=== PATIENT | female | born 1935 | race Caucasian/White ===

== ENCOUNTER 2017-07-06 21:46 | Inpatient (IN) ==
--- OUTSIDE RECORDS SUMMARY | 2017-07-06 21:58 | External Medical Summary | Summary of Care ---
:1935 Author Name Michelle Wiseman M.D. Address Unavailable Unavailable , Care Team Providers Name Role Phone Lauren Do M.D. Unavailable Unavailable Michelle Wiseman M.D. Unavailable Unavailable Bal Wiseman Unavailable Unavailable Unavailable Unavailable Unavailable Functional Status Functional Status Health Issues Name Dates Details Functional status health issues are not documented Status: Cognitive Status Health Issues Name Dates Details Cognitive status health issues are not documented Status: Problems Name Dates Details Anxiety (300.00, F41.9) Status: Active Cerebral artery occlusion (434.90, I66.9) Status: Active Coronary artery disease (414.00, I25.10) Status: Active Memory loss (780.93, R41.3) Status: Active Lymphedema of leg (457.1, I89.0) Status: Active TIA on medication (435.9, G45.9) Status: Active 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, 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 Obesity (278.00, E66.9) Status: Active Swelling of left lower extremity (729.81, M79.89) Status: Active Transient cerebral ischemia due to atrial fibrillation (435.9, G45.9) Status : Active Non smoker (V49.89, Z78.9) Status: Active Dyslipidemia (272.4, E78.5) Status: Active Cellulitis of lower leg (682.6, L03.119) Status: Active Gout (274.9, M10.9) Status: Active 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, 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 High risk medication use (V58.69, Z79.899) Status: Active 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 , 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, 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, 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: Active Flu vaccine need (V04.81, Z23) Status: Active Hypertension (401.9, I10) Status: Active Hypothyroidism (244.9, E03.9) Status: Active Type 1 diabetes mellitus (250.01, E10.9) Status: Active Gout of right wrist (274.9, M10.9) Status: Active Urinary tract infection, site unspecified (599.0, N39.0) Status: Active Peripheral neuropathy (356.9, G62.9) Status: Active Cellulitis of great toe of right foot (681.10, L03.031) Status: Active Medicare annual wellness visit, subsequent (V70.0, Z00.00) Status: Active Medications Name Dates Details Allopurinol 300 MG Oral Tablet take one tablet by mouth every day Quantity: 90 Refills: 2 Bal Wiseman M.D. Start 04-Aug-2008 Active Magnesium Oxide 400 MG Oral Tablet TAKE 1 TABLET DAILY. Refills: 0 Start 30-Jun-2007 Active Atenolol 50 MG Oral Tablet Take one tablet by mouth daily Quantity: 90 Refills: 3 Bal Wiseman M.D. Start 08-Feb-2016 Active Calcium 600/Vitamin D 600-200 MG-UNIT TABS TAKE 1 TABLET DAILY. Refills: 0 Bal Wiseman M.D. Start 30-Jun-2007 Active Phenytoin Sodium Extended 100 MG Oral Capsule TAKE 5 CAPSULES BY MOUTH EVERY NIGHT AT BEDTIME Quantity: 450 Refills: 2 Chaitanya Do M.D. Start 12-Apr-2008 Active OneTouch Ultra Blue In Vitro Strip TEST THREE TIMES A DAY Quantity: 300 Refills: 2 Bal Wiseman M.D. Start 15-Mar-2008 Active Multi-Day Vitamins TABS I po qd Refills: 0 Start 26-Feb-2008 Active Test Strips One Touch Ultra Blue Test Strips Tests TID Dx: E10.9 Quantity: 100 Refills: 11 Bal Wiseman M.D. Start 11-Sep-2009 Active Aspirin 81 MG TABS TAKE 1 TABLET DAILY. Quantity: 1 Refills: 0 Start 19-Feb-2010 Active BD Insulin Syr Ultrafine II 31G X 5/16" 1 ML Miscellaneous USE DIRECTED FOUR TIMES A DAY Quantity: 400 Refills: 2 Bal Wiseman M.D. Start 19-Jan-2016 Active Lantus 100 UNIT/ML Subcutaneous Solution INJECT 52 UNITS SUBCUTANEOUSLY EVERY NIGHT AT BEDTIME Quantity: 20 Refills: 10 Bal Wiseman M.D. Start 01-Jan-2016 Active Fish Oil 1000 MG Oral Capsule I po qid Refills: 0 Start 25-Dec-2010 Active Fenofibrate 160 MG Oral Tablet TAKE ONE TABLET BY MOUTH DAILY WITH FOOD Quantity: 90 Refills: 3 Bal Wiseman M.D. Start 14-Dec-2015 Active Tylenol 325 MG Oral Tablet prn Refills: 0 Start 25-Dec-2010 Active HydroCHLOROthiazide 50 MG Oral Tablet TAKE ONE TABLET BY MOUTH DAILY ( TAKE TWO TABLETS BY MOUTH DAILY IF LEG IS SWOLLEN) Quantity: 90 Refills: 2 Bal Wiseman M.D. Start 12-Jul-2011 Active Levothyroxine Sodium 100 MCG Oral Tablet Take one tablet by mouth daily Quantity: 1 Refills: 1 Bal Wiseman M.D. Start 14-Mar-2016 Active 90 Tablet Bottle Atorvastatin Calcium 40 MG Oral Tablet Take one tablet by mouth daily Quantity: 90 Refills: 3 Bal Wiseman M.D. Start 14-Dec-2015 Active ALPRAZolam 0.25 MG Oral Tablet TAKE ONE TABLET BY MOUTH THREE TIMES DAILY NEEDED. Quantity: 60 Refills: 0 Bal Wiseman M.D. Start 27-Jul-2012 Active Losartan Potassium 25 MG Oral Tablet Take one tablet by mouth daily Quantity: 90 Refills: 3 Bal Wiseman M.D. Start 14-Dec-2015 Active Clopidogrel Bisulfate 75 MG Oral Tablet Take one tablet by mouth daily Quantity: 90 Refills: 3 Bal Wiseman M.D. Start 14-Dec-2015 Active Klor-Con M20 20 MEQ Oral Tablet Extended Release Take one tablet by mouth daily Quantity: 90 Refills: 3 Bal Wiseman M.D. Start 14-Dec-2015 Active Glucose Meter [employer] Brand Glucose Meter with Test Strips and Lancets. Pt Tests 3x daily DX : E10.42, G99.0 Quantity: 1 Refills: 0 Bal Wiseman M.D. Start 13-Feb-2015 Active Test Strips Test strips for [employer] meter Pt Tests 3x daily DX: E10.42, G99.0 Quantity: 300 Refills: 3 Bal Wiseman M.D. Start 13-Feb-2015 Active Lancets Lancets for [employer] Glucose Meter Pt tests TID DX: E10.42, G99.0 Quantity: 300 Refills: 3 Ivone Valderrama, Bal R Start 13-Feb-2015 Active Glucose Meter One Touch Ultra Glucose Meter DX: E10.42, G99.0 Quantity: 1 Refills: 0 Ivone Valderrama, Bal R Start 13-Feb-2015 Active Lancets One Touch Ultra II Lancets Pt Tests TID DX: E10.42, G99.0 Quantity: 300 Refills: 3 Ivone Valderrama, Bal R Start 13-Feb-2015 Active HumuLIN R 100 UNIT/ML Injection Solution INJECT 20 UNITS SUBCUTANEOUSLY BEFORE BREAKFAST AND BEFORE LUNCH AND INJECT 22 UNITS BEFORE SUPPER Quantity: 3 Refills: 11 Ivone Valderrama, Bal R Start 10-Apr-2015 Active 10 ML Vial Colcrys 0.6 MG Oral Tablet 1 tab po TID x 3 days Quantity: 9 Refills: 0 Ivone Valderrama, Bal R Start 08-Apr-2016 Active Ciprofloxacin HCl - 500 MG Oral Tablet TAKE 1 TABLET EVERY 12 HOURS DAILY. 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 Replacement Procedures not documented Immunization Name Dates Details Influenza on: 07-Mar-2009 Lot #: [id number] Influenza A (H1N1) Monoval Vac SUSP on: 08-Jun-2009 Lot #: [id number] Tdap (Adacel) on: 16-Feb-2010 Lot #: [id number] Influenza on: 16-Feb-2010 Lot #: [id number] Influenza on: 22-Feb-2011 Lot #: [id number] Influenza on: 31-Jan-2012 Lot #: [id number] Pneumo (Pneumovax) on: 12-Apr-2013 Lot #: [id number] Influenza on: 12-Apr-2013 Lot #: [id number] Fluzone High-Dose SUSP on: 11-Mar-2014 Lot #: [id number] Influenza on: 05-Oct-2015 Fluzone High-Dose 0.5 ML Intramuscular Suspension Prefilled Syringe on: Lot #: [id number] Family History Mother Name Dates Details No pertinent family history Status: Active Father Name Dates Details No pertinent family history Status: Active Social History Name Dates Details - Status: Smoking Status Name Dates Details Never smoker Never smoker Vital Signs Date Test Result Details 08-Apr-2016 10:04 BP Systolic 140 mm[Hg] Status: Comments: Location: ; Position: BP Diastolic 62 mm[Hg] Status: Comments: Location: ; Position: Weight 232 lb Status: Body Mass Index Calculated 31.47 kg/m2 Status: Body Surface Area Calculated 2.27 m2 Status: Results Date Description Value Details 06-Apr-2016 08:36 CBC w/ Auto Diff 7150 Comments: Fastin hours WBC 5.5 K/uL Range: 4.5-11.0 RBC 3.63 mil/uL Range: 3.60-5.00 HGB 12.8 g/dL Range: 12.0-16.0 HCT 37.5 % Range: 36.0-48.0 MCV 103.1 fL (Above high threshold) Range: 80.0-99.0 MCH 35.1 pg (Above high threshold) Range: 27.3-32.5 MCHC 34.1 % Range: 32.0-36.0 RDW 15.4 % (Above high threshold) Range: 11.6-14.8 PLATELETS 186 K/uL Range: 150-400 MPV 7.2 fL Range: 6.0-11.0 %NEUTRO 62.1 % Range: 37.0-80.0 %LYMPHS 27.4 % Range: 13.0-50.0 %MONO 4.8 % Range: 0.0-12.0 %EOS 3.3 % Range: 0.0-7.0 %BASO 0.5 % Range: 0.0-2.5 %SYDNI 1.8 % Range: 0.0-5.0 NEUTRO 3.4 K/uL Range: 2.0-6.9 LYMPHS 1.5 K/uL Range: 0.6-3.4 MONOS 0.3 K/uL Range: 0.0-0.9 EOS 0.2 K/uL Range: 0.0-0.7 BASO 0.0 K/uL Range: 0.0-0.2 08:53 Comprehensive Metabolic Panel 1212 Comments: Fastin hours SODIUM 140 mmol/L Range: 133-144 POTASSIUM 4.2 mmol/L Range: 3.5-5.1 CHLORIDE 104 mmol/L Range: 98-110 CARBON DIOXIDE 26.8 mmol/L Range: 23.0-33.0 ANION GAP 9 mmol/L Range: 6-16 BUN 26 mg/dL (Above high Range: 7-18 threshold) CREATININE, SERUM 0.90 mg/dL Range: 0.55-1.02 BUN:CREATININE RATIO 29 EST GFR, >60 ml/min Range: >60 EST GFR, NON-AFR DOMINICAN >60 ml/min Range: >60 Comments: EST GFR is reported in ml/min per 1.73 m2 of body surface area. ----- GLUCOSE 176 mg/dL (Above high Range: 70-100 threshold) ALK PHOSPHATASE 57 U/L Range: 46-116 TOTAL BILIRUBIN 0.30 mg/dL Range: 0.20-1.00 AST 24 U/L Range: 8-35 ALT 28 U/L Range: 14-59 ALBUMIN 3.4 g/dL Range: 3.4-5.0 TOTAL PROTEIN 6.6 g/dL Range: 6.4-8.2 A/G RATIO 1.1 units Range: 1.0-1.8 CALCIUM 9.1 mg/dL Range: 8.5-10.1 08:53 LIPID PROFILE 1184 Comments: Fastin hours CHOLESTEROL 152 mg/dL Range: <200 TRIGLYCERIDES 251 mg/dL (Above high threshold) Range: 30-200 HDL Cholesterol 55 mg/dL Range: >39 NON HDL CHOLESTEROL 97 CARDIAC RSK FACTOR 2.8 units (Below low threshold) Range: 4.4-5.0 LDL - CALCULATED 47 mg/dL Range: 0-130 08:54 Urinalysis, Reflex to Microscopic or Culture PRN Comments: Fastin hours 8005 pH 5.0 Range: 5.0-7.5 SP GRAVITY 1.020 Range: 1.010-1.030 APPEARANCE CLOUDY (Abnormal) Range: Clear COLOR YELLOW Range: Straw-Yellow PROTEIN NEGATIVE mg/dL Range: Negative-Trace GLUCOSE NEGATIVE mg/dL Range: Negative KETONE NEGATIVE mg/dL Range: Negative BILIRUB NEGATIVE Range: Negative BLOOD TRACE (Abnormal) Range: Negative UROBIL 0.2 EU/dL Range: 0.2-1.0 NITRITE NEGATIVE Range: Negative LEUK LARGE (Abnormal) Range: Negative 08:54 Urine Microscopic UMIC Comments: Fastin hours WBC 21-50 /HPF (Abnormal) Range: 0-5 Comments: Specimen referred to Reference Lab for Culture----- RBC 6-10 /HPF (Abnormal) Range: 0-2 BACTERIA 2+ /HPF (Abnormal) Range: Negative-Trace EPITH 6-10 /HPF Range: 0-10 U TRANSEPI 0-2 /HPF Range: 0-2 08:58 Quant Microalbumin 1106 Comments: Fastin hours MICROALBUMIN, URINE 35.2 mg/L (Above high threshold) Range: <20.1 09:35 HEMOGLOBIN A1C 3507 Comments: Fastin hours Hemoglobin A1C 5.8 % ESTIMATED AVG. GLUCOSE 120 08-Apr-2016 08:21 URINE CULTURE [id number] Comments: Roadtrippers performed at: [facility], [address] [place] [address], [id number], [employer] Utility Person: Chaitanya Wood D.O., MPHQuest Collection Date/Time: [id number] Results Received Date/Time: [id number] Reported Date /Time: [id number] performed at: [facility], [address] [place] [address], [id number], Specialty Finishing Utility Person: Chaitanya Wood D.O., MPHQuest Collection Date/Time: [id number] Results Received Date/Time: [id number] Reported Date/Time: [id number] Fastin hours CULTURE, URINE, ROUTINE SEE NOTE Comments: CULTURE, URINE, ROUTINE MICRO NUMBER: [id number] TEST STATUS: FINAL SPECIMEN SOURCE: URINE SPECIMEN QUALITY: ADEQUATE RESULT: Multiple organisms present, each less than 10 ,000 CFU/mL. These organisms, commonly found on external and internal genitalia, are considered to be colonizers. No further testing performed.[KS]----- 09:30 THYROID STIM. HORMONE 3602 Comments: Fastin hours THYROID STIM. HORMONE 4.111 uIU/mL Range: 0.550-4.780 Comments: No established reference ranges for infants and children &lt ;2 years of age----- Plan of Care Name Dates Details Planned Observations Planned Goals not documented Planned Encounters Appointment; Provider: Bal Wiseman M.D. On 08-Apr-2017 10:00 Appointment; Provider: Kishore Bailey M.D. On 11-Feb-2017 09:00 Appointment; Provider: Chaitanya Do M.D. On 06-Sep-2016 09:15 Appointment; Provider: Sathish Sepulveda DPM On 11-Apr-2016 14:30 Interventions Provided Medication ChangesCiprofloxacin HCl - 500 MG Oral Tablet - StartColcrys 0.6 MG Oral Tablet - StartLabs/Procedures/ImagingDiabetic Foot - Pulse Exam; Done: Diabetic Foot - Sensory Exam; Done:Diabetic Foot - Visual Exam; Done:Diabetic Foot Exam; Done:InstructionsFollow a diabetic diet with 1500 calories.; Done: Instructions Name Dates Details Instructions not documented Encounters Appointment; Bal Wiseman M.D. On 28-Mar-2016 Encounter Diagnosis: Problem not documented 08:30 Appointment; Chaitanya Do M.D. On 08-Mar-2016 Encounter Diagnosis: Problem not documented 09:00 Appointment; Bal Wiseman M.D. On Encounter Diagnosis: Problem not documented 09:45 Appointment; Bal Wiseman M.D. On 05-Oct-2015 Encounter Diagnosis: Problem not documented 09:45 Appointment; Chaitanya Do M.D. On 06-Sep-2015 Encounter Diagnosis: Problem not documented 08:15 Appointment; Bal Wiseman M.D. On 30-Mar-2015 Encounter Diagnosis: Problem not documented 10:15 Appointment; Chaitanya Do M.D. On 03-Mar-2015 Encounter Diagnosis: Problem not documented 09:45 Appointment; Bal Wiseman M.D. On Encounter Diagnosis: Problem not documented 10:15 Appointment; Bal Wiseman M.D. On 16-Sep-2014 Encounter Diagnosis: Problem not documented 10:15 Appointment; Chaitanya Do M.D. On 02-Sep-2014 Encounter Diagnosis: Problem not documented 09:45 Appointment; Alfred Griffith D.O. On 06-Jul-2014 Encounter Diagnosis: Problem not documented 07:45
--- OUTSIDE RECORDS SUMMARY | 2017-07-06 21:58 | External Medical Summary | Summary of Care ---
:1935 Author Name Lauren Do M.D. Address [address], [place] [id number] Care Team Providers Name Role Phone Lauren Do M.D. Unavailable Unavailable Michelle Wiseman M.D. Unavailable Unavailable Bal Wiseman Primary Care Provider Unavailable Unavailable Unavailable Unavailable Functional Status Functional Status Health Issues Name Dates Details Functional status health issues are not documented Status: Cognitive Status Health Issues Name Dates Details Cognitive status health issues are not documented Status: Problems Name Dates Details Lower back pain (724.2, M54.5) Status: Active Dysuria (788.1, R30.0) Status: Active Anxiety (300.00, F41.9) Status: Active Urinary tract infection (599.0, N39.0) Status: Active Shortness of breath (786.05, R06.02) Status: Active Cerebral artery occlusion (434.90, I66.9) Status: Active Coronary artery disease (414.00, I25.10) Status: Active Gout (274.9, M10.9) Status: Active Bronchitis, acute (466.0, J20.9) Status: Active Memory loss (780.93, R41.3) Status: Active High risk medication use (V58.69, Z79.899) Status: Active Lymphedema of leg (457.1, I89.0) Status: Active Hypothyroidism (244.9, E03.9) Status: Active Hypertension (401.9, I10) Status: Active Dyslipidemia (272.4, E78.5) Status: Active TIA on medication (435.9, G45.9) Status: Active 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, 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 History of Aftercare following joint replacement (V54.81, Z47.1) Status: Resolved Obesity (278.00, E66.9) Status: Active 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 Started 04-Aug-2008 ActiveMagnesium Oxide 400 MG Oral Tablet TAKE 1 TABLET DAILY. Refills: 0 Started 30-Jun-2007 ActiveAtenolol 50 MG Oral Tablet take one tablet by mouth every day Quantity: 90 Refills: 3 Bal Wiseman M.D. Started 27-Apr-2009 ActiveCalcium 600/Vitamin D 600-200 MG-UNIT TABS TAKE 1 TABLET DAILY. Refills: 0 Bal Wiseman M.D. Started 30-Jun-2007 ActivePhenytoin Sodium Extended 100 MG Oral Capsule TAKE 5 CAPSULES BY MOUTH EVERY NIGHT AT BEDTIME Quantity: 450 Refills: 2 Chaitanya Do M.D. Started 12-Apr-2008 ActiveOneTouch Ultra Blue In Vitro Strip TEST THREE TIMES A DAY Quantity: 300 Refills: 2 Bal Wiseman M.D. Started 15-Mar-2008 ActiveMulti-Day Vitamins Oral Tablet I po qd Refills: 0 Started 26-Feb-2008 ActiveTest Strips One Touch Ultra Blue Test Strips Tests TID Dx: E10.9 Quantity: 100 Refills: 11 Bal Wiseman M.D. Started 11-Sep-2009 ActiveAspirin 81 MG TABS TAKE 1 TABLET DAILY. Quantity: 1 Refills: 0 Started 19-Feb-2010 ActiveBD Insulin Syr Ultrafine II 31G X 5/16" 1 ML Miscellaneous USE DIRECTED 4 x dly / DX 250.01 Quantity: 4 Refills: 3 Bal Wiseman M.D. Started 14-Jun-2010 [id number] Miscellaneous Box Lantus 100 UNIT/ML Subcutaneous Solution INJECT 52UNITS SUBCUTANEOUSLY EVERY NIGHT AT BEDTIME Quantity: 2 Refills: 11 Bal Wiseman M.D. Started [id number] ML Vial Fish Oil 1000 MG Oral Capsule I po qid Refills: 0 Started 25-Dec-2010 ActiveFenofibrate 160 MG Oral Tablet TAKE ONE TABLET BY MOUTH EVERY DAY WITH FOOD Quantity: 90 Refills: 3 Bal Wismean M.D. Started 25-Dec-2010 ActiveTylenol 325 MG Oral Tablet prn Refills: 0 Started 25-Dec-2010 ActiveHydrochlorothiazide 50 MG Oral Tablet Take one tablet by mouth daily (2 tablets daily if leg is swollen) Quantity: 90 Refills: 3 Bal Wiseman M.D. Started 12-Jul-2011 ActiveLevothyroxine Sodium 100 MCG Oral Tablet Take one tablet by mouth daily Quantity: 90 Refills: 3 Bal Wiseman M.D. Started 06-Jul-2012 ActiveAtorvastatin Calcium 40 MG Oral Tablet take one tablet by mouth every day Quantity: 90 Refills: 3 Bal Wiseman M.D. Started 16-Jul-2012 ActiveALPRAZolam 0.25 MG Oral Tablet TAKE ONE TABLET BY MOUTH THREE TIMES DAILY NEEDED. Quantity: 60 Refills: 0 Bal Wiseman M.D. Started 27-Jul-2012 ActiveLosartan Potassium 25 MG Oral Tablet take one tablet by mouth every day Quantity: 90 Refills: 3 Bal Wiseman M.D. Started 15-Jul-2013 ActiveClopidogrel Bisulfate 75 MG Oral Tablet TAKE ONE TABLET BY MOUTH ONCE A DAY Quantity: 90 Refills: 3 Bal Wiseman M.D. Started 09-Sep-2013 ActiveKlor-Con M20 20 MEQ Oral Tablet Extended Release TAKE 1 TABLET DAILY. Quantity: 90 Refills: 3 Bal Wiseman M.D. Started 11-Mar-2014 ActiveGlucose Meter [employer] Brand Glucose Meter with Test Strips and Lancets. Pt Tests 3x daily DX : E10.42, G99.0 Quantity: 1 Refills: 0 Bal Wiseman M.D. Started 13-Feb-2015 ActiveTest Strips Test strips for [employer] meter Pt Tests 3x daily DX: E10.42, G99.0 Quantity: 300 Refills: 3 Bal Wiseman M.D. Started 13-Feb-2015 ActiveLancets Lancets for [employer] Glucose Meter Pt tests TID DX: E10.42, G99.0 Quantity: 300 Refills: 3 Bal Wiseman M.D. Started 13-Feb-2015 ActiveGlucose Meter One Touch Ultra Glucose Meter DX: E10.42, G99.0 Quantity: 1 Refills: 0 Bal Wiseman M.D. Started 13-Feb-2015 ActiveLancets One Touch Ultra II Lancets Pt Tests TID DX: E10.42, G99.0 Quantity: 300 Refills: 3 Bal Wiseman M.D. Started 13-Feb-2015 ActiveHumuLIN R 100 UNIT/ML Injection Solution INJECT 20 UNITS SUBCUTANEOUSLY BEFORE BREAKFAST AND BEFORE LUNCH AND INJECT 22 UNITS BEFORE SUPPER Quantity: 3 Refills: 3 Bal Wiseman M.D. 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 Replacement Procedures not documented Immunization Name Dates Details Influenza Administered on:07-Mar-2009 Lot #: [id number] Influenza A (H1N1) Monoval Vac Intramuscular Suspension Administered on: Lot #: [id number] Tdap (Adacel) Administered on:16-Feb-2010 Lot #: [id number] Influenza Administered on:16-Feb-2010 Lot #: [id number] Influenza Administered on:22-Feb-2011 Lot #: [id number] Influenza Administered on:31-Jan-2012 Lot #: [id number] Pneumo (Pneumovax) Administered on:12-Apr-2013 Lot #: [id number] Influenza Administered on:12-Apr-2013 Lot #: [id number] Fluzone High-Dose Intramuscular Suspension Administered on:11-Mar-2014 Lot #: [id number] Family History Mother Name Dates Details No pertinent family history Status: Active Father Name Dates Details No pertinent family history Status: Active Social History Name Dates Details Smoking StatusNever smokerNever smoker Vital Signs Date Test Result Details 06-Sep-2015 08:34 BP Systolic 130 mm[Hg] Status: BP Diastolic 78 mm[Hg] Status: Heart Rate 69 /min Status: Weight 230.8 lb Status: O2 SAT 98 % Status: Body Mass Index Calculated 31.3 kg/m2 Status: Body Surface Area Calculated 2.26 m2 Status: Results Date Description Value Details Results not documented Plan of Care Planned Observations Name Dates Details Planned Goals not documented Goal Planned Encounters Appointment; Provider: Kishore Bailey On 11-Feb-2017 09:00 Appointment; Provider: Chaitanya Do On 08-Mar-2016 09:00 Appointment; Provider: Bal Wiseman On 05-Oct-2015 09:45 Appointment; Provider: Kishore Bailey On 10-Dec-2010 09:00 Appointment; Provider: Bal Wiseman On 08:00 Appointment; Provider: Brian Hayes On 03-Aug-2008 08:00 Appointment; Provider: Brian Hayes On 07:30 Instructions Instructions not documented Encounters Appointment; Chaitanya Do On 06-Sep-2015 Encounter Diagnosis: Problem not documented 08:15 Appointment; Bal Wiseman On 30-Mar-2015 Encounter Diagnosis: Problem not documented 10:15 Appointment; Chaitanya Do On 03-Mar-2015 Encounter Diagnosis: Problem not documented 09:45 Appointment; Bal Wiseman On Encounter Diagnosis: Problem not documented 10:15 Appointment; Bal Wiseman On 16-Sep-2014 Encounter Diagnosis: Problem not documented 10:15 Appointment; Chaitanya Do On 02-Sep-2014 Encounter Diagnosis: Problem not documented 09:45 Appointment; Alfred Griffith On 06-Jul-2014 Encounter Diagnosis: Problem not documented 07:45 Appointment; Bal Wiseman On 11-Mar-2014 Encounter Diagnosis: Problem not documented 09:45 Appointment; Chaitanya Do On 25-Feb-2014 Encounter Diagnosis: Problem not documented 09:45 Appointment; Bal Wiseman On Encounter Diagnosis: Problem not documented 10:15 Appointment; Bal Wiseman On 09-Sep-2013 Encounter Diagnosis: Problem not documented 09:45
--- OUTSIDE RECORDS SUMMARY | 2017-07-06 21:59 | External Medical Summary | Summary of Care ---
:1935 Author Name Michelle Wiseman M.D. 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 Cerebral artery occlusion (434.90, I63.9) Status: Active Abnormal glucose (790.29, R73.09) Status: Active Coronary artery disease (414.00, I25.10) Status: Active Gout (274.9, M10.9) Status: Active Acute bronchitis (466.0, J20.9) Status: Active Hypothyroidism (244.9, E03.9) Status: Active Dyslipidemia (272.4, E78.5) Status: Active Flu vaccine need (V04.81, Z23) Status: Active Diabetes mellitus (250.00, E11.9) Status: Active Hypertension (401.9, I10) Status: Active Bronchitis, acute (466.0, J20.9) Status: Active 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 Started 04-Aug-2008 ActiveMagnesium Oxide 400 MG Oral Tablet TAKE 1 TABLET DAILY. Refills: 0 Started 30-Jun-2007 ActiveAtenolol 50 MG Oral Tablet take one tablet by mouth every day Quantity: 90 Refills: 0 Bal Wiesman M.D. Started 27-Apr-2009 ActiveCalcium 600/Vitamin D 600-200 MG-UNIT TABS TAKE 1 TABLET DAILY. Refills: 0 Bal Wiseman M.D. Started 30-Jun-2007 ActivePhenytoin Sodium Extended 100 MG Oral Capsule TAKE 5 CAPSULE Bedtime Quantity: 450 Refills: 3 Chaitanya Do M.D. Started 12-Apr-2008 ActiveOneTouch Ultra Blue In Vitro Strip TEST THREE TIMES A DAY Quantity: 300 Refills: 2 Bal Wiseman M.D. Started 15-Mar-2008 ActiveMulti-Day Vitamins Oral Tablet I po qd Refills: 0 Started 26-Feb-2008 ActiveBD Insulin Syringe Ultrafine 29G X 1/2" 1 ML Miscellaneous USE DIRECTED Quantity: 400 Refills: 4 Bal Wiseman M.D. Started 13-Jun-2008 ActiveBD Insulin Syringe Ultrafine 31G X 5/16" 0.3 ML Miscellaneous USE DIRECTED Quantity: 400 Refills: 3 Bal Wiseman M.D. Started 22-Jun-2009 ActiveTest Strips One Touch Ultra Blue Test Strips Tests TID Dx: 250.01 Quantity: 100 Refills: 11 Bal Wiseman M.D. Started 11-Sep-2009 ActiveAspirin 81 MG Oral Tablet TAKE 1 TABLET DAILY. Quantity: 1 Refills: 0 Started 19-Feb-2010 ActiveBD Insulin Syr Ultrafine II 31G X 5/16" 1 ML Miscellaneous USE DIRECTED 4 x dly / DX 250 Quantity: 400 Refills: 1 Bal Wiseman M.D. Started 14-Jun-2010 ActiveLantus 100 UNIT/ML Subcutaneous Solution INJECT 52UNITS SUBCUTANEOUSLY EVERY NIGHT AT BEDTIME Quantity: 50 Refills: 10 Bal Wiseman M.D. Started ActiveNovoLIN R 100 UNIT/ML Injection Solution INJECT 20 UNITS SUBCUTANEOUSLY BEFORE BREAKFAST AND BEFORE LUNCH AND INJECT 22 UNITS BEFORE SUPPER Quantity: 50 Refills: 11 Bal Wiseman M.D. Started ActiveFish Oil 1000 MG Oral Capsule I po qid Refills: 0 Started 25-Dec-2010 ActiveFenofibrate 160 MG Oral Tablet TAKE ONE TABLET BY MOUTH EVERY DAY WITH FOOD Quantity: 90 Refills: 3 Bal Wiseman M.D. Started 25-Dec-2010 ActiveTylenol 325 MG Oral Tablet prn Refills: 0 Started 25-Dec-2010 ActiveHydrochlorothiazide 50 MG Oral Tablet take one tablet by mouth every day Quantity: 90 Refills: 0 Bal Wiseman M.D. Started 12-Jul-2011 ActiveLevothyroxine Sodium 100 MCG Oral Tablet Take one tablet by mouth daily Quantity: 90 Refills: 1 Bal Wiseman M.D. Started 06-Jul-2012 ActiveAtorvastatin Calcium [...] Quantity: 90 Refills: 2 Bal Wiseman M.D. Started 15-Jul-2013 ActiveClopidogrel Bisulfate 75 MG Oral Tablet TAKE ONE TABLET BY MOUTH ONCE A DAY Quantity: 90 Refills: 2 Bal Wiseman M.D. Started 09-Sep-2013 ActiveKlor-Con M20 20 MEQ Oral Tablet Extended Release TAKE 1 TABLET DAILY. Quantity: 90 Refills: 3 Bal Wiseman M.D. 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) Status: Active History of peripheral neuropathy (V12.49, Z86.69) Status: Resolved Procedures Procedure Dates Details History of Conversion Of Previous Surgery To Completed:10-Dec-2010 'Total Hip' Replacement PHENYTOIN DILANTIN 3004 Ordered:02-Sep-2014 Immunization Name Dates Details Influenza Administered on:07-Mar-2009 Lot #: [id number] Influenza A (H1N1) Monoval Vac Intramuscular Suspension Administered on: Lot #: [id number] Tdap (Adacel) Administered on:16-Feb-2010 Lot #: [id number] Influenza Administered on:16-Feb-2010 Lot #: [id number] Influenza Administered on:22-Feb-2011 Lot #: [id number] Influenza Administered on:31-Jan-2012 Lot #: [id number] Pneumo (Pneumovax) Administered on:12-Apr-2013 Lot #: [id number] Influenza Administered on:12-Apr-2013 Lot #: [id number] Fluzone High-Dose Intramuscular Suspension Administered on:11-Mar-2014 Lot #: [id number] Family History Mother Name Dates Details No pertinent family history Status: Active Father Name Dates Details No pertinent family history Status: Active Social History Name Dates Details Smoking StatusNever smokerNever smoker Vital Signs Date Test Result Details 02-Sep-2014 10:00 BP Systolic 130 mm[Hg] Status: BP Diastolic 82 mm[Hg] Status: Heart Rate 68 /min Status: Weight 234.4 lb Status: Body Mass Index Calculated 31.79 kg/m2 Status: Body Surface Area Calculated 2.28 m2 Status: Results Date Description Value Details Results not documented Plan of Care Planned Observations Name Dates Details Planned Goals not documented Goal Planned Encounters Appointment; Provider: Kishore Bailey On 11-Feb-2017 09:00 Appointment; Provider: Chaitanya Do On 03-Mar-2015 09:45 Appointment; Provider: Bal Wiseman On 16-Sep-2014 10:15 Appointment; Provider: Kishore Bailey On 10-Dec-2010 09:00 Appointment; Provider: Bal Wiseman On 08:00 Appointment; Provider: Brian Hayes On 03-Aug-2008 08:00 Appointment; Provider: Brian Hayes On 07:30 Instructions Instructions not documented Encounters Appointment; Chaitanya Do On 02-Sep-2014 Encounter Diagnosis: [...] 09-Sep-2013 Encounter Diagnosis: Problem not documented 09:45 Appointment; Bal Wiseman On 20-Aug-2013 Encounter Diagnosis: Problem not documented 10:30 Appointment; Ari Glez On 15-Jul-2013 Encounter Diagnosis: Problem not documented 11:00 Appointment; Bal Wiseman On 14-Apr-2013 Encounter Diagnosis: Problem not documented 08:45 Appointment; Bal Wiseman On 12-Apr-2013 Encounter Diagnosis: Problem not documented 10:00 Appointment; Chaitanya Do On 26-Feb-2013 Encounter Diagnosis: Problem not documented 09:45 Appointment; Ari Glez On 14-Jan-2013 Encounter Diagnosis: Problem not documented 11:00 Appointment; Bal Wiseman On 24-Dec-2012 Encounter Diagnosis: Problem not documented 09:00 Appointment; Tyson Parmar On Encounter Diagnosis: Problem not documented 10:30 Appointment; Bal Wiseman On Encounter Diagnosis: Problem not documented 10:30 Appointment; Bal Wiseman On Encounter Diagnosis: Problem not documented 08:15 Appointment; Bal Wiseman On 06-Oct-2012 Encounter Diagnosis: Problem not documented 10:00
--- OUTSIDE RECORDS SUMMARY | 2017-07-06 21:59 | External Medical Summary ---
:1935 Author Name GENERATED, SYSTEM Care Team Providers Name Role Phone MD JACKSON TIMOTHY Primary Care Provider [phone] Reason For Visit Reason for Visit from 05/23/2017 2:00 PM:Pt Stated Reason for Adm : ICH Fall Chief Complaint ICH Social History Social History from 06/05/2017 9:22 AM:Tobacco Use? : Never SmokerSocial History from 05/23/2017 2:00 PM:Tobacco Use? : Never Smoker Functional Status Functional Status from 06/05/2017 7:39 AM:LOC : AlertOriented To : Person,Place, TimeWeight Bearing Status : FullAssist Level : Partial# Assists : 1Functional Status from 06/04/2017 9:18 PM:LOC : AlertOriented To : Person,Place,Time, EventWeight Bearing Status : FullAssist Level : Dependent# Assists : 1Functional Status from 06/04/2017 6:00 PM:# Assists : 1Functional Status from 8:34 AM:LOC : AlertOriented To : Person,Place,TimeWeight Bearing Status : FullAssist Level : Dependent# Assists : 1Functional Status from 06/04/2017 5: 27 AM:# Assists : 1Functional Status from 06/04/2017 4:01 AM:# Assists : 1Functional Status from 06/04/2017 2:00 AM:# Assists : 1Functional Status from 12:05 AM:# Assists : 1Functional Status from 06/03/2017 10:00 PM:# Assists : 1Functional Status from 06/03/2017 8:01 PM:LOC : AlertOriented To : Person,Place,Time,EventWeight Bearing Status : FullAssist Level : Partial# Assists : 1Functional Status from 06/03/2017 4:00 PM:# Assists : 1Functional Status from 06/03/2017 12:00 PM:# Assists : 1Functional Status from 06/03/2017 8: 00 AM:LOC : AlertOriented To : Person,PlaceWeight Bearing Status : FullAssist Level : Partial# Assists : 1Functional Status from 06/03/2017 6:03 AM:# Assists : 1Functional Status from 06/02/2017 7:20 PM:LOC : AlertOriented To : Person, Place,Time,EventWeight Bearing Status : FullAssist Level : Partial# Assists : 1Functional Status from 06/02/2017 4:34 PM:# Assists : 1Functional Status from 12:00 PM:# Assists : 1Functional Status from 06/02/2017 10:22 AM:LOC : AlertOriented To : Person,Place,TimeWeight Bearing Status : FullAssist Level : Partial# Assists : 1Functional Status from 06/01/2017 8:20 PM:LOC : AlertOriented To : Person,PlaceWeight Bearing Status : FullAssist Level : Partial# Assists : 1Functional Status from 06/01/2017 4:09 PM:LOC : AlertOriented To : Person,Place,Time,EventWeight Bearing Status : FullAssist Level : Partial# Assists : 1Functional Status from 06/01/2017 2:00 PM:# Assists : 1Functional Status from 06/01/2017 10:00 AM:LOC : AlertOriented To : Person, Place,Time,EventWeight Bearing Status : FullAssist Level : Partial# Assists : 1 # Assists : 1Functional Status from 05/31/2017 7:47 PM:LOC : AlertOriented To : Person,Place,Time,EventWeight Bearing Status : FullAssist Level : Partial# Assists : 1Functional Status from 05/31/2017 11:07 AM:LOC : AlertOriented To : Person,Place,Time,EventWeight Bearing Status : FullAssist Level : Partial# Assists : 1Functional Status from 05/31/2017 6:50 AM:# Assists : 1Functional Status from 05/30/2017 10:00 PM:# Assists : 1Functional Status from 05/30/2017 8: 05 PM:LOC : AlertOriented To : Person,Place,Time,EventWeight Bearing Status : FullAssist Level : Partial# Assists : 1Functional Status from 05/30/2017 6:11 PM: # Assists : 1Functional Status from 05/30/2017 4:34 PM:# Assists : 1Functional Status from 05/30/2017 1:59 PM:# Assists : 1Functional Status from 05/30/2017 10: 13 AM:LOC : AlertOriented To : Person,Place,Time,EventWeight Bearing Status : FullAssist Level : Partial# Assists : 1Functional Status from 05/30/2017 9:59 AM: # Assists : 1Functional Status from 05/30/2017 8:43 AM:# Assists : 1Functional Status from 05/29/2017 7:55 PM:LOC : AlertOriented To : Person,Place,Time, EventWeight Bearing Status : FullAssist Level : Partial# Assists : 1Functional Status from 05/29/2017 3:49 PM:# Assists : 1Functional Status from 05/29/2017 12: 30 PM:# Assists : 1Functional Status from 05/29/2017 8:00 AM:LOC : DrowsyOriented To : Person,Place,Time,EventWeight Bearing Status : FullAssist Level : Dependent# Assists : 1Functional Status from 05/28/2017 8:09 PM:LOC : DrowsyOriented To : Person,PlaceWeight Bearing Status : FullAssist Level : Partial# Assists : 1Functional Status from 05/28/2017 12:00 PM:# Assists : 1Functional Status from 05/28/2017 8:00 AM:LOC : DrowsyOriented To : Person, PlaceWeight Bearing Status : FullAssist Level : Dependent# Assists : 1Functional Status from 05/27/2017 7:53 PM:LOC : ConfusedOriented To : Person, PlaceWeight Bearing Status : FullAssist Level : Partial# Assists : 1Functional Status from 05/27/2017 6:58 PM:# Assists : 1Functional Status from 05/27/2017 2: 05 PM:# Assists : 1Functional Status from 05/27/2017 11:59 AM:LOC : AlertOriented To : Person,PlaceWeight Bearing Status : FullAssist Level : Dependent# Assists : 1Functional Status from 05/27/2017 10:00 AM:# Assists : 1Functional Status from 05/27/2017 8:37 AM:Oriented To : Person,Place, EventFunctional Status from 05/26/2017 7:15 PM:LOC : AlertOriented To : Person, PlaceWeight Bearing Status : FullAssist Level : Partial# Assists : 1Functional Status from 05/26/2017 6:00 PM:# Assists : 1Functional Status from 05/26/2017 7: 42 AM:LOC : AlertOriented To : Person,Place,TimeWeight Bearing Status : FullAssist Level : Dependent# Assists : 1Functional Status from 05/26/2017 12:17 AM:# Assists : 1Functional Status from 05/25/2017 7:15 PM:LOC : AlertOriented To : Person,PlaceWeight Bearing Status : FullAssist Level : Partial# Assists : 1Functional Status from 05/25/2017 4:36 PM:# Assists : 1Functional Status from 8:00 AM:LOC : DrowsyOriented To : Person,PlaceWeight Bearing Status : FullAssist Level : Dependent# Assists : 1Functional Status from 05/24/2017 8:13 PM:LOC : ConfusedOriented To : Person,PlaceWeight Bearing Status : FullAssist Level : Partial# Assists : 1Functional Status from 05/24/2017 4:25 PM:# Assists : 1Functional Status from 05/24/2017 12:00 PM:# Assists : 1Functional Status from 05/24/2017 8:00 AM:LOC : AlertOriented To : Person,Place,TimeWeight Bearing Status : FullAssist Level : Dependent# Assists : 1Functional Status from 2017 7:42 PM:Weight Bearing Status : FullAssist Level : Partial# Assists : 1Functional Status from 05/23/2017 2:00 PM:LOC : AlertOriented To : Person,Place, TimeWeight Bearing Status : FullAssist Level : Dependent# Assists : 1 Vital Signs Hospital Vital Signs from 06/05/2017 7:50 AM:Height : 6/0 ft,inTemperature : 97.3 FPulse : 57Respirations : 18BP : 151/63Hospital Vital Signs from 06/04/2017 8:34 AM:Heart Rate : 68Hospital Vital Signs from 06/04/2017 7:30 AM:Height : 6/0 ft,inTemperature : 97 FPulse : 64Respirations : 18BP : 134/60Hospital Vital Signs from 06/03/2017 8:30 PM:Height : 6/0 ft,inTemperature : 96.9 FPulse : 58Respirations : 24BP : 136/69Hospital Vital Signs from 06/03/2017 7:30 AM: Height : 6/0 ft,inTemperature : 98.6 FPulse : 67Respirations : 18BP : 131/ 60Hospital Vital Signs from 06/03/2017 4:48 AM:Weight : 99.7/ kgHeight : 6/0 ft, inHospital Vital Signs from 06/02/2017 8:01 PM:Height : 6/0 ft,inTemperature : 98.1 FPulse : 59Respirations : 28BP : 137/69Hospital Vital Signs from 06/02/2017 8:00 AM:Height : 6/0 ft,inTemperature : 98.4 FPulse : 62Respirations : 18BP : 124/60Hospital Vital Signs from 06/02/2017 4:15 AM:Weight : 100.4/ kgHeight : 6/ 0 ft,inHospital Vital Signs from 06/01/2017 7:59 PM:Height : 6/0 ft, inTemperature : 98.6 FPulse : 62Respirations : 18BP : 158/68Hospital Vital Signs from 06/01/2017 8:00 AM:Height : 6/0 ft,inTemperature : 97.2 FPulse : 59Respirations : 18BP : 174/72Hospital Vital Signs from 06/01/2017 4:18 AM: Weight : 99.8/ kgHeight : 6/0 ft,inHospital Vital Signs from 05/31/2017 8:29 PM: Height : 6/0 ft,inTemperature : 99 FPulse : 68Respirations : 18BP : 146/ 67Hospital Vital Signs from 05/31/2017 8:58 AM:Height : 6/0 ft,inTemperature : 97.5 FPulse : 60Respirations : 18BP : 158/71Hospital Vital Signs from 05/31/2017 3:34 AM:Weight : 100.3/ kgHeight : 6/0 ft,inHospital Vital Signs from 05/30/2017 8:22 PM:Height : 6/0 ft,inTemperature : 99.7 FPulse : 62Respirations : 28BP : 146/63Hospital Vital Signs from 05/30/2017 8:14 AM:Height : 6/0 ft,inTemperature : 98.0 FPulse : 61Respirations : 20BP : 124/58Hospital Vital Signs from 2017 6:00 AM:Weight : 99.0/ kgHeight : 6/0 ft,inHospital Vital Signs from 2017 8:05 PM:Height : 6/0 ft,inTemperature : 99.6 FPulse : 63Respirations : 20BP : 151/70Hospital Vital Signs from 05/29/2017 8:19 AM:Height : 6/0 ft, inHospital Vital Signs from 05/29/2017 8:00 AM:Height : 6/0 ft,inTemperature : 99.1 FPulse : 60Respirations : 18BP : 132/60Hospital Vital Signs from 05/29/2017 12:18 AM:Weight : 100.2/ kgHeight : 6/0 ft,inHospital Vital Signs from 2017 8:02 PM:Height : 6/0 ft,inTemperature : 99.1 FPulse : 67Respirations : 18BP : 135/64Hospital Vital Signs from 05/28/2017 8:00 AM:Height : 6/0 ft, inTemperature : 99.9 FPulse : 62Respirations : 18BP : 142/65Hospital Vital Signs from 05/28/2017 3:37 AM:Weight : 100.8/ kgHeight : 6/0 ft,inHospital Vital Signs from 05/27/2017 8:29 PM:Height : 6/0 ft,inTemperature : 99.1 FPulse : 60Respirations : 18BP : 139/60Hospital Vital Signs from 05/27/2017 7:30 AM: Height : 6/0 ft,inTemperature : 97.7 FPulse : 71Respirations : 18BP : 191/ 81Hospital Vital Signs from 05/27/2017 3:52 AM:Weight : 101.2/ kgHeight : 6/0 ft, inHospital Vital Signs from 05/26/2017 8:21 PM:Height : 6/0 ft,inTemperature : 100.4 FPulse : 65Respirations : 18BP : 148/61Hospital Vital Signs from 2017 8:20 AM:Height : 6/0 ft,inHospital Vital Signs from 05/26/2017 7:25 AM: Height : 6/0 ft,inTemperature : 97.6 FPulse : 62Respirations : 18BP : 164/ 70Hospital Vital Signs from 05/26/2017 3:42 AM:Weight : 100.7/ kgHeight : 6/0 ft, inHospital Vital Signs from 05/25/2017 8:47 PM:Height : 6/0 ft,inTemperature : 98.3 FPulse : 61Respirations : 24BP : 161/70Hospital Vital Signs from 05/25/2017 10:24 AM:Height : 6/0 ft,inHeight : 6/0 ft,inTemperature : 99.3 FTemperature : 100.4 FHospital Vital Signs from 05/25/2017 7:30 AM:Height : 6/0 ft, inTemperature : 100.2 FPulse : 64Respirations : 18BP : 156/71Hospital Vital Signs from 05/25/2017 3:01 AM:Weight : 100.5/ kgHeight : 6/0 ft,inHospital Vital Signs from 05/24/2017 8:11 PM:Height : 6/0 ft,inTemperature : 100.5 FPulse : 64Respirations : 18BP : 144/92Hospital Vital Signs from 05/24/2017 7:30 AM: Height : 6/0 ft,inTemperature : 99.7 FPulse : 68Respirations : 18BP : 158/ 67Hospital Vital Signs from 05/24/2017 12:11 AM:Weight : 100.3/ kgHeight : 6/0 ft ,inHospital Vital Signs from 05/23/2017 6:54 PM:Height : 6/0 ft,inTemperature : 97.9 FPulse : 65Respirations : 20BP : 158/70Hospital Vital Signs from 05/23/2017 2:00 PM:Weight : 101.3/ kgHeight : 6/0 ft,inHospital Vital Signs from 05/23/2017 1:56 PM:Weight : 101.3/ kgHeight : 6/0 ft,inTemperature : 97.6 FPulse : 55Respirations : 24BP : 166/72 Results Chemistry from 06/03/2017 4:57 [id number] MMOL/L (136-145 MMOL/L) POTASSIUM4.2 MMOL/L (3.5-5.1 MMOL/L) NLUSLAFZ126 MMOL/L (98-107 MMOL/L) KYQ273.6 MMOL/L (21.0-32.0 MMOL/L) *ANION GAP3.4 MMOL/L L (8.0-16.0 MMOL/L) BUN31 MG/DL H (7-18 MG/DL) CREATININE0.96 MG/DL (0.55-1.02 MG/DL) *BUN/CREATININE RATIO32.3 H (9.1-17.0 ) LPUUQPO802 MG/DL H (65-99 MG/DL) *GFR EST NON AFR XVOFRLDU39 ML/MIN (Reference Range: not available) *GFR EST AFR AMER64 ML/MIN (Reference Range: not available) CALCIUM9.2 MG/DL (8.5-10.1 MG/DL) BILIRUBIN TOTAL0.40 MG/DL (0.20-1.00 MG/DL) TOTAL PROTEIN5.7 GM/DL L (6.4-8.2 GM/DL) ALBUMIN2.7 GM/DL L (3.4-5.0 GM/DL) *GLOBULIN3.0 GM/DL (2.3-3.5 GM/DL) *A/G RATIO0.9 L (1.5-2.2 ) ALK PHOS95 U/L (46-116 U/L) ALT (SGPT)57 U/L (16-63 U/L) AST (SGOT)41 U/L H (15-37 U/L)Chemistry from 05/27/2017 5:55 [id number] MMOL/L L (136-145 MMOL/L) POTASSIUM4.0 MMOL/L (3.5-5.1 MMOL/L) IATQWSPF248 MMOL/L (98-107 MMOL/L) NBU107.3 MMOL/L (21.0-32.0 MMOL/L) *ANION GAP5.7 MMOL/L L (8.0-16.0 MMOL/L) BUN24 MG/DL H (7-18 MG/DL) CREATININE0.98 MG/DL (0.55-1.02 MG/DL) *BUN/CREATININE RATIO24.5 H (9.1-17.0 ) WKFQBEM063 MG/DL H (65-99 MG/DL) *GFR EST NON AFR DVTERWLX33 ML/MIN (Reference Range: not available) *GFR EST AFR AMER63 ML/MIN (Reference Range: not available) CALCIUM8.9 MG/DL (8.5-10.1 MG/DL)Hematology from 06/03/2017 4:57 AMWBC4.6 X10e3/ UL (3.6-11.2 X10e3/UL) RBC3.45 X10e6/UL L (3.63-4.92 X10e6/UL) DMUSJJFXNA75.2 G/DL (11.0-14.3 G/DL) UFSWIPVIKM84.6 % (31.2-41.9 %) *RMH644.4 FL H (79.0-98.0 FL) *MCH35.4 PG H (27.0-33.0 PG) *MCHC35.2 G/DL (32.0-36.0 G/DL) *RDW13.6 % (12.3-17.0 %) *RDWSD48.1 H (37.1-47.8 ) SVMVRROD067 X10e3/UL (159-386 X10e3/UL) *MPV7.6 FL (7.4-10.4 FL) AUTOMATED DIFFPERFORMED (Reference Range: not available) SEGS53.7 % (Reference Range: not available) *PVUWGTVZUZG15.2 % (Reference Range: not available) *NEILPVDDQ02.4 % (Reference Range: not available) *EOSINOPHILS3.0 % (Reference Range: not available) *BASOPHILS0.7 % (Reference Range: not available) *ABSOLUTE NEUTROPHILS2.50 X10e3/UL (1.80-7.80 X10e3/UL) *ABSOLUTE LYMPHOCYTES1.50 X10e3/UL (1.00-3.00 X10e3/UL) *ABSOLUTE MONOCYTES0.50 X10e3/UL (0.30-1.00 X10e3/UL) *ABSOLUTE EOSINOPHILS0.10 X10e3/UL (0.00-0.50 X10e3/UL) *ABSOLUTE BASOPHILS0.00 X10e3/UL (0.00-0.20 X10e3/UL)Hematology from 05/27/2017 5 :56 AMWBC4.9 X10e3/UL (3.6-11.2 X10e3/UL) RBC3.25 X10e6/UL L (3.63-4.92 X10e6/UL) HUUCGKANEV19.5 G/DL (11.0-14.3 G/DL) GTGNNSEAIF69.1 % (31.2-41.9 %) *MCV98.7 FL H (79.0-98.0 FL) *MCH35.3 PG H (27.0-33.0 PG) *MCHC35.8 G/DL (32.0-36.0 G/DL) *RDW13.7 % (12.3-17.0 %) *RDWSD48.6 H (37.1-47.8 ) ABCGWLUR685 X10e3/UL L (159-386 X10e3/UL) *MPV7.7 FL (7.4-10.4 FL)Urinalysis from 05/28/2017 5:10 PM*URINE COLORYELLOW ( STRAW/YELL/DK YELL ) *URINE APPEARANCECLEAR (CLEAR ) URINE PH6.5 (5.0-8.0 ) URINE SPECIFIC GRAVITY1.020 (<=1.005->=1.030 ) *URINE GLUCOSENEGATIVE MG/DL (NEGATIVE MG/DL) *URINE BILIRUBINNEGATIVE (NEGATIVE ) *URINE KETONESNEGATIVE MG/DL (NEGATIVE MG/DL) *URINE BLOODNEGATIVE (NEGATIVE ) *URINE PROTEINNEGATIVE MG/DL (NEGATIVE MG/DL) *URINE UROBILINOGEN0.2 EU/DL (0.2-1.0 EU/DL) *URINE NITRITESNEGATIVE (NEGATIVE ) *URINE LEUKOCYTESNEGATIVE (NEGATIVE ) Problems Encounter Diagnosis Fall Risk Status:Active.Mobility Impairment Status:Active.Additional Problems Altered Mental Status Status:Active.Disturbance in Speech Status: Active.Dysarthria Comment:Problem resolved by [facility] [employer] upon Discharge, Status:Resolved. Encounters Encounter Diagnosis Fall Risk Status:Active.Mobility Impairment Status:Active. Plan of Care Follow-up Appointments from 06/05/2017 9:22 AM:#1 Office appointment: : Venus #1 Date/Time : 06/27/2017 3:30 PMAddress # 1 : [address] Rosalina jones#2 Office appointment: : Ranulfo#2 Date/Time : 06/12/2017 10:45 AMAddress # 2 : [facility]: [address] [place]- [place] [phone] Office appointment: : Eulogio#3 Date/Time : 06/27/2017 1:15 PMAddress # 3 : [address] [place] karenTreatment Plan from 06/04/2017 1:41 PM:Care Management Note : BODY,TD,TH,BUTTON,INPUT,SELECT,TEXTAREA{FONT-SIZE: 10pt; FONT- FAMILY: [place],Helvetica; COLOR: black;} P,DIV,UL,OL,BLOCKQUOTE{MARGIN-BOTTOM: 0px; MARGIN-TOP: 0px;} BODY{MARGIN: 5px;} BENJAMIN met with patient's son today to have him sign necessary choice paperwork and Medicare form prior to his mother' s discharge tomorrow 06/05/17. Choice letters singed for [facility] and [facility] for HH and DME. Terrell also signed the Medicare form. Copies provided.Treatment Plan from 06/03/2017 3:44 PM:Care Management Note : BODY,TD,TH,BUTTON,INPUT, SELECT,TEXTAREA{FONT-SIZE: 10pt; FONT-FAMILY: [place],Helvetica; COLOR: black;} P, DIV,UL,OL,BLOCKQUOTE{MARGIN-BOTTOM: 0px; MARGIN-TOP: 0px;} BODY{MARGIN: 5px;} Treatment Team--team met with patient, her spouse and patient's son. Plan will be for patient to return home at this time with Home Health through [facility], and family will invest in a personal fpc provider. Terrell- son, will be contacting [facility] about pursuing an assisted living apartment for both Michelle and Julio C.BENJAMIN made rounds later and Terrell had gone to work and Michelle declined to sign any of her paperwork dueto her inability to see what she is signing and wished for her DPOA -Terrell to sign the forms when he returns this evening or on Friday.Treatment Plan from 06/03/2017 10:00 AM:Care Management Note : BODY,TD,TH,BUTTON,INPUT,SELECT,TEXTAREA{FONT-SIZE: 10pt; FONT-FAMILY: [place],Helvetica; COLOR: black;} P,DIV,UL,OL,BLOCKQUOTE{MARGIN-BOTTOM: 0px; MARGIN-TOP: 0px;} BODY{MARGIN: 5px;} BENJAMIN called Christie frost's son (DPOA) to explain the team's concern about having someone with Michelle around the clock to provide support due to her current physical and cognitive limitations so when he is consulting with private agencies about personal care, it was suggested that he get quotes for around the clock support. BENJAMIN asked if the spouse was being considered as a medical care manager for Jesika and he reported yes. BENJAMIN reminded Terrell that his father also has health concerns and physical limitations and the Team does not feel that Julio C (spouse) should be considered as a medical care manager. The staff will beworking with Julio C today during his visit with patient to assess his skillset to even be considered as a medical care manager at this time. Terrell was in agreement. He shared that he feels his mother would best be suited for a skilled placement but he is getting lots of pushback from his Dad, Julio C and Dad is insisting that Michelle come home. BENJAMIN reminded Terrell that he is patient's DPOA and that there arealternative living arrangement that he can make for his mom and dad that have the necessary supportsfor them to be together that will decrease future events of slips and falls with his parents. Terrell notes that he will continue to explore options with his parents but at this time, he is insisting that patient return home with supports he plans to get into place.Treatment Plan from 06/03/2017 9:13 AM:Care Management Note : BODY ,TD,TH,BUTTON,INPUT,SELECT,TEXTAREA{FONT-SIZE: 10pt; FONT-FAMILY: [place], Helvetica; COLOR: black;} P,DIV,UL,OL,BLOCKQUOTE{MARGIN-BOTTOM: 0px; MARGIN-TOP : 0px;} BODY{MARGIN: 5px;} BENJAMIN touched base with Dr. Salmeron about the family's plan for patient to return home. Dr. Salmeron wants the family aware that 24 hour care will be needed upon discharge. This will be shared with family after treatement team. Scripts was written for a FWW and BENJAMIN faxed the script to [facility]. Orderswere written for Home Health and referral was called into [facility] of [facility].Treatment Plan from 06/03/2017 8:30 AM:Care Management Note : BODY,TD,TH, BUTTON,INPUT,SELECT,TEXTAREA{FONT-SIZE: 10pt; FONT-FAMILY: [place],Helvetica; COLOR: black;} P,DIV,UL,OL,BLOCKQUOTE{MARGIN-BOTTOM: 0px; MARGIN-TOP: 0px;} BODY {MARGIN: 5px;} BENJAMIN called pt's DPROBINSON, son Terrell. He shared that he spoke with his Mom and Dad. He reports the family wishes for patient to return home with home health services and the family plans to hire and private pay a personal lines sales rep to stay with patient. Terrell noted that he wants [facility] to provide HH as the family has had HH through this agency in the past. He asked that the script for patient's front wheeled walker be sent to [facility]. Terrell notes that he plans to be on the unit today around 1pm and would also like to picket [employer] his mom for discharge Friday after he gets off work--after 5pm.Treatment Plan from 06/02/2017 2:03 PM:Care Management Note : BODY,TD,TH,BUTTON,INPUT,SELECT, TEXTAREA{FONT-SIZE: 10pt; FONT-FAMILY: [place],Helvetica; COLOR: black;} P,DIV,UL, OL,BLOCKQUOTE{MARGIN-BOTTOM: 0px; MARGIN-TOP: 0px;} BODY{MARGIN: 5px;}BENJAMIN met with patient, her spouse Julio C, and the son (Pt's LEEANNE) Terrell. We disc used the concerns noted during the home assessment last Friday. BENJAMIN explained options of supports from Skilled placement, Home Health, personal attendants to provide round the clock supports in the home. BENJAMIN gave hand outs for the family to review, discuss, and explore. Family agreed to discuss options and will get back with SW later today or in the morning about requested options so SW can make appropriate referrals in a timely manner.Treatment Plan from 2017 9:44 AM:Care Management Note : BODY,TD,TH,BUTTON,INPUT,SELECT,TEXTAREA{FONT -SIZE: 10pt; FONT-FAMILY: [place],Helvetica; COLOR: black;} P,DIV,UL,OL,BLOCKQUOTE {MARGIN-BOTTOM: 0px; MARGIN-TOP: 0px;} BODY{MARGIN: 5px;} BENJAMIN spoke with OT Ashlee about recent home assessment. Staff is concerned about patient's lack of ability to engage in self care ie:inablity to get herself out of her chair, pt unable to get herself up off the toilet, and patient needing someone by her side at all times when she ambulated. There is also a concern with patient's limited memory of how to work her phone and preprogramed emergency contacts. BENJAMIN called and left a message for patient's hod-TSRE-Lnam to call SW to discuss upcoming discharge and plan options.Treatment Plan from 05/27/2017 3:26 PM:Care Management Note : BODY,TD,TH,BUTTON,INPUT,SELECT,TEXTAREA{FONT-SIZE: 10pt; FONT- FAMILY: [place],Helvetica; COLOR: black;} P,DIV,UL,OL,BLOCKQUOTE{MARGIN-BOTTOM: 0px; MARGIN-TOP: 0px;} BODY{MARGIN: 5px;} Treatment Team--Patient is scheduled for discharge on Friday06/04/17. Support services wouldlike to take patient to her home on 05/30 for a home assessment to work on specific skills of independence associated to her specific place of residence. Patient will be referred for services and BENJAMIN will work with patient to acquire DME as needed.Treatment Plan from 05/27/2017 11:10 AM:Care Management Note : BODY,TD,TH, BUTTON,INPUT,SELECT,TEXTAREA{FONT-SIZE: 10pt; FONT-FAMILY: [place],Helvetica; COLOR: black;} P,DIV,UL,OL,BLOCKQUOTE{MARGIN-BOTTOM: 0px; MARGIN-TOP: 0px;} BODY {MARGIN: 5px;} BENJAMIN met with patient o introduce herself and explain the role of the SW. She shared that he plans to return home but is not sure what possible DME will be needed but she is aware that she may require HH services and notes she has used [facility] in the pat and would like to use them again in the future. She has a son in [facility] that is a support and her spouse resides at home with her. SW contact information left in the room for patient to use as needed. Procedures Completed , on 12/14/2010 12:00 AMCompleted , on 12/14/2010 12:00 AMCompleted , on 12:00 AMCompleted , on 12/10/2010 12:00 AMCompleted , on 08/03/2008 12:00 AM Immunizations INFLUEN VACC 2017-18(GLAXO) (FLUARIX 2017-18 (GLAXO)); Not Administered 2017 1:47 PM; Other Hospital Course Hospital Discharge Instructions How to care for yourself at home from 06/05/2017 9:22 AM:Discharge Activity : May Shower,Do not engage in sports, heavy work or heavy lifting until your physician gives permission,No Tub BathDo not drive or operate machinery for: : no drivingDischarge Diet : As before hospitalizationDischarge Diet: : diabetic diet with ensure high protein with supperRemove dressing in: : no dressingsCall your doctor if: : Fever over 101 F or severe chills,Chest pain or other unexplained symptoms,Tingling or numbness develops,A sudden increase or decrease in weight,You have persistent or worsening symptoms,If you have Heart Failure and you gain 3 pounds within 1 week or your symptoms worsen. (Weigh at home tomorrow morning)Specific Discharge Teaching Instructions provided: : NoDischarge on Warfarin : No Allergies, Adverse Reactions, Alerts This section is account development representative of the current allergy information, at the time of the CCD generation. In the case of regeneration of the CCD, the allergy information may not reflect the state of known allergies at the time of the CCD' s subject visit. Dilaudid causes Unknown.Hydrocodone causes Unknown N/V.morphine causes Unknown N/V.Reopro causes Unknown Bleeding.ketorolac causes dizziness, "felt funny".No Latex Allergy.No IV Contrast Allergy.No Known Food Allergies. Medication It is the responsibility of the patient or patient account development representative to confirm the list of medicationswith either the patient's personal care provider or the patient's follow-up care provider to ensure the patient has an appropriate list of medications to take at home. Discharge medicationsNew medicationsmelatonin 3 mg Tablet, Ordered By: DONNA CONTRERAS Directions: 1 tablet oral daily at bedtime PRN insomnia Continued medicationsallopurinol 300 mg Tablet, Ordered By: DONNA GERARD Directions: 1 tablet oral daily aspirin (Simona Aspirin) 81 mg Tablet, Ordered By: DONNA CONTRERAS Directions: 1 tablet oral daily atenolol 50 mg Tablet, Ordered By: DONNA CONTRERAS Directions: 1 tablet oral daily clopidogrel 75 mg Tablet, Ordered By: DONNA CONTRERAS Directions: 1 tablet oral daily fenofibrate 160 mg Tablet, Ordered By: DONNA CONTRERAS Directions: 1 tablet oral daily at bedtime hydrochlorothiazide 50 mg Tablet, Ordered By: DONNA CONTRERAS Directions: 1 tablet oral daily magnesium oxide 400 mg Tablet, Ordered By: DONNA CONTRERAS Directions: 1 tablet oral daily with breakfast simvastatin 40 mg Tablet, Ordered By: DONNA CONTRERAS Directions: 1 tablet oral daily at bedtime potassium chloride 10 mEq Capsule, Extended Release, Ordered By: DONNA CARLSON Directions: 2 capsule oral daily with breakfast calcium carbonate-vitamin D3 (Caltrate 600 + D) 600 mg calcium (1,500 mg)-800 unit tablet,chewable, Ordered By: DONNA CONTRERAS Directions: 1200 po daily fish oil 1 tablet oral 3 times per day Changed medicationsinsulin glargine (LanTUS) 100 unit/mL Solution, Ordered By: DONNA CONTRERAS Directions: 54 unit subcutaneous daily at bedtime insulin regular human (NovoLIN R) 100 unit/mL Solution, Ordered By: DONNA CARLSON Directions: 18 unit subcutaneous breakfast insulin regular human 100 unit/mL Solution, Ordered By: DONNA GERARD Directions: 18 unit subcutaneous noon insulin regular human (NovoLIN R) 100 unit/mL Solution, Ordered By: DONNA CARLSON Directions: 18 unit subcutaneous supper losartan (Cozaar) 50 mg Tablet, Ordered By: DONNA CONTRERAS Directions: 1 tablet oral daily phenytoin sodium extended (Dilantin Extended) 100 mg Capsule, Ordered By: DONNA CONTRERAS Directions: 5 capsule oral daily at bedtime Stopped medicationslevothyroxine 100 mcg Tablet Directions: 1 tablet oral daily before breakfast
--- OUTSIDE RECORDS SUMMARY | 2017-07-06 21:59 | External Medical Summary | Summary of Care ---
:1935 Author Name Michelle Wiseman M.D. Address [address], [place] [id number] Care Team Providers Name Role Phone Lauren [...] Active Acute bronchitis (466.0, J20.9) Status: Active Flu vaccine need (V04.81, Z23) Status: Active Diabetes mellitus (250.00, E11.9) Status: Active Bronchitis, acute (466.0, J20.9) Status: Active Memory loss (780.93, R41.3) Status: Active Swelling of left lower extremity (729.81, M79.89) Status: Active High risk medication use (V58.69, Z79.899) Status: Active Lymphedema of leg (457.1, I89.0) Status: Active Type 1 diabetes mellitus (250.01, E10.9) Status: Active Hypothyroidism (244.9, E03.9) Status: Active Hypertension (401.9, I10) Status: Active Dyslipidemia (272.4, E78.5) Status: Active 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 , E10.42) Status: Active 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 Started 14-Jun-2010 [id number] Miscellaneous Box Lantus 100 UNIT/ML Subcutaneous Solution INJECT 52UNITS SUBCUTANEOUSLY EVERY NIGHT AT BEDTIME Quantity: 2 Refills: 11 Bal Wiseman M.D. Started [id number] ML Vial NovoLIN R 100 UNIT/ML Injection Solution INJECT 20 UNITS SUBCUTANEOUSLY BEFORE BREAKFAST AND BEFORE LUNCH AND INJECT 22 UNITS BEFORE SUPPER Quantity: 5 Refills: 11 Bal Wiseman M.D. Started [id number] ML Vial Fish Oil 1000 MG Oral [...] Refills: 3 Bal Wiseman M.D. Started 13-Feb-2015 Active Allergies and Adverse Reactions Name Dates [...] Dates Details Influenza Administered on:07-Mar-2009 Lot #: [id number] Influenza A (H1N1) Monoval Vac Intramuscular Suspension Administered on: Lot #: [id number] Tdap (Adacel) Administered on:16-Feb-2010 Lot #: [id number] Influenza Administered on:16-Feb-2010 Lot #: [id number] Influenza Administered on:22-Feb-2011 Lot #: [id number] Influenza Administered on:31-Jan-2012 Lot #: [id number] Pneumo (Pneumovax) Administered on:12-Apr-2013 Lot #: [id number] Influenza Administered on:12-Apr-2013 Lot #: [id number] Fluzone High-Dose Intramuscular Suspension Administered on:11-Mar-2014 Lot #: [id number] Family History Mother Name Dates Details No pertinent family history Status: Active Father Name Dates Details No pertinent family history Status: Active Social History Name Dates Details Smoking StatusNever smokerNever smoker Vital Signs Date Test Result Details 03-Mar-2015 09:51 BP Systolic 136 mm[Hg] Status: BP Diastolic 82 mm[Hg] Status: Heart Rate 62 /min Status: Weight 233.0 lb Status: Body Mass Index Calculated 31.6 kg/m2 Status: Body Surface Area Calculated 2.27 m2 Status: Results Date Description Value Details 29-Mar-2015 08:08 CBC w/ Auto Diff 7150 Comments: Fastin hours WBC 4.9 K/uL (Better) Range: 4.5-11.0 RBC 3.91 mil/uL (Better) Range: 3.60-5.00 HGB 13.3 g/dL (Better) Range: 12.0-16.0 HCT 39.1 % (Better) Range: 36.0-48.0 MCV 99.9 fL (Above high Range: 80.0-99.0 threshold) MCH 34.1 pg (Above high Range: 27.3-32.5 threshold) MCHC 34.1 % (Better) Range: 32.0-36.0 RDW 14.6 % (Better) Range: 11.6-14.8 PLATELETS 151 K/uL (Better) Range: 150-400 MPV 8.6 fL (Better) Range: 6.0-11.0 %NEUTRO 60.2 % (Better) Range: 37.0-80.0 %LYMPHS 29.3 % (Better) Range: 13.0-50.0 %MONO 5.4 % (Better) Range: 0.0-12.0 %EOS 2.7 % (Better) Range: 0.0-7.0 %BASO 0.8 % (Better) Range: 0.0-2.5 %SYDNI 1.6 % (Better) Range: 0.0-5.0 NEUTRO 2.9 K/uL (Better) Range: 2.0-6.9 LYMPHS 1.4 K/uL (Better) Range: 0.6-3.4 MONOS 0.3 K/uL (Better) Range: 0.0-0.9 EOS 0.1 K/uL (Better) Range: 0.0-0.7 BASO 0.0 K/uL (Better) Range: 0.0-0.2 Plan of Care Planned Observations Name Dates Details Planned Goals not documented Goal Planned Encounters Appointment; Provider: Kishore Bailey On 11-Feb-2017 09:00 Appointment; Provider: Chaitanya Do On 06-Sep-2015 08:15 Appointment; Provider: Bal Wiseman On 30-Mar-2015 10:15 Appointment; Provider: Kishore Bailey On 10-Dec-2010 09:00 Appointment; Provider: Bal Wiseman On 08:00 Appointment; Provider: Brian Hayes On 03-Aug-2008 08:00 Appointment; Provider: Brian Hayes On 07:30 Instructions Instructions not documented Encounters Appointment; Chaitanya Do On 03-Mar-2015 Encounter Diagnosis: Problem not documented 09:45 Appointment; Bal Wiseman On Encounter Diagnosis: Problem not documented 10:15 Appointment; Bal iWseman On 16-Sep-2014 Encounter Diagnosis: Problem not documented [...]
--- OUTSIDE RECORDS SUMMARY | 2017-07-06 21:59 | External Medical Summary ---
:1935 Author Name GENERATED, SYSTEM Care Team Providers Name Role Phone MD JACKSON TIMOTHY Primary Care Provider [phone] Reason For Visit Chief Complaint FALL Social History Functional Status Vital Signs Results DX Radiology from 01/01/2017 3:22 AMRIBS LEFT UNILATERALHistory: Fall with left rib pain. Technique: 3 view ribs Priors: None. Findings: Bones There are lucencies identified in the distal aspects of the 10th 11th and 12th ribs suspicious for nondisplaced fractures. No additional fractures are identified. No bony destructive lesion is seen. Lungs Clear. No pneumothorax is present. Impression: Lucencies in the lateral aspects of the 10th 11th and 12th ribs suspicious for nondisplaced fractures. Electronically signed by: Derek Woods MD Dictated: 01/01/2017 10:51 (Reference Range: not available) DX Radiology from 01/01/2017 1:00 AMHIP LEFT 2 VIEWS WITH PELVISHistory: fall/trauma . Left hip pain Technique: Single-view pelvis with two-view left hip Priors: 04/16/2011 Findings: There is no acute fracture. There is a left hip prosthesis which appears intact. 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 Impression: No evidence acute fracture or subluxation. Electronically signed by: Derek Woods MD Dictated: 01/01/2017 10:21 (Reference Range: not available) CT Scan from 01/01/2017 1:07 AMCT CEREBRAL W/O CONTRASTHistory: fall/trauma . Blunt trauma. Contusion. Left-sided facial pain and swelling. Priors: 12/22/14 Findings: Ventricles and Extra axial spaces: Normal in size and morphology for the patient's age. Hemorrhage: None. Cerebral parenchyma: There is a area of encephalomalacia involving the left parietal occipital region. Scattered decreased attenuation in the periventricular white matter, most consistent with chronic small-vessel ischemic changes. Mass effect/midline shift: None. Brainstem/Cerebellum: Normal. Calvarium: Normal. Visualized Paranasal sinuses/Mastoids: There is mild mucosal thickening the ethmoid air cells. There is mild partially visualized soft tissue edema involving the cheek on the left. Impression: No acute intracranial processes. Electronically signed by: Devonte Willoughby MD Dictated: 01/01/2017 09:01 (Reference Range: not available) CT SPINE CERVICAL W/O CONTRASTHistory: fall/trauma . Blunt trauma. Priors: 07/03/06 Findings: The cervical vertebral bodies are normal in height and alignment. No acute fractures demonstrated. There is multilevel posterior disc osteophyte formation. This along with scattered ligamentous calcifications results in varying degrees of central canal stenosis, greatest at the C4-5 level. The prevertebral soft tissues are unremarkable. The lung apices are clear. Impression: No acute osseous abnormality. Electronically signed by: Devonte Willoughby MD Dictated: 01/01/2017 09:04 (Reference Range: not available) Problems Encounter Diagnosis No relevant problems exist. Additional Problems Altered Mental Status Status:Active.Disturbance in Speech Status: Active.Dysarthria Comment:Problem resolved by [facility] [employer] upon Discharge, Status:Resolved. Encounters Encounter Diagnosis No relevant problems exist. Plan of Care Procedures Completed , on 12/14/2010 12:00 AMCompleted , on 12/14/2010 12:00 AMCompleted , on 12:00 AMCompleted , on 12/10/2010 12:00 AMCompleted , on 08/03/2008 12:00 AM Immunizations No immunizations administered or ordered. Hospital Course Hospital Discharge Instructions Allergies, Adverse Reactions, Alerts This section is energy conservation representative of the current allergy information, at the time of the CCD generation. In the case of regeneration of the CCD, the allergy information may not reflect the state of known allergies at the time of the CCD' s subject visit. Hydrocodone causes Unknown N/V.morphine causes Unknown N/V.Reopro causes Unknown Bleeding.ketorolac causes dizziness, "felt funny".Latex Allergy has not been assessed.IV Contrast Allergy has not been assessed.No Known Food Allergies. Medication Medication reconciliation has not been performed.
--- OUTSIDE RECORDS SUMMARY | 2017-07-06 21:59 | External Medical Summary | Summary of Care ---
:1935 Author Name Lauren Do M.D. 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 Start 01-Aug-2016 Active 90 Tablet Bottle Magnesium Oxide 400 MG Oral Tablet TAKE [...] EVERY NIGHT AT BEDTIME Quantity: 450 Refills: 3 Chaitanya Do M.D. Start 01-May-2016 Active OneTouch Ultra Blue In Vitro Strip [...] DAILY WITH FOOD Quantity: 90 Refills: 3 Ivone Valderrama, Bal Martinez Start 14-Dec-2015 Active Tylenol 325 MG Oral Tablet prn Refills: 0 Start 25-Dec-2010 Active HydroCHLOROthiazide 50 MG Oral Tablet TAKE ONE TABLET BY MOUTH DAILY ( TAKE TWO TABLETS BY MOUTH DAILY IF LEG IS SWOLLEN) Quantity: 1 Refills: 3 Ivone Valderrama, Bal Martinez Start 01-Aug-2016 Active 90 Tablet Bottle Levothyroxine Sodium 100 MCG Oral Tablet Take one tablet by mouth daily Quantity: 1 Refills: 1 Ivone Valderrama, Bal Martinez Start 14-Mar-2016 Active 90 Tablet Bottle Atorvastatin Calcium 40 MG Oral Tablet Take one tablet by mouth daily Quantity: 90 Refills: 3 Ivone Valderrama, Bal Martinez Start 14-Dec-2015 Active ALPRAZolam 0.25 MG Oral Tablet TAKE ONE TABLET BY MOUTH THREE TIMES DAILY NEEDED. Quantity: 60 Refills: 0 Ivone Valderrama Bal Martinez Start 27-Jul-2012 Active Losartan Potassium 25 MG Oral Tablet Take one tablet by mouth daily Quantity: 90 Refills: 3 Ivone Valderrama Bal Martinez Start 14-Dec-2015 Active Clopidogrel Bisulfate 75 MG Oral Tablet Take one tablet by mouth daily Quantity: 90 Refills: 3 Ivone Valderrama, Bal Martniez Start 14-Dec-2015 Active Klor-Con M10 10 MEQ Oral Tablet Extended Release TAKE 1 TABLET DAILY. Refills: 0 Ivone Valderrama Bal Martinez Start 11-Mar-2014 Active Glucose Meter [employer] Brand Glucose Meter with Test Strips and Lancets. Pt Tests 3x daily DX : E10.42, G99.0 Quantity: 1 Refills: 0 Ivone Valderrama Bal Martinez Start 13-Feb-2015 Active Test Strips Test strips for [employer] meter Pt Tests 3x daily DX: E10.42, G99.0 Quantity: 300 Refills: 3 Ivone Valderrama, Bal Michelle Start 13-Feb-2015 Active Lancets Lancets for [employer] Glucose Meter Pt tests TID DX: E10.42, G99.0 Quantity: 300 Refills: 3 Ivone Valderrama, Bal Michelle Start 13-Feb-2015 Active Glucose Meter One Touch Ultra Glucose Meter DX: E10.42, G99.0 Quantity: 1 Refills: 0 Ivone Valderrama, Bal Martinez Start 13-Feb-2015 Active Lancets One Touch Ultra II Lancets Pt Tests TID DX: E10.42, G99.0 Quantity: 300 Refills: 3 Ivone Valderrama, Bal Martinez Start 13-Feb-2015 Active HumuLIN R 100 UNIT/ML Injection Solution INJECT 20 UNITS SUBCUTANEOUSLY BEFORE BREAKFAST AND BEFORE LUNCH AND INJECT 22 UNITS BEFORE SUPPER Quantity: 3 Refills: 11 Ivone Valderrama, Bal Martinez Start 10-Apr-2015 Active 10 ML Vial Allergies and Adverse Reactions Name [...] Dates Details Influenza on: 07-Mar-2009 Lot #: [id number] Influenza A (H1N1) Monoval Vac SUSP on: 08-Jun-2009 Lot #: [id number] Tdap (Adacel) on: 16-Feb-2010 Lot #: [id number] Influenza on: 16-Feb-2010 Lot #: [id number] Influenza on: 22-Feb-2011 Lot #: [id number] Influenza on: 31-Jan-2012 Lot #: [id number] Pneumo (Pneumovax) on: 12-Apr-2013 Lot #: [id number] Influenza on: 12-Apr-2013 Lot #: [id number] Fluzone High-Dose SUSP on: 11-Mar-2014 Lot #: [id number] Influenza on: 05-Oct-2015 Fluzone High-Dose 0.5 ML Intramuscular Suspension Prefilled Syringe on: Lot #: [id number] Family History Mother Name Dates Details No pertinent family history Status: Active Father Name Dates Details No pertinent family history Status: Active Social History Name Dates Details - Status: Smoking Status Name Dates Details Never smoker Never smoker Vital Signs Date Test Result Details 06-Sep-2016 09:09 BP Systolic 126 mm[Hg] Status: Comments: Location: LUE; Position: Sitting BP Diastolic 74 mm[Hg] Status: Comments: Location: LUE; Position: Sitting Heart Rate 78 /min Status: Comments: Location: ; Height 71 in Status: Weight 228.4 lb Status: Physical Findings 94 Status: Comments: O2 Saturation Body Mass Index Calculated 31.86 kg/m2 Status: Body Surface Area Calculated 2.23 m2 Status: Results Date Description Value Details 06-Sep-2016 09:49 CBC w/ Auto Diff 7150 WBC 4.9 K/uL Range: 4.5-11.0 RBC 3.69 mil/uL Range: 3.60-5.00 HGB 13.4 g/dL Range: 12.0-16.0 HCT 38.4 % Range: 36.0-48.0 MCV 104.1 fL (Above high threshold) Range: 80.0-99.0 MCH 36.4 pg (Above high threshold) Range: 27.3-32.5 MCHC 34.9 % Range: 32.0-36.0 RDW 15.3 % (Above high threshold) Range: 11.6-14.8 PLATELETS 174 K/uL Range: 150-400 MPV 8.3 fL Range: 6.0-11.0 %NEUTRO 68.8 % Range: 37.0-80.0 %LYMPHS 22.1 % Range: 13.0-50.0 %MONO 5.1 % Range: 0.0-12.0 %EOS 2.3 % Range: 0.0-7.0 %BASO 0.6 % Range: 0.0-2.5 %SYDNI 1.1 % Range: 0.0-5.0 NEUTRO 3.4 K/uL Range: 2.0-6.9 LYMPHS 1.1 K/uL Range: 0.6-3.4 MONOS 0.3 K/uL Range: 0.0-0.9 EOS 0.1 K/uL Range: 0.0-0.7 BASO 0.0 K/uL Range: 0.0-0.2 10:07 INFLUENZA A/B ANTIGEN 5320 Comments: *Negative results do not exclude Influenza viral infection and could be confirmed with Influenza molecular assays. Physician order would be required.* *INFLUENZA A/B ANTIGEN Negative Range: Negative 10:20 Comprehensive Metabolic Panel 1212 SODIUM 140 mmol/L Range: 133-144 POTASSIUM 4.3 mmol/L Range: 3.5-5.1 CHLORIDE 106 mmol/L Range: 98-110 CARBON DIOXIDE 26.5 mmol/L Range: 23.0-33.0 ANION GAP 8 mmol/L Range: 6-16 BUN 26 mg/dL (Above high Range: 7-18 threshold) CREATININE, SERUM 0.91 mg/dL Range: 0.55-1.02 BUN:CREATININE RATIO 29 EST GFR, >60 ml/min Range: >60 EST GFR, NON-AFR GREEK 59 ml/min (Below low Range: >60 threshold) Comments: EST GFR is reported in ml/min per 1.73 m2 of body surface area. ----- GLUCOSE 253 mg/dL (Above high Range: 70-100 threshold) ALK PHOSPHATASE 71 U/L Range: 46-116 TOTAL BILIRUBIN 0.30 mg/dL Range: 0.20-1.00 AST 28 U/L Range: 8-35 ALT 32 U/L Range: 14-59 ALBUMIN 3.2 g/dL (Below low Range: 3.4-5.0 threshold) TOTAL PROTEIN 6.7 g/dL Range: 6.4-8.2 A/G RATIO 0.9 units (Below low Range: 1.0-1.8 threshold) CALCIUM 8.8 mg/dL Range: 8.5-10.1 10:20 PHENYTOIN DILANTIN 3004 PHENYTOIN (DILANTIN) 12.30 ug/mL Range: 10.00-20.00 Dose 09/05/16 20:00 Plan of Care Name Dates Details Planned Observations Planned Goals not documented Planned Encounters Appointment; Provider: Bal Wiseman M.D. On 08-Apr-2017 10:00 Appointment; Provider: Chaitanya Do M.D. On 07-Mar-2017 09:00 Appointment; Provider: Kishore Bailey M.D. On 11-Feb-2017 09:00 Appointment; Provider: Bal Wiseman M.D. On 08-Oct-2016 10:15 Interventions Provided Medication ChangesCiprofloxacin HCl - 500 MG Oral Tablet - CompletedColcrys 0.6 MG Oral Tablet - CompletedLabs/Procedures/ImagingCBC w/ Auto Diff 7150; Done: Sep 06 2016 9:41AMComprehensive Metabolic Panel 1212; Done: Sep 06 2016 9: 41AMINFLUENZA A/B ANTIGEN 5320; Done: Sep 06 2016 9:41AMPHENYTOIN DILANTIN 3004 ; Done: Sep 06 2016 9:41AM Instructions Name Dates Details Instructions not documented Encounters Appointment; Sathish Sepulveda DPM On 25-Apr-2016 Encounter Diagnosis: Problem not documented 10:30 Appointment; Sathish Sepulveda DPM On 11-Apr-2016 Encounter Diagnosis: Problem not documented 14:30 Appointment; Bal Wiseman M.D. On 08-Apr-2016 Encounter Diagnosis: Problem not documented 10:15 Appointment; Bal Wiseman M.D. On 28-Mar-2016 Encounter [...] Encounter Diagnosis: Problem not documented 09:45 Appointment; aBl Wiseman M.D. On Encounter Diagnosis: Problem not documented 10:15 Appointment; Bal Wiseman M.D. On 16-Sep-2014 Encounter Diagnosis: Problem not documented 10:15
--- OUTSIDE RECORDS SUMMARY | 2017-07-06 22:00 | External Medical Summary | Summary of Care ---
[...] Flu vaccine need (V04.81, Z23) Status: Active Type 1 diabetes mellitus (250.01, E10.9) Status: Active Hypertension (401.9, I10) Status: Active Hypothyroidism (244.9, E03.9) Status: Active Medications Name Dates Details Allopurinol [...] LEG IS SWOLLEN) Quantity: 90 Refills: 2 Ivone Valderrama, Bal Michelle Start 12-Jul-2011 Active Levothyroxine Sodium 100 MCG Oral Tablet Take one tablet by mouth daily Quantity: 1 Refills: 1 Ivone Valderrama, Bal Martinez Start 14-Mar-2016 Active 90 Tablet Bottle Atorvastatin Calcium 40 MG Oral Tablet Take one tablet by mouth daily Quantity: 90 Refills: 3 Bal Wiseman M.D. Michelle Start 14-Dec-2015 Active ALPRAZolam 0.25 MG Oral [...] Quantity: 90 Refills: 3 Bal Wiseman M.D. Michelle Start 14-Dec-2015 Active Glucose Meter [employer] Brand Glucose Meter with Test Strips and Lancets. Pt Tests 3x daily DX : E10.42, G99.0 Quantity: 1 Refills: 0 Bal Wiseman M.D. 13-Feb-2015 Active Test Strips Test strips for [employer] meter Pt Tests 3x daily DX: E10.42, G99.0 Quantity: 300 Refills: 3 Bal Wiseman M.D. Start 13-Feb-2015 Active Lancets Lancets for [employer] Glucose Meter Pt tests TID DX: E10.42, G99.0 Quantity: 300 Refills: 3 Ivone Valderrama, Bal Martinez Start 13-Feb-2015 Active Glucose Meter One Touch Ultra Glucose Meter DX: E10.42, G99.0 Quantity: 1 Refills: 0 Ivone Valderrama, Bal Kowalski 13-Feb-2015 Active Lancets One Touch Ultra II Lancets Pt Tests TID DX: E10.42, G99.0 Quantity: 300 Refills: 3 Bal Wiseman M.D. 13-Feb-2015 Active HumuLIN R 100 UNIT/ML Injection Solution INJECT 20 UNITS SUBCUTANEOUSLY BEFORE BREAKFAST AND BEFORE LUNCH AND INJECT 22 UNITS BEFORE SUPPER Quantity: 3 Refills: 11 Bal Wiseman M.D. 10-Apr-2015 Active 10 ML Vial Allergies and [...] Dates Details History of Conversion Of Previous Completed: 10-Dec-2010 Surgery To 'Total Hip' Replacement Comprehensive Metabolic Panel 1212 Ordered: 28-Mar-2016 HEMOGLOBIN A1C 3507 Ordered: 28-Mar-2016 LIPID PROFILE 1184 Ordered: 28-Mar-2016 THYROID STIM. HORMONE 3602 Ordered: 28-Mar-2016 Quant Microalbumin 1106 Ordered: 28-Mar-2016 CBC w/ Auto Diff 7150 Ordered: 28-Mar-2016 Urinalysis, Reflex to Microscopic or Ordered: 28-Mar-2016 Culture PRN 8005 Immunization Name Dates Details Influenza on: 07-Mar-2009 Lot #: [id number] Influenza A (H1N1) Monoval Vac SUSP on: 08-Jun-2009 Lot #: [id number] Tdap (Adacel) on: 16-Feb-2010 Lot #: [id number] Influenza on: 16-Feb-2010 Lot #: [id number] Influenza on: 22-Feb-2011 Lot #: [id number] Influenza on: 31-Jan-2012 Lot #: [id number] Pneumo (Pneumovax) on: 12-Apr-2013 Lot #: [id number] Influenza on: 12-Apr-2013 Lot #: [id number] Fluzone High-Dose SUSP on: 11-Mar-2014 Lot #: [id number] Influenza on: 05-Oct-2015 Fluzone High-Dose 0.5 ML Intramuscular Suspension Prefilled Syringe on: Lot #: [id number] Family History Mother Name Dates Details No pertinent family history Status: Active Father Name Dates Details No pertinent family history Status: Active Social History Name Dates Details - Status: Smoking Status Name Dates Details Never smoker Never smoker Vital Signs Date Test Result Details 08-Mar-2016 08:55 BP Systolic 134 mm[Hg] Status: Comments: Location: RUE; Position: Sitting BP Diastolic 78 mm[Hg] Status: Comments: Location: RUE; Position: Sitting Heart Rate 85 /min Status: Comments: Location: ; Weight 234.4 lb Status: Physical Findings 95 Status: Comments: O2 Saturation Body Mass Index Calculated 31.79 kg/m2 Status: Body Surface Area Calculated 2.28 m2 Status: Results Date Description Value Details 08-Mar-2016 09:32 CBC w/ Auto Diff 7150 WBC 4.3 K/uL (Below low threshold) Range: 4.5-11.0 RBC 3.61 mil/uL Range: 3.60-5.00 HGB 13.2 g/dL Range: 12.0-16.0 HCT 37.0 % Range: 36.0-48.0 MCV 102.4 fL (Above high threshold) Range: 80.0-99.0 MCH 36.6 pg (Above high threshold) Range: 27.3-32.5 MCHC 35.8 % Range: 32.0-36.0 RDW 14.8 % Range: 11.6-14.8 PLATELETS 153 K/uL Range: 150-400 MPV 7.7 fL Range: 6.0-11.0 %NEUTRO 66.5 % Range: 37.0-80.0 %LYMPHS 24.4 % Range: 13.0-50.0 %MONO 4.2 % Range: 0.0-12.0 %EOS 2.8 % Range: 0.0-7.0 %BASO 0.4 % Range: 0.0-2.5 %SYDNI 1.7 % Range: 0.0-5.0 NEUTRO 2.9 K/uL Range: 2.0-6.9 LYMPHS 1.1 K/uL Range: 0.6-3.4 MONOS 0.2 K/uL Range: 0.0-0.9 EOS 0.1 K/uL Range: 0.0-0.7 BASO 0.0 K/uL Range: 0.0-0.2 09:52 Comprehensive Metabolic Panel 1212 SODIUM 140 mmol/L Range: 133-144 POTASSIUM 4.3 mmol/L Range: 3.5-5.1 CHLORIDE 105 mmol/L Range: 98-110 CARBON DIOXIDE 26.7 mmol/L Range: 23.0-33.0 ANION GAP 8 mmol/L Range: 6-16 BUN 27 mg/dL (Above high Range: 7-18 threshold) CREATININE, SERUM 0.98 mg/dL Range: 0.55-1.02 BUN:CREATININE RATIO 28 EST GFR, >60 ml/min Range: >60 EST GFR, NON-AFR JAPANESE 55 ml/min (Below low Range: >60 threshold) Comments: EST GFR is reported in ml/min per 1.73 m2 of body surface area. ----- GLUCOSE 246 mg/dL (Above high Range: 70-100 threshold) ALK PHOSPHATASE 59 U/L Range: 46-116 TOTAL BILIRUBIN 0.40 mg/dL Range: 0.20-1.00 AST 23 U/L Range: 8-35 ALT 26 U/L Range: 14-59 ALBUMIN 3.3 g/dL (Below low Range: 3.4-5.0 threshold) TOTAL PROTEIN 6.6 g/dL Range: 6.4-8.2 A/G RATIO 1.0 units Range: 1.0-1.8 CALCIUM 8.7 mg/dL Range: 8.5-10.1 09:52 PHENYTOIN DILANTIN 3004 PHENYTOIN (DILANTIN) 13.00 ug/mL Range: 10.00-20.00 Dose 03/07/16 @ 9:30pm Plan of Care Name Dates Details Planned Observations Planned Goals not documented Planned Encounters Appointment; Provider: Kishore Bailey M.D. On 11-Feb-2017 09:00 Appointment; Provider: Chaitanya Do M.D. On 06-Sep-2016 09:15 Appointment; Provider: Bal Wiseman M.D. On 08-Apr-2016 10:15 Interventions Provided Labs/Procedures/ImagingDiabetic Foot - Pulse Exam; Done:Diabetic Foot - Sensory Exam; Done:Diabetic Foot - Visual Exam; Done:Diabetic Foot Exam; Done: Instructions Name Dates Details Instructions not [...]
--- OUTSIDE RECORDS SUMMARY | 2017-07-06 22:00 | External Medical Summary | Summary of Care ---
:1935 Author Name Michelle Wiseman M.D. Address [address], [place] [id number] Care Team Providers Name Role Phone Lauren [...] Active Pre-operative exam (V72.84, Z01.818) Status: Active Cerebral artery occlusion (434.90, I66.9) Status: Active Coronary artery disease (414.00, I25.10) Status: Active Gout (274.9, M10.9) Status: Active Acute bronchitis (466.0, J20.9) Status: Active Bronchitis, acute (466.0, J20.9) Status: Active Memory loss (780.93, R41.3) Status: Active Swelling of left lower extremity (729.81, M79.89) Status: Active High risk medication use (V58.69, Z79.899) Status: Active Lymphedema of leg (457.1, I89.0) Status: Active Hypothyroidism (244.9, E03.9) Status: Active Hypertension (401.9, I10) Status: Active Dyslipidemia (272.4, E78.5) Status: Active 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, 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 TIA on medication (435.9, G45.9) Status: Active 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 Started 14-Jun-2010 [id number] Miscellaneous Box Lantus 100 UNIT/ML Subcutaneous Solution INJECT 52UNITS SUBCUTANEOUSLY EVERY NIGHT AT BEDTIME Quantity: 2 Refills: 11 Bal Wiseman M.D. Started [id number] ML Vial NovoLIN R 100 UNIT/ML Injection Solution INJECT 20 UNITS SUBCUTANEOUSLY BEFORE BREAKFAST AND BEFORE LUNCH AND INJECT 22 UNITS BEFORE SUPPER Quantity: 5 Refills: 11 Bal Wiseman M.D. Started [id number] ML Vial Fish Oil 1000 MG Oral [...] E10.42, G99.0 Quantity: 1 Refills: 0 Bal Wsieman M.D. Started 13-Feb-2015 ActiveTest Strips Test strips [...] Previous Surgery To Completed:10-Dec-2010 'Total Hip' Replacement HEMOGLOBIN A1C 3507 Ordered:30-Mar-2015 Immunization Name Dates Details Influenza Administered on:07-Mar-2009 Lot #: [id number] Influenza A (H1N1) Monoval Vac Intramuscular Suspension Administered on: Lot #: [id number] Tdap (Adacel) Administered on:16-Feb-2010 Lot #: [id number] Influenza Administered on:16-Feb-2010 Lot #: [id number] Influenza Administered on:22-Feb-2011 Lot #: [id number] Influenza Administered on:31-Jan-2012 Lot #: [id number] Pneumo (Pneumovax) Administered on:12-Apr-2013 Lot #: [id number] Influenza Administered on:12-Apr-2013 Lot #: [id number] Fluzone High-Dose Intramuscular Suspension Administered on:11-Mar-2014 Lot #: [id number] Family History Mother Name Dates Details No pertinent family history Status: Active Father Name Dates Details No pertinent family history Status: Active Social History Name Dates Details Smoking StatusNever smokerNever smoker Vital Signs Date Test Result Details 30-Mar-2015 10:10 BP Systolic 118 mm[Hg] Status: BP Diastolic 62 mm[Hg] Status: Weight 229 lb Status: Body Mass Index Calculated 31.06 kg/m2 Status: Body Surface Area Calculated 2.26 m2 Status: 03-Mar-2015 09:51 BP Systolic 136 mm[Hg] Status: BP Diastolic 82 mm[Hg] Status: Heart Rate 62 /min Status: Weight 233.0 lb Status: Body Mass Index Calculated 31.6 kg/m2 Status: Body Surface Area Calculated 2.27 m2 Status: Results Date Description Value Details 29-Mar-2015 08:08 CBC w/ Auto Diff 7150 Comments: Fastin hours WBC 4.9 K/uL (Better) Range: 4.5-11.0 RBC 3.91 mil/uL Range: 3.60-5.00 (Better) HGB 13.3 g/dL (Better) Range: 12.0-16.0 HCT [...] 0.0-0.7 BASO 0.0 K/uL (Better) Range: 0.0-0.2 08:27 Comprehensive Metabolic Comments: Fastin hours Panel 1212 SODIUM 139 mmol/L (Better) Range: 133-144 POTASSIUM 4.0 mmol/L (Better) Range: 3.5-5.1 CHLORIDE 102 mmol/L (Better) Range: 98-110 CARBON DIOXIDE 24.6 mmol/L Range: 23.0-33.0 (Better) ANION GAP 12 mmol/L (Better) Range: 6-16 BUN 27 mg/dL (Above Range: 7-18 high threshold) CREATININE, SERUM 0.94 mg/dL (Better) Range: 0.55-1.02 Comments: Please note new reference ranges effective 2014.----- BUN:CREATININE RATIO 29 (Better) EST GFR, >60 ml/min Range: >60 (Better) EST GFR, NON-AFR LATVIAN 57 ml/min (Below Range: >60 low threshold) Comments: EST GFR is reported in ml/min per 1.73 m2 of body surface area. For -Algerian, please multiple result by 1.2.----- GLUCOSE 188 mg/dL (Above Range: 70-100 high threshold) ALK PHOSPHATASE 64 U/L (Better) Range: 46-116 TOTAL BILIRUBIN 0.30 mg/dL (Better) Range: 0.20-1.00 AST 19 U/L (Better) Range: 8-35 ALT 24 U/L (Better) Range: 14-59 Comments: Please note new reference ranges. Effective 07/21/2014.----- ALBUMIN 3.3 g/dL (Below low Range: 3.4-5.0 threshold) TOTAL PROTEIN 6.6 g/dL (Better) Range: 6.4-8.2 A/G RATIO 1.0 units (Better) Range: 1.0-1.8 CALCIUM 8.5 mg/dL (Better) Range: 8.5-10.1 08:27 LIPID PROFILE 1184 Comments: Fastin hours CHOLESTEROL 143 mg/dL (Better) Range: <200 TRIGLYCERIDES 273 mg/dL (Above Range: 30-200 high threshold) HDL Cholesterol 44 mg/dL (Better) Range: >39 NON HDL CHOLESTEROL 99 (Better) CARDIAC RSK FACTOR 3.3 units (Below Range: 4.4-5.0 low threshold) LDL - CALCULATED 44 mg/dL (Better) Range: 0-130 08:40 Urinalysis, Reflex to Comments: Fastin hours Microscopic or Culture PRN 8005 pH 5.0 (Better) Range: 5.0-7.5 SP GRAVITY 1.020 (Better) Range: 1.010-1.030 APPEARANCE CLEAR (Better) Range: Clear COLOR YELLOW (Better) Range: Straw-Yellow PROTEIN NEGATIVE mg/dL Range: Negative-Trace (Better) GLUCOSE NEGATIVE mg/dL Range: Negative (Better) KETONE NEGATIVE mg/dL Range: Negative (Better) BILIRUB NEGATIVE (Better) Range: Negative BLOOD TRACE (Abnormal) Range: Negative UROBIL 0.2 EU/dL (Better) Range: 0.2-1.0 NITRITE NEGATIVE (Better) Range: Negative LEUK SMALL (Abnormal) Range: Negative 08:40 Urine Microscopic UMIC Comments: Fastin hours WBC 0-2 /HPF (Better) Range: 0-5 RBC 0-2 /HPF (Better) Range: 0-2 EPITH 0-2 /HPF (Better) Range: 0-10 08:43 Quant Microalbumin 1106 Comments: Fastin hours MICROALBUMIN, URINE 35.5 mg/L (Above Range: <20.1 high threshold) 08:50 HEMOGLOBIN A1C 3507 Comments: Fastin hours Hemoglobin A1C 6.5 % (Better) ESTIMATED AVG. GLUCOSE 140 (Better) 09:10 THYROID STIM. HORMONE Comments: Fastin hours 3602 THYROID STIM. HORMONE 2.792 uIU/mL Range: 0.550-4.780 (Better) Comments: No established reference ranges for infants and children <2 years of age----- Plan of Care Planned Observations Name Dates Details Planned Goals not documented Goal Planned Encounters Appointment; Provider: Kishore Bailey On 11-Feb-2017 09:00 Appointment; Provider: Bal Wiseman On 05-Oct-2015 09:45 Appointment; Provider: Chaitanya Do On 06-Sep-2015 08:15 Appointment; Provider: Kishore Bailey On 10-Dec-2010 09:00 Appointment; Provider: Bal Wiseman On 08:00 Appointment; Provider: Brian Hayes On 03-Aug-2008 08:00 Appointment; Provider: Brian Hayes On 07:30 Instructions Instructions not documented Encounters Appointment; Bal Wiseman On 30-Mar-2015 Encounter Diagnosis: [...]
--- OUTSIDE RECORDS SUMMARY | 2017-07-06 22:00 | External Medical Summary | Summary of Care ---
:1935 Author Name Provider, Outside Address Unavailable Unavailable , Care Team Providers [...] Active Non smoker (V49.89, Z78.9) Status: Active Medications Name Dates Details Allopurinol [...] Refills: 3 Bal Wiseman M.D. Started 14-Jun-2010 [id number] Miscellaneous Box Lantus 100 UNIT/ML Subcutaneous Solution INJECT 52UNITS SUBCUTANEOUSLY EVERY NIGHT AT BEDTIME Quantity: 2 Refills: 11 Bal Wiseman M.D. Started [id number] ML Vial Fish Oil 1000 MG Oral [...] DX: E10.42, G99.0 Quantity: 300 Refills: 3 aBl Wiseman M.D. Started 13-Feb-2015 ActiveGlucose Meter One [...] Refills: 3 Bal Wiseman M.D. Started 10-Apr-2015 [id number] ML Vial Allergies and Adverse Reactions Name [...] Completed:10-Dec-2010 'Total Hip' Replacement PHENYTOIN DILANTIN 3004 Ordered:03-Oct-2015 Immunization Name Dates Details Influenza Administered on:07-Mar-2009 Lot #: [id number] Influenza A (H1N1) Monoval Vac Intramuscular Suspension Administered on: Lot #: [id number] Tdap (Adacel) Administered on:16-Feb-2010 Lot #: [id number] Influenza Administered on:16-Feb-2010 Lot #: [id number] Influenza Administered on:22-Feb-2011 Lot #: [id number] Influenza Administered on:31-Jan-2012 Lot #: [id number] Pneumo (Pneumovax) Administered on:12-Apr-2013 Lot #: [id number] Influenza Administered on:12-Apr-2013 Lot #: [id number] Fluzone High-Dose Intramuscular Suspension Administered on:11-Mar-2014 Lot #: [id number] Family History Mother Name Dates Details No [...]
--- OUTSIDE RECORDS SUMMARY | 2017-07-06 22:00 | External Medical Summary ---
:1935 Author Name GENERATED, SYSTEM Care Team Providers Name Role Phone MD JACKSON TIMOTHY Primary Care Provider [phone] Reason For Visit Chief Complaint FALL Social History Functional Status Vital Signs Results Chemistry from 05/19/2017 11:00 [id number] MMOL/L L (136-145 MMOL/L) POTASSIUM3.5 MMOL/L (3.5-5.1 MMOL/L) AWXCZXQU505 MMOL/L (98-107 MMOL/L) GAD638.2 MMOL/L (21.0-32.0 MMOL/L) *ANION GAP0.8 MMOL/L L (8.0-16.0 MMOL/L) BUN29 MG/DL H (7-18 MG/DL) CREATININE0.92 MG/DL (0.55-1.02 MG/DL) *BUN/CREATININE RATIO31.5 H (9.1-17.0 ) FKHSHWK487 MG/DL H (65-99 MG/DL) *GFR EST NON AFR JIXDNOAM16 ML/MIN (Reference Range: not available) *GFR EST AFR AMER68 ML/MIN (Reference Range: not available) CALCIUM8.7 MG/DL (8.5-10.1 MG/DL) BILIRUBIN TOTAL0.30 MG/DL (0.20-1.00 MG/DL) TOTAL PROTEIN5.7 GM/DL L (6.4-8.2 GM/DL) ALBUMIN2.9 GM/DL L (3.4-5.0 GM/DL) *GLOBULIN2.8 GM/DL (2.3-3.5 GM/DL) *A/G RATIO1.0 L (1.5-2.2 ) ALK PHOS55 U/L (46-116 U/L) ALT (SGPT)27 U/L (16-63 U/L) AST (SGOT)29 U/L (15-37 U/L) TROPONIN-I<0.017 NG/ML (0.000-0.056 NG/ML) PHENYTOIN (DILANTIN)12.2 MCG/ML (10.0-20.0 MCG/ML)Hematology from 05/19/2017 11: 00 PMWBC4.0 X10e3/UL (3.6-11.2 X10e3/UL) RBC3.24 X10e6/UL L (3.63-4.92 X10e6/UL) KCRTBIQBOW62.5 G/DL (11.0-14.3 G/DL) UIMYDXJRIK60.6 % (31.2-41.9 %) *SJW009.6 FL H (79.0-98.0 FL) *MCH35.6 PG H (27.0-33.0 PG) *MCHC35.4 G/DL (32.0-36.0 G/DL) *RDW13.3 % (12.3-17.0 %) *RDWSD47.3 (37.1-47.8 ) RSQPSCBZ090 X10e3/UL L (159-386 X10e3/UL) *MPV7.4 FL (7.4-10.4 FL) AUTOMATED DIFFPERFORMED (Reference Range: not available) SEGS69.3 % (Reference Range: not available) *LGXDIHVFNCR88.3 % (Reference Range: not available) *MONOCYTES7.4 % (Reference Range: not available) *EOSINOPHILS2.3 % (Reference Range: not available) *BASOPHILS0.7 % (Reference Range: not available) *ABSOLUTE NEUTROPHILS2.80 X10e3/UL (1.80-7.80 X10e3/UL) *ABSOLUTE LYMPHOCYTES0.80 X10e3/UL L (1.00-3.00 X10e3/UL) *ABSOLUTE MONOCYTES0.30 X10e3/UL (0.30-1.00 X10e3/UL) *ABSOLUTE EOSINOPHILS0.10 X10e3/UL (0.00-0.50 X10e3/UL) *ABSOLUTE BASOPHILS0.00 X10e3/UL (0.00-0.20 X10e3/UL)Coagulation from 05/19/2017 11:00 PM*PROTHROMBIN TIME11.9 SECONDS H (9.4-11.5 SECONDS) *INR1.12 H (0.90-1.10 ) PARTIAL THROMBOPLASTIN TIME22.7 SECONDS L (23.0-31.0 SECONDS)DX Radiology from 11:46 PMCHEST 1 VIEWHistory: injury pain82 y/o F presents to ED following fall just [employer]. Pt was in the restroom and fell through the doorway when she was leaving the bathroom. She c/o left hip pain to EMS and she did hit her head in the fall. Pt and spouse denies LOC Priors: Chest x-ray dated 12/22/2014 Findings: The heart size and pulmonary vasculature are within normal limits. There is mild diffuse interstitial prominence, slightly more prominent than on study 07/22/2014, suspicious for underlying pulmonary fibrosis. No consolidating infiltrate, significant pleural effusion or pneumothorax is seen. Impression: Mild diffuse interstitial prominence, slightly progressed since 12/22/2014, suspicious for mild pulmonary fibrosis. Electronically signed by: Anu Alexander MD Dictated: 05/20/2017 09:11 (Reference Range: not available) HIP LEFT 2 VIEWS WITH PELVISHistory: pain . Technique: Single AP view the pelvis and two views of the left hip were obtained. Priors: Left hip dated 01/01/2017 Findings: There are intact postsurgical changes of left hip arthroplasty again noted. There is no evidence of acute fracture or dislocation. Impression: Intact postsurgical changes of left hip arthroplasty. Electronically signed by: Anu Alexander MD Dictated: 05/20/2017 09:07 (Reference Range: not available) CT Scan from 05/19/2017 11:36 PMCT CEREBRAL W/O CONTRASTHistory: injury pain . Patient fell at 21:00, does not remember fall. Pt c/o left hip pain, EMS reports hematoma forming on patient's head. Pt was given 100mcg fentanyl IVP via EMS. Technique: All CT scans at are performed using dose optimization techniques as appropriate to a performed exam including the following: Automated exposure control Adjustment of the mA and/or kV according to patient size Use of iterative reconstruction technique Priors: CT of the head dated 01/01/2017 Findings: Ventricles and Extra axial spaces: There is unchanged ex vacuo dilatation of the posterior horn of the left lateral ventricle owing to underlying left occipital encephalomalacia. There is moderate intraventricular hemorrhage within the left lateral ventricle. There is no evidence of hydrocephalus Hemorrhage: There is moderate acute intraventricular hemorrhage and mild acute subdural hematoma along the tentorium cerebellum Cerebral parenchyma: There is decreased attenuation within the periventricular white matter suggestive of chronic microvascular ischemic changes. A chronic left occipital lobe infarct is again noted Mass effect/midline shift: None. Brainstem/Cerebellum: Normal. Calvarium: Normal. Visualized Paranasal sinuses/Mastoids: Clear. Impression: Development of a small acute subdural hematoma along the tentorium cerebellum and acute intraventricular hemorrhage within the left lateral ventricle. These findings concur with the preliminary report provided by [facility] to the emergency room provider on 05/19/2017 at 11:58 p.m. Chronic left occipital lobe infarct Electronically signed by: Anu Alexander MD Dictated: 05/20/2017 09:00 (Reference Range: not available) CT SPINE CERVICAL W/O CONTRASTHistory: injury pain . Patient fell at 21:00, does not remember fall. Pt c/o left hip pain, EMS reports hematoma forming on patient's head. Pt was given 100mcg fentanyl IVP via EMS. Technique: All CT scans at are performed using dose optimization techniques as appropriate to a performed exam including the following: Automated exposure control Adjustment of the mA and/or kV according to patient size Use of iterative reconstruction technique Priors: CT of the cervical spine dated 01/01/2017 Findings: There is straightening of the normal cervical lordosis. Alignment is otherwise maintained. There is no acute fracture. There are diffuse degenerative changes again noted with multilevel disc bulge/posterior osteophyte complex and scattered calcifications along the ligamentum flavum. These findings result in njle-vy-myswjqwn central spinal stenosis at C4-5 and mild central spinal stenosis at C5-6. There is also multilevel foraminal stenosis. The soft tissues are unremarkable. The lung apices are unremarkable. Impression: No evidence of acute fracture or subluxation. Unchanged [id number] diffuse cervical degenerative disc and facet disease Electronically signed by: Anu Alexander MD Dictated: 05/20/2017 09:04 (Reference Range: not available) Problems Encounter [...] Allergies, Adverse Reactions, Alerts This section is medical representative of the current allergy information, at [...]
--- OUTSIDE RECORDS SUMMARY | 2017-07-06 22:00 | External Medical Summary | Summary of Care ---
[...] risk medication use (V58.69, Z79.899) Status: Active Non smoker (V49.89, Z78.9) Status: Active [...] 10 Bal Wiseman M.D. Start 01-Jan-2016 Active ALPRAZolam 0.25 MG Oral Tablet TAKE [...] Bal Wiseman M.D. Start 14-Dec-2015 Active Klor-Con M10 10 MEQ Oral Tablet Extended Release TAKE 1 TABLET DAILY. Refills: 0 Bal Wiseman M.D. Start 11-Mar-2014 Active Glucose Meter [employer] Brand Glucose Meter with Test Strips and Lancets. Pt Tests 3x daily DX : E10.42, G99.0 Quantity: 1 Refills: 0 Bal Wiseman M.D. 13-Feb-2015 Active Test Strips Test strips for [employer] meter Pt Tests 3x daily DX: E10.42, G99.0 Quantity: 300 Refills: 3 Bal Wiseman M.D. 13-Feb-2015 Active Lancets Lancets for [employer] Glucose Meter Pt tests TID DX: E10.42, G99.0 Quantity: 300 Refills: 3 Bal Wiseman M.D. 13-Feb-2015 Active Glucose Meter One Touch Ultra Glucose Meter DX: E10.42, G99.0 Quantity: 1 Refills: 0 Bal Wiseman M.D. 13-Feb-2015 Active Lancets One Touch Ultra II Lancets Pt Tests TID DX: E10.42, G99.0 Quantity: 300 Refills: 3 Bal Wiseman M.D. 13-Feb-2015 Active HumuLIN R 100 UNIT/ML Injection Solution INJECT 20 UNITS SUBCUTANEOUSLY BEFORE BREAKFAST AND BEFORE LUNCH AND INJECT 22 UNITS BEFORE SUPPER Quantity: 3 Refills: 11 Bal Wiseman M.D. Start 10-Apr-2015 Active 10 ML Vial Atorvastatin Calcium 40 MG Oral Tablet Take one tablet by mouth daily Quantity: 90 Refills: 3 Bal Wiseman M.D. Start 14-Dec-2015 Active Levothyroxine Sodium 100 MCG Oral Tablet Take one tablet by mouth daily Quantity: 1 Refills: 1 Bal Wiseman M.D. Start 14-Mar-2016 Active 90 Tablet Bottle HydroCHLOROthiazide 50 MG Oral Tablet TAKE ONE TABLET BY MOUTH DAILY ( TAKE TWO TABLETS BY MOUTH DAILY IF LEG IS SWOLLEN) Quantity: 1 Refills: 3 Ivone ValderramaBal Start 01-Aug-2016 Active 90 Tablet Bottle Tylenol 325 MG Oral Tablet prn Refills: 0 Start 25-Dec-2010 Active Fenofibrate 160 MG Oral Tablet TAKE ONE TABLET BY MOUTH DAILY WITH FOOD Quantity: 90 Refills: 3 Ivone ValderramaBal Start 14-Dec-2015 Active Fish Oil 1000 MG Oral Capsule I po qid Refills: 0 Start 25-Dec-2010 Active Allergies and Adverse Reactions Name Dates Details Dilaudid TABS (Allergy) Status: Active HYDROcodone Bitartrate PAUL (Allergy) Status: Active Morphine Derivatives (Allergy) Status: Active ReoPro SOLN (Allergy) Status: Active Sulfa Drugs (Allergy) Status: Active Past Medical History Name Dates Details Upper respiratory infection (465.9, J06.9) Status: Auto Complete History of Abnormal glucose (790.29, R73.09) Status: Resolved History of Flu vaccine need (V04.81, Z23) Status: Resolved Procedures Procedure Dates Details 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 Replacement Procedures not documented Immunization Name Dates Details Influenza on: 07-Mar-2009 Lot #: [id number] Influenza A (H1N1) Monoval Vac SUSP on: 08-Jun-2009 Lot #: [id number] Influenza on: 16-Feb-2010 Lot #: [id number] Tdap (Adacel) on: 16-Feb-2010 Lot #: [id number] Influenza on: 22-Feb-2011 Lot #: [id number] Influenza on: 31-Jan-2012 Lot #: [id number] Influenza on: 12-Apr-2013 Lot #: [id number] Pneumo (Pneumovax) on: 12-Apr-2013 Lot #: [id number] Fluzone High-Dose SUSP on: 11-Mar-2014 Lot #: [id number] Influenza on: 05-Oct-2015 Fluzone High-Dose 0.5 ML Intramuscular Suspension Prefilled Syringe on: Lot #: [id number] Family History Mother Name Dates Details No pertinent family history Status: Active Father Name Dates Details No pertinent family history Status: Active Social History Name Dates Details - Status: Smoking Status Name Dates Details Never smoker Never smoker Vital Signs Date Test Result Details No Known Vitals to report Results Date Description Value Details 09-Oct-2016 08:45 Comprehensive Metabolic Panel 1212 Comments: Fastin hours SODIUM 144 mmol/L Range: 133-144 POTASSIUM 4.2 mmol/L Range: 3.5-5.1 CHLORIDE 108 mmol/L Range: 98-110 CARBON DIOXIDE 26.0 mmol/L Range: 23.0-33.0 ANION GAP 10 mmol/L Range: 6-16 BUN 24 mg/dL (Above high Range: 7-18 threshold) CREATININE, SERUM 1.00 mg/dL Range: 0.55-1.02 BUN:CREATININE RATIO 24 EST GFR, >60 ml/min Range: >60 EST GFR, NON-AFR URUGUAYAN 53 ml/min (Below low Range: >60 threshold) Comments: EST GFR is reported in ml/min per 1.73 m2 of body surface area. ----- GLUCOSE 134 mg/dL (Above high Range: 70-100 threshold) Comments: Variance from previous testing noted.----- ALK PHOSPHATASE 51 U/L Range: 46-116 TOTAL BILIRUBIN 0.40 mg/dL Range: 0.20-1.00 AST 27 U/L Range: 8-35 ALT 25 U/L Range: 14-59 ALBUMIN 3.2 g/dL (Below low Range: 3.4-5.0 threshold) TOTAL PROTEIN 6.6 g/dL Range: 6.4-8.2 A/G RATIO 0.9 units (Below low Range: 1.0-1.8 threshold) CALCIUM 8.9 mg/dL Range: 8.5-10.1 08:45 LIPID PROFILE 1184 Comments: Fastin hours CHOLESTEROL 136 mg/dL Range: <200 TRIGLYCERIDES 201 mg/dL (Above high threshold) Range: 30-200 HDL Cholesterol 48 mg/dL Range: >39 NON HDL CHOLESTEROL 88 CARDIAC RSK FACTOR 2.8 units (Below low threshold) Range: 4.4-5.0 LDL - CALCULATED 48 mg/dL Range: 0-130 08:53 HEMOGLOBIN A1C 3507 Comments: Fastin hours Hemoglobin A1C 5.4 % ESTIMATED AVG. GLUCOSE 108 Plan of Care Name Dates Details Planned Observations Planned Goals not documented Planned Encounters Appointment; Provider: Bal Wiseman M.D. On 08-Apr-2017 10:00 Appointment; Provider: Chaitanya Do M.D. On 07-Mar-2017 09:00 Appointment; Provider: Kishore Bailey M.D. On 11-Feb-2017 09:00 Appointment; Provider: Bal Wiseman M.D. On 10:00 Instructions Name Dates Details Instructions not documented Encounters Appointment; Chaitanya Do M.D. On 06-Sep-2016 Encounter Diagnosis: Problem not documented 09:15 Appointment; Sathish Sepulveda DPM On 25-Apr-2016 Encounter [...]
--- OUTSIDE RECORDS SUMMARY | 2017-07-06 22:00 | External Medical Summary | Summary of Care ---
:1935 Author Name Lauren Do M.D. Address [address], [place] [id number] Care Team Providers Name Role Phone Lauren [...] Refills: 3 Bal Wiseman M.D. Started 14-Jun-2010 [id number] Miscellaneous Box Lantus 100 UNIT/ML Subcutaneous Solution INJECT 52UNITS SUBCUTANEOUSLY EVERY NIGHT AT BEDTIME Quantity: 2 Refills: 11 Bal Wiseman M.D. Started [id number] ML Vial NovoLIN R 100 UNIT/ML Injection Solution INJECT 20 UNITS SUBCUTANEOUSLY BEFORE BREAKFAST AND BEFORE LUNCH AND INJECT 22 UNITS BEFORE SUPPER Quantity: 5 Refills: 11 Bal Wiseman M.D. Started [id number] ML Vial Fish Oil 1000 MG Oral [...] Dates Details Influenza Administered on:07-Mar-2009 Lot #: [id number] Influenza A (H1N1) Monoval Vac Intramuscular Suspension Administered on: Lot #: [id number] Tdap (Adacel) Administered on:16-Feb-2010 Lot #: [id number] Influenza Administered on:16-Feb-2010 Lot #: [id number] Influenza Administered on:22-Feb-2011 Lot #: [id number] Influenza Administered on:31-Jan-2012 Lot #: [id number] Pneumo (Pneumovax) Administered on:12-Apr-2013 Lot #: [id number] Influenza Administered on:12-Apr-2013 Lot #: [id number] Fluzone High-Dose Intramuscular Suspension Administered on:11-Mar-2014 Lot #: [id number] Family History Mother Name Dates Details No [...]
--- OUTSIDE RECORDS SUMMARY | 2017-07-06 22:01 | External Medical Summary | Summary of Care ---
:1935 Author Name Michelle Wiseman M.D. 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 Started 04-Aug-2008 ActiveMagnesium Oxide 400 MG Oral Tablet TAKE 1 TABLET DAILY. Refills: 0 Started 30-Jun-2007 ActiveAtenolol 50 MG Oral Tablet take one tablet by mouth every day Quantity: 90 Refills: 0 Bal Wiseman M.D. Started 27-Apr-2009 ActiveCalcium 600/Vitamin [...] AT BEDTIME Quantity: 50 Refills: 10 Bal iWseman M.D. Started ActiveNovoLIN R 100 UNIT/ML Injection [...] Dates Details Influenza Administered on:07-Mar-2009 Lot #: [id number] Influenza A (H1N1) Monoval Vac Intramuscular Suspension Administered on: Lot #: [id number] Tdap (Adacel) Administered on:16-Feb-2010 Lot #: [id number] Influenza Administered on:16-Feb-2010 Lot #: [id number] Influenza Administered on:22-Feb-2011 Lot #: [id number] Influenza Administered on:31-Jan-2012 Lot #: [id number] Pneumo (Pneumovax) Administered on:12-Apr-2013 Lot #: [id number] Influenza Administered on:12-Apr-2013 Lot #: [id number] Fluzone High-Dose Intramuscular Suspension Administered on:11-Mar-2014 Lot #: [id number] Family History Mother Name Dates Details No pertinent family history Status: Active Father Name Dates Details No pertinent family history Status: Active Social History Name Dates Details Smoking StatusNever smokerNever smoker Vital Signs Date Test Result Details 16-Sep-2014 10:14 BP Systolic 126 mm[Hg] Status: BP Diastolic 50 mm[Hg] Status: Weight 233 lb Status: Body Mass Index Calculated 31.6 kg/m2 Status: Body Surface Area Calculated 2.27 m2 Status: 02-Sep-2014 10:00 BP Systolic 130 mm[Hg] Status: BP Diastolic 82 mm[Hg] Status: Heart Rate 68 /min Status: Weight 234.4 lb Status: Body Mass Index Calculated 31.79 kg/m2 Status: Body Surface Area Calculated 2.28 m2 Status: Results Date Description Value Details 15-Sep-2014 07:59 CBC w/ Auto Diff 7150 Comments: Fastin hours WBC 4.7 K/uL (Better) Range: 4.5-11.0 RBC 3.80 mil/uL Range: 3.60-5.00 (Better) HGB 13.0 g/dL (Better) Range: 12.0-16.0 HCT 35.7 % (Below low Range: 36.0-48.0 threshold) MCV 94.0 fL (Better) Range: 80.0-99.0 MCH 34.3 pg (Above high Range: 27.3-32.5 threshold) MCHC 36.5 % (Above high Range: 32.0-36.0 threshold) RDW 14.5 % (Better) Range: 11.6-14.8 PLATELETS 146 K/uL (Below low Range: 150-400 threshold) MPV 8.1 fL (Better) Range: 6.0-11.0 %NEUTRO 59.7 % (Better) Range: 37.0-80.0 %LYMPHS 29.4 % (Better) Range: 13.0-50.0 %MONO 5.4 % (Better) Range: 0.0-12.0 %EOS 3.0 % (Better) Range: 0.0-7.0 %BASO 1.1 % (Better) Range: 0.0-2.5 %SYDNI 1.4 % (Better) Range: 0.0-5.0 NEUTRO 2.8 K/uL (Better) Range: 2.0-6.9 LYMPHS 1.4 K/uL (Better) Range: 0.6-3.4 MONOS 0.3 K/uL (Better) Range: 0.0-0.9 EOS 0.1 K/uL (Better) Range: 0.0-0.7 BASO 0.1 K/uL (Better) Range: 0.0-0.2 08:10 Urinalysis, Reflex to Comments: Fastin hours Microscopic or Culture PRN 8005 pH 5.0 (Better) Range: 5.0-7.5 SP GRAVITY 1.020 (Better) Range: 1.010-1.030 APPEARANCE CLEAR (Better) Range: Clear COLOR YELLOW (Better) Range: Straw-Yellow PROTEIN NEGATIVE mg/dL Range: Negative-Trace (Better) GLUCOSE NEGATIVE mg/dL Range: Negative (Better) KETONE NEGATIVE mg/dL Range: Negative (Better) BILIRUB NEGATIVE (Better) Range: Negative BLOOD SMALL (Abnormal) Range: Negative UROBIL 0.2 EU/dL (Better) Range: 0.2-1.0 NITRITE NEGATIVE (Better) Range: Negative LEUK TRACE (Abnormal) Range: Negative 08:10 Urine Microscopic UMIC Comments: Fastin hours WBC 0-2 /HPF (Better) Range: 0-5 HYAL CAST 0-2 /LPF (Better) Range: 0-2 BACTERIA 1+ /HPF (Abnormal) Range: Negative-Trace EPITH 0-2 /HPF (Better) Range: 0-10 08:15 Quant Microalbumin 1106 Comments: Fastin hours MICROALBUMIN, URINE 38.3 mg/L (Above Range: <20.1 high threshold) 08:18 PHENYTOIN DILANTIN 3004 Comments: Fastin hours PHENYTOIN (DILANTIN) 12.60 ug/mL Range: 10.00-20.00 (Better) Dose last dose 09/14/2014 at 2100hrs (Better) 08:17 Comprehensive Metabolic Comments: Fastin hours Panel 1212 SODIUM 135 mmol/L (Better) Range: 133-144 POTASSIUM 3.6 mmol/L (Better) Range: 3.5-5.1 CHLORIDE 99 mmol/L (Better) Range: 98-110 CARBON DIOXIDE 26.2 mmol/L Range: 23.0-33.0 (Better) ANION GAP 10 mmol/L (Better) Range: 6-16 BUN 20 mg/dL (Above Range: 7-18 high threshold) CREATININE, SERUM 0.77 mg/dL (Better) Range: 0.43-1.13 BUN:CREATININE RATIO 26 (Better) EST GFR, >60 ml/min Range: >60 (Better) EST GFR, NON-AFR [place] AND [place] >60 ml/min Range: >60 (Better) Comments: EST GFR is reported in ml/min per 1.73 m2 of body surface area. For -Canadian, please multiple result by 1.2.----- GLUCOSE 232 mg/dL (Above Range: 70-100 high threshold) ALK PHOSPHATASE 60 U/L (Better) Range: 46-116 TOTAL BILIRUBIN 0.30 mg/dL (Better) Range: 0.20-1.00 AST 24 U/L (Better) Range: 8-35 ALT 26 U/L (Better) Range: 14-59 Comments: Please note new reference ranges. Effective 07/21/2014.----- ALBUMIN 3.1 g/dL (Below low Range: 3.4-5.0 threshold) TOTAL PROTEIN 6.6 g/dL (Better) Range: 6.4-8.2 A/G RATIO 0.9 units (Below Range: 1.0-1.8 low threshold) CALCIUM 8.9 mg/dL (Better) Range: 8.5-10.1 08:58 HEMOGLOBIN A1C 3507 Comments: Fastin hours Hemoglobin A1C 6.9 % (Better) ESTIMATED AVG. GLUCOSE 151 (Better) 09:09 THYROID STIM. HORMONE Comments: Fastin hours 3602 THYROID STIM. HORMONE 4.660 uIU/mL Range: 0.550-4.780 (Better) Comments: \\[id number]\\No established reference ranges for infants and children <2 years of ageNo established reference ranges for infants and children <2 years of age----- Plan of Care Planned Observations Name Dates Details Planned Goals not documented Goal Planned Encounters Appointment; Provider: iKshore Bailey On 11-Feb-2017 09:00 Appointment; Provider: Bal Wiseman On 30-Mar-2015 10:15 Appointment; Provider: Chaitanya Do On 03-Mar-2015 09:45 Appointment; Provider: Kishore Bailey On 10-Dec-2010 09:00 Appointment; Provider: Bal Wiseman On 08:00 Appointment; Provider: Brian Hayes On 03-Aug-2008 08:00 Appointment; Provider: Brian Hayes On 07:30 Instructions Instructions not documented Encounters Appointment; Bal Wiseman On 16-Sep-2014 Encounter Diagnosis: [...]
--- OUTSIDE RECORDS SUMMARY | 2017-07-06 22:01 | External Medical Summary | Summary of Care ---
:1935 Author Name Derick CHRISTASathish Aguilar Address [address] Unavailable [place], [place] [id number] Care Team Providers Name Role Phone Derick DAVESathish Unavailable Unavailable Lauren Do M.D. 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 , E10.42) Status: Active Hypertension (401.9, I10) Status: Active Hypothyroidism (244.9, E03.9) Status: Active Type 1 diabetes mellitus (250.01, E10.9) Status: Active Gout of right wrist (274.9, M10.9) Status: Active Cellulitis of great toe of right foot (681.10, L03.031) Status: Active Peripheral neuropathy (356.9, G62.9) Status: Active Bilateral edema of lower extremity (782.3, R60.0) Status: Active Blindness, 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 04-Aug-2008 Active Magnesium Oxide 400 MG Oral Tablet TAKE 1 TABLET DAILY. Refills: 0 Start 30-Jun-2007 Active Atenolol 50 MG Oral Tablet Take one tablet by mouth daily Quantity: 90 Refills: 3 Bal Wiseman M.D. 08-Feb-2016 Active Calcium 600/Vitamin D 600-200 MG-UNIT TABS TAKE 1 TABLET DAILY. Refills: 0 Bal Wiseman M.D. 30-Jun-2007 Active Phenytoin Sodium Extended 100 MG Oral Capsule TAKE 5 CAPSULES BY MOUTH EVERY NIGHT AT BEDTIME Quantity: 450 Refills: 2 Chaitanya Do M.D. Start 12-Apr-2008 Active OneTouch Ultra Blue In Vitro Strip TEST THREE TIMES A DAY Quantity: 300 Refills: 2 Bal Wiseman M.D. 15-Mar-2008 Active Multi-Day Vitamins TABS I po qd Refills: 0 Start 26-Feb-2008 Active Test Strips One Touch Ultra Blue Test Strips Tests TID Dx: E10.9 Quantity: 100 Refills: 11 Bal Wiseman M.D. 11-Sep-2009 Active Aspirin 81 MG TABS TAKE 1 TABLET DAILY. Quantity: 1 Refills: 0 Start 19-Feb-2010 Active BD Insulin Syr Ultrafine II 31G X 5/16" 1 ML Miscellaneous USE DIRECTED FOUR TIMES A DAY Quantity: 400 Refills: 2 Bal Wiseman M.D. 19-Jan-2016 Active Lantus 100 UNIT/ML Subcutaneous Solution [...] x 3 days Quantity: 9 Refills: 0 Bal Wiseman M.D. Start 08-Apr-2016 Active Ciprofloxacin HCl - 500 MG Oral Tablet TAKE 1 TABLET EVERY 12 HOURS DAILY. Quantity: 10 Refills: 0 Tito Wiseman M.D.othy Michelle Start 08-Apr-2016 Active Allergies and Adverse Reactions [...] Details History of Conversion Of Previous Surgery Completed: 10-Dec-2010 To 'Total Hip' Replacement CBC w/ Auto Diff 7150 Ordered: 12-Apr-2016 Comprehensive Metabolic Panel 1212 Ordered: 12-Apr-2016 HEMOGLOBIN A1C 3507 Ordered: 12-Apr-2016 LIPID PROFILE 1184 Ordered: 12-Apr-2016 Quant Microalbumin 1106 Ordered: 12-Apr-2016 THYROID STIM. HORMONE 3602 Ordered: 12-Apr-2016 Urinalysis, Reflex to Microscopic or Ordered: 12-Apr-2016 Culture PRN 8005 Comprehensive Metabolic Panel 1212 Ordered: 12-Apr-2016 HEMOGLOBIN A1C 3507 Ordered: 12-Apr-2016 LIPID PROFILE 1184 Ordered: 12-Apr-2016 Immunization Name Dates Details Influenza on: 07-Mar-2009 Lot #: [id number] Influenza A (H1N1) Monoval Vac SUSP on: 08-Jun-2009 Lot #: [id number] Tdap (Adacel) on: 16-Feb-2010 Lot #: [id number] Influenza on: 16-Feb-2010 Lot #: [id number] Influenza on: 22-Feb-2011 Lot #: [id number] Influenza on: 31-Jan-2012 Lot #: [id number] Pneumo (Pneumovax) on: 12-Apr-2013 Lot #: [id number] Influenza on: 12-Apr-2013 Lot #: [id number] Fluzone High-Dose SUSP on: 11-Mar-2014 Lot #: [id number] Influenza on: 05-Oct-2015 Fluzone High-Dose 0.5 ML Intramuscular Suspension Prefilled Syringe on: Lot #: [id number] Family History Mother Name Dates Details No [...] >60 ml/min Range: >60 EST GFR, NON-AFR [place] >60 ml/min Range: >60 Comments: EST GFR [...] AVG. GLUCOSE 120 08-Apr-2016 08:21 URINE CULTURE [id number] Comments: [facility] performed at: [facility], [address] [place], [place] [address] [place], [address], Color Adviser: Chaitanya Wood D.O., MPHQuest Collection Date/Time: [id number] Results Received Date/Time: [id number] Reported Date /Time: [id number] performed at: [facility], [address] [place], [address], Color Adviser: Chaitanya Wood D.O., MPHQuest Collection Date/Time: [id number] Results Received Date/Time: [id number] Reported Date/Time: [id number] Fastin hours CULTURE, URINE, ROUTINE SEE NOTE Comments: CULTURE, URINE, ROUTINE MICRO NUMBER: [id number] TEST STATUS: FINAL SPECIMEN SOURCE: URINE SPECIMEN QUALITY: ADEQUATE RESULT: Multiple organisms present, each less than 10 ,000 CFU/mL. These organisms, commonly found on external and internal genitalia, are considered to be colonizers. No further testing performed.[NM]----- 09:30 THYROID STIM. HORMONE 3602 Comments: Fastin [...] Provider: Bal Wiseman M.D. On 08-Oct-2016 10:15 Appointment; Provider: Chaitanya Do M.D. On 06-Sep-2016 09:15 Appointment; Provider: Sathish Sepulveda DPM On 25-Apr-2016 10:30 Instructions Name Dates Details Instructions not documented Encounters Appointment; Bal Wiseman M.D. On 08-Apr-2016 Encounter [...]
--- OUTSIDE RECORDS SUMMARY | 2017-07-06 22:01 | External Medical Summary | Summary of Care ---
:1935 Author Name Derick CHRISTASathish Aguilar Address [address] Unavailable [place], [place] [address] Care Team Providers Name Role Phone Derick [...] risk medication use (V58.69, Z79.899) Status: Active Hypertension (401.9, I10) Status: Active [...] Difficulty in walking (719.7, R26.2) Status: Active Medications Name Dates Details Allopurinol [...] Quantity: 20 Refills: 10 Bal Wiseman M.D. 01-Jan-2016 Active Fenofibrate 160 MG Oral Tablet TAKE ONE TABLET BY MOUTH DAILY WITH FOOD Quantity: 90 Refills: 3 Bal Wiseman M.D. 14-Dec-2015 Active HydroCHLOROthiazide 50 MG Oral Tablet TAKE ONE TABLET BY MOUTH DAILY ( TAKE TWO TABLETS BY MOUTH DAILY IF LEG IS SWOLLEN) Quantity: 90 Refills: 2 Ivone Valderrama, Bal Martinez Start 12-Jul-2011 Active Atorvastatin Calcium 40 MG Oral Tablet Take one tablet by mouth daily Quantity: 90 Refills: 3 Ivone Valderrama, Bal Martinez Start 14-Dec-2015 Active Losartan Potassium 25 MG Oral Tablet [...] Wiseman M.D. Start 14-Dec-2015 Active Glucose Meter One Touch Ultra Glucose [...] Wiseman M.D. 10-Apr-2015 Active 10 ML Vial Colcrys 0.6 MG Oral Tablet 1 tab po TID x 3 days Quantity: 9 Refills: 0 Bal Wiseman M.D. Start 08-Apr-2016 Active Ciprofloxacin HCl - 500 MG Oral Tablet TAKE 1 TABLET EVERY 12 HOURS DAILY. Quantity: 10 Refills: 0 Bal Wiseman M.D. Start 08-Apr-2016 Active Lancets Lancets for [employer] Glucose Meter Pt tests TID DX: E10.42, G99.0 Quantity: 300 Refills: 3 Bal Wiseman M.D. 13-Feb-2015 Active Test Strips Test strips for [employer] meter Pt Tests 3x daily DX: E10.42, G99.0 Quantity: 300 Refills: 3 Ivone Ritchie.Bal Start 13-Feb-2015 Active Glucose Meter [employer] Brand Glucose Meter with Test Strips and Lancets. Pt Tests 3x daily DX : E10.42, G99.0 Quantity: 1 Refills: 0 Ivone JannieBal Start 13-Feb-2015 Active ALPRAZolam 0.25 MG Oral Tablet TAKE ONE TABLET BY MOUTH THREE TIMES DAILY NEEDED. Quantity: 60 Refills: 0 Ivone ValderramaBal Start 27-Jul-2012 Active Levothyroxine Sodium 100 MCG Oral Tablet Take one tablet by mouth daily Quantity: 1 Refills: 1 Ivone ValderramaBal Start 14-Mar-2016 Active 90 Tablet Bottle Tylenol 325 MG Oral Tablet prn Refills: 0 Start 25-Dec-2010 Active Fish Oil 1000 MG Oral Capsule [...] Surgery Completed: 10-Dec-2010 To 'Total Hip' Replacement LIPID PROFILE 1184 Ordered: 12-Apr-2016 Comprehensive Metabolic Panel 1212 Ordered: 12-Apr-2016 HEMOGLOBIN A1C 3507 Ordered: 12-Apr-2016 LIPID PROFILE 1184 Ordered: 12-Apr-2016 Quant Microalbumin 1106 Ordered: 12-Apr-2016 THYROID STIM. HORMONE 3602 Ordered: 12-Apr-2016 Urinalysis, Reflex to Microscopic or Ordered: 12-Apr-2016 Culture PRN 8005 CBC w/ Auto Diff 7150 Ordered: 12-Apr-2016 Comprehensive Metabolic Panel 1212 Ordered: 12-Apr-2016 HEMOGLOBIN A1C 3507 Ordered: 12-Apr-2016 Immunization Name Dates Details Influenza on: 07-Mar-2009 Lot #: [id number] Influenza A (H1N1) Monoval Vac SUSP on: 08-Jun-2009 Lot #: [id number] Tdap (Adacel) on: 16-Feb-2010 Lot #: [id number] Influenza on: 16-Feb-2010 Lot #: [id number] Influenza on: 22-Feb-2011 Lot #: [id number] Influenza on: 31-Jan-2012 Lot #: [id number] Pneumo (Pneumovax) on: 12-Apr-2013 Lot #: [id number] Influenza on: 12-Apr-2013 Lot #: [id number] Fluzone High-Dose SUSP on: 11-Mar-2014 Lot #: [id number] Influenza on: 05-Oct-2015 Fluzone High-Dose 0.5 ML Intramuscular Suspension Prefilled Syringe on: Lot #: [id number] Family History Mother Name Dates Details No [...] >60 ml/min Range: >60 EST GFR, NON-AFR EMIRATI >60 ml/min Range: >60 Comments: EST GFR [...] AVG. GLUCOSE 120 08-Apr-2016 08:21 URINE CULTURE [id number] Comments: [facility] performed at: [facility], [address] [place] [address], [phone], Deputy Sheriff Bailiff: Chaitanya Wood D.O., MPHQuest Collection Date/Time: [id number] Results Received Date/Time: [id number] Reported Date /Time: [id number] performed at: [facility], [address] [place] [address], [phone], Deputy Sheriff Bailiff: Chaitanya Wood D.O., MPHQuest Collection Date/Time: [id number] Results Received Date/Time: [id number] Reported Date/Time: [id number] Fastin hours CULTURE, URINE, ROUTINE SEE NOTE Comments: CULTURE, URINE, ROUTINE MICRO NUMBER: [id number] TEST STATUS: FINAL SPECIMEN SOURCE: URINE SPECIMEN [...] 09:15 Appointment; Provider: Sathish Sepulveda DPM On 04-Jul-2016 10:30 Instructions Name Dates Details Instructions not documented Encounters Appointment; Sathish Sepulveda DPM On 11-Apr-2016 Encounter [...]
--- OUTSIDE RECORDS SUMMARY | 2017-07-06 22:01 | External Medical Summary | Summary of Care ---
:1935 Author Name Michelle Wiseman M.D. Address [address], [place] [id number] Care Team Providers Name Role Phone Lauren [...] Refills: 3 Bal Wiseman M.D. Started 14-Jun-2010 [id number] Miscellaneous Box Lantus 100 UNIT/ML Subcutaneous Solution INJECT 52UNITS SUBCUTANEOUSLY EVERY NIGHT AT BEDTIME Quantity: 2 Refills: 11 Bal Wiseman M.D. Started [id number] ML Vial NovoLIN R 100 UNIT/ML Injection Solution INJECT 20 UNITS SUBCUTANEOUSLY BEFORE BREAKFAST AND BEFORE LUNCH AND INJECT 22 UNITS BEFORE SUPPER Quantity: 5 Refills: 11 Bal Wiseman M.D. Started [id number] ML Vial Fish Oil 1000 MG Oral [...] Dates Details Influenza Administered on:07-Mar-2009 Lot #: [id number] Influenza A (H1N1) Monoval Vac Intramuscular Suspension Administered on: Lot #: [id number] Tdap (Adacel) Administered on:16-Feb-2010 Lot #: [id number] Influenza Administered on:16-Feb-2010 Lot #: [id number] Influenza Administered on:22-Feb-2011 Lot #: [id number] Influenza Administered on:31-Jan-2012 Lot #: [id number] Pneumo (Pneumovax) Administered on:12-Apr-2013 Lot #: [id number] Influenza Administered on:12-Apr-2013 Lot #: [id number] Fluzone High-Dose Intramuscular Suspension Administered on:11-Mar-2014 Lot #: [id number] Family History Mother Name Dates Details No [...] ml/min Range: >60 (Better) EST GFR, NON-AFR LIBERIAN 57 ml/min (Below Range: >60 low threshold) Comments: EST GFR is reported in ml/min per 1.73 m2 of body surface area. For -Bermudian, please multiple result by 1.2.----- GLUCOSE 188 [...]
--- OUTSIDE RECORDS SUMMARY | 2017-07-06 22:01 | External Medical Summary ---
:1935 Author Name GENERATED, SYSTEM Care Team Providers Name Role Phone MD JACKSON TIMOTHY Primary Care Provider [phone] Reason For Visit Chief Complaint FALL-LEFT HIP PAIN Social History Functional Status Vital Signs Results Problems Encounter Diagnosis No relevant problems exist. [...] Allergies, Adverse Reactions, Alerts This section is tax compliance representative of the current allergy information, at [...]
--- OUTSIDE RECORDS SUMMARY | 2017-07-06 22:02 | External Medical Summary | Summary of Care ---
:1935 Author Name Michelle Wiseman M.D. Address [address] [place], [place] [id number] Care Team Providers Name Role Phone Lauren [...] Status: Active Gout (274.9, M10.9) Status: Active Memory loss (780.93, R41.3) Status: Active High risk medication use (V58.69, Z79.899) Status: Active Lymphedema of leg (457.1, I89.0) Status: Active Hypothyroidism (244.9, E03.9) Status: Active Hypertension (401.9, I10) Status: Active TIA on medication (435.9, G45.9) [...] Active Non smoker (V49.89, Z78.9) Status: Active Cellulitis of lower leg (682.6, L03.119) Status: Active Type 1 diabetes mellitus (250.01, E10.9) Status: Active Dyslipidemia (272.4, E78.5) Status: Active Medicare annual wellness visit, subsequent [...] Refills: 3 Bal Wiseman M.D. Started 14-Jun-2010 [id number] Miscellaneous Box Lantus 100 UNIT/ML Subcutaneous Solution INJECT 52UNITS SUBCUTANEOUSLY EVERY NIGHT AT BEDTIME Quantity: 2 Refills: 11 Bal Wiseman M.D. Started Rzeqio38 ML Vial Fish Oil 1000 MG Oral [...] Refills: 3 Bal Wiseman M.D. Started 10-Apr-2015 Exycyp95 ML Vial Sulfamethoxazole-Trimethoprim 800-160 MG Oral Tablet TAKE 1 TABLET BID Quantity: 14 Refills: 0 Bal Wiseman M.D. Started 05-Oct-2015 Active Allergies and Adverse Reactions Name Dates [...] Dates Details Influenza Administered on:07-Mar-2009 Lot #: [id number] Influenza A (H1N1) Monoval Vac Intramuscular Suspension Administered on: Lot #: [id number] Tdap (Adacel) Administered on:16-Feb-2010 Lot #: [id number] Influenza Administered on:16-Feb-2010 Lot #: [id number] Influenza Administered on:22-Feb-2011 Lot #: [id number] Influenza Administered on:31-Jan-2012 Lot #: [id number] Pneumo (Pneumovax) Administered on:12-Apr-2013 Lot #: [id number] Influenza Administered on:12-Apr-2013 Lot #: [id number] Fluzone High-Dose Intramuscular Suspension Administered on:11-Mar-2014 Lot #: [id number] Influenza Administered on:05-Oct-2015 Family History Mother Name Dates Details No pertinent family history Status: Active Father Name Dates Details No pertinent family history Status: Active Social History Name Dates Details Smoking StatusNever smokerNever smoker Vital Signs Date Test Result Details 05-Oct-2015 09:51 BP Systolic 132 mm[Hg] Status: BP Diastolic 62 mm[Hg] Status: Temperature 97.7 f Status: Weight 230 lb Status: Body Mass Index Calculated 31.19 kg/m2 Status: Body Surface Area Calculated 2.26 m2 Status: 06-Sep-2015 08:34 BP Systolic 130 mm[Hg] Status: BP Diastolic 78 mm[Hg] Status: Heart Rate 69 /min Status: Weight 230.8 lb Status: O2 SAT 98 % Status: Body Mass Index Calculated 31.3 kg/m2 Status: Body Surface Area Calculated 2.26 m2 Status: Results Date Description Value Details 04-Oct-2015 CBC w/ Auto Diff 7150 Comments: Fastin hours 08:00 WBC 5.1 K/uL (Better) Range: 4.5-11.0 RBC 3.93 mil/uL Range: 3.60-5.00 (Better) HGB 13.3 g/dL (Better) Range: 12.0-16.0 HCT 39.6 % (Better) Range: 36.0-48.0 MCV 100.8 fL (Above Range: 80.0-99.0 high threshold) MCH 33.8 pg (Above Range: 27.3-32.5 high threshold) MCHC 33.5 % (Better) Range: 32.0-36.0 RDW 14.2 % (Better) Range: 11.6-14.8 PLATELETS 148 K/uL (Below Range: 150-400 low threshold) MPV 8.4 fL (Better) Range: 6.0-11.0 %NEUTRO 56.5 % (Better) Range: 37.0-80.0 %LYMPHS 32.1 % (Better) Range: 13.0-50.0 %MONO 6.3 % (Better) Range: 0.0-12.0 %EOS 3.2 % (Better) Range: 0.0-7.0 %BASO 0.6 % (Better) Range: 0.0-2.5 %SYDNI 1.5 % (Better) Range: 0.0-5.0 NEUTRO 2.9 K/uL (Better) Range: 2.0-6.9 LYMPHS 1.6 K/uL (Better) Range: 0.6-3.4 MONOS 0.3 K/uL (Better) Range: 0.0-0.9 EOS 0.2 K/uL (Better) Range: 0.0-0.7 BASO 0.0 K/uL (Better) Range: 0.0-0.2 08:18 Urinalysis, Reflex to Comments: Fastin hours Microscopic [...] Range: Negative LEUK SMALL (Abnormal) Range: Negative 08:18 Urine Microscopic UMIC Comments: Fastin hours WBC 6-10 /HPF Range: 0-5 (Abnormal) Comments: Specimen referred to Microbiology for Culture----- RBC 0-2 /HPF (Better) Range: 0-2 EPITH 6-10 /HPF (Better) Range: 0-10 08:33 THYROID STIM. HORMONE Comments: Fastin hours 3602 THYROID STIM. HORMONE 4.035 uIU/mL Range: 0.550-4.780 (Better) Comments: No established reference ranges for infants and children <2 years of age----- 08:44 Comprehensive Metabolic Comments: Fastin hours Panel 1212 SODIUM 143 mmol/L Range: 133-144 (Better) POTASSIUM 4.1 mmol/L Range: 3.5-5.1 (Better) CHLORIDE 106 mmol/L Range: 98-110 (Better) CARBON DIOXIDE 26.9 mmol/L Range: 23.0-33.0 (Better) ANION GAP 10 mmol/L (Better) Range: 6-16 BUN 26 mg/dL (Above Range: 7-18 high threshold) CREATININE, SERUM 0.95 mg/dL Range: 0.55-1.02 (Better) Comments: Please note new reference ranges effective 2014.- ---- BUN:CREATININE RATIO 27 (Better) EST GFR, >60 ml/min Range: >60 (Better) EST GFR, NON-AFR GHANAIAN 57 ml/min (Below Range: >60 low threshold) Comments: EST GFR is reported in ml/min per 1.73 m2 of body surface area. For -Dominican, please multiple result by 1.2.----- GLUCOSE 227 mg/dL (Above Range: 70-100 high threshold) ALK PHOSPHATASE 60 U/L (Better) Range: 46-116 TOTAL BILIRUBIN 0.30 mg/dL Range: 0.20-1.00 (Better) AST 20 U/L (Better) Range: 8-35 ALT 28 U/L (Better) Range: 14-59 Comments: Please note new reference ranges. Effective 07/21/2014.----- ALBUMIN 3.3 g/dL (Below Range: 3.4-5.0 low threshold) TOTAL PROTEIN 6.7 g/dL (Better) Range: 6.4-8.2 A/G RATIO 1.0 units (Better) Range: 1.0-1.8 CALCIUM 8.5 mg/dL (Better) Range: 8.5-10.1 08:44 LIPID PROFILE 1184 Comments: Fastin hours CHOLESTEROL 149 mg/dL (Better) Range: <200 TRIGLYCERIDES 352 mg/dL (Above Range: 30-200 high threshold) HDL Cholesterol 48 mg/dL (Better) Range: >39 NON HDL CHOLESTEROL 101 (Better) CARDIAC RSK FACTOR 3.1 units (Below Range: 4.4-5.0 low threshold) LDL - CALCULATED 31 mg/dL (Better) Range: 0-130 08:59 PHENYTOIN DILANTIN 3004 Comments: Fastin hours PHENYTOIN (DILANTIN) 12.00 ug/mL Range: 10.00-20.00 (Better) Dose 10/03/2015 at 5:30 (Better) 09:21 HEMOGLOBIN A1C 3507 Comments: Fastin hours Hemoglobin A1C 6.3 % (Better) ESTIMATED AVG. GLUCOSE 134 (Better) 05-Oct-2015 URINE CULTURE [id number] Comments: Dk performed at: [facility], [address] [place] [address], [phone], Patient Relations Representative: Chaitanya Wood D.O., MPHQuest Collection Date/Time: 11:07 [id number] Results Received Date/Time: [id number] Reported Date/Time: [id number] performed at: [facility], [address] [place] [address], [phone], Patient Relations Representative: Chaitanya Wood D.O., MPHQuest Collection Date/Time: [id number] Results Received Date/Time: [id number] Reported Date/Time: [id number] Fastin hours CULTURE, URINE, ROUTINE SEE NOTE (Better) Comments: CULTURE, URINE, ROUTINE MICRO NUMBER: [id number] TEST STATUS: FINAL SPECIMEN SOURCE : URINE, CLEAN CATCH SPECIMEN QUALITY: ADEQUATE RESULT: Multiple organisms present, each less than 10,000 CFU/mL. These organisms, commonly found on external and internal genitalia, are considered to be colonizers. No further testing performed.[KS]----- Plan of Care Planned Observations Name Dates Details Planned Goals not documented Goal Planned Encounters Appointment; Provider: Kishore Bailey On 11-Feb-2017 09:00 Appointment; Provider: Chaitanya Do On 08-Mar-2016 09:00 Appointment; Provider: Bal Wiseman On 09:45 Appointment; Provider: Kishore Bailey On 10-Dec-2010 09:00 Appointment; Provider: Bal Wiseman On 08:00 Appointment; Provider: Brian Hayes On 03-Aug-2008 08:00 Appointment; Provider: Brian Hayes On 07:30 Instructions Instructions not documented Encounters Appointment; Bal Wiseman On 05-Oct-2015 Encounter Diagnosis: Problem not documented 09:45 Appointment; Chaitanya Do On 06-Sep-2015 Encounter Diagnosis: [...]
--- OUTSIDE RECORDS SUMMARY | 2017-07-06 22:02 | External Medical Summary | Summary of Care ---
:1935 Author Name Michelle Wiseman M.D. Address [address], [place] [id number] Care Team Providers Name Role Phone Lauren [...] Refills: 3 Bal Wiseman M.D. Started 04-Aug-2008 ActivePhenytoin Sodium Extended 100 MG Oral Capsule [...] Refills: 11 Bal Wiseman M.D. Started 11-Sep-2009 ActiveBD Insulin Syr Ultrafine II 31G X 5/16" 1 ML Miscellaneous USE DIRECTED 4 x dly / DX 250.01 Quantity: 4 Refills: 3 Bal Wiseman M.D. Started 14-Jun-2010 Quihpi377 Miscellaneous Box Lantus 100 UNIT/ML Subcutaneous Solution INJECT 52UNITS SUBCUTANEOUSLY EVERY NIGHT AT BEDTIME Quantity: 2 Refills: 11 Bal Wiseman M.D. Started Oaipbr62 ML Vial NovoLIN R 100 UNIT/ML Injection Solution INJECT 20 UNITS SUBCUTANEOUSLY BEFORE BREAKFAST AND BEFORE LUNCH AND INJECT 22 UNITS BEFORE SUPPER Quantity: 5 Refills: 11 Bal Wiseman M.D. Started Cozxbm46 ML Vial Fenofibrate 160 MG Oral Tablet TAKE ONE TABLET BY MOUTH EVERY DAY WITH FOOD Quantity: 90 Refills: 3 Bal Wiseman M.D. Started 25-Dec-2010 ActiveHydrochlorothiazide 50 MG Oral Tablet Take one tablet by mouth daily (2 tablets daily if leg is swollen) Quantity: 90 Refills: 3 Bal Wiseman M.D. Started 12-Jul-2011 ActiveAtorvastatin Calcium 40 MG Oral Tablet take [...] Refills: 3 Bal Wiseman M.D. Started 15-Jul-2013 ActiveGlucose Meter [employer] Brand Glucose Meter with [...] Refills: 3 Bal Wiseman M.D. Started 13-Feb-2015 ActiveTylenol 325 MG Oral Tablet prn Refills: 0 Started 25-Dec-2010 ActiveFish Oil 1000 MG Oral Capsule I po qid Refills: 0 Started 25-Dec-2010 ActiveCalcium 600/Vitamin D 600-200 MG-UNIT TABS TAKE 1 TABLET DAILY. Refills: 0 Bal Wiseman M.D. Started 30-Jun-2007 ActiveAtenolol 50 MG Oral Tablet take one tablet by mouth every day Quantity: 90 Refills: 3 Bal Wiseman M.D. Started 27-Apr-2009 ActiveMagnesium Oxide 400 MG Oral Tablet TAKE 1 TABLET DAILY. Refills: 0 Started 30-Jun-2007 ActiveKlor-Con M20 20 MEQ Oral Tablet Extended Release TAKE 1 TABLET DAILY. Quantity: 90 Refills: 3 Bal Wiseman M.D. Started 11-Mar-2014 ActiveClopidogrel Bisulfate 75 MG Oral Tablet TAKE ONE TABLET BY MOUTH ONCE A DAY Quantity: 90 Refills: 3 Bal Wiseman M.D. Started 09-Sep-2013 ActiveLevothyroxine Sodium 100 MCG Oral Tablet Take one tablet by mouth daily Quantity: 90 Refills: 3 Bal Wiseman M.D. Started 06-Jul-2012 ActiveAspirin 81 MG Oral Tablet TAKE 1 TABLET DAILY. Quantity: 1 Refills: 0 Started 19-Feb-2010 Active Allergies and Adverse Reactions Name Dates [...] Dates Details Influenza Administered on:07-Mar-2009 Lot #: [id number] Influenza A (H1N1) Monoval Vac Intramuscular Suspension Administered on: Lot #: [id number] Tdap (Adacel) Administered on:16-Feb-2010 Lot #: [id number] Influenza Administered on:16-Feb-2010 Lot #: [id number] Influenza Administered on:22-Feb-2011 Lot #: [id number] Influenza Administered on:31-Jan-2012 Lot #: [id number] Pneumo (Pneumovax) Administered on:12-Apr-2013 Lot #: [id number] Influenza Administered on:12-Apr-2013 Lot #: [id number] Fluzone High-Dose Intramuscular Suspension Administered on:11-Mar-2014 Lot #: [id number] Family History Mother Name Dates Details No [...] Encounter Diagnosis: Problem not documented 11:00 Appointment; Bla Wiseman On 14-Apr-2013 Encounter Diagnosis: Problem not documented 08:45 Appointment; Bal Wiseman On 12-Apr-2013 Encounter Diagnosis: Problem not documented 10:00
--- OUTSIDE RECORDS SUMMARY | 2017-07-06 22:02 | External Medical Summary ---
:1935 Author Name GENERATED, SYSTEM Care Team Providers Name Role Phone MD JACKSON TIMOTHY Primary Care Provider [phone] Reason For Visit Chief Complaint INJURY TO HEAD RESULT OF FALL Social History Functional Status Vital Signs Results Problems Encounter Diagnosis No relevant problems exist. Additional Problems Altered Mental Status Status:Active.Disturbance in Speech Status: Active.Dysarthria Comment:Problem resolved by [facility] [employer] upon Discharge, Status:Resolved.Fall Risk Status:Active.Mobility Impairment Status:Active. Encounters Encounter Diagnosis No relevant problems exist. Plan of Care Procedures Completed , on 12/14/2010 12:00 AMCompleted , on 12/14/2010 12:00 AMCompleted , on 12:00 AMCompleted , on 12/10/2010 12:00 AMCompleted , on 08/03/2008 12:00 AM Immunizations INFLUEN VACC 2017-18(GLAXO) (FLUARIX 2017-18 (GLAXO)); Not Administered 2017 1:47 PM; Other Hospital Course Hospital Discharge Instructions Allergies, Adverse Reactions, Alerts This section is loss control representative of the current allergy information, at [...]
--- OUTSIDE RECORDS SUMMARY | 2017-07-06 22:02 | External Medical Summary | Summary of Care ---
:1935 Author Name Michelle Wiseman M.D. Address [address] [place], [place] [id number] Care Team Providers Name Role Phone Lauren [...] Dates Details Influenza Administered on:07-Mar-2009 Lot #: [id number] Influenza A (H1N1) Monoval Vac Intramuscular Suspension Administered on: Lot #: [id number] Tdap (Adacel) Administered on:16-Feb-2010 Lot #: [id number] Influenza Administered on:16-Feb-2010 Lot #: [id number] Influenza Administered on:22-Feb-2011 Lot #: [id number] Influenza Administered on:31-Jan-2012 Lot #: [id number] Pneumo (Pneumovax) Administered on:12-Apr-2013 Lot #: [id number] Influenza Administered on:12-Apr-2013 Lot #: [id number] Fluzone High-Dose Intramuscular Suspension Administered on:11-Mar-2014 Lot #: [id number] Family History Mother Name Dates Details No [...]
--- OUTSIDE RECORDS SUMMARY | 2017-07-06 22:02 | External Medical Summary | Summary of Care ---
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 Quantity: 60 Refills: 0 Ivone Valderrama, Bal Martinez Start 27-Jul-2012 Active Losartan Potassium 25 MG Oral Tablet Take one tablet by mouth daily Quantity: 90 Refills: 3 Ivone Valderrama, Bal R Start 14-Dec-2015 Active Clopidogrel Bisulfate 75 MG Oral Tablet Take one tablet by mouth daily Quantity: 90 Refills: 3 Ivone Valderrama, Bal Michelle Start 14-Dec-2015 Active Klor-Con M20 20 MEQ Oral Tablet Extended Release Take one tablet by mouth daily Quantity: 90 Refills: 3 Ivone Valderrama, Bal Martinez Start 14-Dec-2015 Active Glucose Meter [employer] Brand Glucose Meter with Test Strips and Lancets. Pt Tests 3x daily DX : E10.42, G99.0 Quantity: 1 Refills: 0 Bal Wiseman M.D. 13-Feb-2015 Active Test Strips Test strips for [employer] meter Pt Tests 3x daily DX: E10.42, G99.0 Quantity: 300 Refills: 3 Ivone Valderrama, Bal Martinez Start 13-Feb-2015 Active Lancets Lancets for [employer] [...] Completed: 10-Dec-2010 Surgery To 'Total Hip' Replacement CBC w/ Auto Diff 7150 Ordered: 08-Mar-2016 Comprehensive Metabolic Panel 1212 Ordered: 08-Mar-2016 PHENYTOIN DILANTIN 3004 Ordered: 08-Mar-2016 Immunization Name Dates Details Influenza on: 07-Mar-2009 Lot #: [id number] Influenza A (H1N1) Monoval Vac SUSP on: 08-Jun-2009 Lot #: [id number] Tdap (Adacel) on: 16-Feb-2010 Lot #: [id number] Influenza on: 16-Feb-2010 Lot #: [id number] Influenza on: 22-Feb-2011 Lot #: [id number] Influenza on: 31-Jan-2012 Lot #: [id number] Pneumo (Pneumovax) on: 12-Apr-2013 Lot #: [id number] Influenza on: 12-Apr-2013 Lot #: [id number] Fluzone High-Dose SUSP on: 11-Mar-2014 Lot #: [id number] Influenza on: 05-Oct-2015 Family History Mother Name Dates Details No [...] Details Results not documented Plan of Care Name Dates Details Planned Observations Planned Goals not documented Planned Encounters Appointment; Provider: Kishore Bailey M.D. On 11-Feb-2017 09:00 Appointment; Provider: Chaitanya Do M.D. On 06-Sep-2016 09:15 Interventions Provided Labs/Procedures/ImagingCBC w/ Auto Diff 7150; To be Done: 08 Mar 2016Comprehensive Metabolic Panel 1212; To be Done: 08 Mar 2016PHENYTOIN DILANTIN 3004; To be Done: 08 Mar 2016 Instructions Name Dates Details Instructions not documented Encounters Appointment; Bal Wiseman M.D. On Encounter Diagnosis: [...] Problem not documented 07:45 Appointment; Bal Wiseman M.D. On 11-Mar-2014 Encounter Diagnosis: Problem not documented 09:45
--- OUTSIDE RECORDS SUMMARY | 2017-07-06 22:02 | External Medical Summary | Summary of Care ---
[...] Status: Active Hypothyroidism (244.9, E03.9) Status: Active Gout of right wrist (274.9, [...] 1 diabetes mellitus (250.01, E10.9) Status: Active Actinic keratosis (702.0, L57.0) Status: Active Hypokalemia (276.8, E87.6) Status: Active Medications Name Dates Details Allopurinol [...] WITH FOOD Quantity: 90 Refills: 3 Ivone Valderrama Bal Michelle Start 14-Dec-2015 Active Tylenol 325 MG Oral Tablet prn Refills: 0 Start 25-Dec-2010 Active HydroCHLOROthiazide 50 MG Oral Tablet TAKE ONE TABLET BY MOUTH DAILY ( TAKE TWO TABLETS BY MOUTH DAILY IF LEG IS SWOLLEN) Quantity: 1 Refills: 3 Tito Wiseman M.D.othy Michelle Start 01-Aug-2016 Active 90 Tablet Bottle Levothyroxine Sodium 100 MCG Oral Tablet Take one tablet by mouth daily Quantity: 1 Refills: 1 Bal Wiseman M.D. Start 14-Mar-2016 Active 90 Tablet Bottle Atorvastatin Calcium 40 MG Oral Tablet Take one tablet by mouth daily Quantity: 90 Refills: 3 Tito Wiseman M.D.othy Michelle Start 14-Dec-2015 Active ALPRAZolam 0.25 MG [...] Dates Details Influenza on: 07-Mar-2009 Lot #: [id number] Influenza A (H1N1) Monoval Vac SUSP on: 08-Jun-2009 Lot #: [id number] Tdap (Adacel) on: 16-Feb-2010 Lot #: [id number] Influenza on: 16-Feb-2010 Lot #: [id number] Influenza on: 22-Feb-2011 Lot #: [id number] Influenza on: 31-Jan-2012 Lot #: [id number] Pneumo (Pneumovax) on: 12-Apr-2013 Lot #: [id number] Influenza on: 12-Apr-2013 Lot #: [id number] Fluzone High-Dose SUSP on: 11-Mar-2014 Lot #: [id number] Influenza on: 05-Oct-2015 Fluzone High-Dose 0.5 ML Intramuscular Suspension Prefilled Syringe on: Lot #: [id number] Family History Mother Name Dates Details No pertinent family history Status: Active Father Name Dates Details No pertinent family history Status: Active Social History Name Dates Details - Status: Smoking Status Name Dates Details Never smoker Never smoker Vital Signs Date Test Result Details 10:11 BP Systolic 138 mm[Hg] Status: Comments: Location: ; Position: BP Diastolic 62 mm[Hg] Status: Comments: Location: ; Position: Weight 227 lb Status: Body Mass Index Calculated 31.66 kg/m2 Status: Body Surface Area Calculated 2.23 m2 Status: Results Date Description Value Details 09-Oct-2016 08:45 [...] >60 ml/min Range: >60 EST GFR, NON-AFR ERITREAN 53 ml/min (Below low Range: >60 threshold) [...] Encounters Appointment; Provider: Bal Wiseman M.D. On 18-Apr-2017 09:00 Appointment; Provider: Bal Wiseman M.D. On 08-Apr-2017 10:00 Appointment; Provider: Chaitanya Do M.D. On 07-Mar-2017 09:00 Appointment; Provider: Kishore Bailey M.D. On 11-Feb-2017 09:00 Interventions Provided InstructionsFollow a diabetic diet with 1800 calories.; Done: Instructions Name Dates Details Instructions [...]
--- OUTSIDE RECORDS SUMMARY | 2017-07-06 22:03 | External Medical Summary | Summary of Care ---
:1935 Author Name Michelle Wiseman M.D. Address [address], [place] [id number] Care Team Providers Name Role Phone Lauren [...] Dates Details Influenza Administered on:07-Mar-2009 Lot #: [id number] Influenza A (H1N1) Monoval Vac Intramuscular Suspension Administered on: Lot #: [id number] Tdap (Adacel) Administered on:16-Feb-2010 Lot #: [id number] Influenza Administered on:16-Feb-2010 Lot #: [id number] Influenza Administered on:22-Feb-2011 Lot #: [id number] Influenza Administered on:31-Jan-2012 Lot #: [id number] Pneumo (Pneumovax) Administered on:12-Apr-2013 Lot #: [id number] Influenza Administered on:12-Apr-2013 Lot #: [id number] Fluzone High-Dose Intramuscular Suspension Administered on:11-Mar-2014 Lot #: [id number] Family History Mother Name Dates Details No [...]
--- OUTSIDE RECORDS SUMMARY | 2017-07-06 22:03 | External Medical Summary | Summary of Care ---
[...] by mouth daily Quantity: 90 Refills: 3 aBl Wiseman M.D. Start 14-Dec-2015 Active Clopidogrel Bisulfate [...] Dates Details Influenza on: 07-Mar-2009 Lot #: [id number] Influenza A (H1N1) Monoval Vac SUSP on: 08-Jun-2009 Lot #: [id number] Tdap (Adacel) on: 16-Feb-2010 Lot #: [id number] Influenza on: 16-Feb-2010 Lot #: [id number] Influenza on: 22-Feb-2011 Lot #: [id number] Influenza on: 31-Jan-2012 Lot #: [id number] Pneumo (Pneumovax) on: 12-Apr-2013 Lot #: [id number] Influenza on: 12-Apr-2013 Lot #: [id number] Fluzone High-Dose SUSP on: 11-Mar-2014 Lot #: [id number] Influenza on: 05-Oct-2015 Fluzone High-Dose 0.5 ML Intramuscular Suspension Prefilled Syringe on: Lot #: [id number] Family History Mother Name Dates Details No [...] >60 ml/min Range: >60 EST GFR, NON-AFR FIJIAN 55 ml/min (Below low Range: >60 threshold) [...] Wiseman M.D. On 08-Apr-2016 10:15 Interventions Provided Labs/Procedures/ImagingCBC w/ Auto Diff 7150; To be Done: 28 Mar 2016Comprehensive Metabolic Panel 1212; To be Done: 28 Mar 2016HEMOGLOBIN A1C 3507; To be Done: 28 Mar 2016LIPID PROFILE 1184; To be Done: 28 Mar 2016THYROID STIM. HORMONE 3602; To be Done: 28 Mar 2016Urinalysis, Reflex to Microscopic or Culture PRN [id number]; To be Done: 28 Mar 2016Medications/Immunizations Administered Fluzone High-Dose 0.5 ML Intramuscular Suspension Prefilled Syringe; Done: 28 Mar 2016 Instructions Name Dates Details Instructions not documented Encounters Appointment; Chaitanya Do M.D. On 08-Mar-2016 Encounter [...]
--- OUTSIDE RECORDS SUMMARY | 2017-07-06 22:03 | External Medical Summary | Summary of Care ---
:1935 Author Name Lauren Do M.D. Address [address], [place] [id number] Care Team Providers Name Role Phone Lauren [...] Status: Active Hypothyroidism (244.9, E03.9) Status: Active High risk medication use (V58.69, Z79.899) Status: Active Dyslipidemia (272.4, E78.5) Status: Active [...] left lower extremity (729.81, M79.89) Status: Active Medications Name Dates Details Allopurinol [...] Refills: 4 Bal Wiseman M.D. Started 13-Jun-2008 BhavikBD Insulin Syringe Ultrafine 31G X 5/16" 0.3 ML Miscellaneous USE DIRECTED Quantity: 400 Refills: 3 Bal Wiseman M.D. Started 22-Jun-2009 ActiveAspirin 81 MG Oral Tablet TAKE 1 TABLET DAILY. Quantity: 1 Refills: 0 Started 19-Feb-2010 ActiveFish Oil 1000 MG Oral Capsule I po qid Refills: 0 Started 25-Dec-2010 ActiveTylenol 325 MG Oral Tablet prn Refills: 0 Started 25-Dec-2010 ActiveALPRAZolam 0.25 MG Oral Tablet TAKE ONE TABLET BY MOUTH THREE TIMES DAILY NEEDED. Quantity: 60 Refills: 0 Bal Wiseman M.D. Started 27-Jul-2012 ActiveLosartan Potassium 25 MG Oral Tablet TAKE 1 TABLET DAILY. Quantity: 90 Refills: 3 Bal Wiseman M.D. Started 15-Jul-2013 ActiveAtorvastatin Calcium 40 MG Oral Tablet take one tablet by mouth every day Quantity: 90 Refills: 3 Bal Wiseman M.D. Started 16-Jul-2012 ActiveLantus 100 UNIT/ML Subcutaneous Solution INJECT 52UNITS SUBCUTANEOUSLY EVERY NIGHT AT BEDTIME Quantity: 50 Refills: 10 Bal Wiseman M.D. Started ActiveClopidogrel Bisulfate 75 MG Oral Tablet TAKE 1 TABLET DAILY. Quantity: 90 Refills: 3 Bal Wiseman M.D. Started 09-Sep-2013 ActiveBD Insulin Syr Ultrafine II 31G X 5/16" 1 ML Miscellaneous USE DIRECTED Quantity: 400 Refills: 2 Bal Wiseman M.D. Started 14-Jun-2010 ActiveTest Strips One Touch Ultra Blue Test Strips Tests TID Dx: 250.01 Quantity: 100 Refills: 11 Bal Wiseman M.D. Started 11-Sep-2009 ActiveKlor-Con M20 20 MEQ Oral Tablet Extended Release TAKE 1 TABLET DAILY. Quantity: 90 Refills: 3 Bal Wiseman M.D. Started 11-Mar-2014 ActiveLevothyroxine Sodium 100 MCG Oral Tablet Take one tablet by mouth daily Quantity: 90 Refills: 1 Bal Wiseman M.D. Started 06-Jul-2012 ActiveFenofibrate 160 MG Oral Tablet TAKE ONE TABLET BY MOUTH EVERY DAY WITH FOOD Quantity: 90 Refills: 3 Bal Wiseman M.D. Started 25-Dec-2010 ActiveHydrochlorothiazide 50 MG Oral Tablet take one tablet by mouth every day Quantity: 90 Refills: 0 Bal Wiseman M.D. Started 12-Jul-2011 ActiveNovoLIN R 100 UNIT/ML Injection Solution INJECT 20 UNITS SUBCUTANEOUSLY BEFORE BREAKFAST AND BEFORE LUNCH AND INJECT 22 UNITS BEFORE SUPPER Quantity: 50 Refills: 11 Bal Wiseman M.D. Started Active Allergies and Adverse Reactions Name Dates Details Dilaudid TABS Status: Active HYDROcodone Bitartrate PAUL Status: Active Morphine Derivatives Status: Active ReoPro SOLN Status: Active Past Medical History Name Dates Details Aftercare following joint replacement (V54.81, Z47.1) Status: Active History of peripheral neuropathy (V12.49, Z86.69) Status: Resolved Procedures Procedure Dates Details History of Conversion Of Previous Surgery To Completed:10-Dec-2010 'Total Hip' Replacement Comprehensive Metabolic Panel 1212 Ordered:15-Jul-2014 CBC w/ Auto Diff 7150 Ordered:15-Jul-2014 HEMOGLOBIN A1C 3507 Ordered:15-Jul-2014 Quant Microalbumin 1106 Ordered:15-Jul-2014 Urinalysis, Reflex to Microscopic or Culture Ordered:15-Jul-2014 PRN 8005 Immunization Name Dates Details Influenza Administered on:07-Mar-2009 Lot #: [id number] Influenza A (H1N1) Monoval Vac Intramuscular Suspension Administered on: Lot #: [id number] Tdap (Adacel) Administered on:16-Feb-2010 Lot #: [id number] Influenza Administered on:16-Feb-2010 Lot #: [id number] Influenza Administered on:22-Feb-2011 Lot #: [id number] Influenza Administered on:31-Jan-2012 Lot #: [id number] Pneumo (Pneumovax) Administered on:12-Apr-2013 Lot #: [id number] Influenza Administered on:12-Apr-2013 Lot #: [id number] Fluzone High-Dose Intramuscular Suspension Administered on:11-Mar-2014 Lot #: [id number] Family History Mother Name Dates Details No [...]
--- OUTSIDE RECORDS SUMMARY | 2017-07-06 22:03 | External Medical Summary | Summary of Care ---
:1935 Author Name Michelle Wiseman M.D. Address [address] [place], [place] [id number] Care Team Providers Name Role Phone Lauren [...] Status: Active Dyslipidemia (272.4, E78.5) Status: Active Lymphedema of leg (457.1, I89.0) Status: Active Medications Name Dates Details Allopurinol [...] Refills: 0 Bal Wiseman M.D. Started 27-Jul-2012 ActiveTest Strips One Touch Ultra Blue Test Strips Tests TID Dx: 250.01 Quantity: 100 Refills: 11 Bal Wiseman M.D. Started 11-Sep-2009 ActiveKlor-Con M20 20 MEQ Oral Tablet Extended Release TAKE 1 TABLET DAILY. Quantity: 90 Refills: 3 Bal Wiseman M.D. Started 11-Mar-2014 ActiveFenofibrate 160 MG Oral Tablet TAKE ONE TABLET BY MOUTH EVERY DAY WITH FOOD Quantity: 90 Refills: 3 Bal Wiseman M.D. Started 25-Dec-2010 ActiveNovoLIN R 100 UNIT/ML Injection Solution INJECT 20 UNITS SUBCUTANEOUSLY BEFORE BREAKFAST AND BEFORE LUNCH AND INJECT 22 UNITS BEFORE SUPPER Quantity: 50 Refills: 11 Bal Wiseman M.D. Started ActiveClopidogrel Bisulfate 75 MG Oral Tablet TAKE ONE TABLET BY MOUTH ONCE A DAY Quantity: 90 Refills: 2 Bal Wiseman M.D. Started 09-Sep-2013 ActiveLosartan Potassium 25 MG Oral Tablet take one tablet by mouth every day Quantity: 90 Refills: 2 Bal Wiseman M.D. Started 15-Jul-2013 ActiveBD Insulin Syr Ultrafine II 31G X 5/16" 1 ML Miscellaneous USE DIRECTED 4 x dly / DX 250 Quantity: 400 Refills: 1 Bal Wiseman M.D. Started 14-Jun-2010 ActiveLevothyroxine Sodium 100 MCG Oral Tablet Take one tablet by mouth daily Quantity: 90 Refills: 1 Bal Wiseman M.D. Started 06-Jul-2012 ActiveAtorvastatin Calcium 40 MG Oral Tablet take one tablet by mouth every day Quantity: 90 Refills: 3 Bal Wiseman M.D. Started 16-Jul-2012 ActiveLantus 100 UNIT/ML Subcutaneous Solution INJECT 52UNITS SUBCUTANEOUSLY EVERY NIGHT AT BEDTIME Quantity: 50 Refills: 9 Bal Wiseman M.D. Started ActiveHydrochlorothiazide 50 MG Oral Tablet Take one tablet by mouth daily Quantity: 90 Refills: 3 Bal Wiseman M.D. Started 12-Jul-2011 ActiveCephalexin 500 MG Oral Capsule TAKE 1 CAPSULE 4 TIMES DAILY. Quantity: 40 Refills: 0 Bal Wiseman M.D. Started Active Allergies and [...] Dates Details Influenza Administered on:07-Mar-2009 Lot #: [id number] Influenza A (H1N1) Monoval Vac Intramuscular Suspension Administered on: Lot #: [id number] Tdap (Adacel) Administered on:16-Feb-2010 Lot #: [id number] Influenza Administered on:16-Feb-2010 Lot #: [id number] Influenza Administered on:22-Feb-2011 Lot #: [id number] Influenza Administered on:31-Jan-2012 Lot #: [id number] Pneumo (Pneumovax) Administered on:12-Apr-2013 Lot #: [id number] Influenza Administered on:12-Apr-2013 Lot #: [id number] Fluzone High-Dose Intramuscular Suspension Administered on:11-Mar-2014 Lot #: [id number] Family History Mother Name Dates Details No pertinent family history Status: Active Father Name Dates Details No pertinent family history Status: Active Social History Name Dates Details Smoking StatusNever smokerNever smoker Vital Signs Date Test Result Details 10:19 BP Systolic 122 mm[Hg] Status: BP Diastolic 64 mm[Hg] Status: Weight 229 lb Status: Body [...] not documented Encounters Appointment; Bal Wiseman On Encounter Diagnosis: Problem [...]
--- OUTSIDE RECORDS SUMMARY | 2017-07-06 22:03 | External Medical Summary | Summary of Care ---
:1935 Author Name Derick CHRISTASathish Aguilar Address [address] Unavailable [place], [place] [id number] Care Team Providers Name Role Phone Derick [...] Quantity: 9 Refills: 0 Bal Wiseman M.D. R Start 08-Apr-2016 Active Ciprofloxacin HCl - 500 MG Oral Tablet TAKE 1 TABLET EVERY 12 HOURS DAILY. Quantity: 10 Refills: 0 Tito Wiseman M.D.othy R Start 08-Apr-2016 Active Allergies and Adverse Reactions [...] Dates Details Influenza on: 07-Mar-2009 Lot #: [id number] Influenza A (H1N1) Monoval Vac SUSP on: 08-Jun-2009 Lot #: [id number] Tdap (Adacel) on: 16-Feb-2010 Lot #: [id number] Influenza on: 16-Feb-2010 Lot #: [id number] Influenza on: 22-Feb-2011 Lot #: [id number] Influenza on: 31-Jan-2012 Lot #: [id number] Pneumo (Pneumovax) on: 12-Apr-2013 Lot #: [id number] Influenza on: 12-Apr-2013 Lot #: [id number] Fluzone High-Dose SUSP on: 11-Mar-2014 Lot #: [id number] Influenza on: 05-Oct-2015 Fluzone High-Dose 0.5 ML Intramuscular Suspension Prefilled Syringe on: Lot #: [id number] Family History Mother Name Dates Details No [...] >60 ml/min Range: >60 EST GFR, NON-AFR SURINAMESE >60 ml/min Range: >60 Comments: EST GFR [...] AVG. GLUCOSE 120 08-Apr-2016 08:21 URINE CULTURE [id number] Comments: BuildZoom performed at: [facility], [address], Offset Label Rewinder: Chaitanya Wood D.O., MPHQuest Collection Date/Time: [id number] Results Received Date/Time: [id number] Reported Date /Time: [id number] [facility] at: [facility], [address] [place] [address], [address], Offset Label Rewinder: Chaitanya Wood D.O., MPHQuest Collection Date/Time: [id number] Results Received Date/Time: [id number] Reported Date/Time: [id number] Fastin hours CULTURE, URINE, ROUTINE SEE NOTE Comments: CULTURE, URINE, ROUTINE MICRO NUMBER: [id number] TEST STATUS: FINAL SPECIMEN SOURCE: URINE SPECIMEN [...] Encounter Diagnosis: Problem not documented 10:15 Appointment; aBl Wiseman M.D. On 16-Sep-2014 Encounter Diagnosis: Problem not documented 10:15 Appointment; Chaitanya Do M.D. On 02-Sep-2014 Encounter Diagnosis: Problem not documented 09:45 Appointment; Alfred Griffith D.O. On 06-Jul-2014 Encounter Diagnosis: Problem not documented 07:45
--- OUTSIDE RECORDS SUMMARY | 2017-07-06 22:04 | External Medical Summary ---
:1935 Author Name GENERATED, SYSTEM Care Team Providers Name Role Phone MD JACKSON TIMOTHY Primary Care Provider [phone] Reason For Visit Chief Complaint SEVERE COUGH & WEAKNESS Social History Functional Status Vital Signs Results Blood Gas from 12/22/2014 7:40 PMARTERIAL PH7.480 H (7.350-7.450 ) ARTERIAL GJ9628.6 MM HG L (35.0-45.0 MM HG) ART. PO275 MM HG L (80-95 MM HG) ART. TOTAL CO222.7 mmol/L (20.0-30.0 mmol/L) ART. KHFPUITHNSA71.5 MEQ/L (19.0-29.0 MEQ/L) ART. BASE EXCESS2.6 H (-2.5-2.5 ) ART. O2 LJYKDMSXSC42.2 % (91.0-97.0 %) PATIENT ATMOSPHEREROOM AIR SPECIMEN SITEARTERIALChemistry from 12/22/2014 8:55 PMLACTIC ACID0.80 MMOL/L ( 0.40-2.00 MMOL/L)Chemistry from 12/22/2014 7:55 FRMMFCRS921 MMOL/L (136-145 MMOL/ L) POTASSIUM3.6 MMOL/L (3.5-5.1 MMOL/L) EVPFQAYJ558 MMOL/L (98-107 MMOL/L) KRZ667.7 MMOL/L (21.0-32.0 MMOL/L) ANION GAP5.3 MMOL/L L (8.0-16.0 MMOL/L) BUN20 MG/DL H (7-18 MG/DL) CREATININE0.91 MG/DL (0.55-1.02 MG/DL) BUN/CREATININE RATIO22.0 H (9.1-17.0 ) CPSYGLL40 MG/DL (65-99 MG/DL) GFR EST NON AFR UXTVVUCE21 ML/MIN GFRA EST AFR AMER70 ML/MIN CALCIUM8.9 MG/DL (8.5-10.1 MG/DL) BILIRUBIN TOTAL0.38 MG/DL (0.20-1.00 MG/DL) TOTAL PROTEIN6.6 GM/DL (6.4-8.2 GM/DL) ALBUMIN3.2 GM/DL L (3.4-5.0 GM/DL) GLOBULIN3.4 GM/DL (2.3-3.5 GM/DL) A/G RATIO0.9 MG/DL L (1.5-2.2 MG/DL) ALK PHOS50 U/L (46-116 U/L) ALT (SGPT)31 U/L (16-63 U/L) AST (SGOT)28 U/L (15-37 U/L) TROPONIN-I<0.04 (SEE BELOW ) B-TYPE NATRIURETIC EMGZCGP99 PG/ML (1-100 PG/ML) CK64 U/L (26-192 U/L)Hematology from 12/22/2014 7:55 PMWBC9.2 X10e3/UL (3.6-11.2 X10e3/UL) RBC3.78 X10e6/UL (3.63-4.92 X10e6/UL) PIKWNFDGOA11.7 G/DL (11.0-14.3 G/DL) XKHHSIKRTP56.0 % (31.2-41.9 %) EHB186.5 FL H (79.0-98.0 FL) MCH33.6 PG H (27.0-33.0 PG) MCHC33.5 G/DL (32.0-36.0 G/DL) RDW13.2 % (12.3-17.0 %) TIPYRXIT627 X10e3/UL L (159-386 X10e3/UL) MPV7.6 FL (7.4-10.4 FL) AUTOMATED DIFFPERFORMED SEGS78.2 % DPHYFWQEREE56.5 % MONOCYTES7.3 % EOSINOPHILS0.6 % BASOPHILS0.4 % ABSOLUTE NEUTROPHILS7.20 X10e3/UL (1.80-7.80 X10e3/UL) ABSOLUTE LYMPHOCYTES1.20 X10e3/UL (1.00-3.00 X10e3/UL) ABSOLUTE MONOCYTES0.70 X10e3/UL (0.30-1.00 X10e3/UL) ABSOLUTE EOSINOPHILS0.10 X10e3/UL (0.00-0.50 X10e3/UL) ABSOLUTE BASOPHILS0.00 X10e3/UL (0.00-0.20 X10e3/UL)Urinalysis from 12/22/2014 9: 00 PM Status: Final Result URINALYSIS Specimen Number: [id number] Sample Collection Date/Time: 12/22/2014 9:00 PM Specimen Source: URINE COLORYELLOW (STRAW/YELL/DK YELL ) URINE APPEARANCESL CLOUDY A (CLEAR ) URINE PH6.0 (5.0-8.0 ) URINE SPECIFIC GRAVITY1.010 (<=1.005->=1.030 ) URINE GLUCOSENEGATIVE MG/DL (NEGATIVE MG/DL) URINE BILIRUBINNEGATIVE (NEGATIVE ) URINE KETONESNEGATIVE MG/DL (NEGATIVE MG/DL) URINE BLOODTRACE-LYSED A (NEGATIVE ) URINE PROTEINNEGATIVE MG/DL (NEGATIVE MG/DL) URINE UROBILINOGEN0.2 EU/DL (0.2-1.0 EU/DL) URINE NITRITESNEGATIVE (NEGATIVE ) *URINE LEUKOCYTESSMALL A (NEGATIVE ) MICROSCOPIC EXAM PERFORMEDPERFORMED WBC5-10 /HPF A (0-5 /HPF) RBC5-10 /HPF A (0-1 /HPF) SQUAMOUS EP. CELLSMODERATE /LPF A (NEG-FEW /LPF) MUCOUS THREADSFEW /LPF A (NEGATIVE /LPF) BACTERIAFEW /HPF A (NEGATIVE /HPF)Microbiology from 12/22/2014 7:54 PM*INFLUENZA A ANTIGEN Specimen Number: [id number] Sample Collection Date/Time: 12/22/2014 7:54 PM Specimen Source: Nares *INFLUENZA A ANTIGEN: NEGATIVE Note: This test can not distinguish influenza A virus subtypes. For example, this test cannot distinguish influenza infections caused by novel influenza A viruses versus seasonal influenza A viruses. The sensitivity of this assay has been shown to range between 71-98% for seasonal influenza A viruses. There is no data available for sensitivity related specifically to H1N1 virus for this test. A negative result does not exclude influenza virus infection. If influenza is circulating in your community, a diagnosis of influenza should be considered based on a patient's clinical presentation and empiric antiviral treatment should be considered, if indicated. If more conclusive testing is desired, follow-up confirmatory testing with either viral culture or (PCR) is warranted. *INFLUENZA B ANTIGEN: NEGATIVE *INFLUENZA B ANTIGEN Specimen Number: [id number] Sample Collection Date/Time: 12/22/2014 7:54 PM Specimen Source: Nares *INFLUENZA B ANTIGEN: NEGATIVE *INFLUENZA A ANTIGEN: NEGATIVE Note: This test can not distinguish influenza A virus subtypes. For example, this test cannot distinguish influenza infections caused by novel influenza A viruses versus seasonal influenza A viruses. The sensitivity of this assay has been shown to range between 71-98% for seasonal influenza A viruses. There is no data available for sensitivity related specifically to H1N1 virus for this test. A negative result does not exclude influenza virus infection. If influenza is circulating in your community, a diagnosis of influenza should be considered based on a patient's clinical presentation and empiric antiviral treatment should be considered, if indicated. If more conclusive testing is desired, follow-up confirmatory testing with either viral culture or (PCR) is warranted. DX Radiology from 12/22/2014 7:31 PMCHEST 1 VIEWHistory: Chest Pain Priors: 07/10/14 Findings: Cardiac silhouette pulmonary vasculature within normal limits. There are no acute infiltrates or effusions. Impression: No acute cardiopulmonary disease. Electronically signed by: Devonte Willoughby MD Dictated: 12/23/2014 09:57CT Scan from 12/22/2014 8:04 PMCT CEREBRAL W/O CONTRASTHistory: Chest Pain . Priors: 08/29/13 Findings: Ventricles and Extra axial spaces: Normal in size and morphology for the patient's age. Hemorrhage: None. Cerebral parenchyma: Scattered decreased attenuation in the periventricular white matter, most consistent with chronic small-vessel ischemic changes. There is encephalomalacia involving the left parieto-occipital region, consistent with a remote infarct. Mass effect/midline shift: None. Brainstem/Cerebellum: Normal. Calvarium: Normal. Visualized Paranasal sinuses/Mastoids: Mild mucosal thickening. Impression: No acute intracranial process. Remote infarct left parieto-occipital region. Electronically signed by: Devonte Willoughby MD Dictated: 12/23/2014 08:47 Problems Encounter Diagnosis No relevant problems exist. [...] Hospital Discharge Instructions Allergies, Adverse Reactions, Alerts Hydrocodone causes Unknown N/V.morphine causes Unknown N/V.Reopro causes Unknown Bleeding.ketorolac causes dizziness, "felt funny".Latex Allergy has not been assessed.IV Contrast Allergy has not been assessed.No Known Food Allergies. Medication Medication reconciliation has not been performed.
--- OUTSIDE RECORDS SUMMARY | 2017-07-06 22:04 | External Medical Summary | Continuity of Care Document ---
:1935 Author Organization [facility] Allergies Active Description Code Type Severity Reaction Onset Reported/ Identified Relationship Clinical to Patient Status Yes MORPHINE, Drug N/A N/A REOPRO, Aller HYDROCODONE gy Medications Medication Packaging Start Date Stop Date Route Dosage Sig Tablet 06/05/2017 oral 1 tablet melatonin Problems Date Dx Attending Type Code Diagnosis Diagnosed By Coded 12/23/2014 Renata VILLA 64729 DM1 UNCOMP NSU FADY 12/23/2014 Renata VILLA 5990 URIN TRACT FADY INFECTION NOS 12/23/2014 Renata VILLA 12074 OTHER MALAISE & FADY FATIGUE 12/23/2014 Kelsi VILLA 7862 COUGH FADY 01/08/2017 JOYCELYN PIMENTEL E109 Type 1 diabetes mellitus without complications 01/08/2017 JOYCELYN PIMENTEL [id number] Pain in left hip 01/08/2017 JOYCELYN PIMENTEL R0789 Other chest pain 01/08/2017 JOYCELYN PIMENTEL [id number] Other specified injuries of head, initial encounter 01/08/2017 JOYCELYN PIMENTEL [id number] Other fall on same level, initial encounter 01/08/2017 JOYCELYN PIMENTEL [id number] Unsp place in single-family (private) house as place 01/08/2017 JOYCELYN PIMENTEL Z7902 terminologist (current) use of antithrombotics/ant iplatelets 01/08/2017 JOYCELYN PIMENTEL Z794 terminologist (current) use of insulin 01/08/2017 JOYCELYN PIMENTEL Z8673 Prsnl hx of TIA (TIA), and cereb infrc w/o resid deficits 01/08/2017 JOYCELYN PIMENTEL Z955 Presence of coronary angioplasty implant and graft 01/09/2017 JOYCELYN PIMENTEL E109 Type 1 diabetes mellitus without complications 01/09/2017 JOYCELYN PIMENTEL [id number] Pain in left hip 01/09/2017 JOYCELYN PIMENTEL R0789 Other chest pain 01/09/2017 JOYCELYN PIMENTEL [id number] Other specified injuries of head, initial encounter 01/09/2017 JOYCELYN PIMENTEL [id number] Other fall on same level, initial encounter 01/09/2017 JOYCELYN PIMENTEL [id number] Unsp place in single-family (private) house as place 01/09/2017 JOYCELNY PIMENTEL Z7902 snf (current) use of antithrombotics/ant iplatelets 01/09/2017 JOYCELYN PIMENTEL Z794 snf (current) use of insulin 01/09/2017 JOYCELYN PIMENTEL Z8673 Prsnl hx of TIA (TIA), and cereb infrc w/o resid deficits 01/09/2017 JOYCELYN PIMENTEL Z955 Presence of coronary angioplasty implant and graft 01/09/2017 UNASSIGNED Renata [id number] Unspecified injury DOCTOR, DOCTOR of left hip, initial encounter 05/28/2017 MILLS, CARLEE Yanez E119 Type 2 diabetes mellitus without complications 05/28/2017 MILLS, CARLEE Yanez I10 Essential (primary) hypertension 05/28/2017 MILLS, CARLEE Yanez [id number] Pain in right hip 05/28/2017 MILLSCARLEE R110 Nausea 05/28/2017 MILLSCARLEE [id number] Traum subdr hem w/o loss of consciousness, init 05/28/2017 MILLSCARLEE [id number] Unspecified injury of head, initial encounter 05/28/2017 CARLEE MILLS [id number] Other fall on same level, initial encounter 05/28/2017 CARLEE MILLS [id number] Unsp place in single-family (private) house as place 05/28/2017 CARLEE MILLS Z794 terminologist (current) use of insulin 05/28/2017 CARLEE MILLS Z7982 terminologist (current) use of aspirin 05/29/2017 MILLSCARLEE E109 Type 1 diabetes mellitus without complications 05/29/2017 MILLS, CARLEE Yanez [id number] Pain in left hip 05/29/2017 MILLS, CARLEE Yanez [id number] Traum subdr hem w/o loss of consciousness, init 05/29/2017 MILLSCARLEE [id number] Unspecified injury of head, initial encounter 05/29/2017 CARLEE MILLS [id number] Other fall on same level, initial encounter 05/29/2017 CARLEE MILLS [id number] Bathroom of single-family (private) house as place 05/29/2017 MILLS, CARLEE Yanez Z7902 snf (current) use of antithrombotics/ant iplatelets 05/29/2017 MILLS, CARLEE Yanez Z794 terminologist (current) use of insulin 05/29/2017 MILLS, CARLEE Yanez Z8673 Prsnl hx of TIA (TIA), and cereb infrc w/o resid deficits 05/29/2017 MILLS, CARLEE Yanez Z955 Presence of coronary angioplasty implant and graft 05/29/2017 MILLS, CARLEE Yanez E119 Type 2 diabetes mellitus without complications 05/29/2017 MILLS, CARLEE Yanez I10 Essential (primary) hypertension 05/29/2017 MILLS, CARLEE Yanez [id number] Pain in right hip 05/29/2017 MILLS, CARLEE Yanez R110 Nausea 05/29/2017 MILLSCARLEE [id number] Traum subdr hem w/o loss of consciousness, init 05/29/2017 MILLSCARLEE [id number] Unspecified injury of head, initial encounter 05/29/2017 MILLS, CARLEE Yanez [id number] Other fall on same level, initial encounter 05/29/2017 MILLS, CARLEE Yanez [id number] Unsp place in single-family (private) house as place 05/29/2017 MILLS, CARLEE Yanez Z794 snf (current) use of insulin 05/29/2017 MILLS, CARLEE Yanez Z7982 terminologist (current) use of aspirin 06/12/2017 O'LORENA Yanez D696 Thrombocytopenia, TON, DONNA unspecified 06/12/2017 O'LORENA Yanez E039 Hypothyroidism, TON, DONNA unspecified 06/12/2017 O'LORENA Yanez 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, 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, bi 06/12/2017 O'LORENA Yanez 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, unsp, 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, DONNA intractable, without status epilepticus 06/12/2017 O'LORENA Yanez 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, DONNA degeneration 06/12/2017 O'LORENA Yanez H547 Unspecified visual TON, DONNA loss 06/12/2017 O'LORENA Yanez I10 Essential (primary) TON, DONNA hypertension 06/12/2017 O'LORENA Yanez 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, 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 06/12/2017 O'LORENA Yanez 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, DONNA cerebral infarction 06/12/2017 O'LORENA Yanez K5900 Constipation, TON, DONNA unspecified 06/12/2017 O'LORENA Yanez M109 Gout, unspecified TON, DONNA 06/12/2017 O'LORENA Yanez R001 Bradycardia, TON, DONNA unspecified 06/12/2017 O'LORENA Yanez R1310 Dysphagia, TON, DONNA unspecified 06/12/2017 O'LORENA Yanez R410 Disorientation, TON, DONNA unspecified 06/12/2017 O'LORENA Yanez R413 Other amnesia TON, DONNA 06/12/2017 O'LORENA Yanez [id number] Cognitive TON, DONNA communication deficit 06/12/2017 O'LORENA Yanez R42 Dizziness and TON, DONNA giddiness 06/12/2017 O'LORENA Yanez R509 Fever, unspecified TON, DONNA 06/12/2017 O'LORENA Yanez R51 Headache TON, DONNA 06/12/2017 O'LORENA Yanez R55 Syncope and TON, DONNA collapse 06/12/2017 O'LORENA Yanez R600 Localized edema TON, DONNA 06/12/2017 O'LORENA Yanez [id number] Intcran inj w loss TON, DONNA of consciousness of unsp duration, subs 06/12/2017 O'LORENA Yanez [id number] Fall on same level, TON, DONNA unspecified, subsequent encounter 06/12/2017 O'LORENA Yanez Z23 Encounter for TON, DONNA immunization 06/12/2017 O'LORENA Yanez Z7902 terminologist (current) TON, DONNA use of antithrombotics/ant iplatelets 06/12/2017 O'LORENA Yanez Z794 terminologist (current) TON, DONNA use of insulin 06/12/2017 O'LORENA Yanez Z7982 terminologist (current) TON, DONNA use of aspirin 06/12/2017 O'LORENA Yanez [id number] Personal history of TON, DONNA urinary calculi 06/12/2017 O'LORENA Yanez Z885 Allergy status to TON, DONNA narcotic agent status 06/12/2017 O'LORENA Yanez Z9049 Acquired absence of TON, 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 06/12/2017 O'LORENA Yanez Z955 Presence of TON, DONNA coronary angioplasty implant and graft 06/13/2017 O'LORENA Yanez D696 Thrombocytopenia, TON, DONNA unspecified 06/13/2017 O'LORENA Yanez E039 Hypothyroidism, TON, DONNA unspecified 06/13/2017 O'LORENA Yanez [id number] Type 2 diab with TON, 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, bi 06/13/2017 O'LORENA Yanez [id number] Epilepsy, unsp, 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, DONNA intractable, without status epilepticus 06/13/2017 O'LORENA Yanez 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, DONNA degeneration 06/13/2017 O'LORENA Yanez H547 Unspecified visual TON, DONNA loss 06/13/2017 O'LORENA Yanez I10 Essential (primary) TON, DONNA hypertension 06/13/2017 O'LORENA Yanez 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, 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 06/13/2017 O'LORENA Yanez D87798 Other sequelae of TON, DONNA cerebral infarction 06/13/2017 O'LORENA Yanez K5900 Constipation, TON, DONNA unspecified 06/13/2017 O'LORENA Yanez M109 Gout, unspecified TON, DONNA 06/13/2017 O'LORENA Yanez R001 Bradycardia, TON, DONNA unspecified 06/13/2017 O'LORENA Yanez R1310 Dysphagia, TON, DONNA unspecified 06/13/2017 O'LORENA Yanez R410 Disorientation, TON, DONNA unspecified 06/13/2017 O'LORENA Yanez R413 Other amnesia TON, DONNA 06/13/2017 O'LORENA Yanez D69039 Cognitive TON, DONNA communication deficit 06/13/2017 O'LORENA Yanez R42 Dizziness and TON, DONNA giddiness 06/13/2017 O'LORENA Yanez R509 Fever, unspecified TON, DONNA 06/13/2017 O'LORENA Yanez R51 Headache TON, DONNA 06/13/2017 O'LORENA Yanez R55 Syncope and TON, DONNA collapse 06/13/2017 O'LORENA Yanez R600 Localized edema TON, DONNA 06/13/2017 O'LORENA Yanez [id number] Intcran inj w loss TON, DONNA of consciousness of unsp duration, subs 06/13/2017 O'LORENA Yanez [id number] Fall on same level, TON, DONNA unspecified, subsequent encounter 06/13/2017 O'LORENA Yanez Z23 Encounter for TON, DONNA immunization 06/13/2017 O'LORENA Yanez Z7902 terminologist (current) TON, DONNA use of antithrombotics/ant iplatelets 06/13/2017 O'LORENA Yanez Z794 snf (current) TON, DONNA use of insulin 06/13/2017 O'LORENA Yanez Z7982 snf (current) TON, DONNA use of aspirin 06/13/2017 O'LORENA Yanez [id number] Personal history of TON, DONNA urinary calculi 06/13/2017 O'LORENA Yanez Z885 Allergy status to TON, DONNA narcotic agent status 06/13/2017 O'LORENA Yanez Z9049 Acquired absence of TON, 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 06/13/2017 O'LORENA Yanez Z955 Presence of TON, DONNA coronary angioplasty implant and graft Procedures Code Description [place] [address] 01/01/2017 76613 01/01/2017 46131 01/01/2017 08248 01/01/2017 98840 01/01/2017 A0425 01/01/2017 A0427 01/01/2017 29163 05/19/2017 25888 05/19/2017 81384 05/19/2017 84451 05/19/2017 90655 05/19/2017 79149 05/19/2017 53316 05/19/2017 74323 05/19/2017 27644 05/19/2017 11221 05/19/2017 97534 05/19/2017 46995 05/19/2017 A0425 05/19/2017 A0433 05/19/2017 05/24/2017 [id number] Results Test Result Range CBC WITH PLATELET AND DIFFERENTIAL - 05/19/17 23:00 SEGS 69.3 % NRG *BASOPHILS 0.7 % NRG *EOSINOPHILS 2.3 % NRG AUTOMATED DIFF PERFORMED NRG *LYMPHOCYTES 20.3 % NRG *MONOCYTES 7.4 % NRG *ABSOLUTE BASOPHILS 0.00 10*3/uL 0.00-0.20 *ABSOLUTE EOSINOPHILS 0.10 10*3/uL 0.00-0.50 *ABSOLUTE LYMPHOCYTES 0.80 10*3/uL 1.00-3.00 *ABSOLUTE MONOCYTES 0.30 10*3/uL 0.30-1.00 *ABSOLUTE NEUTROPHILS 2.80 10*3/uL 1.80-7.80 MPV 7.4 fL 7.4-10.4 PLATELETS 112 10*3/uL 159-386 WBC 4.0 10*3/uL 3.6-11.2 RBC 3.24 3.63-4.92 HEMOGLOBIN 11.5 11.0-14.3 HEMATOCRIT 32.6 % 31.2-41.9 MCV 100.6 fL 79.0-98.0 MCH 35.6 pg 27.0-33.0 MCHC 35.4 32.0-36.0 RDW 13.3 % 12.3-17.0 RDWSD 47.3 37.1-47.8 COMPREHENSIVE METABOLIC PANEL - 05/19/17 23:00 CHLORIDE 100 mmol/L 98-107 BILIFUBIN TOTAL 0.30 0.20-1.00 TOTAL PROTEIN 5.7 6.4-8.2 ALBUMIN 2.9 3.4-5.0 *GLOBULIN 2.8 2.3-3.5 *A/G RATIO 1.0 1.5-2.2 ALK PHOS 55 U/L 46-116 ALT (SGPT) 27 U/L 16-63 AST (SGOT) 29 U/L 15-37 GFR ESTIMATION - 05/19/17 23:00 *GFR EST NON AFR [place] 58 mL/min NRG *GRFA EST AFR AMER 68 mL/min NRG PHENYTOIN - 05/19/17 23:00 PHENYTOIN (DILANTIN) 12.2 10.0-20.0 TROPONIN-I - 05/19/17 23:00 TROPONIN-I <0.017 ng/mL 0.000-0.056 PROTHROMBIN TIME - 05/19/17 23:00 *INR 1.12 0.90-1.10 *PROTHROMBIN TIME 11.9 s 9.4-11.5 PARTIAL THROMBOPLASTIN TIME - 05/19/17 23:00 PARTIAL THROMBOPLASTIN TIME 22.7 s 23.0-31.0 GLUCOSE, METER - 05/19/17 23:11 GLUCOSE, METER 154 65-99 GLUCOSE, METER - 05/23/17 16:47 GLUCOSE, METER 298 65-99 GLUCOSE, METER - 05/23/17 20:52 GLUCOSE, METER 302 65-99 GLUCOSE, METER - 05/24/17 07:42 GLUCOSE, METER 253 65-99 GLUCOSE, METER - 05/24/17 12:01 GLUCOSE, METER 267 65-99 GLUCOSE, METER - 05/24/17 16:54 GLUCOSE, METER 216 65-99 GLUCOSE, METER - 05/24/17 21:35 GLUCOSE, METER 252 65-99 GLUCOSE, METER - 05/25/17 07:25 GLUCOSE, METER 273 65-99 GLUCOSE, METER - 05/25/17 11:36 GLUCOSE, METER 282 65-99 GLUCOSE, METER - 05/25/17 16:52 GLUCOSE, METER 238 65-99 GLUCOSE, METER - 05/25/17 20:24 GLUCOSE, METER 244 65-99 GLUCOSE, METER - 05/26/17 07:22 GLUCOSE, METER 279 65-99 GLUCOSE, METER - 05/26/17 12:04 GLUCOSE, METER 291 65-99 GLUCOSE, METER - 05/26/17 16:59 GLUCOSE, METER 219 65-99 GLUCOSE, METER - 05/26/17 20:17 GLUCOSE, METER 222 65-99 BASIC METABOLIC PANEL - 05/27/17 05:55 SODIUM 134 mmol/L 136-145 POTASSIUM 4.0 mmol/L 3.5-5.1 CHLORIDE 100 mmol/L 98-107 TCO2 28.3 mmol/L 21.0-32.0 *ANION GAP 5.7 mmol/L 8.0-16.0 BUN 24 7-18 CREATININE 0.98 0.55-1.02 *BUN/CREATININE RATIO 24.5 9.1-17.0 GLUCOSE 268 65-99 CALCIUM 8.9 8.5-10.1 GFR ESTIMATION - 05/27/17 05:55 *GFR EST NON AFR [place] 54 mL/min NRG *GRFA EST AFR AMER 63 mL/min NRG CBC WITH PLATELET NO DIFFERENTIAL - 05/27/17 05:56 MPV 7.7 fL 7.4-10.4 PLATELETS 143 10*3/uL 159-386 WBC 4.9 10*3/uL 3.6-11.2 RBC 3.25 3.63-4.92 HEMOGLOBIN 11.5 11.0-14.3 HEMATOCRIT 32.1 % 31.2-41.9 MCV 98.7 fL 79.0-98.0 MCH 35.3 pg 27.0-33.0 MCHC 35.8 32.0-36.0 RDW 13.7 % 12.3-17.0 RDWSD 48.6 37.1-47.8 GLUCOSE, METER - 05/27/17 08:00 GLUCOSE, METER 250 65-99 GLUCOSE, METER - 05/27/17 12:11 GLUCOSE, METER 237 65-99 GLUCOSE, METER - 05/27/17 17:00 GLUCOSE, METER 184 65-99 GLUCOSE, METER - 05/27/17 20:56 GLUCOSE, METER 236 65-99 GLUCOSE, METER - 05/28/17 07:47 GLUCOSE, METER 286 65-99 GLUCOSE, METER - 05/28/17 11:44 GLUCOSE, METER 264 65-99 URINALYSIS (CULTURE PRN) - 05/28/17 17:10 *URINE APPEARANCE CLEAR CLEAR *URINE BILIRUBIN NEGATIVE NEGATIVE *URINE BLOOD NEGATIVE NEGATIVE *URINE GLUCOSE NEGATIVE NEGATIVE *URINE KETONES NEGATIVE NEGATIVE *URINE LEUKOCYTES NEGATIVE NEGATIVE *URINE NITRITES NEGATIVE NEGATIVE URINE PH 6.5 5.0-8.0 *URINE PROTEIN NEGATIVE NEGATIVE URINE SPECIFIC GRAVITY 1.020 <=1.005->=1.030 *URINE UROBILINOGEN 0.2 0.2-1.0 *URINE COLOR YELLOW STRAW/YELL/DK YELL GLUCOSE, METER - 05/28/17 17:15 GLUCOSE, METER 204 65-99 GLUCOSE, METER - 05/28/17 21:36 GLUCOSE, METER 210 65-99 GLUCOSE, METER - 05/29/17 07:46 GLUCOSE, METER 266 65-99 GLUCOSE, METER - 05/29/17 12:05 GLUCOSE, METER 205 65-99 GLUCOSE, METER - 05/29/17 17:05 GLUCOSE, METER 143 65-99 GLUCOSE, METER - 05/29/17 20:33 GLUCOSE, METER 184 65-99 GLUCOSE, METER - 05/30/17 07:57 GLUCOSE, METER 273 65-99 GLUCOSE, METER - 05/30/17 12:49 GLUCOSE, METER 174 65-99 GLUCOSE, METER - 05/30/17 17:07 GLUCOSE, METER 143 65-99 GLUCOSE, METER - 05/30/17 20:21 GLUCOSE, METER 183 65-99 GLUCOSE, METER - 05/31/17 07:23 GLUCOSE, METER 195 65-99 GLUCOSE, METER - 05/31/17 11:55 GLUCOSE, METER 258 65-99 GLUCOSE, METER - 05/31/17 16:45 GLUCOSE, METER 191 65-99 GLUCOSE, METER - 05/31/17 20:07 GLUCOSE, METER 242 65-99 GLUCOSE, METER - 06/01/17 08:09 GLUCOSE, METER 229 65-99 GLUCOSE, METER - 06/01/17 11:47 GLUCOSE, METER 248 65-99 GLUCOSE, METER - 06/01/17 16:59 GLUCOSE, METER 166 65-99 GLUCOSE, METER - 06/01/17 20:19 GLUCOSE, METER 170 65-99 GLUCOSE, METER - 06/02/17 07:34 GLUCOSE, METER 199 65-99 GLUCOSE, METER - 06/02/17 12:19 GLUCOSE, METER 263 65-99 GLUCOSE, METER - 06/02/17 16:50 GLUCOSE, METER 145 65-99 GLUCOSE, METER - 06/02/17 20:00 GLUCOSE, METER 192 65-99 CBC WITH PLATELET AND DIFFERENTIAL - 06/03/17 04:57 SEGS 53.7 % NRG *BASOPHILS 0.7 % NRG *EOSINOPHILS 3.0 % NRG AUTOMATED DIFF PERFORMED NRG *LYMPHOCYTES 32.2 % NRG *MONOCYTES 10.4 % NRG *ABSOLUTE BASOPHILS 0.00 10*3/uL 0.00-0.20 *ABSOLUTE EOSINOPHILS 0.10 10*3/uL 0.00-0.50 *ABSOLUTE LYMPHOCYTES 1.50 10*3/uL 1.00-3.00 *ABSOLUTE MONOCYTES 0.50 10*3/uL 0.30-1.00 *ABSOLUTE NEUTROPHILS 2.50 10*3/uL 1.80-7.80 MPV 7.6 fL 7.4-10.4 PLATELETS 159 10*3/uL 159-386 WBC 4.6 10*3/uL 3.6-11.2 RBC 3.45 3.63-4.92 HEMOGLOBIN 12.2 11.0-14.3 HEMATOCRIT 34.6 % 31.2-41.9 MCV 100.4 fL 79.0-98.0 MCH 35.4 pg 27.0-33.0 MCHC 35.2 32.0-36.0 RDW 13.6 % 12.3-17.0 RDWSD 48.1 37.1-47.8 COMPREHENSIVE METABOLIC PANEL - 06/03/17 04:57 SODIUM 137 mmol/L 136-145 POTASSIUM 4.2 mmol/L 3.5-5.1 CHLORIDE 104 mmol/L 98-107 TCO2 29.6 mmol/L 21.0-32.0 *ANION GAP 3.4 mmol/L 8.0-16.0 BUN 31 7-18 CREATININE 0.96 0.55-1.02 *BUN/CREATININE RATIO 32.3 9.1-17.0 GLUCOSE 171 65-99 CALCIUM 9.2 8.5-10.1 BILIFUBIN TOTAL 0.40 0.20-1.00 TOTAL PROTEIN 5.7 6.4-8.2 ALBUMIN 2.7 3.4-5.0 *GLOBULIN 3.0 2.3-3.5 *A/G RATIO 0.9 1.5-2.2 ALK PHOS 95 U/L 46-116 ALT (SGPT) 57 U/L 16-63 AST (SGOT) 41 U/L 15-37 GFR ESTIMATION - 06/03/17 04:57 *GFR EST NON AFR [place] 55 mL/min NRG *GRFA EST AFR AMER 64 mL/min NRG GLUCOSE, METER - 06/03/17 07:23 GLUCOSE, METER 217 65-99 GLUCOSE, METER - 06/03/17 11:53 GLUCOSE, METER 166 65-99 GLUCOSE, METER - 06/03/17 16:49 GLUCOSE, METER 103 65-99 GLUCOSE, METER - 06/03/17 20:37 GLUCOSE, METER 174 65-99 GLUCOSE, METER - 06/04/17 07:37 GLUCOSE, METER 162 65-99 GLUCOSE, METER - 06/04/17 11:44 GLUCOSE, METER 161 65-99 GLUCOSE, METER - 06/04/17 16:55 GLUCOSE, METER 89 65-99 GLUCOSE, METER - 06/04/17 20:27 GLUCOSE, METER 162 65-99 GLUCOSE, METER - 06/05/17 07:27 GLUCOSE, METER 165 65-99 GLUCOSE, METER - 06/05/17 11:52 GLUCOSE, METER 187 65-99 VENOUS BLOOD GAS - 07/06/17 14:22 *VENOUS PO2 <40 mm[Hg] 38-42 LACTIC ACID - 07/06/17 14:22 LACTIC ACID 1.2 0.9-1.7 CBC WITH PLATELET AND DIFFERENTIAL - 07/06/17 14:22 SEGS 61.9 % NRG *BASOPHILS 0.7 % NRG *EOSINOPHILS 1.8 % NRG AUTOMATED DIFF PERFORMED NRG *LYMPHOCYTES 27.9 % NRG *MONOCYTES 7.7 % NRG *ABSOLUTE BASOPHILS 0.00 10*3/uL 0.00-0.20 *ABSOLUTE EOSINOPHILS 0.10 10*3/uL 0.00-0.50 *ABSOLUTE LYMPHOCYTES 1.20 10*3/uL 1.00-3.00 *ABSOLUTE MONOCYTES 0.30 10*3/uL 0.30-1.00 *ABSOLUTE NEUTROPHILS 2.70 10*3/uL 1.80-7.80 MPV 7.4 fL 7.4-10.4 PLATELETS 138 10*3/uL 159-386 WBC 4.4 10*3/uL 3.6-11.2 RBC 3.35 3.63-4.92 HEMOGLOBIN 11.7 11.0-14.3 HEMATOCRIT 33.7 % 31.2-41.9 MCV 100.7 fL 79.0-98.0 MCH 35.0 pg 27.0-33.0 MCHC 34.8 32.0-36.0 RDW 13.7 % 12.3-17.0 RDWSD 48.6 37.1-47.8 BNP - 07/06/17 14:22 B-TYPE NATRIURETIC PROTEIN 35 pg/mL 1-100 COMPREHENSIVE METABOLIC PANEL - 07/06/17 14:23 BILIFUBIN TOTAL 0.60 0.20-1.00 TOTAL PROTEIN 6.0 6.4-8.2 ALBUMIN 3.1 3.4-5.0 *GLOBULIN 2.9 2.3-3.5 *A/G RATIO 1.1 1.5-2.2 ALK PHOS 53 U/L 46-116 ALT (SGPT) 27 U/L 16-63 AST (SGOT) 35 U/L 15-37 GFR ESTIMATION - 07/06/17 14:23 *GFR EST NON AFR [place] 65 mL/min NRG *GRFA EST AFR AMER 75 mL/min NRG TSH - 07/06/17 14:23 TSH 3.811 u[IU]/L 0.340-4.820 TROPONIN-I - 07/06/17 14:23 TROPONIN-I <0.017 ng/mL 0.000-0.056 CK - 07/06/17 14:23 CK 103 U/L 26-192 LIPASE - 07/06/17 14:23 LIPASE 50 U/L 73-393 URINALYSIS (CULTURE PRN) - 07/06/17 19:49 *URINE APPEARANCE CLEAR CLEAR *URINE BILIRUBIN NEGATIVE NEGATIVE *URINE BLOOD TRACE-INTACT NEGATIVE *URINE GLUCOSE 500 NEGATIVE *URINE KETONES NEGATIVE NEGATIVE *URINE LEUKOCYTES NEGATIVE NEGATIVE *URINE NITRITES NEGATIVE NEGATIVE URINE PH 7.0 5.0-8.0 *URINE PROTEIN NEGATIVE NEGATIVE URINE SPECIFIC GRAVITY 1.015 <=1.005->=1.030 *URINE UROBILINOGEN 0.2 0.2-1.0 *URINE COLOR YELLOW STRAW/YELL/DK YELL URINE MICROSCOPIC - 07/06/17 19:49 WBC 1-5 /[HPF] 0-5 RBC 1-5 /[HPF] 0-1 MUCOUS THREADS FEW /[LPF] NEGATIVE MICROSCOPIC EXAM PERFORMED PERFORMED NRG SQUAMOUS EP. CELLS MODERATE /[LPF] NEG-FEW BACTERIA MANY /[HPF] NEGATIVE Encounters ACCT No. Visit Discharge Status Pt. Type Provider Facility Loc./Unit Complaint Date/Time [id number] 05/23/2017 06/05/2017 DIS Inpatien O'ALISHA <PV2.3.2& 856 13:37:00 14:27:19 t -RAJANI, gt;Intcran DONNA inj w loss of consciousnes s of unsp duration, subs</PV2 .3.2>< PV2.3.2>I CH</PV2.3 .2><PV 2.3.2>Int cran inj w loss of consciousnes s of unsp duration, subs</PV2 .3.2>< PV2.3.2>F all on same level, unspecified, subsequent encounter&lt ;/PV2.3.2&gt ;<PV2.3.2 >Dysphagi a, unspecified& lt;/PV2.3.2& gt;<PV2.3 .2>Syncop e and collapse< /PV2.3.2> <PV2.3.2& gt;Type 2 diab with mild nonp rtnop without macular edema, bi</PV2.3 .2><PV 2.3.2>Bra dycardia, unspecified& lt;/PV2.3.2& gt;<PV2.3 .2>Other sequelae of cerebral infarction&l t;/PV2.3.2&g t;<PV2.3. 2>Gout, unspecified& lt;/PV2.3.2& gt;<PV2.3 .2>Hypoth yroidism, unspecified& lt;/PV2.3.2& gt;<PV2.3 .2>Other amnesia</ PV2.3.2>& lt;PV2.3.2&g t;Unspecifie d visual loss</PV2 .3.2>< PV2.3.2>D izziness and giddiness&lt ;/PV2.3.2&gt ;<PV2.3.2 >Headache </PV2.3.2 ><PV2. 3.2>Essen tial (primary) hypertension </PV2.3.2 ><PV2. 3.2>terminologist (current) use of insulin</ PV2.3.2>& lt;PV2.3.2&g t;Localized edema</PV 2.3.2>&lt ;PV2.3.2> Thrombocytop enia, unspecified& lt;/PV2.3.2& gt;<PV2.3 .2>Epilep sy, unsp, not intractable, without status epilepticus& lt;/PV2.3.2& gt;<PV2.3 .2>snf (current) use of aspirin</ PV2.3.2>& lt;PV2.3.2&g t;snf (current) use of antithrombot ics/antiplat elets</PV 2.3.2>&lt ;PV2.3.2> Disorientati on, unspecified& lt;/PV2.3.2& gt;<PV2.3 .2>Unspec ified macular degeneration </PV2.3.2 ><PV2. 3.2>Cogni tive communicatio n deficit</ PV2.3.2>& lt;PV2.3.2&g t;Athscl heart disease of [place] coronary artery w/o ang pctrs</PV 2.3.2>&lt ;PV2.3.2> Acquired absence of other specified parts of digestive tract</PV 2.3.2>&lt ;PV2.3.2> Personal history of urinary calculi</ PV2.3.2>& lt;PV2.3.2&g t;Presence of coronary angioplasty implant and graft</PV 2.3.2>&lt ;PV2.3.2> Allergy status to narcotic agent status</P V2.3.2>&l t;PV2.3.2&gt ;Encounter for immunization </PV2.3.2 ><PV2. 3.2>Const ipation, unspecified& lt;/PV2.3.2& gt;<PV2.3 .2>Fever, unspecified& lt;/PV2.3.2& gt; [id number] 05/19/2017 05/21/2017 [facility], <PV2.3.2& 528 22:20:00 00:33:49 y CARLEE L gt;Unspecifi ed injury of head, initial encounter&lt ;/PV2.3.2&gt ;<PV2.3.2 >FALL< /PV2.3.2> <PV2.3.2& gt;Traum subdr hem w/o loss of consciousnes s, init</PV2 .3.2>< PV2.3.2>P ain in left hip</PV2. 3.2><P V2.3.2>Ot her fall on same level, initial encounter&lt ;/PV2.3.2&gt ;<PV2.3.2 >Bathroom of single-famil y (private) house as place</PV 2.3.2>&lt ;PV2.3.2> Type 1 diabetes mellitus without complication s</PV2.3. 2><PV2 .3.2>terminologist (current) use of insulin</ PV2.3.2>& lt;PV2.3.2&g t;terminologist (current) use of antithrombot ics/antiplat elets</PV 2.3.2>&lt ;PV2.3.2> Presence of coronary angioplasty implant and graft</PV 2.3.2>&lt ;PV2.3.2> Prsnl hx of TIA (TIA), and cereb infrc w/o resid deficits< /PV2.3.2> [id number] 05/19/2017 05/19/2017 [facility], <PV2.3.2& 493 21:41:00 23:59:59 nt CARLEE L gt;Unspecifi ed injury of head, initial encounter&lt ;/PV2.3.2&gt ;<PV2.3.2 >INJURY TO HEAD RESULT OF FALL</PV2 .3.2>< PV2.3.2>T raum subdr hem w/o loss of consciousnes s, init</PV2 .3.2>< PV2.3.2>P ain in right hip</PV2. 3.2><P V2.3.2>Na usea</PV2 .3.2>< PV2.3.2>O ther fall on same level, initial encounter&lt ;/PV2.3.2&gt ;<PV2.3.2 >Unsp place in single-famil y (private) house as place</PV 2.3.2>&lt ;PV2.3.2> Essential (primary) hypertension </PV2.3.2 ><PV2. 3.2>Type 2 diabetes mellitus without complication s</PV2.3. 2><PV2 .3.2>snf (current) use of insulin</ PV2.3.2>& lt;PV2.3.2&g t;snf (current) use of aspirin</ PV2.3.2> [id number] 01/01/2017 01/01/2017 [facility] UNASSIGNED <PV2.3.2& 822 00:02:00 11:45:43 nt DOCTOR, gt;Unspecifi DOCTOR ed injury of left hip, initial encounter&lt ;/PV2.3.2&gt ;<PV2.3.2 >FALL-LEF T HIP PAIN</PV2 .3.2>< PV2.3.2>U nspecified injury of left hip, initial encounter&lt ;/PV2.3.2&gt ; [id number] 01/01/2017 01/01/2017 [facility] JOYCELYN PIMENTEL <PV2.3.2& 211 00:33:00 05:01:55 y gt;Other specified injuries of head, initial encounter&lt ;/PV2.3.2&gt ;<PV2.3.2 >FALL< /PV2.3.2> <PV2.3.2& gt;Other specified injuries of head, initial encounter&lt ;/PV2.3.2&gt ;<PV2.3.2 >Pain in left hip</PV2. 3.2><P V2.3.2>Ot her chest pain</PV2 .3.2>< PV2.3.2>O ther fall on same level, initial encounter&lt ;/PV2.3.2&gt ;<PV2.3.2 >Unsp place in single-famil y (private) house as place</PV 2.3.2>&lt ;PV2.3.2> snf (current) use of antithrombot ics/antiplat elets</PV 2.3.2>&lt ;PV2.3.2> Prsnl hx of TIA (TIA), and cereb infrc w/o resid deficits< /PV2.3.2> <PV2.3.2& gt;Presence of coronary angioplasty implant and graft</PV 2.3.2>&lt ;PV2.3.2> Type 1 diabetes mellitus without complication s</PV2.3. 2><PV2 .3.2>snf (current) use of insulin</ PV2.3.2> [id number] 12/22/2014 12/23/2014 [facility] PFANNENSTIE 883 19:02:00 04:07:00 FADY Wan [id number] 07/06/2017 Document 371 12:53:00 Registra ladarius
--- OUTSIDE RECORDS SUMMARY | 2017-07-06 22:04 | External Medical Summary | Summary of Care ---
:1935 Author Name Michelle Wiseman M.D. Address [address], [place] [id number] Care Team Providers Name Role Phone Lauren [...] Status: Active Obesity (278.00, E66.9) Status: Active Generalized convulsive [...] of lower leg (682.6, L03.119) Status: Active Medications Name Dates Details Allopurinol [...] Refills: 3 Bal Wiseman M.D. Started 14-Jun-2010 [id number] Miscellaneous Box Lantus 100 UNIT/ML Subcutaneous Solution INJECT 52UNITS SUBCUTANEOUSLY EVERY NIGHT AT BEDTIME Quantity: 2 Refills: 11 Bal Wiseman M.D. Started [id number] ML Vial Fish Oil 1000 MG Oral [...] Refills: 3 Bal Wiseman M.D. Started 10-Apr-2015 [id number] ML Vial Allergies and Adverse Reactions Name Dates Details Dilaudid TABS Status: Active HYDROcodone Bitartrate PAUL Status: Active Morphine Derivatives Status: Active ReoPro SOLN Status: Active Sulfa Drugs Status: Active Past Medical History Name Dates Details History of Abnormal glucose (790.29, R73.09) Status: Resolved History of Flu vaccine need (V04.81, Z23) Status: Resolved History of peripheral neuropathy (V12.49, Z86.69) Status: Resolved Procedures Procedure Dates Details History of Conversion Of Previous Surgery To 'Total Hip' Completed:2010 Replacement Procedures not documented Immunization Name Dates Details Influenza Administered on:07-Mar-2009 Lot #: [id number] Influenza A (H1N1) Monoval Vac Intramuscular Suspension Administered on: Lot #: [id number] Tdap (Adacel) Administered on:16-Feb-2010 Lot #: [id number] Influenza Administered on:16-Feb-2010 Lot #: [id number] Influenza Administered on:22-Feb-2011 Lot #: [id number] Influenza Administered on:31-Jan-2012 Lot #: [id number] Pneumo (Pneumovax) Administered on:12-Apr-2013 Lot #: [id number] Influenza Administered on:12-Apr-2013 Lot #: [id number] Fluzone High-Dose Intramuscular Suspension Administered on:11-Mar-2014 Lot #: [id number] Influenza Administered on:05-Oct-2015 Family History Mother Name Dates Details No pertinent family history Status: Active Father Name Dates Details No pertinent family history Status: Active Social History Name Dates Details Smoking StatusNever smokerNever smoker Vital Signs Date Test Result Details 10:00 BP Systolic 142 mm[Hg] Status: BP Diastolic 62 mm[Hg] Status: Weight 229 lb Status: Body Mass Index Calculated 31.06 kg/m2 Status: Body Surface Area Calculated 2.26 m2 Status: 05-Oct-2015 09:51 BP Systolic 132 mm[Hg] Status: [...] ml/min Range: >60 (Better) EST GFR, NON-AFR BELGIAN 57 ml/min (Below Range: >60 low threshold) Comments: EST GFR is reported in ml/min per 1.73 m2 of body surface area. For -Spanish, please multiple result by 1.2.----- GLUCOSE 227 [...] AVG. GLUCOSE 134 (Better) 05-Oct-2015 URINE CULTURE [id number] Comments: [employer] [facility], [address] [place], [address], Senior Business Development Analyst: Chaitanya Wood D.O., MPHQuest Collection Date/Time: 11:07 [id number] Results Received Date/Time: [id number] Reported Date/Time: [id number] performed at: [employer] [facility], [address] [place], [address], Senior Business Development Analyst: Chaitanya Wood D.O., MPHQuest Collection Date/Time: [id number] Results Received Date/Time: [id number] Reported Date/Time: [id number] Fastin hours CULTURE, URINE, ROUTINE SEE NOTE (Better) Comments: CULTURE, URINE, ROUTINE MICRO NUMBER: [id number] TEST STATUS: FINAL SPECIMEN SOURCE : URINE, [...] Chaitanya Do On 08-Mar-2016 09:00 Appointment; Provider: Kishore Bailey On 10-Dec-2010 09:00 Appointment; Provider: Bal Wiseman On 08:00 Appointment; Provider: Brian Hayes On 03-Aug-2008 08:00 Appointment; Provider: Brian Hayes On 07:30 Instructions Instructions not documented Encounters Appointment; Bal Wiseman On Encounter Diagnosis: Problem not documented 09:45 Appointment; Bal Wiseman On 05-Oct-2015 Encounter Diagnosis: [...]
[2017-07-06] MEDS ORDERED: LORazepam 0.5 MG TABLET PO PRN (22:30)
[2017-07-06] MEDS ORDERED: HALOPERIDOL 0.5 MG TABLET PO PRN (22:30)
[2017-07-06] MEDS ORDERED: HALOPERIDOL 5 MG/ML INJECTION IM PRN (22:30)
[2017-07-06] MEDS ORDERED: MELATONIN 1 MG TABLET PO PRN (22:49)
[2017-07-06] MEDS ORDERED: BISACODYL 10 MG SUPPOSITORY RECTALLY PRN (22:49)
[2017-07-07 02:41] VITALS: BMI 27.7
[2017-07-07] MEDS ORDERED: MELATONIN 1 MG TABLET PO PRN (09:00)
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
[2017-07-07] MEDS: LOSARTAN 50 MG TABLET PO SCH (09:55)
[2017-07-07] MEDS: ALLOPURINOL 300 MG TABLET PO SCH (09:55)
[2017-07-07] MEDS: MAGNESIUM OXIDE 400 MG TABLET PO SCH (09:55)
[2017-07-07] MEDS: ATENOLOL 50 MG TABLET PO SCH (09:55)
[2017-07-07] MEDS: CLOPIDOGREL 75 MG TABLET PO SCH (09:56)
[2017-07-07] MEDS: ASPIRIN 81 MG CHEWABLE TABLET PO SCH (09:59)
[2017-07-07] MEDS: INSULIN REGULAR, HUMAN 100 UNIT/ML INJECTION SQ SCH ×2 (12:02→18:43)
--- NOTE | 2017-07-07 12:53 | 24 Hour Neuropsychiatic Eval ---
Date of Admission: 07/06/17 21:46 Chief complaint: "I'm disappointed" History of Present Illness: Patient is an 82-year-old retired, female who was admitted to [facility] on 07/06/17 due to concerns about suicidal statements made at [facility]. Patient has had multiple stressors recently. Per hospitalist: "Patient is an 82 yo female who was previously living at home with her and recently fell and sustained an acute left intraventricular hemorrhage. She was hospitalized at [facility] and then underwent rehabilitation. Following dismissal from rehabilitation, she was not doing well at home and was admitted to a nursing facility. When patient was in the [facility] emergency room prior to her transfer here, it is reported patient refuses to have her legs wrapped for swelling." Patient's long-time has also been diagnosed with lung cancer with reportedly poor prognosis and she is distraught at being from him. Patient states her daughter committed suicide 3-4 years ago. Patient states she is here because "they wanted to get rid of her" so "they wouldn't have to worry about what she would do or say." She does endorse SI ( she estimates x 1 year since her 's diagnosis) but denies a specific plan currently. She reports poor energy, difficulty sleeping, hopelessness, irritability, and VH of seeing shadows and people moving recently. She denies change in appetite, AH, or symptoms consistent with hx of bipolar disorder. Past psych history: Patient states she had a suicide attempt at age 14 related to her father's TB diagnosis ("He was okay but he just wasn't the same"). She denies any prior psych hospitalizations. 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 Cholecystectomy, total left hip replacement, cardiac stents 3 Family History Updates: Family history of macular degeneration. Patient was adopted as an infant. Her biological daughter committed suicide. Smoking status: Never smoker Substance use type: does not use Alcohol intake frequency: does not drink Housing: fpc Social history: PCP-Dr. Wiseman Neurosurgeon-Dr. Donovan Metal Spinner-Dr. Krishnan Laboratory Tests 07/07/17 07:12 Hemoglobin A1c 5.9 H Triglycerides 272 H Cholesterol 120 L LDL Cholesterol, Calc 29.6 L VLDL Cholesterol 54.4 H HDL Cholesterol 36 L Cholesterol/HDL Ratio 3.3 Labs performed [facility] on 07/06/17: TSH-normal 3.8, BNP normal 35, LFTs normal, troponin and CK negative, CMP essentially negative with the exception of glucose 197, BUN 25. Her creatinine was normal at 0.84. CBC : hemoglobin of 11.7, platelets 138, MCV and MCH slightly elevated - ECG Data Tracing #1 Outside EKG shows normal sinus rhythm with left bundle branch block. - Imaging and Cardiology Venous US Additional comments: Venous Doppler of left lower leg-negative for DVT on 07/06/17 at [facility]. Depression: Increased Irritability, Crying Spells, Loss of Interest in Activities, Increased Fatigue, Loss of Energy, Difficulty Sleeping, Feelings of Worthlessness, Recurrent Thoughts of or Suicide, Hopelessness, Unhappiness Psychosis: Hallucinations/Illusions, Delusions (Facility reported she thought staff were digging through kahn) Dementia: Memory Impairment [facility] Patient Stated Medical History Cerebrovascular Accident Yes Migraine Yes Seizures Yes Transient Ischemic Attacks ( Yes TIA) Macular Degeneration Yes Coronary Artery Disease Yes Hypertension Yes Diabetes Mellitus Type 1 Yes Other GI Yes: constipation Hx Kidney Stones Yes: removal Cellulitis Yes: upon admission LLE Surgical History: Tonsillectomy, kidney stone retrieval. Cholecystectomy, total left hip replacement, cardiac stents 3 Family History: Patient was adopted as . Bio daughter committed suicide. - Social History Smoking status: Never smoker Substance use type: does not use Alcohol intake frequency: does not drink Social history: Was adopted as . Completed [employer] and then long-time [employer]. Had 2 children (son Terrell is DPOA, daughter committed suicide 3- 4 years ago). 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 Strengths: able to communicate well verbally, able to ambulate with walker, pleasant personality Review of Systems All systems: reviewed and no additional remarkable complaints except as stated - EENMT Eyes: Present: change in vision (related to macular degeneration) Nose: Present: other (runny nose) - Gastrointestinal Gastrointestinal: Present: constipation - Integumentary/Breasts Integumentary: Present: other (celllulitis in extremity) - Neurological Neurological: Present: frequent falls (at home), loss of vision (macular degeneration), memory loss, other (hx of CVA, seizures afterwards) - Psychiatric Psychiatric: Present: as per HPI, abnormal sleep pattern, anhedonia, behavioral changes, depression, hopelessness, paranoia, suicidal ideation, visual hallucinations Mental Status Exam Vitals: Last Vital Signs Temp 97.4 F 07/07/17 06:23 Pulse 80 07/07/17 09:38 Resp 15 07/07/17 09:38 BP 125/54 07/07/17 06:23 Pulse Ox 96 07/07/17 09:38 Height: 1.88 m Weight: 98 kg - Mental Status Exam Muscle Strength/Tone: Weak Dressing: Casual Grooming: Poor (malodorous upon admission) Attitude: Cooperative (but has limited motivation to do activities) Motor Activity: Retardation Eye Contact: Poor (likely related in part to vision changes) Speech: Normal Volume: Normal Rhythm: Appropriate Rhythm Sensory: Alert Orientation: Disoriented to time, Disoriented to place, Oriented to person Mood: Depressed, Tearful Affect: Sad, Depressed, Tearful Rate of Thoughts: Appropriate Rate Thought Organization: Organized (mostly), Confused (at times) Associations: Intact (mostly) Abstract Reasoning: Poor abstract reasoning Thought Content: Ruminations, Hopelessness, Helplessness, Paranoia (reported by facility) Perception/Psychotic: Other (Unclear whether VH related to MD or depressive symptoms) Current Hallucinations: Visual, Illusions Language: Naming Intact Fund of Knowledge: Other (Decreased from premorbid baseline) Memory: Poor-recent Suicidal Ideation: Persistent Homicidal Ideation: Denies Insight: Impaired Judgement: Impaired Impulse Control: Fair - Laboratory Laboratory Results - last 24 hr 07/07/17 07/07/17 07:12 11:51 Glucometer 343 Hemoglobin A1c 5.9 H Triglycerides 272 H Cholesterol 120 L LDL Cholesterol, Calc 29.6 L VLDL Cholesterol 54.4 H HDL Cholesterol 36 L Cholesterol/HDL Ratio 3.3 Assessment and Plan (1) Major depressive disorder, recurrent episode, severe Current visit: Yes Status: Acute R/O psychotic features related to depression R/O Heron Bonnet syndrome Major neurocognitive disorder, vascular etiology also suspected Additional health problems: Hx of cerebral hemorrhage 05/29, DMII, CAD, hyperlipidemia, HTN, seizure disorder secondary to CVA, hx of DVT, cellulitis ( on antibiotic treatment), macular degeneration, chronic venous stasis, hypothyroidism Admit to [facility] for [facility] and stabilization. Maintain safety and elopement precautions. Plan for following labs in AM: CBC, CMP, TSH, UA, Vitamin B12 and folate. Consider repeat head CT. Obtain further collateral from facility, DPOA. Continue home meds for the time being and consider switching to alternate antidepressant. Have consulted hospitalist for optimization of medical comorbidities. Monitor mood and behavior while on the unit.
[2017-07-07] MEDS: OMEGA-3 ACID ESTERS 1 GM CAPSULE PO SCH ×2 (15:27→20:06)
[2017-07-07] MEDS: PHENYTOIN 100 MG CAPSULE PO SCH (20:06)
[2017-07-07] MEDS: SIMVASTATIN 40 MG TABLET PO SCH (20:06)
[2017-07-07] MEDS: FENOFIBRATE 160 MG TABLET PO SCH (20:06)
[2017-07-07] MEDS: INSULIN GLARGINE 100unit/ml INJECTION SQ SCH (20:07)
[2017-07-07] MEDS: SERTRALINE 100 MG TABLET PO SCH (20:08)
[2017-07-07] MEDS: ACETAMINOPHEN 325 MG TABLET PO PRN (20:12)
[2017-07-08] MEDS: OMEGA-3 ACID ESTERS 1 GM CAPSULE PO SCH ×3 (11:01→20:33)
[2017-07-08] MEDS: MAGNESIUM OXIDE 400 MG TABLET PO SCH (11:01)
[2017-07-08] MEDS: ATENOLOL 50 MG TABLET PO SCH (11:01)
[2017-07-08] MEDS: ALLOPURINOL 300 MG TABLET PO SCH (11:01)
[2017-07-08] MEDS: LOSARTAN 50 MG TABLET PO SCH (11:01)
[2017-07-08] MEDS: ASPIRIN 81 MG CHEWABLE TABLET PO SCH (11:02)
[2017-07-08] MEDS: CLOPIDOGREL 75 MG TABLET PO SCH (11:02)
[2017-07-08] MEDS: INSULIN REGULAR, HUMAN 100 UNIT/ML INJECTION SQ SCH ×3 (11:53→17:48)
[2017-07-08] MEDS: ACETAMINOPHEN 325 MG TABLET PO PRN (17:49)
--- NOTE | 2017-07-08 19:00 | Neuropsych Progress Note ---
[facility] Subjective Date: 07/09/17 - Sujective/Severity of Illness Medications: Acetaminophen (Tylenol) 325 - 650 mg PO Q5H PRN PRN Reason: Discomfort Last Admin: 07/08/17 17:49 Dose: 650 mg Allopurinol (Zyloprim) 300 mg PO DAILY [facility] Last Admin: 07/08/17 11:01 Dose: 300 mg Aspirin (Asa) 81 mg PO DAILY [facility] Last Admin: 07/08/17 11:02 Dose: 81 mg Atenolol (Tenormin) 50 mg PO DAILY [facility] Last Admin: 07/08/17 11:01 Dose: 50 mg Bisacodyl (Dulcolax) 10 mg RECTALLY PRN PRN PRN Reason: Constipation Cephalexin HCl (Keflex 500 Mg) 500 mg PO TID [facility] Stop: 07/12/17 10:29 Last Admin: 07/08/17 14:19 Dose: 500 mg Clopidogrel Bisulfate (Plavix) 75 mg PO DAILY [facility] Last Admin: 07/08/17 11:02 Dose: 75 mg Fenofibrate (Lofibra) 160 mg PO HS [facility] Last Admin: 07/07/17 20:06 Dose: 160 mg Haloperidol (Haldol) 0.5 mg PO Q6H PRN PRN Reason: Extreme agitation Haloperidol Lactate (Haldol) 0.5 mg IM Q6H PRN PRN Reason: Extreme agitation Hydrochlorothiazide (Hydrodiuril) 50 mg PO WB [facility] Last Admin: 07/08/17 11:02 Dose: 50 mg Insulin Glargine (Lantus) 51 unit SQ HS [facility] Last Admin: 07/07/17 20:07 Dose: 51 unit Insulin Human Regular (Novolin R) 18 unit SQ WM [facility] Last Admin: 07/08/17 17:48 Dose: 18 unit Lorazepam (Ativan) 0.5 mg PO Q6H PRN PRN Reason: Extreme agitation Lorazepam (Ativan Inj) 0.5 mg IM Q6H PRN PRN Reason: Extreme agitation Losartan Potassium (Cozaar) 50 mg PO DAILY [facility] Last Admin: 07/08/17 11:01 Dose: 50 mg Magnesium Oxide (Magox) 400 mg PO DAILY [facility] Last Admin: 07/08/17 11:01 Dose: 400 mg Melatonin (Melatonin) 1 mg PO HS PRN PRN Reason: Insomnia Ethzb-5-Vmeb Ethyl Esters (Lovaza) 1 gm PO TID [facility] Last Admin: 07/08/17 14:19 Dose: 1 gm Phenytoin Sodium (Dilantin 100 Mg Cap) 500 mg PO [facility] Last Admin: 07/07/17 20:06 Dose: 500 mg Potassium Chloride (K-Dur 20 Meq Tablet) 20 meq PO [facility] Last Admin: 07/08/17 11:01 Dose: 20 meq Sertraline HCl (Zoloft) 100 mg PO [facility] Last Admin: 07/07/17 20:08 Dose: 100 mg Simvastatin (Zocor) 40 mg PO [facility] Last Admin: 07/07/17 20:06 Dose: 40 mg Subjective: Patient seen and chart reviewed. Case discussed with treatment team. On interview, patient is pleasant and says she enjoyed listening to the live music that was on the unit. She reports that her mood has improved mainly from not being [place] [facility] [place] She feels staff are treating her well here and says she was worried there that one male individual wanted to harm her. She denies feeling afraid here. Patient denies any SI, HI or AVH. Patient denies any adverse side effects related to psychotropic medications. Nursing staff report patient has been pleasant and cooperative overall with no significant behavioral difficulties. Patient has been adherent with medications. Patient slept well overnight. VSS. Patient is eating well. Psychotropic PRNs required in the past 24 hours: none. Start Time: 12:00 Stop Time: 12:20 Mental Status Exam Vitals: Last Vital Signs Temp 99.6 F 07/08/17 15:36 Pulse 52 L 07/08/17 15:36 Resp 16 07/08/17 15:36 BP 124/60 07/08/17 15:36 Pulse Ox 96 07/08/17 15:36 Height: 1.88 m Weight: 98 kg - Mental Status Exam Muscle Strength/Tone: Weak Dressing: Casual Grooming: Poor (continues to be malodorous) Attitude: Cooperative (but has limited motivation to do activities) Motor Activity: Retardation Eye Contact: Poor (likely related in part to vision changes) Speech: Normal Volume: Normal Rhythm: Appropriate Rhythm Orientation: Disoriented to time, Disoriented to place, Oriented to person Mood: Depressed Affect: Relaxed (still sad but more relaxed than yesterday, not tearful today) Rate of Thoughts: Appropriate Rate Thought Organization: Organized (mostly), Confused (at times) Associations: Intact (mostly) Abstract Reasoning: Poor abstract reasoning Thought Content: Ruminations, Helplessness, Paranoia (reported by facility - in regards to previous facility only) Perception/Psychotic: Other (Unclear whether VH related to MD or depressive symptoms) Current Hallucinations: Visual, Illusions Language: Naming Intact Fund of Knowledge: Other (Decreased from premorbid baseline) Memory: Poor-recent Suicidal Ideation: Persistent (intermittent, improving here) Homicidal Ideation: Denies Insight: Impaired Judgement: Impaired Impulse Control: Fair - Laboratory Result Diagrams: 07/08/17 06:10 07/08/17 06:10 Laboratory Results - last 24 hr 07/07/17 07/07/17 07/08/17 18:32 20:03 06:07 WBC RBC Hgb Hct MCV MCH MCHC RDW Std Deviation Plt Count MPV Immature Gran % (Auto) Neut % (Auto) Lymph % (Auto) Solano % (Auto) Eos % (Auto) Baso % (Auto) Neut # (Auto) Lymph # (Auto) [place] # (Auto) Eos # (Auto) Baso # (Auto) Abs Immat Gran (auto) Turbidity Sodium Potassium Chloride Carbon Dioxide Anion Gap BUN Creatinine GFR Calculation BUN/Creatinine Ratio Glucose Glucometer 231 242 213 Calculated Osmolality Calcium Total Bilirubin Conjugated Bilirubin Unconjugated Bilirubin Icterus Index AST ALT Alkaline Phosphatase Total Protein Albumin Globulin Albumin/Globulin Ratio TSH Specimen Hemolysis Ur Collection Type Urine Color Urine Clarity Urine pH Ur Specific Mora Urine Protein Urine Glucose (UA) Urine Ketones Urine Occult Blood Urine Nitrate Urine Bilirubin Urine Urobilinogen Ur Leukocyte Esterase Urinalysis Comment Phenytoin 07/08/17 07/08/17 07/08/17 06:10 06:10 06:10 WBC 3.5 L RBC 3.11 L Hgb 10.9 L Hct 31.9 L MCV 102.6 H MCH 35.0 H MCHC 34.2 RDW Std Deviation 48.2 Plt Count 119 L MPV 8.7 L Immature Gran % (Auto) 0.3 Neut % (Auto) 53.3 Lymph % (Auto) 33.6 Solano % (Auto) 8.8 Eos % (Auto) 3.4 Baso % (Auto) 0.6 Neut # (Auto) 1.9 Lymph # (Auto) 1.2 Solano # (Auto) 0.3 Eos # (Auto) 0.1 Baso # (Auto) 0.0 Abs Immat Gran (auto) 0.01 Turbidity < 20 Sodium 143 Potassium 3.9 Chloride 106 Carbon Dioxide 32 H Anion Gap 5 BUN 19.0 H Creatinine 0.7 GFR Calculation 80 BUN/Creatinine Ratio 27 H Glucose 209 H Glucometer Calculated Osmolality 283 H Calcium 8.8 Total Bilirubin 0.40 Conjugated Bilirubin 0.00 Unconjugated Bilirubin 0.10 Icterus Index < 2 AST 37 H ALT 43 Alkaline Phosphatase 53 Total Protein 5.6 L Albumin 3.0 L Globulin 2.6 Albumin/Globulin Ratio 1.2 TSH 4.49 Specimen Hemolysis < 15 Ur Collection Type Urine Color Urine Clarity Urine pH Ur Specific Mora Urine Protein Urine Glucose (UA) Urine Ketones Urine Occult Blood Urine Nitrate Urine Bilirubin Urine Urobilinogen Ur Leukocyte Esterase Urinalysis Comment Phenytoin 7.1 L 07/08/17 06:32 WBC RBC Hgb Hct MCV MCH MCHC RDW Std Deviation Plt Count MPV Immature Gran % (Auto) Neut % (Auto) Lymph % (Auto) Solano % (Auto) Eos % (Auto) Baso % (Auto) Neut # (Auto) Lymph # (Auto) Sol[place] # (Auto) Eos # (Auto) Baso # (Auto) Abs Immat Gran (auto) Turbidity Sodium Potassium Chloride Carbon Dioxide Anion Gap BUN Creatinine GFR Calculation BUN/Creatinine Ratio Glucose Glucometer Calculated Osmolality Calcium Total Bilirubin Conjugated Bilirubin Unconjugated Bilirubin Icterus Index AST ALT Alkaline Phosphatase Total Protein Albumin Globulin Albumin/Globulin Ratio TSH Specimen Hemolysis Ur Collection Type Urine, void-cc/notcc Urine Color Yellow Urine Clarity Clear Urine pH 5.5 Ur Specific Mora 1.020 Urine Protein Negative Urine Glucose (UA) Trace A Urine Ketones Negative Urine Occult Blood Trace-lysed Urine Nitrate Negative Urine Bilirubin Negative Urine Urobilinogen 0.2 Ur Leukocyte Esterase Negative Urinalysis Comment Microscopic not ind. 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/29 Diabetes mellitus-on chronic insulin therapy (A1c 5.9 on admission) Mild cellulitis left lower extremity secondary to venous stasis-POA Mild thrombocytopenia- POA (platelets 138) Coronary artery disease, stent placement x 3 Hypertriglyceridemia Hypertension 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 benefit of antipsychotic vs. environmental modifications which seem to be helping. Patient is adamant that she does not want to return to [facility]. Hospital Course Summary Disclaimer: The visit summary below is not to be considered part of the above Progress Note. Hospital Course: 07/07/17-hospitalist consultation Agree with admissions to the [facility] Unit for psychiatric evaluation and treatment and provision of safe environment. Outside records/labs from [place] emergency room, rehabilitation admission, and recent outpatient visit with PCP reviewed. She would benefit from physical therapy and occupational therapy given her recent brain injury and resultant weakness/decrease in functional abilities. Continue cephalexin for cellulitis 5 days. Will monitor leg closely. GOLDIE hose/SCDs for venous stasis, encourage patient to elevate legs as much as possible. Continue home insulin dosing and monitor Accu-Cheks before meals and bedtime and when necessary. Repeat labs in a.m. to follow up thrombocytopenia and monitor electrolytes. Hospitalist service will continue to follow patient with you throughout her stay. Thank you for the consult. 07/08/17 Psych: Continue current care, monitor behavior on unit - consider risk vs. benefit of antipsychotic vs. environmental modifications which seem to be helping. Patient is adamant that she does not want to return to [facility].
[2017-07-08] MEDS: INSULIN GLARGINE 100unit/ml INJECTION SQ SCH (20:31)
[2017-07-08] MEDS: FENOFIBRATE 160 MG TABLET PO SCH (20:33)
[2017-07-08] MEDS: SIMVASTATIN 40 MG TABLET PO SCH (20:33)
[2017-07-08] MEDS: PHENYTOIN 100 MG CAPSULE PO SCH (20:33)
[2017-07-08] MEDS: SERTRALINE 100 MG TABLET PO SCH (20:33)
[2017-07-09] MEDS: ACETAMINOPHEN 325 MG TABLET PO PRN (06:10)
[2017-07-09] MEDS: ATENOLOL 50 MG TABLET PO SCH (09:14)
[2017-07-09] MEDS: ASPIRIN 81 MG CHEWABLE TABLET PO SCH (09:14)
[2017-07-09] MEDS: ALLOPURINOL 300 MG TABLET PO SCH (09:14)
[2017-07-09] MEDS: LOSARTAN 50 MG TABLET PO SCH (09:15)
[2017-07-09] MEDS: OMEGA-3 ACID ESTERS 1 GM CAPSULE PO SCH ×4 (09:15→23:06)
[2017-07-09] MEDS: MAGNESIUM OXIDE 400 MG TABLET PO SCH (09:15)
[2017-07-09] MEDS: CLOPIDOGREL 75 MG TABLET PO SCH (09:15)
[2017-07-09] MEDS: INSULIN REGULAR, HUMAN 100 UNIT/ML INJECTION SQ SCH ×3 (09:20→17:36)
--- NOTE | 2017-07-09 12:15 | Neuropsych Progress Note ---
[facility] Subjective Date: 07/09/17 - Sujective/Severity of Illness Medications: Acetaminophen (Tylenol) 325 - 650 mg PO Q5H PRN PRN Reason: Discomfort Last Admin: 07/09/17 06:10 Dose: 650 mg Allopurinol (Zyloprim) 300 mg PO DAILY [facility] Last Admin: 07/09/17 09:14 Dose: 300 mg Aspirin (Asa) 81 mg PO DAILY [facility] Last Admin: 07/09/17 09:14 Dose: 81 mg Atenolol (Tenormin) 50 mg PO DAILY [facility] Last Admin: 07/09/17 09:14 Dose: 50 mg Bisacodyl (Dulcolax) 10 mg RECTALLY PRN PRN PRN Reason: Constipation Cephalexin HCl (Keflex 500 Mg) 500 mg PO TID [facility] Stop: 07/12/17 10:29 Last Admin: 07/09/17 09:15 Dose: 500 mg Clopidogrel Bisulfate (Plavix) 75 mg PO DAILY [facility] Last Admin: 07/09/17 09:15 Dose: 75 mg Fenofibrate (Lofibra) 160 mg PO HS [facility] Last Admin: 07/08/17 20:33 Dose: 160 mg Haloperidol (Haldol) 0.5 mg PO Q6H PRN PRN Reason: Extreme agitation Haloperidol Lactate (Haldol) 0.5 mg IM Q6H PRN PRN Reason: Extreme agitation Hydrochlorothiazide (Hydrodiuril) 50 mg PO WB [facility] Last Admin: 07/09/17 09:14 Dose: 50 mg Insulin Glargine (Lantus) 51 unit SQ HS [facility] Last Admin: 07/08/17 20:31 Dose: 51 unit Insulin Human Regular (Novolin R) 18 unit SQ WM [facility] Last Admin: 07/09/17 09:20 Dose: 18 unit Lorazepam (Ativan) 0.5 mg PO Q6H PRN PRN Reason: Extreme agitation Lorazepam (Ativan Inj) 0.5 mg IM Q6H PRN PRN Reason: Extreme agitation Losartan Potassium (Cozaar) 50 mg PO DAILY [facility] Last Admin: 07/09/17 09:15 Dose: 50 mg Magnesium Oxide (Magox) 400 mg PO DAILY [facility] Last Admin: 07/09/17 09:15 Dose: 400 mg Melatonin (Melatonin) 1 mg PO HS PRN PRN Reason: Insomnia Mhyag-1-Oetx Ethyl Esters (Lovaza) 1 gm PO TID [facility] Last Admin: 07/09/17 09:15 Dose: 1 gm Phenytoin Sodium (Dilantin 100 Mg Cap) 500 mg PO [facility] Last Admin: 07/08/17 20:33 Dose: 500 mg Potassium Chloride (K-Dur 20 Meq Tablet) 20 meq PO [facility] Last Admin: 07/09/17 09:14 Dose: 20 meq Sertraline HCl (Zoloft) 100 mg PO [facility] Last Admin: 07/08/17 20:33 Dose: 100 mg Simvastatin (Zocor) 40 mg PO [facility] Last Admin: 07/08/17 20:33 Dose: 40 mg Subjective: Patient seen and chart reviewed. Case discussed with treatment team. On interview, patient is pleasant and cooperative. She reports that her mood has improved mainly from not being [place] [facility] She feels staff are treating her well here and says she was worried there that one male individual wanted to harm her. She felt like she heard him talking but then couldn't prove it because of her poor vision. She denies feeling afraid here. She does not endorse any new delusional thoughts since admission to our facility. She states the food is "great" and she sleeps well here because she is not afraid. She would like help crocheting if possible. Patient denies any SI, HI or AVH. Patient denies any adverse side effects related to psychotropic medications. She would prefer not to have any increase in her antidepressant if it were up to her. Nursing staff report patient has been pleasant and cooperative overall with no significant behavioral difficulties. Patient has been adherent with medications. Patient slept well overnight. VSS. Patient is eating well. Psychotropic PRNs required in the past 24 hours: none. Start Time: 09:40 Stop Time: 10:00 Mental Status Exam Vitals: Last Vital Signs Temp 97.7 F 07/09/17 08:50 Pulse 81 07/09/17 08:55 Resp 16 07/09/17 08:55 BP 91/43 07/09/17 08:55 Pulse Ox 98 07/09/17 08:55 Height: 1.88 m Weight: 98 kg - Mental Status Exam Muscle Strength/Tone: Weak Dressing: Casual Grooming: Poor (continues to be malodorous) Attitude: Cooperative (but has limited motivation to do activities) Motor Activity: Retardation Eye Contact: Poor (likely related in part to vision changes) Speech: Normal Volume: Normal Rhythm: Appropriate Rhythm Orientation: Disoriented to time, Disoriented to place, Oriented to person Mood: Depressed (reports improvement in mood since admission, appears brighter than previous days) Rate of Thoughts: Appropriate Rate Thought Organization: Organized (mostly), Confused (at times) Associations: Intact (mostly) Abstract Reasoning: Poor abstract reasoning Thought Content: Ruminations, Helplessness, Paranoia (in relation to previous facility only, no new symptoms) Perception/Psychotic: Other (Unclear whether VH related to MD or depressive symptoms) Current Hallucinations: Visual, Illusions Language: Naming Intact Fund of Knowledge: Other (Decreased from premorbid baseline) Memory: Poor-recent Suicidal Ideation: Persistent (intermittent, improving here) Homicidal Ideation: Denies Insight: Impaired Judgement: Impaired Impulse Control: Fair - Laboratory Result Diagrams: 07/08/17 06:10 07/08/17 06:10 Laboratory Results - last 24 hr 07/08/17 07/08/17 07/08/17 06:10 11:14 17:26 Glucometer 242 187 Vitamin B12 304 Folate 11.3 07/08/17 07/09/17 07/09/17 20:08 06:13 11:59 Glucometer 167 151 297 Vitamin B12 Folate Assessment and Plan (1) Major depressive disorder, recurrent episode, severe Qualifiers: Psychotic features: with psychotic features Qualified Code(s): F33.3 - Major depressive disorder, recurrent, severe with psychotic symptoms Problem details: Additional medical problems: 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/29 Diabetes mellitus-on chronic insulin therapy (A1c 5.9 on admission) Mild cellulitis left lower extremity secondary to venous stasis-POA Mild thrombocytopenia- POA (platelets 138) Coronary artery disease, stent placement x 3 Hypertriglyceridemia Hypertension 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 She wants to eat, engage with others, wants to partake in her hobby of crocheting, reports sleeping well, etc. and she would prefer not to have increase in AD right now. She would like placement with if possible as he is in last months of life. CM/BENJAMIN working on possible options. Hospital Course Summary Disclaimer: The visit summary below is not to be considered part of the above Progress Note. Hospital Course: 07/07/17-hospitalist consultation Agree with admissions to the [facility] Unit for psychiatric evaluation and treatment and provision of safe environment. Outside records/labs from [place] emergency room, rehabilitation admission, and recent outpatient visit with PCP reviewed. She would benefit from physical therapy and occupational therapy given her recent brain injury and resultant weakness/decrease in functional abilities. Continue cephalexin for cellulitis 5 days. Will monitor leg closely. GOLDIE hose/SCDs for venous stasis, encourage patient to elevate legs as much as possible. Continue home insulin dosing and monitor Accu-Cheks before meals and bedtime and when necessary. Repeat labs in a.m. to follow up thrombocytopenia and monitor electrolytes. Hospitalist service will continue to follow patient with you throughout her stay. Thank you for the consult. 07/08/17 Psych: Continue current care, monitor behavior on unit - consider risk vs. benefit of antipsychotic vs. environmental modifications which seem to be helping. Patient is adamant that she does not want to return [place] [facility] 07/09/17 Psych: Patient mood/affect continues to improve with environmental modifications only. She wants to eat, engage with others, wants to partake in her hobby of crocheting, reports sleeping well, etc. and she would prefer not to have increase in AD right now. She would like placement with if possible as he is in last months of life. ACE/BENJAMIN working on possible options.
[2017-07-09] MEDS: PHENYTOIN 100 MG CAPSULE PO SCH ×2 (19:56→23:06)
[2017-07-09] MEDS: FENOFIBRATE 160 MG TABLET PO SCH ×2 (19:56→23:04)
[2017-07-09] MEDS: SIMVASTATIN 40 MG TABLET PO SCH ×2 (19:56→23:07)
[2017-07-09] MEDS: SERTRALINE 100 MG TABLET PO SCH ×2 (19:56→23:07)
[2017-07-09] MEDS: INSULIN GLARGINE 100unit/ml INJECTION SQ SCH (23:05)
[2017-07-10] MEDS: MAGNESIUM OXIDE 400 MG TABLET PO SCH (09:10)
[2017-07-10] MEDS: CLOPIDOGREL 75 MG TABLET PO SCH (09:10)
[2017-07-10] MEDS: LOSARTAN 50 MG TABLET PO SCH (09:10)
[2017-07-10] MEDS: ASPIRIN 81 MG CHEWABLE TABLET PO SCH (09:10)
[2017-07-10] MEDS: ATENOLOL 50 MG TABLET PO SCH (09:10)
[2017-07-10] MEDS: OMEGA-3 ACID ESTERS 1 GM CAPSULE PO SCH ×3 (09:10→19:44)
[2017-07-10] MEDS: ALLOPURINOL 300 MG TABLET PO SCH (09:10)
[2017-07-10] MEDS: INSULIN REGULAR, HUMAN 100 UNIT/ML INJECTION SQ SCH ×3 (09:21→17:45)
--- NOTE | 2017-07-10 15:45 | Neuropsych Progress Note ---
[facility] Subjective Date: 07/10/17 - Sujective/Severity of Illness Medications: Acetaminophen (Tylenol) 325 - 650 mg PO Q5H PRN PRN Reason: Discomfort Last Admin: 07/09/17 06:10 Dose: 650 mg Allopurinol (Zyloprim) 300 mg PO DAILY [facility] Last Admin: 07/10/17 09:10 Dose: 300 mg Aspirin (Asa) 81 mg PO DAILY [facility] Last Admin: 07/10/17 09:10 Dose: 81 mg Atenolol (Tenormin) 50 mg PO DAILY [facility] Last Admin: 07/10/17 09:10 Dose: 50 mg Bisacodyl (Dulcolax) 10 mg RECTALLY PRN PRN PRN Reason: Constipation Cephalexin HCl (Keflex 500 Mg) 500 mg PO TID [facility] Stop: 07/12/17 10:29 Last Admin: 07/10/17 15:27 Dose: 500 mg Clopidogrel Bisulfate (Plavix) 75 mg PO DAILY [facility] Last Admin: 07/10/17 09:10 Dose: 75 mg Fenofibrate (Lofibra) 160 mg PO HS [facility] Last Admin: 07/09/17 23:04 Dose: Not Given Haloperidol (Haldol) 0.5 mg PO Q6H PRN PRN Reason: Extreme agitation Haloperidol Lactate (Haldol) 0.5 mg IM Q6H PRN PRN Reason: Extreme agitation Hydrochlorothiazide (Hydrodiuril) 50 mg PO WB [facility] Last Admin: 07/10/17 09:10 Dose: 50 mg Insulin Glargine (Lantus) 51 unit SQ HS [facility] Last Admin: 07/09/17 23:05 Dose: Not Given Insulin Human Regular (Novolin R) 18 unit SQ WM [facility] Last Admin: 07/10/17 11:42 Dose: 18 unit Lorazepam (Ativan) 0.5 mg PO Q6H PRN PRN Reason: Extreme agitation Lorazepam (Ativan Inj) 0.5 mg IM Q6H PRN PRN Reason: Extreme agitation Losartan Potassium (Cozaar) 50 mg PO DAILY [facility] Last Admin: 07/10/17 09:10 Dose: 50 mg Magnesium Oxide (Magox) 400 mg PO DAILY [facility] Last Admin: 07/10/17 09:10 Dose: 400 mg Melatonin (Melatonin) 1 mg PO HS PRN PRN Reason: Insomnia [id number] Ethyl Esters (Lovaza) 1 gm PO TID [facility] Last Admin: 07/10/17 15:28 Dose: 1 gm Phenytoin Sodium (Dilantin 100 Mg Cap) 500 mg PO [facility] Last Admin: 07/09/17 23:06 Dose: Not Given Potassium Chloride (K-Dur 20 Meq Tablet) 20 meq PO [facility] Last Admin: 07/10/17 09:10 Dose: 20 meq Sertraline HCl (Zoloft) 100 mg PO [facility] Last Admin: 07/09/17 23:07 Dose: Not Given Simvastatin (Zocor) 40 mg PO [facility] Last Admin: 07/09/17 23:07 Dose: Not Given Subjective: Patient seen and chart reviewed. Case discussed with treatment team. Patient is sleeping at time of rounds. Per nursing and SW report, patient has been engaging well, participating in group, and has not been paranoid/ delusional at all. She has reported improvement in her mood since admission and denied SI, HI, AVH repeatedly. Nursing staff report patient has been pleasant and cooperative overall with no significant behavioral difficulties. Patient has been adherent with medications. Patient slept 7.5 hours overnight. VSS. Patient is eating well. Psychotropic PRNs required in the past 24 hours: none. Start Time: 13:00 Stop Time: 13:20 Mental Status Exam Vitals: Last Vital Signs Temp 97.6 F 07/10/17 08:00 Pulse 66 07/10/17 08:00 Resp 16 07/10/17 08:00 BP 118/54 07/10/17 08:00 Pulse Ox 96 07/10/17 08:00 Height: 1.88 m Weight: 98.1 kg - Mental Status Exam Muscle Strength/Tone: Weak Dressing: Casual Grooming: Poor (continues to be malodorous) Attitude: Cooperative (but has limited motivation to do activities) Motor Activity: Retardation Eye Contact: Poor (likely related in part to vision changes) Speech: Normal Volume: Normal Rhythm: Appropriate Rhythm Orientation: Disoriented to time, Disoriented to place, Oriented to person Mood: Depressed (reports improvement in mood since admission, appears brighter than previous days) Rate of Thoughts: Appropriate Rate Thought Organization: Organized (mostly), Confused (at times) Associations: Intact (mostly) Abstract Reasoning: Poor abstract reasoning Thought Content: Ruminations (improving), Helplessness (improving) Perception/Psychotic: Other (Unclear whether VH related to MD or depressive symptoms) Current Hallucinations: Visual, Illusions Language: Naming Intact Fund of Knowledge: Other (Decreased from premorbid baseline) Memory: Poor-recent Suicidal Ideation: Persistent (intermittent, improving here) Homicidal Ideation: Denies Insight: Impaired Judgement: Impaired Impulse Control: Fair - Laboratory Result Diagrams: 07/08/17 06:10 07/08/17 06:10 Laboratory Results - last 24 hr 07/09/17 07/09/17 07/10/17 15:59 19:59 00:37 Glucometer 185 95 92 07/10/17 07/10/17 06:14 11:36 Glucometer 212 273 Assessment and Plan (1) Major depressive disorder, recurrent episode, severe Qualifiers: Psychotic features: with psychotic features Qualified Code(s): F33.3 - Major depressive disorder, recurrent, severe with psychotic symptoms Problem details: Additional medical problems: 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/29 Diabetes mellitus-on chronic insulin therapy (A1c 5.9 on admission) Mild cellulitis left lower extremity secondary to venous stasis-POA Mild thrombocytopenia- POA (platelets 138) Coronary artery disease, stent placement x 3 Hypertriglyceridemia Hypertension 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 Hypothyroidism History of DVT Macular degeneration Chronic venous stasis GERD Gout Current visit: Yes Status: Acute (2) Major neurocognitive disorder Problem details: Vascular, moderate, with behavioral disturbance Current visit : Yes Status: Acute Continue current care; 's has been discharged to [facility] working to see if they can be placed together as she reports this will be most helpful for her mood. Hospital Course Summary Disclaimer: The visit summary below is not to be considered part of the above Progress Note. Hospital Course: 07/07/17-hospitalist consultation Agree with admissions to the [facility] for psychiatric evaluation and treatment and provision of safe environment. Outside records/labs from [place] emergency room, rehabilitation admission, and recent outpatient visit with PCP reviewed. She would benefit from physical therapy and occupational therapy given her recent brain injury and resultant weakness/decrease in functional abilities. Continue cephalexin for cellulitis 5 days. Will monitor leg closely. GOLDIE hose/SCDs for venous stasis, encourage patient to elevate legs as much as possible. Continue home insulin dosing and monitor Accu-Cheks before meals and bedtime and when necessary. Repeat labs in a.m. to follow up thrombocytopenia and monitor electrolytes. Hospitalist service will continue to follow patient with you throughout her stay. Thank you for the consult. 07/08/17 Psych: Continue current care, monitor behavior on unit - consider risk vs. benefit of antipsychotic vs. environmental modifications which seem to be helping. Patient is adamant that she does not want to return to [facility]. 07/09/17 Psych: Patient mood/affect continues to improve with environmental modifications only. She wants to eat, engage with others, wants to partake in her hobby of crocheting, reports sleeping well, etc. and she would prefer not to have increase in AD right now. She would like placement with if possible as he is in last months of life. CM/BENJAMIN working on possible options. 07/10/17 Psych: Continue current care; 's has been discharged to [facility] - working to see if they can be placed together as she reports this will be most helpful for her mood.
[2017-07-10] MEDS: FENOFIBRATE 160 MG TABLET PO SCH (19:40)
[2017-07-10] MEDS: INSULIN GLARGINE 100unit/ml INJECTION SQ SCH (19:40)
[2017-07-10] MEDS: SIMVASTATIN 40 MG TABLET PO SCH (19:42)
[2017-07-10] MEDS: SERTRALINE 100 MG TABLET PO SCH (19:43)
[2017-07-10] MEDS: PHENYTOIN 100 MG CAPSULE PO SCH (20:27)
[2017-07-11] MEDS: INSULIN GLARGINE 100unit/ml INJECTION SQ SCH ×2 (01:30→21:35)
[2017-07-11] MEDS: FENOFIBRATE 160 MG TABLET PO SCH ×2 (01:30→20:03)
[2017-07-11] MEDS: SERTRALINE 100 MG TABLET PO SCH ×2 (01:31→20:03)
[2017-07-11] MEDS: OMEGA-3 ACID ESTERS 1 GM CAPSULE PO SCH ×4 (01:31→20:03)
[2017-07-11] MEDS: SIMVASTATIN 40 MG TABLET PO SCH ×2 (01:32→20:03)
[2017-07-11] MEDS: MAGNESIUM OXIDE 400 MG TABLET PO SCH (09:36)
[2017-07-11] MEDS: CLOPIDOGREL 75 MG TABLET PO SCH (09:37)
[2017-07-11] MEDS: ATENOLOL 50 MG TABLET PO SCH (09:38)
[2017-07-11] MEDS: LOSARTAN 50 MG TABLET PO SCH (09:38)
[2017-07-11] MEDS: ALLOPURINOL 300 MG TABLET PO SCH (09:38)
[2017-07-11] MEDS: INSULIN REGULAR, HUMAN 100 UNIT/ML INJECTION SQ SCH ×3 (09:38→17:29)
[2017-07-11] MEDS: ASPIRIN 81 MG CHEWABLE TABLET PO SCH (09:38)
[2017-07-11] MEDS ORDERED: GLUCOSE ORAL GEL 40% 37.5gm PO PRN (12:15)
[2017-07-11] MEDS: INSULIN ASPART 100unit/ml INJECTION SQ PRN ×2 (12:25→15:35)
--- NOTE | 2017-07-11 15:36 | Progress Note ---
- Date 07/11/17 Subjective: Michelle is seen while sleeping in her room and awakens easily with soft voice and touch stimuli. She denies any complaints or concerns. No chest pain, shortness of breath, abdominal pain, nausea, vomiting or diarrhea. Nursing reports that her appetite has been good and she is eating all her meals. Bowels are moving. Blood sugars have been noted to be trending up, requiring occassional dosing of sliding scale insulin. Her primary doctor, Dr. Wiseman was contacted and insulin dosing and medications were verified. He verified that she is currently on Lantus 51 units every night with Regular insulin at meals - 18 units with breakfast, 18 units with lunch and 22 units with dinner. Previous records indicated she had been on 18 units with dinner which was adjusted in the orders to the verified dose of 22 units. She also reportedly felt very unsafe and struggled with paranoia at her previous facility most likely limiting her desire to eat/drink. Her blood sugars are most likely increasing due to her increased oral intake. Objective Vital signs: Temperature 98.1 F 07/11/17 09:33 Pulse Rate 61 07/11/17 09:33 Respiratory Rate 20 07/11/17 09:33 Blood Pressure 121/64 07/11/17 09:33 Pulse Oximetry 95 07/11/17 09:33 Height/Weight/BMI: Height 6 ft 2 in Weight 216 lb 4.375 oz Body Mass Index 27.7 Comments: Patient is resting in bed and awakens easily with soft touch and voice. - Constitutional Present: no acute distress, well nourished, well developed, cooperative - Routine HEENT Exam Head: Present: normocephalic, atraumatic Eye: Present: PERRL. Absent: conjunctival icterus ENT: Present: mucous membranes moist - Routine Respiratory Exam Present: CTA bilaterally. Absent: respiratory distress, rhonchi, stridor, wheezes, crackles - Routine Cardiovascular Exam Present: S1, S2 - Routine Abdominal Exam Present: soft, normoactive bowel sounds, non distended, non tender - Routine Extremities Exam Present: edema (trace), non tender Comments: area of cellulitis to left anterior gaspar noted to be improving and well within skin lines drawn at time of diagnosis; no discharge or bleeding. - Routine Back/Spine/Pelvis Exam Back/Spine: Present: full ROM. Absent: vertebral tenderness - Routine Musculoskeletal Exam Musculoskeletal: Present: moving extremities well - Routine Skin Exam Present: dry, warm. Absent: jaundice Comments: afebrile - Routine Neurological Exam Present: alert, moving all extremities, hearing grossly intact, normal speech - Routine Lymphatic Exam Lymphatic: Absent: lymphedema - Routine Psychiatric Exam Present: cooperative Results - Labs CBC & Chem 7: 07/08/17 06:10 07/08/17 06:10 Assessment and Plan (1) Suicidal ideation Current visit: Yes Status: Acute Assessment and Plan: Assessment Suicidal ideation 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/29 Diabetes mellitus-on chronic insulin therapy (A1c 5.9 on admission) Mild cellulitis left lower extremity secondary to venous stasis-POA Mild thrombocytopenia- POA (platelets 138) Coronary artery disease, stent placement x 3 Hypertriglyceridemia Hypertension 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 Contacted primary physician regarding insulin dosing. Suspect Regular insulin is being utilized at home given cost. PCP noted that home dose of regular insulin was 18 units at breakfast and lunch with 22 units at dinner. Prior orders indicated 18 units at all 3 meals. Dinner insulin increased to 22 units. Blood sugars have be trending up, most likely because of increased oral intake in [facility] as compared to where she was previously. Sliding scale insulin available and will continue to trend BGMs, making adjustments to insulins as indicated. Continue psychiatric cares per team. Continue to provide safe and supportive environment. Cellulitis to left lower extremity improving. Continue to monitor closely. Keflex treatment course to be complete on 07/12/17. Patient remains afebrile. GOLDIE jimenez/LARSs for venous stasis, encourage patient to elevate legs as much as possible. I saw evaluated patient's leg as I had seen her on admission. Her redness, tenderness, swelling and warmth is much improved. She continues to have discoloration but this is likely chronic from stasis changes. Cephalexin course is completed tomorrow. Continue compression stockings as this has helped significantly with her venous stasis. ~~~Kavya Jaramillo PA-C 07/11/17. 1746. DVT Prophylaxis: GOLDIE Jimenez Resuscitation Status: Do Not Resuscitate - Time spent with patient Time with patient PN: 25 minutes - Physician Narrative Physician: Patel Long MD Narrative: Date: 07/11/17 Time: 1533 Hospital Course Summary Disclaimer: The visit summary below is not to be considered part of the above Progress Note. Hospital Course: 07/07/17-hospitalist consultation Agree with admissions to the [facility] for psychiatric evaluation and treatment and provision of safe environment. Outside records/labs from [place] emergency room, rehabilitation admission, and recent outpatient visit with PCP reviewed. She would benefit from physical therapy and occupational therapy given her recent brain injury and resultant weakness/decrease in functional abilities. Continue cephalexin for cellulitis 5 days. Will monitor leg closely. GOLDIE hose/SCDs for venous stasis, encourage patient to elevate legs as much as possible. Continue home insulin dosing and monitor Accu-Cheks before meals and bedtime and when necessary. Repeat labs in a.m. to follow up thrombocytopenia and monitor electrolytes. Hospitalist service will continue to follow patient with you throughout her stay. Thank you for the consult. 07/08/17 Psych: Continue current care, monitor behavior on unit - consider risk vs. benefit of antipsychotic vs. environmental modifications which seem to be helping. Patient is adamant that she does not want to return to [facility]. 07/09/17 Psych: Patient mood/affect continues to improve with environmental modifications only. She wants to eat, engage with others, wants to partake in her hobby of crocheting, reports sleeping well, etc. and she would prefer not to have increase in AD right now. She would like placement with if possible as he is in last months of life. CM/SW working on possible options. 07/10/17 Psych: Continue current care; 's has been discharged to [facility] - working to see if they can be placed together as she reports this will be most helpful for her mood. Plan - 07/11/17 Overall, patient appears to be doing better. Contacted primary physician regarding insulin dosing. Suspect Regular insulin is being utilized at home given cost. PCP noted that home dose of regular insulin was 18 units at breakfast and lunch with 22 units at dinner. Prior orders indicated 18 units at all 3 meals. Dinner insulin increased to 22 units. Blood sugars have be trending up, most likely because of increased oral intake in [facility] as compared to where she was previously. Sliding scale insulin available and will continue to trend BGMs, making adjustments to insulins as indicated. Continue psychiatric cares per team. Continue to provide safe and supportive environment. Cellulitis to left lower extremity improving. Continue to monitor closely. Keflex treatment course to be complete on 07/12/17. Patient remains afebrile. GOLDIE jimenez/SCDs for venous stasis, encourage patient to elevate legs as much as possible. I saw evaluated patient's leg as I had seen her on admission. Her redness, tenderness, swelling and warmth is much improved. She continues to have discoloration but this is likely chronic from stasis changes. Cephalexin course is completed tomorrow. Continue compression stockings as this has helped significantly with her venous stasis. ~~~Kavya Jaramillo PA-C 07/11/17. [id number].
[2017-07-11] MEDS: PHENYTOIN 100 MG CAPSULE PO SCH (20:03)
[2017-07-11] MEDS ORDERED: INSULIN GLARGINE 100unit/ml INJECTION SQ ONE (21:34)
--- NOTE | 2017-07-11 23:46 | Neuropsych Progress Note ---
Generations Subjective Date: 07/12/17 - Sujective/Severity of Illness Medications: Acetaminophen (Tylenol) 325 - 650 mg PO Q5H PRN PRN Reason: Discomfort Last Admin: 07/09/17 06:10 Dose: 650 mg Allopurinol (Zyloprim) 300 mg PO DAILY [facility] Last Admin: 07/11/17 09:38 Dose: 300 mg Aspirin (Asa) 81 mg PO DAILY [facility] Last Admin: 07/11/17 09:38 Dose: 81 mg Atenolol (Tenormin) 50 mg PO DAILY [facility] Last Admin: 07/11/17 09:38 Dose: 50 mg Bisacodyl (Dulcolax) 10 mg RECTALLY PRN PRN PRN Reason: Constipation Cephalexin HCl (Keflex 500 Mg) 500 mg PO TID [facility] Stop: 07/12/17 10:29 Last Admin: 07/11/17 20:03 Dose: 500 mg Clopidogrel Bisulfate (Plavix) 75 mg PO DAILY [facility] Last Admin: 07/11/17 09:37 Dose: 75 mg Fenofibrate (Lofibra) 160 mg PO [facility] Last Admin: 07/11/17 20:03 Dose: 160 mg Glucose (Glutose 15) 37.5 gm PO PRN PRN PRN Reason: Hypoglycemia Haloperidol (Haldol) 0.5 mg PO Q6H PRN PRN Reason: Extreme agitation Haloperidol Lactate (Haldol) 0.5 mg IM Q6H PRN PRN Reason: Extreme agitation Hydrochlorothiazide (Hydrodiuril) 50 mg PO WB [facility] Last Admin: 07/11/17 09:37 Dose: 50 mg Insulin Aspart (Novolog) 2 - 8 unit SQ SS PRN; Protocol PRN Reason: Hyperglycemia Last Admin: 07/11/17 15:35 Dose: 5 unit Insulin Glargine (Lantus) 51 unit SQ HS [facility] Last Admin: 07/11/17 21:35 Dose: Not Given Insulin Glargine (Lantus) 21 unit SQ O ONE Stop: 07/11/17 21:35 Last Admin: 07/11/17 21:40 Dose: 21 unit Insulin Human Regular (Novolin R) 18 unit SQ AMI [facility] Insulin Human Regular (Novolin R) 18 unit SQ NOONI [facility] Insulin Human Regular (Novolin R) 22 unit SQ PMI [facility] Last Admin: 07/11/17 17:29 Dose: 22 unit Lorazepam (Ativan) 0.5 mg PO Q6H PRN PRN Reason: Extreme agitation Lorazepam (Ativan Inj) 0.5 mg IM Q6H PRN PRN Reason: Extreme agitation Losartan Potassium (Cozaar) 50 mg PO DAILY [facility] Last Admin: 07/11/17 09:38 Dose: 50 mg Magnesium Oxide (Magox) 400 mg PO DAILY [facility] Last Admin: 07/11/17 09:36 Dose: 400 mg Melatonin (Melatonin) 1 mg PO HS PRN PRN Reason: Insomnia Buchn-1-Esaj Ethyl Esters (Lovaza) 1 gm PO TID [facility] Last Admin: 07/11/17 20:03 Dose: 1 gm Phenytoin Sodium (Dilantin 100 Mg Cap) 500 mg PO HS [facility] Last Admin: 07/11/17 20:03 Dose: 500 mg Potassium Chloride (K-Dur 20 Meq Tablet) 20 meq PO WB [facility] Last Admin: 07/11/17 09:37 Dose: 20 meq Sertraline HCl (Zoloft) 100 mg PO [facility] Last Admin: 07/11/17 20:03 Dose: 100 mg Simvastatin (Zocor) 40 mg PO HS [facility] Last Admin: 07/11/17 20:03 Dose: 40 mg Subjective: Patient seen and chart reviewed. Case discussed with treatment team. Patient is sleeping at time of rounds. Per nursing and SW report, patient has been engaging well, participating in group, and has not been paranoid/ delusional at all. She has reported improvement in her mood since admission and denied SI, HI, AVH repeatedly. Nursing staff report patient has been pleasant and cooperative overall with no significant behavioral difficulties. Last night she did make a comment stating "I might as well " rather than having her BS taken. BS have been labile as hospitalist works to optimize insulin regimen. Believed to be related in part to refusing food due to paranoia at previous facility and now increasing appetite as mood improves. Patient has been adherent with medications. Patient slept 9+ hours overnight. VSS. Patient is eating well. Psychotropic PRNs required in the past 24 hours: none. Start Time: 15:00 Stop Time: 15:20 Mental Status Exam Vitals: Last Vital Signs Temp 97.8 F 07/11/17 19:42 Pulse 51 L 07/11/17 19:42 Resp 20 07/11/17 19:42 BP 122/49 07/11/17 19:42 Pulse Ox 93 07/11/17 19:42 Height: 1.88 m Weight: 98.1 kg - Mental Status Exam Muscle Strength/Tone: Weak Dressing: Casual Grooming: Poor (continues to be malodorous) Attitude: Cooperative (but has limited motivation to do activities) Motor Activity: Retardation Eye Contact: Poor (likely related in part to vision changes) Speech: Normal Volume: Normal Rhythm: Appropriate Rhythm Orientation: Disoriented to time, Disoriented to place, Oriented to person Mood: Depressed (reports improvement in mood since admission, appears brighter than previous days) Affect: Relaxed Rate of Thoughts: Appropriate Rate Thought Organization: Organized (mostly), Confused (at times) Associations: Intact (mostly) Abstract Reasoning: Poor abstract reasoning Thought Content: Ruminations (improving), Helplessness (improving) Perception/Psychotic: Other (Unclear whether VH related to MD or depressive symptoms) Current Hallucinations: Visual, Illusions Language: Naming Intact Fund of Knowledge: Other (Decreased from premorbid baseline) Memory: Poor-recent Suicidal Ideation: Persistent (intermittent, improving here) Homicidal Ideation: Denies Insight: Impaired Judgement: Impaired Impulse Control: Fair - Laboratory Result Diagrams: 07/12/17 06:59 07/12/17 06:59 Laboratory Results - last 24 hr 07/10/17 07/11/17 07/11/17 21:29 11:40 15:16 Glucometer 187 334 250 Assessment and Plan (1) Major depressive disorder, recurrent episode, severe Qualifiers: Psychotic features: with psychotic features Qualified Code(s): F33.3 - Major depressive disorder, recurrent, severe with psychotic symptoms Problem details: Additional medical problems: 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/29 Diabetes mellitus-on chronic insulin therapy (A1c 5.9 on admission) Mild cellulitis left lower extremity secondary to venous stasis-POA Mild thrombocytopenia- POA (platelets 138) Coronary artery disease, stent placement x 3 Hypertriglyceridemia Hypertension 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 Hypothyroidism History of DVT Macular degeneration Chronic venous stasis GERD Gout Current visit: Yes Status: Acute (2) Major neurocognitive disorder Problem details: Vascular, moderate, with behavioral disturbance Current visit : Yes Status: Acute Continue current care, SW/CM working to finalize placement at same facility as . Monitor for any increasing SI or paranoia. Hospital Course Summary Disclaimer: The visit summary below is not to be considered part of the above Progress Note. Hospital Course: 07/07/17-hospitalist consultation Agree with admissions to the [facility] for psychiatric evaluation and treatment and provision of safe environment. Outside records/labs from [place] emergency room, rehabilitation admission, and recent outpatient visit with PCP reviewed. She would benefit from physical therapy and occupational therapy given her recent brain injury and resultant weakness/decrease in functional abilities. Continue cephalexin for cellulitis 5 days. Will monitor leg closely. GOLDIE hose/SCDs for venous stasis, encourage patient to elevate legs as much as possible. Continue home insulin dosing and monitor Accu-Cheks before meals and bedtime and when necessary. Repeat labs in a.m. to follow up thrombocytopenia and monitor electrolytes. Hospitalist service will continue to follow patient with you throughout her stay. Thank you for the consult. 07/08/17 Psych: Continue current care, monitor behavior on unit - consider risk vs. benefit of antipsychotic vs. environmental modifications which seem to be helping. Patient is adamant that she does not want to return to [facility]. 07/09/17 Psych: Patient mood/affect continues to improve with environmental modifications only. She wants to eat, engage with others, wants to partake in her hobby of crocheting, reports sleeping well, etc. and she would prefer not to have increase in AD right now. She would like placement with if possible as he is in last months of life. CM/SW working on possible options. 07/10/17 Psych: Continue current care; 's has been discharged to [facility] - working to see if they can be placed together as she reports this will be most helpful for her mood. Plan - 07/11/17 Overall, patient appears to be doing better. Contacted primary physician regarding insulin dosing. Suspect Regular insulin is being utilized at home given cost. PCP noted that home dose of regular insulin was 18 units at breakfast and lunch with 22 units at dinner. Prior orders indicated 18 units at all 3 meals. Dinner insulin increased to 22 units. Blood sugars have be trending up, most likely because of increased oral intake in generations as compared to where she was previously. Sliding scale insulin available and will continue to trend BGMs, making adjustments to insulins as indicated. Continue psychiatric cares per team. Continue to provide safe and supportive environment. Cellulitis to left lower extremity improving. Continue to monitor closely. Keflex treatment course to be complete on 07/12/17. Patient remains afebrile. GOLDIE suazo/SCDs for venous stasis, encourage patient to elevate legs as much as possible. I saw evaluated patient's leg as I had seen her on admission. Her redness, tenderness, swelling and warmth is much improved. She continues to have discoloration but this is likely chronic from stasis changes. Cephalexin course is completed tomorrow. Continue compression stockings as this has helped significantly with her venous stasis. ~~~Kavya Jaramillo PA-C 07/11/17. [id number].
[2017-07-12] MEDS: INSULIN ASPART 100unit/ml INJECTION SQ PRN ×3 (06:28→20:10)
[2017-07-12] MEDS ORDERED: INSULIN REGULAR, HUMAN 100 UNIT/ML INJECTION SQ SCH ×2 (07:30→11:30)
[2017-07-12] MEDS: LOSARTAN 50 MG TABLET PO SCH (09:01)
[2017-07-12] MEDS: ATENOLOL 50 MG TABLET PO SCH (09:02)
[2017-07-12] MEDS: OMEGA-3 ACID ESTERS 1 GM CAPSULE PO SCH ×3 (09:02→20:08)
[2017-07-12] MEDS: ALLOPURINOL 300 MG TABLET PO SCH (09:03)
[2017-07-12] MEDS: MAGNESIUM OXIDE 400 MG TABLET PO SCH (09:04)
[2017-07-12] MEDS: CLOPIDOGREL 75 MG TABLET PO SCH (09:04)
[2017-07-12] MEDS: ASPIRIN 81 MG CHEWABLE TABLET PO SCH (09:07)
[2017-07-12] MEDS: ACETAMINOPHEN 325 MG TABLET PO PRN (14:25)
[2017-07-12] MEDS: INSULIN REGULAR, HUMAN 100 UNIT/ML INJECTION SQ SCH (17:05)
[2017-07-12] MEDS: INSULIN GLARGINE 100unit/ml INJECTION SQ SCH (20:08)
[2017-07-12] MEDS: FENOFIBRATE 160 MG TABLET PO SCH (20:08)
[2017-07-12] MEDS: SIMVASTATIN 40 MG TABLET PO SCH (20:08)
[2017-07-12] MEDS: SERTRALINE 100 MG TABLET PO SCH (20:08)
[2017-07-12] MEDS: PHENYTOIN 100 MG CAPSULE PO SCH (20:08)
[2017-07-13] MEDS: ACETAMINOPHEN 325 MG TABLET PO PRN (01:24)
--- NOTE | 2017-07-13 07:52 | Progress Note ---
<Kavya Jaramillo - Last Filed: 07/13/17 07:50> Progress Note: Patient's BS's reviewed. Running mostly >200. Increase breakfast and lunch insulin from 18 U to 20 U. Continue 22U ac supper as this was increased within the past day or two and her pc supper BS last night was 169. Increase Lantus from 51U to 53U. Continue to monitor BS's. <Mohinder Llamas - Last Filed: 07/15/17 22:33> Progress Note: Agree with history, physical, assessment and plan. Physical findings correlate to the above note.
[2017-07-13] MEDS: INSULIN ASPART 100unit/ml INJECTION SQ PRN ×3 (10:22→20:13)
[2017-07-13] MEDS: ATENOLOL 50 MG TABLET PO SCH (10:25)
[2017-07-13] MEDS: LOSARTAN 50 MG TABLET PO SCH (10:25)
[2017-07-13] MEDS: MAGNESIUM OXIDE 400 MG TABLET PO SCH (10:26)
[2017-07-13] MEDS: CLOPIDOGREL 75 MG TABLET PO SCH (10:26)
[2017-07-13] MEDS: ALLOPURINOL 300 MG TABLET PO SCH (10:26)
[2017-07-13] MEDS: OMEGA-3 ACID ESTERS 1 GM CAPSULE PO SCH ×3 (10:27→20:12)
[2017-07-13] MEDS: ASPIRIN 81 MG CHEWABLE TABLET PO SCH (10:28)
--- NOTE | 2017-07-13 10:48 | Neuropsych Progress Note ---
Generations Subjective Date: 07/13/17 - Sujective/Severity of Illness Medications: Acetaminophen (Tylenol) 325 - 650 mg PO Q5H PRN PRN Reason: Discomfort Last Admin: 07/13/17 01:24 Dose: 650 mg Allopurinol (Zyloprim) 300 mg PO DAILY [facility] Last Admin: 07/13/17 10:26 Dose: 300 mg Aspirin (Asa) 81 mg PO DAILY [facility] Last Admin: 07/13/17 10:28 Dose: 81 mg Atenolol (Tenormin) 50 mg PO DAILY [facility] Last Admin: 07/13/17 10:25 Dose: 50 mg Bisacodyl (Dulcolax) 10 mg RECTALLY PRN PRN PRN Reason: Constipation Clopidogrel Bisulfate (Plavix) 75 mg PO DAILY [facility] Last Admin: 07/13/17 10:26 Dose: 75 mg Fenofibrate (Lofibra) 160 mg PO [facility] Last Admin: 07/12/17 20:08 Dose: 160 mg Glucose (Glutose 15) 37.5 gm PO PRN PRN PRN Reason: Hypoglycemia Haloperidol (Haldol) 0.5 mg PO Q6H PRN PRN Reason: Extreme agitation Haloperidol Lactate (Haldol) 0.5 mg IM Q6H PRN PRN Reason: Extreme agitation Hydrochlorothiazide (Hydrodiuril) [address] [facility] Last Admin: 07/13/17 10:25 Dose: 50 mg Insulin Aspart (Novolog) 2 - 8 unit SQ SS PRN; Protocol PRN Reason: Hyperglycemia Last Admin: 07/13/17 10:22 Dose: 3 unit Insulin Glargine (Lantus) 53 unit SQ HS [facility] Insulin Human Regular (Novolin R) 22 unit SQ PMI [facility] Last Admin: 07/12/17 17:05 Dose: 22 unit Insulin Human Regular (Novolin R) 20 unit SQ AMI [facility] Insulin Human Regular (Novolin R) 20 unit SQ NOONI [facility] Lorazepam (Ativan) 0.5 mg PO Q6H PRN PRN Reason: Extreme agitation Lorazepam (Ativan Inj) 0.5 mg IM Q6H PRN PRN Reason: Extreme agitation Losartan Potassium (Cozaar) 50 mg PO DAILY [facility] Last Admin: 07/13/17 10:25 Dose: 50 mg Magnesium Oxide (Magox) 400 mg PO DAILY [facility] Last Admin: 07/13/17 10:26 Dose: 400 mg Melatonin (Melatonin) 1 mg PO HS PRN PRN Reason: Insomnia Aypmj-6-Ikty Ethyl Esters (Lovaza) 1 gm PO TID [facility] Last Admin: 07/13/17 10:27 Dose: 1 gm Phenytoin Sodium (Dilantin 100 Mg Cap) 500 mg PO [facility] Last Admin: 07/12/17 20:08 Dose: 500 mg Potassium Chloride (K-Dur 20 Meq Tablet) [address] [facility] Last Admin: 07/13/17 10:27 Dose: 20 meq Sertraline HCl (Zoloft) 100 mg PO [facility] Last Admin: 07/12/17 20:08 Dose: 100 mg Simvastatin (Zocor) 40 mg PO [facility] Last Admin: 07/12/17 20:08 Dose: 40 mg Subjective: Patient seen and chart reviewed. Nursing reports pt is doing well. Can be tearful at times but this has improved. No behaviors noted. On face to face the pt states she is doing well. She reports her mood has improved. Denies S/ I. Tolerating meds. Voices no concerns at this time Start Time: 10:45 Stop Time: 11:00 Mental Status Exam Vitals: Last Vital Signs Temp 97.4 F 07/13/17 08:00 Pulse 61 07/13/17 08:00 Resp 16 07/13/17 08:00 BP 119/60 07/13/17 08:00 Pulse Ox 98 07/13/17 08:00 Height: 1.88 m Weight: 96.9 kg - Mental Status Exam Muscle Strength/Tone: Weak Dressing: Casual Grooming: Poor (continues to be malodorous) Attitude: Cooperative (but has limited motivation to do activities) Motor Activity: Retardation Eye Contact: Poor (likely related in part to vision changes) Speech: Normal Volume: Normal Rhythm: Appropriate Rhythm Orientation: Disoriented to time, Disoriented to place, Oriented to person Mood: Depressed (reports improvement in mood since admission, appears brighter than previous days) Rate of Thoughts: Appropriate Rate Thought Organization: Organized (mostly), Confused (at times) Associations: Intact (mostly) Abstract Reasoning: Poor abstract reasoning Thought Content: Ruminations (improving), Helplessness (improving) Perception/Psychotic: Other (Unclear whether VH related to MD or depressive symptoms) Current Hallucinations: Visual, Illusions Language: Naming Intact Fund of Knowledge: Other (Decreased from premorbid baseline) Memory: Poor-recent Suicidal Ideation: Persistent (intermittent, improving here) Homicidal Ideation: Denies Insight: Impaired Judgement: Impaired Impulse Control: Fair - Laboratory Result Diagrams: 07/12/17 06:59 07/12/17 06:59 Laboratory Results - last 24 hr 07/12/17 07/12/17 07/12/17 10:42 12:01 14:06 Glucometer 305 256 181 Assessment and Plan (1) Major depressive disorder, recurrent episode, severe Qualifiers: Psychotic features: with psychotic features Qualified Code(s): F33.3 - Major depressive disorder, recurrent, severe with psychotic symptoms Problem details: Additional medical problems: 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/29 Diabetes mellitus-on chronic insulin therapy (A1c 5.9 on admission) Mild cellulitis left lower extremity secondary to venous stasis-POA Mild thrombocytopenia- POA (platelets 138) Coronary artery disease, stent placement x 3 Hypertriglyceridemia Hypertension 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 Hospital Course: 07/07/17-hospitalist consultation Agree with admissions to the [facility] Unit for psychiatric evaluation and treatment and provision of safe environment. Outside records/labs from [place] emergency room, rehabilitation admission, and recent outpatient visit with PCP reviewed. She would benefit from physical therapy and occupational therapy given her recent brain injury and resultant weakness/decrease in functional abilities. Continue cephalexin for cellulitis 5 days. Will monitor leg closely. GOLDIE hose/SCDs for venous stasis, encourage patient to elevate legs as much as possible. Continue home insulin dosing and monitor Accu-Cheks before meals and bedtime and when necessary. Repeat labs in a.m. to follow up thrombocytopenia and monitor electrolytes. Hospitalist service will continue to follow patient with you throughout her stay. Thank you for the consult. 07/08/17 Psych: Continue current care, monitor behavior on unit - consider risk vs. benefit of antipsychotic vs. environmental modifications which seem to be helping. Patient is adamant that she does not want to return to [facility]. 07/09/17 Psych: Patient mood/affect continues to improve with environmental modifications only. She wants to eat, engage with others, wants to partake in her hobby of crocheting, reports sleeping well, etc. and she would prefer not to have increase in AD right now. She would like placement with if possible as he is in last months of life. CM/SW working on possible options. 07/10/17 Psych: Continue current care; 's has been discharged to [facility] working to see if they can be placed together as she reports this will be most helpful for her mood. Plan - 07/11/17 Overall, patient appears to be doing better. Contacted primary physician regarding insulin dosing. Suspect Regular insulin is being utilized at home given cost. PCP noted that home dose of regular insulin was 18 units at breakfast and lunch with 22 units at dinner. Prior orders indicated 18 units at all 3 meals. Dinner insulin increased to 22 units. Blood sugars have be trending up, most likely because of increased oral intake in generations as compared to where she was previously. Sliding scale insulin available and will continue to trend BGMs, making adjustments to insulins as indicated. Continue psychiatric cares per team. Continue to provide safe and supportive environment. Cellulitis to left lower extremity improving. Continue to monitor closely. Keflex treatment course to be complete on 07/12/17. Patient remains afebrile. GOLDIE suazo/SCDs for venous stasis, encourage patient to elevate legs as much as possible. I saw evaluated patient's leg as I had seen her on admission. Her redness, tenderness, swelling and warmth is much improved. She continues to have discoloration but this is likely chronic from stasis changes. Cephalexin course is completed tomorrow. Continue compression stockings as this has helped significantly with her venous stasis. ~~~Kavya Jaramillo PA-C 07/11/17. 1625. 07/13/17 Psych- Pt improving. Continue current care
[2017-07-13] MEDS ORDERED: INSULIN REGULAR, HUMAN 100 UNIT/ML INJECTION SQ SCH (11:30)
--- NOTE | 2017-07-13 16:45 | Progress Note ---
- Date 07/13/17 Subjective: Patient is seen sitting in the day room. She reports that she feels so much better. Today is the first morning she woke up and didn't feel angry and scared. The nurses reported that she was crying earlier and she told them she was crying because she was so happy that she feels better. No chest pain shortness of breath nausea or vomiting. Appetite is fine. Objective Vital signs: Temperature 97.4 F 07/13/17 08:00 Pulse Rate 61 07/13/17 08:00 Respiratory Rate 16 07/13/17 08:00 Blood Pressure 119/60 07/13/17 08:00 Pulse Oximetry 98 07/13/17 08:00 Height/Weight/BMI: Height 1.88 m Weight 96.9 kg Body Mass Index 27.7 - Constitutional Present: no acute distress, well nourished, well developed - Routine HEENT Exam Head: Present: normocephalic, atraumatic - Routine Respiratory Exam Present: CTA bilaterally. Absent: wheezes - Routine Cardiovascular Exam Present: RRR, no murmur - Routine Abdominal Exam Present: soft, non distended, non tender - Routine Extremities Exam Present: no edema, normal capillary refill Comments: Slight erythema remains in the left lower leg related to venous stasis. - Routine Skin Exam Present: dry, warm - Routine Neurological Exam Present: alert - Routine Lymphatic Exam Lymphatic: Absent: adenopathy - Routine Psychiatric Exam Present: normal affect, cooperative Results - Labs CBC & Chem 7: 07/12/17 06:59 07/12/17 06:59 Assessment and Plan (1) Suicidal ideation Current visit: Yes Status: Acute Assessment and Plan: Assessment Suicidal ideation 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/29 Diabetes mellitus-on chronic insulin therapy (A1c 5.9 on admission) Mild cellulitis left lower extremity secondary to venous stasis-POA Mild thrombocytopenia- POA (platelets 138) Coronary artery disease, stent placement x 3 Hypertriglyceridemia Hypertension 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 Chart reviewed. See free text progress note earlier today regarding insulin. Due to an order glitch in the computer, patient did not receive her a.m. or noon dose of insulin. Has been receiving sliding scale. This "glitch" was discussed with nursing staff and pharmacy and should be resolved. Agree with history, physical assessment and plan. Findings correlate to the above note. - Physician Narrative Narrative: Date: 07/13/17 Time: 1632 Hospital Course Summary Disclaimer: The visit summary below is not to be considered part of the above Progress Note. Hospital Course: 07/07/17-hospitalist consultation Agree with admissions to the [facility] for psychiatric evaluation and treatment and provision of safe environment. Outside records/labs from [place] emergency room, rehabilitation admission, and recent outpatient visit with PCP reviewed. She would benefit from physical therapy and occupational therapy given her recent brain injury and resultant weakness/decrease in functional abilities. Continue cephalexin for cellulitis 5 days. Will monitor leg closely. GOLDIE hose/SCDs for venous stasis, encourage patient to elevate legs as much as possible. Continue home insulin dosing and monitor Accu-Cheks before meals and bedtime and when necessary. Repeat labs in a.m. to follow up thrombocytopenia and monitor electrolytes. Hospitalist service will continue to follow patient with you throughout her stay. Thank you for the consult. 07/08/17 Psych: Continue current care, monitor behavior on unit - consider risk vs. benefit of antipsychotic vs. environmental modifications which seem to be helping. Patient is adamant that she does not want to return to [facility]. 07/09/17 Psych: Patient mood/affect continues to improve with environmental modifications only. She wants to eat, engage with others, wants to partake in her hobby of crocheting, reports sleeping well, etc. and she would prefer not to have increase in AD right now. She would like placement with if possible as he is in last months of life. CM/BENJAMIN working on possible options. 07/10/17 Psych: Continue current care; 's has been discharged to [facility] - working to see if they can be placed together as she reports this will be most helpful for her mood. 07/11/17 Overall, patient appears to be doing better. Contacted primary physician regarding insulin dosing. Suspect Regular insulin is being utilized at home given cost. PCP noted that home dose of regular insulin was 18 units at breakfast and lunch with 22 units at dinner. Prior orders indicated 18 units at all 3 meals. Dinner insulin increased to 22 units. Blood sugars have be trending up, most likely because of increased oral intake in [facility] as compared to where she was previously. Sliding scale insulin available and will continue to trend BGMs, making adjustments to insulins as indicated. Continue psychiatric cares per team. Continue to provide safe and supportive environment. Cellulitis to left lower extremity improving. Continue to monitor closely. Keflex treatment course to be complete on 07/12/17. Patient remains afebrile. GOLDIE hose/SCDs for venous stasis, encourage patient to elevate legs as much as possible. I saw evaluated patient's leg as I had seen her on admission. Her redness, tenderness, swelling and warmth is much improved. She continues to have discoloration but this is likely chronic from stasis changes. Cephalexin course is completed tomorrow. Continue compression stockings as this has helped significantly with her venous stasis. ~~~Kavya Jaramillo PA-C 07/11/17. 1625. 07/13/17 Psych- Pt improving. Continue current care 07/13/17 hospitalist- Patient is doing well. Chart reviewed. See free text progress note earlier today regarding insulin. Due to an order glitch in the computer, patient did not receive her a.m. or noon dose of insulin. Has been receiving sliding scale. This "glitch" was discussed with nursing staff and pharmacy and should be resolved.
[2017-07-13] MEDS: INSULIN REGULAR, HUMAN 100 UNIT/ML INJECTION SQ SCH (17:19)
[2017-07-13] MEDS: SIMVASTATIN 40 MG TABLET PO SCH (20:12)
[2017-07-13] MEDS: SERTRALINE 100 MG TABLET PO SCH (20:12)
[2017-07-13] MEDS: FENOFIBRATE 160 MG TABLET PO SCH (20:12)
[2017-07-13] MEDS: PHENYTOIN 100 MG CAPSULE PO SCH (20:12)
[2017-07-13] MEDS: INSULIN GLARGINE 100unit/ml INJECTION SQ SCH (20:13)
[2017-07-14] MEDS: ALLOPURINOL 300 MG TABLET PO SCH (11:09)
[2017-07-14] MEDS: LOSARTAN 50 MG TABLET PO SCH (11:09)
[2017-07-14] MEDS: INSULIN REGULAR, HUMAN 100 UNIT/ML INJECTION SQ SCH ×3 (11:09→17:16)
[2017-07-14] MEDS: OMEGA-3 ACID ESTERS 1 GM CAPSULE PO SCH ×4 (11:09→19:31)
[2017-07-14] MEDS: CLOPIDOGREL 75 MG TABLET PO SCH (11:09)
[2017-07-14] MEDS: ASPIRIN 81 MG CHEWABLE TABLET PO SCH (11:10)
[2017-07-14] MEDS: ATENOLOL 50 MG TABLET PO SCH (11:10)
[2017-07-14] MEDS: MAGNESIUM OXIDE 400 MG TABLET PO SCH (11:10)
--- NOTE | 2017-07-14 11:34 | Neuropsych Progress Note ---
[facility] Subjective Date: 07/14/17 - Sujective/Severity of Illness Medications: Acetaminophen (Tylenol) 325 - 650 mg PO Q5H PRN PRN Reason: Discomfort Last Admin: 07/13/17 01:24 Dose: 650 mg Allopurinol (Zyloprim) 300 mg PO DAILY [facility] Last Admin: 07/14/17 11:09 Dose: 300 mg Aspirin (Asa) 81 mg PO DAILY [facility] Last Admin: 07/14/17 11:10 Dose: 81 mg Atenolol (Tenormin) 50 mg PO DAILY [facility] Last Admin: 07/14/17 11:10 Dose: 50 mg Bisacodyl (Dulcolax) 10 mg RECTALLY PRN PRN PRN Reason: Constipation Clopidogrel Bisulfate (Plavix) 75 mg PO DAILY [facility] Last Admin: 07/14/17 11:09 Dose: 75 mg Fenofibrate (Lofibra) 160 mg PO [facility] Last Admin: 07/13/17 20:12 Dose: 160 mg Glucose (Glutose 15) 37.5 gm PO PRN PRN PRN Reason: Hypoglycemia Haloperidol (Haldol) 0.5 mg PO Q6H PRN PRN Reason: Extreme agitation Haloperidol Lactate (Haldol) 0.5 mg IM Q6H PRN PRN Reason: Extreme agitation Hydrochlorothiazide (Hydrodiuril) 50 mg PO WB [facility] Last Admin: 07/14/17 11:10 Dose: 50 mg Insulin Aspart (Novolog) 2 - 8 unit SQ SS PRN; Protocol PRN Reason: Hyperglycemia Last Admin: 07/13/17 20:13 Dose: 2 unit Insulin Glargine (Lantus) 53 unit SQ HS [facility] Last Admin: 07/13/17 20:13 Dose: 53 unit Insulin Human Regular (Novolin R) 22 unit SQ PMI [facility] Last Admin: 07/13/17 17:19 Dose: 22 unit Insulin Human Regular (Novolin R) 20 unit SQ AMI [facility] Last Admin: 07/14/17 11:09 Dose: 20 unit Insulin Human Regular (Novolin R) 20 unit SQ 1130 HEMANT Lorazepam (Ativan) 0.5 mg PO Q6H PRN PRN Reason: Extreme agitation Lorazepam (Ativan Inj) 0.5 mg IM Q6H PRN PRN Reason: Extreme agitation Losartan Potassium (Cozaar) 50 mg PO DAILY [facility] Last Admin: 07/14/17 11:09 Dose: 50 mg Magnesium Oxide (Magox) 400 mg PO DAILY [facility] Last Admin: 07/14/17 11:10 Dose: 400 mg Melatonin (Melatonin) 1 mg PO HS PRN PRN Reason: Insomnia Kihbo-2-Rcsy Ethyl Esters (Lovaza) 1 gm PO TID [facility] Last Admin: 07/14/17 11:09 Dose: 1 gm Phenytoin Sodium (Dilantin 100 Mg Cap) 500 mg PO HS [facility] Last Admin: 07/13/17 20:12 Dose: 500 mg Potassium Chloride (K-Dur 20 Meq Tablet) 20 meq PO WB [facility] Last Admin: 07/14/17 11:10 Dose: 20 meq Sertraline HCl (Zoloft) 100 mg PO HS [facility] Last Admin: 07/13/17 20:12 Dose: 100 mg Simvastatin (Zocor) 40 mg PO HS [facility] Last Admin: 07/13/17 20:12 Dose: 40 mg Subjective: Patient seen and chart reviewed. Case discussed with treatment team. On interview, patient is just waking up. She reports her mood is "okay" and she feels well physically. She does not show any signs of irritability/paranoia and smiles when asked how the staff here are treating her. She feels the food is very good. Patient denies any SI, HI or AVH. Patient denies any adverse side effects related to psychotropic medications. Nursing staff report patient has been pleasant with no behavioral difficulties in the past 24 hours. Patient has been adherent with medications. Patient slept 8 hours overnight. VSS. Patient is eating well. Psychotropic PRNs required in the past 24 hours: none. Start Time: 09:20 Stop Time: 09:40 Mental Status Exam Vitals: Last Vital Signs Temp 97.0 F 07/14/17 08:00 Pulse 64 07/14/17 08:00 Resp 16 07/14/17 08:00 BP 114/64 07/14/17 08:00 Pulse Ox 97 07/14/17 08:00 Height: 1.88 m Weight: 96.6 kg - Mental Status Exam Muscle Strength/Tone: Weak Dressing: Casual Grooming: Fair Attitude: Cooperative Motor Activity: Retardation Eye Contact: Poor (due to vision changes) Speech: Normal Volume: Normal Rhythm: Appropriate Rhythm Orientation: Disoriented to time, Disoriented to place, Oriented to person Mood: Neutral Affect: Relaxed Rate of Thoughts: Appropriate Rate Thought Organization: Organized (mostly), Confused (at times) Associations: Intact (mostly) Abstract Reasoning: Poor abstract reasoning Thought Content: Normal Perception/Psychotic: Other (Unclear whether VH related to MD or depressive symptoms) Current Hallucinations: Visual, Illusions Language: Naming Intact Fund of Knowledge: Other (Decreased from premorbid baseline) Memory: Poor-recent Suicidal Ideation: Denies Homicidal Ideation: Denies Insight: Impaired Judgement: Impaired Impulse Control: Fair - Laboratory Result Diagrams: 07/12/17 06:59 07/12/17 06:59 Laboratory Results - last 24 hr 07/13/17 07/13/17 07/13/17 10:10 14:33 20:09 Glucometer 200 355 169 Assessment and Plan (1) Major depressive disorder, recurrent episode, severe Qualifiers: Psychotic features: with psychotic features Qualified Code(s): F33.3 - Major depressive disorder, recurrent, severe with psychotic symptoms Problem details: Additional medical problems: 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/29 Diabetes mellitus-on chronic insulin therapy (A1c 5.9 on admission) Mild cellulitis left lower extremity secondary to venous stasis-POA Mild thrombocytopenia- POA (platelets 138) Coronary artery disease, stent placement x 3 Hypertriglyceridemia Hypertension 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 Hypothyroidism History of DVT Macular degeneration Chronic venous stasis GERD Gout Current visit: Yes Status: Acute (2) Major neurocognitive disorder Problem details: Vascular, moderate, with behavioral disturbance Current visit : Yes Status: Acute Continue current care; working on safe discharge plan. Hospital Course Summary Disclaimer: The visit summary below is not to be considered part of the above Progress Note. Hospital Course: 07/07/17-hospitalist consultation Agree with admissions to the [facility] for psychiatric evaluation and treatment and provision of safe environment. Outside records/labs from [place] emergency room, rehabilitation admission, and recent outpatient visit with PCP reviewed. She would benefit from physical therapy and occupational therapy given her recent brain injury and resultant weakness/decrease in functional abilities. Continue cephalexin for cellulitis 5 days. Will monitor leg closely. GOLDIE hose/SCDs for venous stasis, encourage patient to elevate legs as much as possible. Continue home insulin dosing and monitor Accu-Cheks before meals and bedtime and when necessary. Repeat labs in a.m. to follow up thrombocytopenia and monitor electrolytes. Hospitalist service will continue to follow patient with you throughout her stay. Thank you for the consult. 07/08/17 Psych: Continue current care, monitor behavior on unit - consider risk vs. benefit of antipsychotic vs. environmental modifications which seem to be helping. Patient is adamant that she does not want to return to [facility]. 07/09/17 Psych: Patient mood/affect continues to improve with environmental modifications only. She wants to eat, engage with others, wants to partake in her hobby of crocheting, reports sleeping well, etc. and she would prefer not to have increase in AD right now. She would like placement with if possible as he is in last months of life. CM/SW working on possible options. 07/10/17 Psych: Continue current care; 's has been discharged to [facility] - working to see if they can be placed together as she reports this will be most helpful for her mood. 07/11/17 Overall, patient appears to be doing better. Contacted primary physician regarding insulin dosing. Suspect Regular insulin is being utilized at home given cost. PCP noted that home dose of regular insulin was 18 units at breakfast and lunch with 22 units at dinner. Prior orders indicated 18 units at all 3 meals. Dinner insulin increased to 22 units. Blood sugars have be trending up, most likely because of increased oral intake in [facility] as compared to where she was previously. Sliding scale insulin available and will continue to trend BGMs, making adjustments to insulins as indicated. Continue psychiatric cares per team. Continue to provide safe and supportive environment. Cellulitis to left lower extremity improving. Continue to monitor closely. Keflex treatment course to be complete on 07/12/17. Patient remains afebrile. GOLDIE suazo/SCDs for venous stasis, encourage patient to elevate legs as much as possible. I saw evaluated patient's leg as I had seen her on admission. Her redness, tenderness, swelling and warmth is much improved. She continues to have discoloration but this is likely chronic from stasis changes. Cephalexin course is completed tomorrow. Continue compression stockings as this has helped significantly with her venous stasis. ~~~Kavya Jaramillo PA-C 07/11/17. 1625. 07/13/17 Psych- Pt improving. Continue current care 07/13/17 hospitalist- Patient is doing well. Chart reviewed. See free text progress note earlier today regarding insulin. Due to an order glitch in the computer, patient did not receive her a.m. or noon dose of insulin. Has been receiving sliding scale. This "glitch" was discussed with nursing staff and pharmacy and should be resolved. 07/14/17 Psych: Continue current care; working on safe discharge plan.
[2017-07-14] MEDS: INSULIN ASPART 100unit/ml INJECTION SQ PRN (14:49)
[2017-07-14] MEDS: FENOFIBRATE 160 MG TABLET PO SCH (19:29)
[2017-07-14] MEDS: INSULIN GLARGINE 100unit/ml INJECTION SQ SCH (19:30)
[2017-07-14] MEDS: PHENYTOIN 100 MG CAPSULE PO SCH (19:31)
[2017-07-14] MEDS: SIMVASTATIN 40 MG TABLET PO SCH (19:32)
[2017-07-14] MEDS: SERTRALINE 100 MG TABLET PO SCH (19:32)
[2017-07-15] MEDS: INSULIN GLARGINE 100unit/ml INJECTION SQ SCH (03:20)
[2017-07-15] MEDS: FENOFIBRATE 160 MG TABLET PO SCH ×2 (03:20→20:13)
[2017-07-15] MEDS: OMEGA-3 ACID ESTERS 1 GM CAPSULE PO SCH ×4 (03:21→20:13)
[2017-07-15] MEDS: SERTRALINE 100 MG TABLET PO SCH (03:21)
[2017-07-15] MEDS: PHENYTOIN 100 MG CAPSULE PO SCH ×2 (03:21→20:13)
[2017-07-15] MEDS: SIMVASTATIN 40 MG TABLET PO SCH ×2 (03:22→20:13)
[2017-07-15] MEDS: INSULIN REGULAR, HUMAN 100 UNIT/ML INJECTION SQ SCH ×3 (09:00→17:46)
[2017-07-15] MEDS: ASPIRIN 81 MG CHEWABLE TABLET PO SCH (09:01)
[2017-07-15] MEDS: LOSARTAN 50 MG TABLET PO SCH (09:01)
[2017-07-15] MEDS: MAGNESIUM OXIDE 400 MG TABLET PO SCH (09:01)
[2017-07-15] MEDS: ATENOLOL 50 MG TABLET PO SCH (09:01)
[2017-07-15] MEDS: ALLOPURINOL 300 MG TABLET PO SCH (09:01)
[2017-07-15] MEDS: CLOPIDOGREL 75 MG TABLET PO SCH (09:01)
[2017-07-15] MEDS: INSULIN ASPART 100unit/ml INJECTION SQ PRN ×2 (11:22→14:46)
--- NOTE | 2017-07-15 13:31 | Neuropsych Progress Note ---
[facility] Subjective Date: 07/15/17 - Sujective/Severity of Illness Medications: Acetaminophen (Tylenol) 325 - 650 mg PO Q5H PRN PRN Reason: Discomfort Last Admin: 07/13/17 01:24 Dose: 650 mg Allopurinol (Zyloprim) 300 mg PO [facility]ILY [facility] Last Admin: 07/15/17 09:01 Dose: 300 mg Aspirin (Asa) 81 mg PO [facility]ILY [facility] Last Admin: 07/15/17 09:01 Dose: 81 mg Atenolol (Tenormin) 50 mg PO [facility]ILY [facility] Last Admin: 07/15/17 09:01 Dose: 50 mg Bisacodyl (Dulcolax) 10 mg RECTALLY PRN PRN PRN Reason: Constipation Clopidogrel Bisulfate (Plavix) 75 mg PO [facility]ILY [facility] Last Admin: 07/15/17 09:01 Dose: 75 mg Fenofibrate (Lofibra) 160 mg PO [facility] Last Admin: 07/15/17 03:20 Dose: Not Given Glucose (Glutose 15) 37.5 gm PO PRN PRN PRN Reason: Hypoglycemia Haloperidol (Haldol) 0.5 mg PO Q6H PRN PRN Reason: Extreme agitation Haloperidol Lactate (Haldol) 0.5 mg IM Q6H PRN PRN Reason: Extreme agitation Hydrochlorothiazide (Hydrodiuril) 50 mg PO [facility] Last Admin: 07/15/17 09:00 Dose: 50 mg Insulin Aspart (Novolog) 2 - 8 unit SQ SS PRN; Protocol PRN Reason: Hyperglycemia Last Admin: 07/15/17 11:22 Dose: 5 unit Insulin Glargine (Lantus) 53 unit SQ [facility] Last Admin: 07/15/17 03:20 Dose: Not Given Insulin Human Regular (Novolin R) 22 unit SQ PMI [facility] Last Admin: 07/14/17 17:16 Dose: 22 unit Insulin Human Regular (Novolin R) 20 unit SQ [facility]I [facility] Last Admin: 07/15/17 09:00 Dose: 20 unit Insulin Human Regular (Novolin R) 20 unit SQ 1130 [facility] Last Admin: 07/15/17 11:50 Dose: 20 unit Lorazepam (Ativan) 0.5 mg PO Q6H PRN PRN Reason: Extreme agitation Lorazepam (Ativan Inj) 0.5 mg IM Q6H PRN PRN Reason: Extreme agitation Losartan Potassium (Cozaar) 50 mg PO DAILY [facility] Last Admin: 07/15/17 09:01 Dose: 50 mg Magnesium Oxide (Magox) 400 mg PO DAILY [facility] Last Admin: 07/15/17 09:01 Dose: 400 mg Melatonin (Melatonin) 1 mg PO HS PRN PRN Reason: Insomnia Rwyle-9-Hxld Ethyl Esters (Lovaza) 1 gm PO TID [facility] Last Admin: 07/15/17 09:01 Dose: 1 gm Phenytoin Sodium (Dilantin 100 Mg Cap) 500 mg PO HS [facility] Last Admin: 07/15/17 03:21 Dose: Not Given Potassium Chloride (K-Dur 20 Meq Tablet) 20 meq PO WB [facility] Last Admin: 07/15/17 09:00 Dose: 20 meq Sertraline HCl (Zoloft) 150 mg PO DAILY [facility] Simvastatin (Zocor) 40 mg PO HS [facility] Last Admin: 07/15/17 03:22 Dose: Not Given Subjective: Patient seen and chart reviewed. Case discussed with treatment team. On interview, patient is cooperative but appears more dysphoric than on previous days. She is particularly ruminative in regards to her future plans and not being able to be with her . She says she doesn't understand a lot of things, she is tired and then makes an odd comment about "getting tired of falling asleep in one place and waking up somewhere else." She can't give me more detail about what she means by this but denies that the staff here are mistreating her. Patient denies any SI, HI or AVH. Patient denies any adverse side effects related to psychotropic medications. Nursing staff report patient was pleasant throughout the day yesterday though there was an incident last night where patient got upset, refused medications and had low blood sugar - but initially refused to do anything to make it better saying it needed to "hurry up and get lower." Nursing staff spent time talking with patient about her feelings and future and she calmed after this, eating as well as taking HS medications. Patient has been adherent with medications otherwise. Patient slept 6.5 hours overnight. VSS. Patient is eating well. Psychotropic PRNs required in the past 24 hours: none. Start Time: 12:20 Stop Time: 12:40 Mental Status Exam Vitals: Last Vital Signs Temp 97.7 F 07/15/17 08:00 Pulse 61 03/06/18 08:00 Resp 16 07/15/17 08:00 BP 125/55 07/15/17 08:00 Pulse Ox 97 07/15/17 08:00 Height: 1.88 m Weight: 98.3 kg - Mental Status Exam Muscle Strength/Tone: Weak Dressing: Casual Grooming: Fair Attitude: Cooperative Motor Activity: Retardation Eye Contact: Poor (due to vision changes) Speech: Normal Volume: Normal Rhythm: Appropriate Rhythm Orientation: Disoriented to time, Disoriented to place, Oriented to person Mood: Depressed Affect: Sad Rate of Thoughts: Appropriate Rate Thought Organization: Organized (mostly), Confused (at times) Associations: Intact (mostly) Abstract Reasoning: Poor abstract reasoning Thought Content: Ruminations Perception/Psychotic: Other (Unclear whether VH related to MD or depressive symptoms) Current Hallucinations: Visual, Illusions Language: Naming Intact Fund of Knowledge: Other (Decreased from premorbid baseline) Memory: Poor-recent Suicidal Ideation: Other (made morbid statement in evening of 07/14; denies SI now ) Homicidal Ideation: Denies Insight: Impaired Judgement: Impaired Impulse Control: Fair - Laboratory Result Diagrams: 07/12/17 06:59 07/12/17 06:59 Laboratory Results - last 24 hr 07/14/17 07/14/17 07/14/17 14:37 21:09 21:58 Glucometer 271 52 131 07/15/17 07/15/17 06:33 08:46 Glucometer 182 274 Assessment and Plan (1) Major depressive disorder, recurrent episode, severe Qualifiers: Psychotic features: with psychotic features Qualified Code(s): F33.3 - Major depressive disorder, recurrent, severe with psychotic symptoms Problem details: Additional medical problems: 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/29 Diabetes mellitus-on chronic insulin therapy (A1c 5.9 on admission) Mild cellulitis left lower extremity secondary to venous stasis-POA Mild thrombocytopenia- POA (platelets 138) Coronary artery disease, stent placement x 3 Hypertriglyceridemia Hypertension 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 Hypothyroidism History of DVT Macular degeneration Chronic venous stasis GERD Gout Current visit: Yes Status: Acute (2) Major neurocognitive disorder Problem details: Vascular, moderate, with behavioral disturbance Current visit : Yes Status: Acute Other medical problems: S/P 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 Continuing attempts to find placement near . Hospital Course Summary Disclaimer: The visit summary below is not to be considered part of the above Progress Note. Hospital Course: 07/07/17-hospitalist consultation Agree with admissions to the [facility] for psychiatric evaluation and treatment and provision of safe environment. Outside records/labs from [place] emergency room, rehabilitation admission, and recent outpatient visit with PCP reviewed. She would benefit from physical therapy and occupational therapy given her recent brain injury and resultant weakness/decrease in functional abilities. Continue cephalexin for cellulitis 5 days. Will monitor leg closely. GOLDIE hose/SCDs for venous stasis, encourage patient to elevate legs as much as possible. Continue home insulin dosing and monitor Accu-Cheks before meals and bedtime and when necessary. Repeat labs in a.m. to follow up thrombocytopenia and monitor electrolytes. Hospitalist service will continue to follow patient with you throughout her stay. Thank you for the consult. 07/08/17 Psych: Continue current care, monitor behavior on unit - consider risk vs. benefit of antipsychotic vs. environmental modifications which seem to be helping. Patient is adamant that she does not want to return to [facility]. 07/09/17 Psych: Patient mood/affect continues to improve with environmental modifications only. She wants to eat, engage with others, wants to partake in her hobby of crocheting, reports sleeping well, etc. and she would prefer not to have increase in AD right now. She would like placement with if possible as he is in last months of life. CM/SW working on possible options. 07/10/17 Psych: Continue current care; 's has been discharged to [facility] - working to see if they can be placed together as she reports this will be most helpful for her mood. 07/11/17 Overall, patient appears to be doing better. Contacted primary physician regarding insulin dosing. Suspect Regular insulin is being utilized at home given cost. PCP noted that home dose of regular insulin was 18 units at breakfast and lunch with 22 units at dinner. Prior orders indicated 18 units at all 3 meals. Dinner insulin increased to 22 units. Blood sugars have be trending up, most likely because of increased oral intake in generations as compared to where she was previously. Sliding scale insulin available and will continue to trend BGMs, making adjustments to insulins as indicated. Continue psychiatric cares per team. Continue to provide safe and supportive environment. Cellulitis to left lower extremity improving. Continue to monitor closely. Keflex treatment course to be complete on 07/12/17. Patient remains afebrile. GOLDIE hose/SCDs for venous stasis, encourage patient to elevate legs as much as possible. I saw evaluated patient's leg as I had seen her on admission. Her redness, tenderness, swelling and warmth is much improved. She continues to have discoloration but this is likely chronic from stasis changes. Cephalexin course is completed tomorrow. Continue compression stockings as this has helped significantly with her venous stasis. ~~~Kavya Jaramillo PA-C 07/11/17. 1625. 07/13/17 Psych- Pt improving. Continue current care 07/13/17 hospitalist- Patient is doing well. Chart reviewed. See free text progress note earlier today regarding insulin. Due to an order glitch in the computer, patient did not receive her a.m. or noon dose of insulin. Has been receiving sliding scale. This "glitch" was discussed with nursing staff and pharmacy and should be resolved. 07/14/17 Psych: Continue current care; working on safe discharge plan.
[2017-07-16] MEDS: INSULIN GLARGINE 100unit/ml INJECTION SQ SCH ×2 (00:26→19:41)
[2017-07-16] MEDS: INSULIN REGULAR, HUMAN 100 UNIT/ML INJECTION SQ SCH ×3 (07:54→17:17)
[2017-07-16] MEDS: ATENOLOL 50 MG TABLET PO SCH (08:19)
[2017-07-16] MEDS: ALLOPURINOL 300 MG TABLET PO SCH (08:19)
[2017-07-16] MEDS: OMEGA-3 ACID ESTERS 1 GM CAPSULE PO SCH ×3 (08:20→19:43)
[2017-07-16] MEDS: CLOPIDOGREL 75 MG TABLET PO SCH (08:20)
[2017-07-16] MEDS: LOSARTAN 50 MG TABLET PO SCH (08:20)
[2017-07-16] MEDS: MAGNESIUM OXIDE 400 MG TABLET PO SCH (08:20)
[2017-07-16] MEDS: SERTRALINE 100 MG TABLET PO SCH (08:21)
[2017-07-16] MEDS: ASPIRIN 81 MG CHEWABLE TABLET PO SCH (08:24)
[2017-07-16] MEDS: INSULIN ASPART 100unit/ml INJECTION SQ PRN (10:37)
--- NOTE | 2017-07-16 13:57 | Progress Note ---
- Date 07/16/17 Subjective: Michelle is seen while resting in her room. She states that she is doing well and denies any complaints or concerns. Nursing notes reviewed and indicate that overall she has been doing well. Her appetite is good and bowels are moving. Review of BGMs revealed variable blood sugars, generally hyperglycemic with 2 episodes of hypoglycemia. No other new labs to review. Objective Vital signs: Temperature 97.6 F 07/16/17 08:00 Pulse Rate 65 07/16/17 08:00 Respiratory Rate 16 07/16/17 08:00 Blood Pressure 115/56 07/16/17 08:00 Pulse Oximetry 95 07/16/17 08:00 Height/Weight/BMI: Height 6 ft 2 in Weight 212 lb 8.41 oz Body Mass Index 27.7 Comments: resting in bed, awakens easily. - Constitutional Present: no acute distress, well nourished, well developed, cooperative - Routine HEENT Exam Head: Present: normocephalic, atraumatic Eye: Present: PERRL. Absent: conjunctival icterus ENT: Present: mucous membranes moist - Routine Respiratory Exam Present: CTA bilaterally. Absent: rales, respiratory distress, rhonchi, stridor , wheezes, crackles - Routine Cardiovascular Exam Present: RRR, S1, S2, murmur - Routine Abdominal Exam Present: soft, normoactive bowel sounds, non distended, non tender - Routine Extremities Exam Present: edema (1+), non tender, pulses intact Comments: stockings in place. - Routine Back/Spine/Pelvis Exam Back/Spine: Present: full ROM. Absent: vertebral tenderness - Routine Musculoskeletal Exam Musculoskeletal: Present: moving extremities well - Routine Skin Exam Present: intact, dry, warm. Absent: jaundice Comments: afebrile. - Routine Neurological Exam Present: alert (orientated to self), moving all extremities, hearing grossly intact, normal speech - Routine Lymphatic Exam Lymphatic: Absent: lymphedema - Routine Psychiatric Exam Present: cooperative Results - Labs CBC & Chem 7: 07/12/17 06:59 07/12/17 06:59 Assessment and Plan (1) Suicidal ideation Current visit: Yes Status: Acute Assessment and Plan: Assessment Suicidal ideation 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/29 Diabetes mellitus-on chronic insulin therapy (A1c 5.9 on admission) Mild cellulitis left lower extremity secondary to venous stasis-POA Mild thrombocytopenia- POA (platelets 138) Coronary artery disease, stent placement x 3 Hypertriglyceridemia Hypertension 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 Chart reviewed. Continue psychiatric care and provide safe and supportive environment. Despite adjustments to insulin, patient continues to have hyperglycemia with 2 bouts of hypoglycemia (60 and 52) after administration of SSI. Will increase morning and lunch insulin to 22 units each and continue with 22 units at dinner and 53 units at night. Continue to monitor for hypoglycemia. Will change SSI to low dose treatment. Recheck labs in AM to monitor blood counts, electrolytes and renal function. DVT Prophylaxis: GOLDIE Jimenez Resuscitation Status: Do Not Resuscitate - Time spent with patient Time with patient PN: 25 minutes - Physician Narrative Physician: other (Dr. Llamas) Narrative: Date: 07/16/17 Time: 1354 Hospital Course Summary Disclaimer: The visit summary below is not to be considered part of the above Progress Note. Hospital Course: 07/07/17-hospitalist consultation Agree with admissions to the [facility] for psychiatric evaluation and treatment and provision of safe environment. Outside records/labs from [place] emergency room, rehabilitation admission, and recent outpatient visit with PCP reviewed. She would benefit from physical therapy and occupational therapy given her recent brain injury and resultant weakness/decrease in functional abilities. Continue cephalexin for cellulitis 5 days. Will monitor leg closely. GOLDIE hose/SCDs for venous stasis, encourage patient to elevate legs as much as possible. Continue home insulin dosing and monitor Accu-Cheks before meals and bedtime and when necessary. Repeat labs in a.m. to follow up thrombocytopenia and monitor electrolytes. Hospitalist service will continue to follow patient with you throughout her stay. Thank you for the consult. 07/08/17 Psych: Continue current care, monitor behavior on unit - consider risk vs. benefit of antipsychotic vs. environmental modifications which seem to be helping. Patient is adamant that she does not want to return to [facility] [place] [place]. 07/09/17 Psych: Patient mood/affect continues to improve with environmental modifications only. She wants to eat, engage with others, wants to partake in her hobby of crocheting, reports sleeping well, etc. and she would prefer not to have increase in AD right now. She would like placement with if possible as he is in last months of life. CM/SW working on possible options. 07/10/17 Psych: Continue current care; 's has been discharged to [facility] - working to see if they can be placed together as she reports this will be most helpful for her mood. 07/11/17 Overall, patient appears to be doing better. Contacted primary physician regarding insulin dosing. Suspect Regular insulin is being utilized at home given cost. PCP noted that home dose of regular insulin was 18 units at breakfast and lunch with 22 units at dinner. Prior orders indicated 18 units at all 3 meals. Dinner insulin increased to 22 units. Blood sugars have be trending up, most likely because of increased oral intake in generations as compared to where she was previously. Sliding scale insulin available and will continue to trend BGMs, making adjustments to insulins as indicated. Continue psychiatric cares per team. Continue to provide safe and supportive environment. Cellulitis to left lower extremity improving. Continue to monitor closely. Keflex treatment course to be complete on 07/12/17. Patient remains afebrile. GOLDIE lakeisha/SCDs for venous stasis, encourage patient to elevate legs as much as possible. I saw evaluated patient's leg as I had seen her on admission. Her redness, tenderness, swelling and warmth is much improved. She continues to have discoloration but this is likely chronic from stasis changes. Cephalexin course is completed tomorrow. Continue compression stockings as this has helped significantly with her venous stasis. ~~~Kavya Jaramillo PA-C 07/11/17. 1625. 07/13/17 Psych- Pt improving. Continue current care 07/13/17 hospitalist- Patient is doing well. Chart reviewed. See free text progress note earlier today regarding insulin. Due to an order glitch in the computer, patient did not receive her a.m. or noon dose of insulin. Has been receiving sliding scale. This "glitch" was discussed with nursing staff and pharmacy and should be resolved. Plan - 07/16/17: Patient is doing well. Chart reviewed. Continue psychiatric care and provide safe and supportive environment. Despite adjustments to insulin, patient continues to have hyperglycemia with 2 bouts of hypoglycemia (60 and 52) after administration of SSI. Will increase morning and lunch insulin to 22 units each and continue with 22 units at dinner and 53 units at night. Continue to monitor for hypoglycemia. Will change SSI to low dose treatment. Recheck labs in AM to monitor blood counts, electrolytes and renal function.
--- NOTE | 2017-07-16 14:50 | Neuropsych Progress Note ---
[facility] Subjective Date: 07/16/17 - Sujective/Severity of Illness Medications: Acetaminophen (Tylenol) 325 - 650 mg PO Q5H PRN PRN Reason: Discomfort Last Admin: 07/13/17 01:24 Dose: 650 mg Allopurinol (Zyloprim) 300 mg PO DAILY [facility] Last Admin: 07/16/17 08:19 Dose: 300 mg Aspirin (Asa) 81 mg PO DAILY [facility] Last Admin: 07/16/17 08:24 Dose: 81 mg Atenolol (Tenormin) 50 mg PO DAILY [facility] Last Admin: 07/16/17 08:19 Dose: 50 mg Bisacodyl (Dulcolax) 10 mg RECTALLY PRN PRN PRN Reason: Constipation Clopidogrel Bisulfate (Plavix) 75 mg PO DAILY [facility] Last Admin: 07/16/17 08:20 Dose: 75 mg Fenofibrate (Lofibra) 160 mg PO [facility] Last Admin: 07/15/17 20:13 Dose: 160 mg Glucose (Glutose 15) 37.5 gm PO PRN PRN PRN Reason: Hypoglycemia Haloperidol (Haldol) 0.5 mg PO Q6H PRN PRN Reason: Extreme agitation Haloperidol Lactate (Haldol) 0.5 mg IM Q6H PRN PRN Reason: Extreme agitation Hydrochlorothiazide (Hydrodiuril) 50 mg PO WB [facility] Last Admin: 07/16/17 07:55 Dose: 50 mg Insulin Aspart (Novolog) 2 - 8 unit SQ SS PRN; Protocol PRN Reason: Hyperglycemia Last Admin: 07/16/17 10:37 Dose: 5 unit Insulin Glargine (Lantus) 53 unit SQ [facility] Last Admin: 07/16/17 00:26 Dose: Not Given Insulin Human Regular (Novolin R) 22 unit SQ PMI [facility] Last Admin: 07/15/17 17:46 Dose: 22 unit Insulin Human Regular (Novolin R) 22 unit SQ AMI [facility] Insulin Human Regular (Novolin R) 22 unit SQ 1130 [facility] Lorazepam (Ativan) 0.5 mg PO Q6H PRN PRN Reason: Extreme agitation Lorazepam (Ativan Inj) 0.5 mg IM Q6H PRN PRN Reason: Extreme agitation Losartan Potassium (Cozaar) 50 mg PO DAILY [facility] Last Admin: 07/16/17 08:20 Dose: 50 mg Magnesium Oxide (Magox) 400 mg PO DAILY [facility] Last Admin: 07/16/17 08:20 Dose: 400 mg Melatonin (Melatonin) 1 mg PO HS PRN PRN Reason: Insomnia [id number] Ethyl Esters (Lovaza) 1 gm PO TID [facility] Last Admin: 07/16/17 08:20 Dose: 1 gm Phenytoin Sodium (Dilantin 100 Mg Cap) 500 mg PO HS [facility] Last Admin: 07/15/17 20:13 Dose: 500 mg Potassium Chloride (K-Dur 20 Meq Tablet) 20 meq PO WB [facility] Last Admin: 07/16/17 07:55 Dose: 20 meq Sertraline HCl (Zoloft) 150 mg PO DAILY [facility] Last Admin: 07/16/17 08:21 Dose: 150 mg Simvastatin (Zocor) 40 mg PO HS [facility] Last Admin: 07/15/17 20:13 Dose: 40 mg Subjective: Patient seen and chart reviewed. Case discussed with treatment team. On interview, patient is cooperative but still appears dysphoric. She says her mood is "okay" and she enjoys sitting in the nice and quiet, but wishes she could visit with friends and go to the grocery store with her . Patient denies any SI, HI or AVH. She estimates that her last suicidal thoughts were 5-6 days ago. Patient denies any adverse side effects related to psychotropic medications. I believe some of patient's recent mood lability is likely related to swings in BS and hypoglycemic episodes where she feels poorly - hospitalist is working to optimize her insulin regimen. Nursing staff report patient was pleasant throughout the day yesterday without any morbid thoughts/talk, paranoia or behavioral difficulties. SW discussed options for placement with her and patient absolutely refuses to go back to [facility] as she does not feel safe there but is open towards other options. She is somewhat sad about situation with though this is reasonable. Patient has been adherent with medications. Patient slept well overnight. VSS. Patient is eating well. Psychotropic PRNs required in the past 24 hours: none. Start Time: 09:40 Stop Time: 10:00 Mental Status Exam Vitals: Last Vital Signs Temp 97.6 F 07/16/17 08:00 Pulse 65 07/16/17 08:00 Resp 16 07/16/17 08:00 BP 115/56 07/16/17 08:00 Pulse Ox 95 07/16/17 08:00 Height: 1.88 m Weight: 96.4 kg - Mental Status Exam Muscle Strength/Tone: Weak Dressing: Casual Grooming: Fair Attitude: Cooperative Motor Activity: Retardation Eye Contact: Poor (due to vision changes) Speech: Normal Volume: Normal Rhythm: Appropriate Rhythm Orientation: Disoriented to time, Disoriented to place, Oriented to person Mood: Neutral Affect: Sad Rate of Thoughts: Appropriate Rate Thought Organization: Organized (mostly), Confused (at times) Associations: Intact (mostly) Abstract Reasoning: Poor abstract reasoning Thought Content: Ruminations Perception/Psychotic: Other (Unclear whether VH related to MD or depressive symptoms) Current Hallucinations: Visual, Illusions Language: Naming Intact Fund of Knowledge: Other (Decreased from premorbid baseline) Memory: Poor-recent Suicidal Ideation: Denies Homicidal Ideation: Denies Insight: Impaired Judgement: Impaired Impulse Control: Fair - Laboratory Result Diagrams: 07/12/17 06:59 07/12/17 06:59 Laboratory Results - last 24 hr 07/15/17 07/15/17 07/15/17 11:13 13:57 16:34 Glucometer 281 213 60 07/15/17 07/15/17 07/16/17 16:58 21:05 06:22 Glucometer 85 119 157 07/16/17 10:02 Glucometer 259 Assessment and Plan (1) Major depressive disorder, recurrent episode, severe Qualifiers: Psychotic features: with psychotic features Qualified Code(s): F33.3 - Major depressive disorder, recurrent, severe with psychotic symptoms Problem details: Additional medical problems: 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/29 Diabetes mellitus-on chronic insulin therapy (A1c 5.9 on admission) Mild cellulitis left lower extremity secondary to venous stasis-POA Mild thrombocytopenia- POA (platelets 138) Coronary artery disease, stent placement x 3 Hypertriglyceridemia Hypertension 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 Monitor mood, behavior and response to treatment as CM/SW working to find safe discharge plan for patient. Hospital Course Summary Disclaimer: The visit summary below is not to be considered part of the above Progress Note. Hospital Course: 07/07/17-hospitalist consultation Agree with admissions to the [facility] Unit for psychiatric evaluation and treatment and provision of safe environment. Outside records/labs from [place] emergency room, rehabilitation admission, and recent outpatient visit with PCP reviewed. She would benefit from physical therapy and occupational therapy given her recent brain injury and resultant weakness/decrease in functional abilities. Continue cephalexin for cellulitis 5 days. Will monitor leg closely. GOLDIE hose/SCDs for venous stasis, encourage patient to elevate legs as much as possible. Continue home insulin dosing and monitor Accu-Cheks before meals and bedtime and when necessary. Repeat labs in a.m. to follow up thrombocytopenia and monitor electrolytes. Hospitalist service will continue to follow patient with you throughout her stay. Thank you for the consult. 07/08/17 Psych: Continue current care, monitor behavior on unit - consider risk vs. benefit of antipsychotic vs. environmental modifications which seem to be helping. Patient is adamant that she does not want to return to [facility]. 07/09/17 Psych: Patient mood/affect continues to improve with environmental modifications only. She wants to eat, engage with others, wants to partake in her hobby of crocheting, reports sleeping well, etc. and she would prefer not to have increase in AD right now. She would like placement with if possible as he is in last months of life. CM/SW working on possible options. 07/10/17 Psych: Continue current care; 's has been discharged to [facility] - working to see if they can be placed together as she reports this will be most helpful for her mood. 07/11/17 Overall, patient appears to be doing better. Contacted primary physician regarding insulin dosing. Suspect Regular insulin is being utilized at home given cost. PCP noted that home dose of regular insulin was 18 units at breakfast and lunch with 22 units at dinner. Prior orders indicated 18 units at all 3 meals. Dinner insulin increased to 22 units. Blood sugars have be trending up, most likely because of increased oral intake in [facility] as compared to where she was previously. Sliding scale insulin available and will continue to trend BGMs, making adjustments to insulins as indicated. Continue psychiatric cares per team. Continue to provide safe and supportive environment. Cellulitis to left lower extremity improving. Continue to monitor closely. Keflex treatment course to be complete on 07/12/17. Patient remains afebrile. GOLDIE suazo/SCDs for venous stasis, encourage patient to elevate legs as much as possible. I saw evaluated patient's leg as I had seen her on admission. Her redness, tenderness, swelling and warmth is much improved. She continues to have discoloration but this is likely chronic from stasis changes. Cephalexin course is completed tomorrow. Continue compression stockings as this has helped significantly with her venous stasis. ~~~Kavya Jaramillo PA-C 07/11/17. 1625. 07/13/17 Psych- Pt improving. Continue current care 07/13/17 hospitalist- Patient is doing well. Chart reviewed. See free text progress note earlier today regarding insulin. Due to an order glitch in the computer, patient did not receive her a.m. or noon dose of insulin. Has been receiving sliding scale. This "glitch" was discussed with nursing staff and pharmacy and should be resolved. Plan - 07/16/17: Patient is doing well. Chart reviewed. Continue psychiatric care and provide safe and supportive environment. Despite adjustments to insulin, patient continues to have hyperglycemia with 2 bouts of hypoglycemia (60 and 52) after administration of SSI. Will increase morning and lunch insulin to 22 units each and continue with 22 units at dinner and 53 units at night. Continue to monitor for hypoglycemia. Will change SSI to low dose treatment. Recheck labs in AM to monitor blood counts, electrolytes and renal function.
[2017-07-16] MEDS: FENOFIBRATE 160 MG TABLET PO SCH (19:43)
[2017-07-16] MEDS: PHENYTOIN 100 MG CAPSULE PO SCH (19:43)
[2017-07-16] MEDS: SIMVASTATIN 40 MG TABLET PO SCH (19:44)
[2017-07-17] MEDS: FENOFIBRATE 160 MG TABLET PO SCH ×2 (00:27→20:31)
[2017-07-17] MEDS: SIMVASTATIN 40 MG TABLET PO SCH ×2 (00:28→20:31)
[2017-07-17] MEDS: OMEGA-3 ACID ESTERS 1 GM CAPSULE PO SCH ×4 (00:28→20:34)
[2017-07-17] MEDS: INSULIN GLARGINE 100unit/ml INJECTION SQ SCH ×2 (00:28→20:36)
[2017-07-17] MEDS: PHENYTOIN 100 MG CAPSULE PO SCH ×2 (00:28→20:32)
[2017-07-17] MEDS: INSULIN REGULAR, HUMAN 100 UNIT/ML INJECTION SQ SCH ×3 (08:42→17:36)
[2017-07-17] MEDS: MAGNESIUM OXIDE 400 MG TABLET PO SCH (08:43)
[2017-07-17] MEDS: CLOPIDOGREL 75 MG TABLET PO SCH (08:43)
[2017-07-17] MEDS: ATENOLOL 50 MG TABLET PO SCH (08:43)
[2017-07-17] MEDS: LOSARTAN 50 MG TABLET PO SCH (08:43)
[2017-07-17] MEDS: ASPIRIN 81 MG CHEWABLE TABLET PO SCH (08:43)
[2017-07-17] MEDS: ALLOPURINOL 300 MG TABLET PO SCH (08:43)
[2017-07-17] MEDS: SERTRALINE 100 MG TABLET PO SCH (08:44)
[2017-07-17] MEDS: INSULIN ASPART 100unit/ml INJECTION SQ PRN ×2 (10:43→15:25)
--- NOTE | 2017-07-17 16:30 | Neuropsych Progress Note ---
[facility] Subjective Date: 07/17/17 - Sujective/Severity of Illness Medications: Acetaminophen (Tylenol) 325 - 650 mg PO Q5H PRN PRN Reason: Discomfort Last Admin: 07/13/17 01:24 Dose: 650 mg Allopurinol (Zyloprim) 300 mg PO DAILY [facility] Last Admin: 07/17/17 08:43 Dose: 300 mg Aspirin (Asa) 81 mg PO DAILY [facility] Last Admin: 07/17/17 08:43 Dose: 81 mg Atenolol (Tenormin) 50 mg PO DAILY [facility] Last Admin: 07/17/17 08:43 Dose: 50 mg Bisacodyl (Dulcolax) 10 mg RECTALLY PRN PRN PRN Reason: Constipation Clopidogrel Bisulfate (Plavix) 75 mg PO DAILY [facility] Last Admin: 07/17/17 08:43 Dose: 75 mg Fenofibrate (Lofibra) 160 mg PO [facility] Last Admin: 07/17/17 00:27 Dose: Not Given Glucose (Glutose 15) 37.5 gm PO PRN PRN PRN Reason: Hypoglycemia Haloperidol (Haldol) 0.5 mg PO Q6H PRN PRN Reason: Extreme agitation Haloperidol Lactate (Haldol) 0.5 mg IM Q6H PRN PRN Reason: Extreme agitation Hydrochlorothiazide (Hydrodiuril) 50 mg PO WB [facility] Last Admin: 07/17/17 08:43 Dose: 50 mg Insulin Aspart (Novolog) 2 - 8 unit SQ SS PRN; Protocol PRN Reason: Hyperglycemia Last Admin: 07/17/17 15:25 Dose: 1 unit Insulin Glargine (Lantus) 53 unit SQ [facility] Last Admin: 07/17/17 00:28 Dose: Not Given Insulin Human Regular (Novolin R) 22 unit SQ PMI [facility] Last Admin: 07/16/17 17:17 Dose: 22 unit Insulin Human Regular (Novolin R) 22 unit SQ AMI [facility] Last Admin: 07/17/17 08:42 Dose: 22 unit Insulin Human Regular (Novolin R) 22 unit SQ 1130 [facility] Last Admin: 07/17/17 12:02 Dose: 22 unit Lorazepam (Ativan) 0.5 mg PO Q6H PRN PRN Reason: Extreme agitation Lorazepam (Ativan Inj) 0.5 mg IM Q6H PRN PRN Reason: Extreme agitation Losartan Potassium (Cozaar) 50 mg PO DAILY [facility] Last Admin: 07/17/17 08:43 Dose: 50 mg Magnesium Oxide (Magox) 400 mg PO DAILY [facility] Last Admin: 07/17/17 08:43 Dose: 400 mg Melatonin (Melatonin) 1 mg PO HS PRN PRN Reason: Insomnia [id number]-3-Shph Ethyl Esters (Lovaza) 1 gm PO TID [facility] Last Admin: 07/17/17 15:25 Dose: 1 gm Phenytoin Sodium (Dilantin 100 Mg Cap) 500 mg PO HS [facility] Last Admin: 07/17/17 00:28 Dose: Not Given Potassium Chloride (K-Dur 20 Meq Tablet) 20 meq PO WB [facility] Last Admin: 07/17/17 08:43 Dose: 20 meq Sertraline HCl (Zoloft) 150 mg PO DAILY [facility] Last Admin: 07/17/17 08:44 Dose: 150 mg Simvastatin (Zocor) 40 mg PO [facility] Last Admin: 07/17/17 00:28 Dose: Not Given Subjective: Patient seen and chart reviewed. Case discussed with treatment team. On interview, patient is cooperative and reports that her mood is "not real well " because she is bored, she wants to see her friends or would like to be more active - discussed ways to engage her more on unit, which she is open to. Patient denies any SI, HI or AVH. Patient denies any adverse side effects related to psychotropic medications. Nursing staff report patient was pleasant throughout the day yesterday without any morbid thoughts/talk, paranoia or behavioral difficulties. She endorses being sad about her which is appropriate/understandable. Last night, she refused some medications and made a paranoid statement about them giving her something to make her go to sleep. Such paranoia seems to be intermittent and fleeting. Patient slept well overnight. VSS. Patient is eating well. Psychotropic PRNs required in the past 24 hours: none. Start Time: 10:20 Stop Time: 10:40 Mental Status Exam Vitals: Last Vital Signs Temp 97.2 F 07/17/17 15:35 Pulse 56 L 07/17/17 15:35 Resp 16 07/17/17 15:35 BP 126/63 07/17/17 15:35 Pulse Ox 94 07/17/17 15:35 Height: 1.88 m Weight: 96.5 kg - Mental Status Exam Muscle Strength/Tone: Weak Dressing: Casual Grooming: Fair Attitude: Cooperative Motor Activity: Retardation Eye Contact: Poor (due to vision changes) Speech: Normal Volume: Normal Rhythm: Appropriate Rhythm Orientation: Disoriented to time, Disoriented to place, Oriented to person Mood: Neutral Affect: Sad (at times) Rate of Thoughts: Appropriate Rate Thought Organization: Organized (mostly), Confused (at times) Associations: Intact (mostly) Abstract Reasoning: Poor abstract reasoning Thought Content: Ruminations (about ), Paranoia (fleeting, during times of sadness) Perception/Psychotic: Other (Unclear whether VH related to MD or depressive symptoms) Current Hallucinations: Visual, Illusions Language: Naming Intact Fund of Knowledge: Other (Decreased from premorbid baseline) Memory: Poor-recent Suicidal Ideation: Denies Homicidal Ideation: Denies Insight: Limited Judgement: Limited Impulse Control: Fair - Laboratory Result Diagrams: 07/17/17 07:24 07/17/17 07:24 Laboratory Results - last 24 hr 07/16/17 07/17/17 07/17/17 19:59 07:24 07:24 WBC 3.8 L RBC 3.46 L Hgb 12.4 Hct 36.3 MCV 104.9 H MCH 35.8 H MCHC 34.2 RDW Std Deviation 53.3 H Plt Count 128 L MPV 9.8 Immature Gran % (Auto) 0.3 Neut % (Auto) 61.7 Lymph % (Auto) 28.3 [place] % (Auto) 6.8 Eos % (Auto) 2.4 Baso % (Auto) 0.5 Neut # (Auto) 2.4 Lymph # (Auto) 1.1 [place] # (Auto) 0.3 Eos # (Auto) 0.1 Baso # (Auto) 0.0 Abs Immat Gran (auto) 0.01 Turbidity < 20 Sodium 144 Potassium 4.1 Chloride 106 Carbon Dioxide 28 Anion Gap 10 BUN 23.0 H Creatinine 0.7 GFR Calculation 80 BUN/Creatinine Ratio 33 H Glucose 197 H Glucometer 120 Calculated Osmolality 286 H Calcium 9.3 Icterus Index < 2 Specimen Hemolysis < 15 07/17/17 07/17/17 07/17/17 10:36 11:55 14:50 WBC RBC Hgb Hct MCV MCH MCHC RDW Std Deviation Plt Count MPV Immature Gran % (Auto) Neut % (Auto) Lymph % (Auto) [place] % (Auto) Eos % (Auto) Baso % (Auto) Neut # (Auto) Lymph # (Auto) [place] # (Auto) Eos # (Auto) Baso # (Auto) Abs Immat Gran (auto) Turbidity Sodium Potassium Chloride Carbon Dioxide Anion Gap BUN Creatinine GFR Calculation BUN/Creatinine Ratio Glucose Glucometer 326 278 199 Calculated Osmolality Calcium Icterus Index Specimen Hemolysis Assessment and Plan (1) Major depressive disorder, recurrent episode, severe Qualifiers: Psychotic features: with psychotic features Qualified Code(s): F33.3 - Major depressive disorder, recurrent, severe with psychotic symptoms Problem details: Additional medical problems: 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/29 Diabetes mellitus-on chronic insulin therapy (A1c 5.9 on admission) Mild cellulitis left lower extremity secondary to venous stasis-POA Mild thrombocytopenia- POA (platelets 138) Coronary artery disease, stent placement x 3 Hypertriglyceridemia Hypertension 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 Hypothyroidism History of DVT Macular degeneration Chronic venous stasis GERD Gout Current visit: Yes Status: Acute (2) Major neurocognitive disorder Problem details: Vascular, moderate, with behavioral disturbance Current visit : Yes Status: Acute Patient has been accepted to [facility] with for OT/PT/psychiatric nursing and can discharge on 07/18. While patient still has brief/intermittent episodes of paranoia, I believe this will resolve as patient's mood continues to improve. She is motivated to be active/engaged with others and I believe discharge will be helpful for mood as well. Hospital Course Summary Disclaimer: The visit summary below is not to be considered part of the above Progress Note. Hospital Course: 07/07/17-hospitalist consultation Agree with admissions to the [facility] Unit for psychiatric evaluation and treatment and provision of safe environment. Outside records/labs from [place] emergency room, rehabilitation admission, and recent outpatient visit with PCP reviewed. She would benefit from physical therapy and occupational therapy given her recent brain injury and resultant weakness/decrease in functional abilities. Continue cephalexin for cellulitis 5 days. Will monitor leg closely. GOLDIE hose/SCDs for venous stasis, encourage patient to elevate legs as much as possible. Continue home insulin dosing and monitor Accu-Cheks before meals and bedtime and when necessary. Repeat labs in a.m. to follow up thrombocytopenia and monitor electrolytes. Hospitalist service will continue to follow patient with you throughout her stay. Thank you for the consult. 07/08/17 Psych: Continue current care, monitor behavior on unit - consider risk vs. benefit of antipsychotic vs. environmental modifications which seem to be helping. Patient is adamant that she does not want to return to [facility]. 07/09/17 Psych: Patient mood/affect continues to improve with environmental modifications only. She wants to eat, engage with others, wants to partake in her hobby of crocheting, reports sleeping well, etc. and she would prefer not to have increase in AD right now. She would like placement with if possible as he is in last months of life. CM/SW working on possible options. 07/10/17 Psych: Continue current care; 's has been discharged to [facility] - working to see if they can be placed together as she reports this will be most helpful for her mood. 07/11/17 Overall, patient appears to be doing better. Contacted primary physician regarding insulin dosing. Suspect Regular insulin is being utilized at home given cost. PCP noted that home dose of regular insulin was 18 units at breakfast and lunch with 22 units at dinner. Prior orders indicated 18 units at all 3 meals. Dinner insulin increased to 22 units. Blood sugars have be trending up, most likely because of increased oral intake in [place] as compared to where she was previously. Sliding scale insulin available and will continue to trend BGMs, making adjustments to insulins as indicated. Continue psychiatric cares per team. Continue to provide safe and supportive environment. Cellulitis to left lower extremity improving. Continue to monitor closely. Keflex treatment course to be complete on 07/12/17. Patient remains afebrile. GOLDIE suazo/SCDs for venous stasis, encourage patient to elevate legs as much as possible. I saw evaluated patient's leg as I had seen her on admission. Her redness, tenderness, swelling and warmth is much improved. She continues to have discoloration but this is likely chronic from stasis changes. Cephalexin course is completed tomorrow. Continue compression stockings as this has helped significantly with her venous stasis. ~~~Kavya Jaramillo PA-C 07/11/17. 1625. 07/13/17 Psych- Pt improving. Continue current care 07/13/17 hospitalist- Patient is doing well. Chart reviewed. See free text progress note earlier today regarding insulin. Due to an order glitch in the computer, patient did not receive her a.m. or noon dose of insulin. Has been receiving sliding scale. This "glitch" was discussed with nursing staff and pharmacy and should be resolved. Plan - 07/16/17: Patient is doing well. Chart reviewed. Continue psychiatric care and provide safe and supportive environment. Despite adjustments to insulin, patient continues to have hyperglycemia with 2 bouts of hypoglycemia (60 and 52) after administration of SSI. Will increase morning and lunch insulin to 22 units each and continue with 22 units at dinner and 53 units at night. Continue to monitor for hypoglycemia. Will change SSI to low dose treatment. Recheck labs in AM to monitor blood counts, electrolytes and renal function. 07/17/17 Psych: Patient has been accepted to [facility] with for OT/PT/ psychiatric nursing and can discharge on 07/18. While patient still has brief/ intermittent episodes of paranoia, I believe this will resolve as patient's mood continues to improve. She is motivated to be active/engaged with others and I believe discharge will be helpful for mood as well. Plan to f/u with [facility] for therapy and med management.
--- NOTE | 2017-07-17 16:36 | Extended Care Facility Orders ---
Admission Orders Allergies/Adverse Reactions: Allergies abciximab [From Reopro] Allergy (Unknown, Verified 07/06/17 22:42) hydrocodone Allergy (Unknown, Verified 07/06/17 22:42) ibuprofen Allergy (Unknown, Verified 07/06/17 22:42) morphine Allergy (Unknown, Verified 07/06/17 22:42) Sulfa (Sulfonamide Antibiotics) Allergy (Unknown, Verified 07/06/17 22:42) hydromorphone [From Dilaudid] Allergy (Verified 07/06/17 22:29) Admitting Diagnosis: Suicidal thoughts Admitting Physician: Davin Esteban MD Attending Physician: Davin Esteban MD Code Status: Do Not Resuscitate Anticiapted Length of Stay: greater than 30 days Rehab Potential: good Rehab Prognosis: fair Diet: 07/07/17 Breakfast Consistent Carbohydrate Diet [DIET] Calorie Level: 1999 May use Facility Protocol or Standing Orders: Yes May have flu vaccine: Yes Evaluations/Treatment: Psychiatric Mcfp Certification: I certify that SNF services are required to be given on an Inpatient basis because of the patients need for long term care on a continuing basis for the condition(s) for which he/she received inpatient hospital services prior to his/her transfer to the SNF. SNF inpatient care is necessary for the following reasons Indication for Mcfp: Not Applicable - Additional Information In Event of Arrest: Do Not Start CPR Resident is Aware of Diagnosis: Yes Referrals: [facility] [Other] ([facility] Sisi King) would like intake appt. for patient with [facility] for both Medication Management and Therapy. [facility] only does Walk-in appts. on - 8-3:30, 11-3:30, and Fri 8- 2:30 pm.) Tito Wiseman MD [Physician] - (Dr. Eddie Wiseman on 07/25/17 at 10:30 am for Hosp. follow-up. [place] [address] [place] [address])
[2017-07-17 21:15] VITALS: PULSE 62; O2SAT 93
[2017-07-18] MEDS: INSULIN ASPART 100unit/ml INJECTION SQ PRN ×3 (05:38→14:35)
[2017-07-18] MEDS: ASPIRIN 81 MG CHEWABLE TABLET PO SCH (08:03)
[2017-07-18] MEDS: ALLOPURINOL 300 MG TABLET PO SCH (08:03)
[2017-07-18] MEDS: LOSARTAN 50 MG TABLET PO SCH (08:04)
[2017-07-18] MEDS: ATENOLOL 50 MG TABLET PO SCH (08:04)
[2017-07-18] MEDS: CLOPIDOGREL 75 MG TABLET PO SCH (08:04)
[2017-07-18] MEDS: MAGNESIUM OXIDE 400 MG TABLET PO SCH (08:05)
[2017-07-18] MEDS: SERTRALINE 100 MG TABLET PO SCH (08:05)
[2017-07-18] MEDS: OMEGA-3 ACID ESTERS 1 GM CAPSULE PO SCH (08:05)
[2017-07-18] MEDS: INSULIN REGULAR, HUMAN 100 UNIT/ML INJECTION SQ SCH ×2 (08:06→12:04)
[2017-07-18 08:57] VITALS: BP 126/63; RESP 16; TEMP 97.2
--- NOTE | 2017-07-18 13:05 | Neuropsych Progress Note ---
[facility] Subjective Date: 07/18/17 - Sujective/Severity of Illness Medications: Acetaminophen (Tylenol) 325 - 650 mg PO Q5H PRN PRN Reason: Discomfort Last Admin: 07/13/17 01:24 Dose: 650 mg Allopurinol (Zyloprim) 300 mg PO DAILY [facility] Last Admin: 07/18/17 08:03 Dose: 300 mg Aspirin (Asa) 81 mg PO DAILY [facility] Last Admin: 07/18/17 08:03 Dose: 81 mg Atenolol (Tenormin) 50 mg PO DAILY [facility] Last Admin: 07/18/17 08:04 Dose: 50 mg Bisacodyl (Dulcolax) 10 mg RECTALLY PRN PRN PRN Reason: Constipation Clopidogrel Bisulfate (Plavix) 75 mg PO DAILY [facility] Last Admin: 07/18/17 08:04 Dose: 75 mg Fenofibrate (Lofibra) 160 mg PO [facility] Last Admin: 07/17/17 20:31 Dose: 160 mg Glucose (Glutose 15) 37.5 gm PO PRN PRN PRN Reason: Hypoglycemia Haloperidol (Haldol) 0.5 mg PO Q6H PRN PRN Reason: Extreme agitation Haloperidol Lactate (Haldol) 0.5 mg IM Q6H PRN PRN Reason: Extreme agitation Hydrochlorothiazide (Hydrodiuril) 50 mg PO WB [facility] Last Admin: 07/18/17 08:04 Dose: 50 mg Insulin Aspart (Novolog) 2 - 8 unit SQ SS PRN; Protocol PRN Reason: Hyperglycemia Last Admin: 07/18/17 10:30 Dose: 3 unit Insulin Glargine (Lantus) 53 unit SQ HS [facility] Last Admin: 07/17/17 20:36 Dose: Not Given Insulin Human Regular (Novolin R) 22 unit SQ PMI [facility] Last Admin: 07/17/17 17:36 Dose: 22 unit Insulin Human Regular (Novolin R) 22 unit SQ AMI [facility] Last Admin: 07/18/17 08:06 Dose: 22 unit Insulin Human Regular (Novolin R) 22 unit SQ 1130 [facility] Last Admin: 07/18/17 12:04 Dose: 22 unit Lorazepam (Ativan) 0.5 mg PO Q6H PRN PRN Reason: Extreme agitation Lorazepam (Ativan Inj) 0.5 mg IM Q6H PRN PRN Reason: Extreme agitation Losartan Potassium (Cozaar) 50 mg PO DAILY [facility] Last Admin: 07/18/17 08:04 Dose: 50 mg Magnesium Oxide (Magox) 400 mg PO DAILY [facility] Last Admin: 07/18/17 08:05 Dose: 400 mg Melatonin (Melatonin) 1 mg PO HS PRN PRN Reason: Insomnia [id number] Ethyl Esters (Lovaza) 1 gm PO TID [facility] Last Admin: 07/18/17 08:05 Dose: 1 gm Phenytoin Sodium (Dilantin 100 Mg Cap) 500 mg PO HS [facility] Last Admin: 07/17/17 20:32 Dose: 500 mg Potassium Chloride (K-Dur 20 Meq Tablet) 20 meq PO WB [facility] Last Admin: 07/18/17 08:03 Dose: 20 meq Sertraline HCl (Zoloft) 150 mg PO DAILY [facility] Last Admin: 07/18/17 08:05 Dose: 150 mg Simvastatin (Zocor) 40 mg PO HS [facility] Last Admin: 07/17/17 20:31 Dose: 40 mg Subjective: Patient seen and chart reviewed. Case discussed with treatment team. On interview, patient is cooperative but reports her mood is "pretty sad" because discharge is planned today and she doesn't believe the facility will really come pick her up. Patient was redirectable with reassurance and a hug from nursing staff. Patient denies any SI, HI or AVH. Patient denies any adverse side effects related to psychotropic medications. Nursing staff report patient reported being sarcastic last evening but they did not have any significant behavioral difficulties. Patient slept well (6.5 hours) overnight. VSS. Patient is eating well. Psychotropic PRNs required in the past 24 hours: none. Start Time: 11:40 Stop Time: 12:00 Mental Status Exam Vitals: Last Vital Signs Temp 97.2 F 07/18/17 08:00 Pulse 62 07/18/17 08:00 Resp 16 07/18/17 08:00 BP 126/63 07/18/17 08:00 Pulse Ox 93 07/18/17 08:00 Height: 1.88 m Weight: 96.5 kg - Mental Status Exam Muscle Strength/Tone: Weak Dressing: Casual Grooming: Fair Attitude: Cooperative Motor Activity: Retardation Eye Contact: Poor (due to vision changes) Speech: Normal Volume: Normal Rhythm: Appropriate Rhythm Orientation: Disoriented to time, Disoriented to place, Oriented to person Mood: Neutral Affect: Anxious (but redirectable) Rate of Thoughts: Appropriate Rate Thought Organization: Organized (mostly), Confused (at times) Associations: Intact (mostly) Abstract Reasoning: Poor abstract reasoning Thought Content: Ruminations (about ) Perception/Psychotic: Hx psychosis, not current Current Hallucinations: Illusions (related to vision difficulties) Language: Naming Intact Fund of Knowledge: Other (Decreased from premorbid baseline) Memory: Poor-recent Suicidal Ideation: Denies Homicidal Ideation: Denies Insight: Limited Judgement: Limited Impulse Control: Fair - Laboratory Result Diagrams: 07/17/17 07:24 07/17/17 07:24 Laboratory Results - last 24 hr 07/17/17 07/17/17 07/18/17 11:55 14:50 05:09 Glucometer 278 199 235 07/18/17 10:27 Glucometer 273 Assessment and Plan (1) Major depressive disorder, recurrent episode, severe Qualifiers: Psychotic features: with psychotic features Qualified Code(s): F33.3 - Major depressive disorder, recurrent, severe with psychotic symptoms Problem details: Additional medical problems: 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/29 Diabetes mellitus-on chronic insulin therapy (A1c 5.9 on admission) Mild cellulitis left lower extremity secondary to venous stasis-POA Mild thrombocytopenia- POA (platelets 138) Coronary artery disease, stent placement x 3 Hypertriglyceridemia Hypertension 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 Hospital Course Summary Disclaimer: The visit summary below is not to be considered part of the above Progress Note. Hospital Course: 07/07/17-hospitalist consultation Agree with admissions to the [facility] for psychiatric evaluation and treatment and provision of safe environment. Outside records/labs from [place] emergency room, rehabilitation admission, and recent outpatient visit with PCP reviewed. She would benefit from physical therapy and occupational therapy given her recent brain injury and resultant weakness/decrease in functional abilities. Continue cephalexin for cellulitis 5 days. Will monitor leg closely. GOLDIE hose/SCDs for venous stasis, encourage patient to elevate legs as much as possible. Continue home insulin dosing and monitor Accu-Cheks before meals and bedtime and when necessary. Repeat labs in a.m. to follow up thrombocytopenia and monitor electrolytes. Hospitalist service will continue to follow patient with you throughout her stay. Thank you for the consult. 07/08/17 Psych: Continue current care, monitor behavior on unit - consider risk vs. benefit of antipsychotic vs. environmental modifications which seem to be helping. Patient is adamant that she does not want to return to [facility]. 07/09/17 Psych: Patient mood/affect continues to improve with environmental modifications only. She wants to eat, engage with others, wants to partake in her hobby of crocheting, reports sleeping well, etc. and she would prefer not to have increase in AD right now. She would like placement with if possible as he is in last months of life. CM/SW working on possible options. 07/10/17 Psych: Continue current care; 's has been discharged to [facility] - working to see if they can be placed together as she reports this will be most helpful for her mood. 07/11/17 Overall, patient appears to be doing better. Contacted primary physician regarding insulin dosing. Suspect Regular insulin is being utilized at home given cost. PCP noted that home dose of regular insulin was 18 units at breakfast and lunch with 22 units at dinner. Prior orders indicated 18 units at all 3 meals. Dinner insulin increased to 22 units. Blood sugars have be trending up, most likely because of increased oral intake in [facility] as compared to where she was previously. Sliding scale insulin available and will continue to trend BGMs, making adjustments to insulins as indicated. Continue psychiatric cares per team. Continue to provide safe and supportive environment. Cellulitis to left lower extremity improving. Continue to monitor closely. Keflex treatment course to be complete on 07/12/17. Patient remains afebrile. GOLDIE suazo/SCDs for venous stasis, encourage patient to elevate legs as much as possible. I saw evaluated patient's leg as I had seen her on admission. Her redness, tenderness, swelling and warmth is much improved. She continues to have discoloration but this is likely chronic from stasis changes. Cephalexin course is completed tomorrow. Continue compression stockings as this has helped significantly with her venous stasis. ~~~Kavya Jaramillo PA-C 07/11/17. 1625. 07/13/17 Psych- Pt improving. Continue current care 07/13/17 hospitalist- Patient is doing well. Chart reviewed. See free text progress note earlier today regarding insulin. Due to an order glitch in the computer, patient did not receive her a.m. or noon dose of insulin. Has been receiving sliding scale. This "glitch" was discussed with nursing staff and pharmacy and should be resolved. Plan - 07/16/17: Patient is doing well. Chart reviewed. Continue psychiatric care and provide safe and supportive environment. Despite adjustments to insulin, patient continues to have hyperglycemia with 2 bouts of hypoglycemia (60 and 52) after administration of SSI. Will increase morning and lunch insulin to 22 units each and continue with 22 units at dinner and 53 units at night. Continue to monitor for hypoglycemia. Will change SSI to low dose treatment. Recheck labs in AM to monitor blood counts, electrolytes and renal function. 07/17/17 Psych: Patient has been accepted to [facility] with for OT/PT/ psychiatric nursing and can discharge on 07/18. While patient still has brief/ intermittent episodes of paranoia, I believe this will resolve as patient's mood continues to improve. She is motivated to be active/engaged with others and I believe discharge will be helpful for mood as well. Plan to f/u with [facility] for therapy and med management.
--- NOTE | 2017-07-18 13:06 | Neuropsychiatric Disch Summary ---
Discharge Information Date of admission: 07/06/17 21:46 Anticipated date of discharge: 07/18/17 Attending Physician: Davin Esteban MD Consults: 07/06/17 22:31 Case Management Consult [CONS] Routine Reason For Exam: medical management Physician Consult [CONS] Routine Consulting Provider: Lauren Schulte Reason For Exam: medical management Ordering Provider has Notified Accounting File Clerk: No - Discharge Diagnosis (1) Major depressive disorder, recurrent episode, severe Status: Acute (2) Major neurocognitive disorder Status: Acute (1) Major depressive disorder, recurrent episode, severe Qualifiers: Psychotic features: with psychotic features Qualified Code(s): F33.3 - Major depressive disorder, recurrent, severe with psychotic symptoms (2) Major neurocognitive disorder Problem details: Vascular, moderate, with behavioral disturbance Additional medical problems: 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/29 Diabetes mellitus-on chronic insulin therapy (A1c 5.9 on admission) Mild cellulitis left lower extremity secondary to venous stasis-POA Mild thrombocytopenia- POA (platelets 138) Coronary artery disease, stent placement x 3 Hypertriglyceridemia Hypertension 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 Patient has had multiple stressors recently. Per hospitalist: "Patient is an 82 yo female who was previously living at home with her and recently fell and sustained an acute left intraventricular hemorrhage. She was hospitalized at [facility] and then underwent rehabilitation. Following dismissal from rehabilitation, she was not doing well at home and was admitted to a nursing facility. When patient was in the [place] emergency room prior to her transfer here, it is reported patient refuses to have her legs wrapped for swelling." Patient's long-time has also been diagnosed with lung cancer with reportedly poor prognosis and she is distraught at being from him. Patient states her daughter committed suicide 3-4 years ago. Patient states she is here because "they wanted to get rid of her" so "they wouldn't have to worry about what she would do or say." She does endorse SI ( she estimates x 1 year since her 's diagnosis) but denies a specific plan currently. She reports poor energy, difficulty sleeping, hopelessness, irritability, and VH of seeing shadows and people moving recently. She denies change in appetite, AH, or symptoms consistent with hx of bipolar disorder. Past psych history: Patient states she had a suicide attempt at age 14 related to her father's TB diagnosis ("He was okay but he just wasn't the same"). She denies any prior psych hospitalizations. 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 Cholecystectomy, total left hip replacement, cardiac stents 3 Family History Updates: Family history of macular degeneration. Patient was adopted as an infant. Her biological daughter committed suicide. Smoking status: Never smoker Substance use type: does not use Alcohol intake frequency: does not drink Housing: senior care Social history: PCP-Dr. Wiseman Neurosurgeon-Dr. Donovan Hoop Coiler-Dr. Krishnan Laboratory Tests 07/07/17 07:12 Hemoglobin A1c 5.9 H Triglycerides 272 H Cholesterol 120 L LDL Cholesterol, Calc 29.6 L VLDL Cholesterol 54.4 H HDL Cholesterol 36 L Cholesterol/HDL Ratio 3.3 Labs performed [facility] on 07/06/17: TSH-normal 3.8, BNP normal 35, LFTs normal, troponin and CK negative, CMP essentially negative with the exception of glucose 197, BUN 25. Her creatinine was normal at 0.84. CBC : hemoglobin of 11.7, platelets 138, MCV and MCH slightly elevated - ECG Data Tracing #1 Outside EKG shows normal sinus rhythm with left bundle branch block. - Imaging and Cardiology Venous US Additional comments: Venous Doppler of left lower leg-negative for DVT on 07/06/17 at [place] emergency room. Hospital Course This is a general summary of the patient's hospital course. For more details refer to the complete medical record. Hospital course: 07/07/17-hospitalist consultation Agree with admissions to the [facility] for psychiatric evaluation and treatment and provision of safe environment. Outside records/labs from [place] emergency room, rehabilitation admission, and recent outpatient visit with PCP reviewed. She would benefit from physical therapy and occupational therapy given her recent brain injury and resultant weakness/decrease in functional abilities. Continue cephalexin for cellulitis 5 days. Will monitor leg closely. GOLDIE hose/SCDs for venous stasis, encourage patient to elevate legs as much as possible. Continue home insulin dosing and monitor Accu-Cheks before meals and bedtime and when necessary. Repeat labs in a.m. to follow up thrombocytopenia and monitor electrolytes. Hospitalist service will continue to follow patient with you throughout her stay. Thank you for the consult. 07/08/17 Psych: Continue current care, monitor behavior on unit - consider risk vs. benefit of antipsychotic vs. environmental modifications which seem to be helping. Patient is adamant that she does not want to return [place] [facility]. 07/09/17 Psych: Patient mood/affect continues to improve with environmental modifications only. She wants to eat, engage with others, wants to partake in her hobby of crocheting, reports sleeping well, etc. and she would prefer not to have increase in AD right now. She would like placement with if possible as he is in last months of life. CM/SW working on possible options. 07/10/17 Psych: Continue current care; 's has been discharged to [facility] working to see if they can be placed together as she reports this will be most helpful for her mood. 07/11/17 Overall, patient appears to be doing better. Contacted primary physician regarding insulin dosing. Suspect Regular insulin is being utilized at home given cost. PCP noted that home dose of regular insulin was 18 units at breakfast and lunch with 22 units at dinner. Prior orders indicated 18 units at all 3 meals. Dinner insulin increased to 22 units. Blood sugars have be trending up, most likely because of increased oral intake in [facility] as compared to where she was previously. Sliding scale insulin available and will continue to trend BGMs, making adjustments to insulins as indicated. Continue psychiatric cares per team. Continue to provide safe and supportive environment. Cellulitis to left lower extremity improving. Continue to monitor closely. Keflex treatment course to be complete on 07/12/17. Patient remains afebrile. GOLDIE hose/SCDs for venous stasis, encourage patient to elevate legs as much as possible. I saw evaluated patient's leg as I had seen her on admission. Her redness, tenderness, swelling and warmth is much improved. She continues to have discoloration but this is likely chronic from stasis changes. Cephalexin course is completed tomorrow. Continue compression stockings as this has helped significantly with her venous stasis. ~~~Kavya Jaramillo PA-C 07/11/17. 1625. 07/13/17 Psych- Pt improving. Continue current care 07/13/17 hospitalist- Patient is doing well. Chart reviewed. See free text progress note earlier today regarding insulin. Due to an order glitch in the computer, patient did not receive her a.m. or noon dose of insulin. Has been receiving sliding scale. This "glitch" was discussed with nursing staff and pharmacy and should be resolved. Plan - 07/16/17: Patient is doing well. Chart reviewed. Continue psychiatric care and provide safe and supportive environment. Despite adjustments to insulin, patient continues to have hyperglycemia with 2 bouts of hypoglycemia (60 and 52) after administration of SSI. Will increase morning and lunch insulin to 22 units each and continue with 22 units at dinner and 53 units at night. Continue to monitor for hypoglycemia. Will change SSI to low dose treatment. Recheck labs in AM to monitor blood counts, electrolytes and renal function. 07/17/17 Psych: Patient has been accepted to [facility] with for OT/PT/ psychiatric nursing and can discharge on 07/18. While patient still has brief/ intermittent episodes of paranoia, I believe this will resolve as patient's mood continues to improve. She is motivated to be active/engaged with others and I believe discharge will be helpful for mood as well. Plan to f/u with [facility] for therapy and med management. Resuscitation Status: Do Not Resuscitate Discharge Plan - Med Rec/Dispo Referrals/Follow Up: [facility] [Other] ([facility] (Terrell King) would like intake appt. for patient with [facility] for both Medication Management and Therapy. [facility] only does Walk-in appts. on -W 8-3:30, 11-3:30, and Fri 8- 2:30 pm.) Tito Wiseman MD [Physician] - (Dr. Eddie Wiseman on 07/25/17 at 10:30 am for Hosp. follow-up. [facility] [address] [place] [address]) Additional Instructions: IN CASE OF PSYCHIATRIC EMERGENCY, CONTACT [facility] STAFF AT [phone] ( available 24 hrs daily). Prescriptions: New Glucose Oral Gel 40% [Glutose 15] 37.5 gm PO PRN PRN #15 tube PRN Reason: Hypoglycemia Insulin Glargine,Hum.rec.anlog [Lantus] 53 unit SQ HS #15 vial Insulin Regular, Human [NovoLIN R] 22 unit SQ AMI #7 vial Insulin Regular, Human [NovoLIN R] 22 unit SQ PMI #7 vial Sertraline [Zoloft] 150 mg PO DAILY tab Acetaminophen [Tylenol] 325 - 650 mg PO Q5H PRN tab PRN Reason: Discomfort Insulin Regular, Human [NovoLIN R] 22 unit SQ 1130 #7 vial Continue Ava-3/Dha/Epa/Fish Oil [Fish Oil 1,000 mg Softgel] 1 each PO TID Calcium Carbonate/Vitamin D3 [Calcium 600-Vit D3 200 Tablet] 1 each PO DAILY Aspirin 1 tab PO DAILY Bismuth Subsalicylate [Kaopectate] 1 oz PO PRN PRN PRN Reason: Diarrhea Allopurinol [Zyloprim] 300 mg PO DAILY #30 tab Atenolol [Tenormin] 50 mg PO DAILY #30 tab Clopidogrel Bisulfate [Clopidogrel] 75 mg PO DAILY #30 tab Fenofibrate [Lofibra] 160 mg PO HS #30 tab Losartan Potassium 50 mg PO DAILY #30 tab Magnesium Oxide [Magox] 400 mg PO DAILY #30 tab Phenytoin Cap [Dilantin 100 mg Cap] 500 mg PO HS #60 Simvastatin [Zocor] 40 mg PO HS #30 tab Bisacodyl Supp [Dulcolax] 10 mg RECTALLY PRN PRN PRN Reason: Constipation HydroCHLOROthiazide [HydroDIURIL] 50 mg PO DAILY #30 tab Potassium Chloride [Klor-Con M20] 20 meq PO DAILY #30 tab.er.prt Discontinued Sertraline [Zoloft] 100 mg PO HS Melatonin/Pyridoxine HCl (B6) [Melatonin 3 mg Tablet] 1 each PO PRN PRN PRN Reason: Insomnia Insulin Regular-Do Not Expunge [Humulin] 18 unit SQ WM Insulin Glargine [Lantus] 51 unit SQ HS - Disposition 04 To [facility] NSG Home/Facility - Dismissal Complete Discharge Instructions are:: Complete
== END 2017-07-18 14:35 | disposition home health service (06) | DRG 885 ==
LOC: GEN 21:46
PROVIDERS: ADMIT Psychiatry & Neurology Psychiatry; ATTEND Psychiatry & Neurology Psychiatry

== ENCOUNTER 2017-11-25 10:01 | Inpatient (IN) ==
--- NOTE | 2017-11-25 10:15 | Emergency Department Report ---
Medical Clearance HPI - General Chief complaint: Medical Clearance Stated complaint: Generations Clearance Time Seen by Provider: 11/25/17 10:14 Source: patient - History of Present Illness HPI Narrative: Patient is an 82-year-old female here for "medical clearance". Patient was originally evaluated a month ago for generations admit due to increasing dementia and violence towards staff at [facility]. Patient that time was found to have elevated phenytoin level as well as a urinary tract infection. Patient was refused admission degeneration at that time. Patient is been treated for urinary tract infection and phenytoin levels have been adjusted patient still continuing to have anger issues and outbursts at the staff. Patient brought in today for reevaluation for medical clearance for generations. Home medications: Home Medications Medication Instructions Recorded Confirmed Aspirin 81 mg PO DAILY 07/06/17 11/25/17 Bisacodyl Supp [Dulcolax] 10 mg RECTALLY DAILY PRN 07/06/17 11/25/17 Bismuth Subsalicylate [Kaopectate] 30 ml PO PRN PRN 07/06/17 11/25/17 Calcium Carbonate/Vitamin D3 2 tab PO DAILY 07/06/17 11/25/17 [Calcium 600-Vit D3 200 Tablet] D Lo-3/Dha/Epa/Fish Oil [Fish Oil 1,000 mg PO QAM 07/06/17 11/25/17 1,000 mg Softgel] Atenolol [Tenormin] 25 mg PO DAILY 11/11/17 11/25/17 CALCIUM CARBONATE Chewable [Tums] 500 mg PO Q6H PRN 11/11/17 11/25/17 Calmoseptine [Risamine Oint] 1 applicatio TP BID 11/11/17 11/25/17 Diclofenac Sodium 1 applicatio TP Q6H PRN 11/11/17 11/25/17 Insulin Glargine,Hum.rec.anlog 45 unit SQ 1700 11/11/17 11/25/17 [Lantus] Insulin Regular, Human [NovoLIN R] 0 - 10 unit SQ AC 11/11/17 11/25/17 Losartan [Cozaar] 50 mg PO DAILY 11/11/17 11/25/17 Magnesium Hydroxide [Milk of 30 ml PO DAILY PRN 11/11/17 11/25/17 Magnesia] Nystatin Powder [Mycostatin] 1 applicatio TP BID PRN 11/11/17 11/25/17 Pantoprazole Sodium 20 mg PO DAILY 11/11/17 11/25/17 Allopurinol [Zyloprim] 300 mg PO QAM 11/25/17 11/25/17 Calmoseptine [Risamine Oint] 1 applicatio TP PRN PRN 11/25/17 11/25/17 HydroCHLOROthiazide [HydroDIURIL] 50 mg PO QAM 11/25/17 11/25/17 Nut.tx.gluc.intoler,Lac-Fr,Soy 237 ml PO TID 11/25/17 11/25/17 [Glucerna] Phenytoin Cap [Dilantin 100 mg Cap] 300 mg PO HS 11/25/17 11/25/17 Potassium Chloride [Klor-Con M20] 20 meq PO QAM 11/25/17 11/25/17 Sertraline [Zoloft] 150 mg PO QAM 11/25/17 11/25/17 Vits A and D/White Pet/Lanolin [A 1 applicatio TP BID 11/25/17 11/25/17 and D Ointment] Previous Rx's Medication Instructions Recorded Acetaminophen [Tylenol] 325 - 650 mg PO Q5H PRN tab 07/18/17 Fenofibrate [Lofibra] 160 mg PO HS #30 tab 07/18/17 Glucose Oral Gel 40% [Glutose 15] 37.5 gm PO PRN PRN #15 tube 07/18/17 Magnesium Oxide [Magox] 400 mg PO DAILY #30 tab 07/18/17 Simvastatin [Zocor] 40 mg PO HS #30 tab 07/18/17 Allergies/Adverse reactions: Allergies Allergy/AdvReac Type Severity Reaction Status Date / Time abciximab [From Reopro] Allergy Unknown Verified 11/11/17 09:14 hydrocodone Allergy Unknown Verified 11/11/17 09:14 ibuprofen Allergy Unknown Verified 11/11/17 09:14 morphine Allergy Unknown Verified 11/11/17 09:14 Sulfa (Sulfonamide Allergy Unknown Verified 11/11/17 09:14 Antibiotics) hydromorphone [From Dilaudid] Allergy Verified 11/11/17 09:14 Review of Systems Constitutional: Denies: fever, chills, weakness Eyes: Denies: eye pain, eye discharge, vision change ENT: Denies: throat pain, dental pain Cardiovascular: Denies: chest pain, palpitations, dyspnea on exertion Respiratory: Denies: cough, dyspnea, wheezes Gastrointestinal: Denies: abdominal pain, nausea, vomiting Genitourinary: Denies: urgency, dysuria, frequency Musculoskeletal: Denies: back pain Neurological: Denies: headache Psychiatric: Reports: depression. Denies: anxiety Endocrine: Denies: fatigue Hematological/Lymphatic: Denies: easy bleeding Allergic/Immunologic: Denies: facial swelling PFSH Patient Stated Medical History Cerebrovascular Accident Yes Migraine Yes Seizures Yes Transient Ischemic Attacks ( Yes TIA) Macular Degeneration Yes Coronary Artery Disease Yes Hypertension Yes Diabetes Mellitus Type 1 Yes Other GI Yes: constipation Hx Kidney Stones Yes: removal Cellulitis Yes: upon admission LLE Surgical History: Tonsillectomy, kidney stone retrieval. Cholecystectomy, total left hip replacement, cardiac stents 3 Family History Updates: Family history of macular degeneration - Social History Smoking status: Never smoker Substance use type: does not use Alcohol intake frequency: does not drink Housing: [facility] Current residence: [place] Physical Exam - General General appearance: alert, in no apparent distress - Eye Eye exam: Present: PERRL - ENT ENT exam: Present: normal oropharynx - Neck Neck exam: Present: trachea midline. Absent: tenderness - Chest Chest inspection: Present: symmetric chest wall rise. Absent: tenderness, rash - Respiratory Respiratory exam: Present: normal lung sounds bilaterally. Absent: respiratory distress, wheezes, stridor - Cardiovascular Cardiovascular exam: Present: regular rate, normal rhythm, normal heart sounds - Abdominal Exam Abdominal exam: Present: soft, normal bowel sounds. Absent: distention, tenderness - Extremities Exam Extremities exam: Present: full ROM, normal capillary refill. Absent: tenderness - Back Exam Back exam: Present: full ROM. Absent: tenderness, CVA tenderness (R), CVA tenderness (L), muscle spasm - Skin Skin exam: Present: warm, dry - Neurological Exam Neurological exam: Present: alert, oriented X3 - Psychiatric Psychiatric exam: Present: normal affect, normal mood Course Vital Signs Temperature 97.6 F 11/25/17 10:02 Pulse Rate 58 L 11/25/17 10:02 Respiratory Rate 18 11/25/17 10:02 Blood Pressure 140/63 H 11/25/17 10:02 Pulse Oximetry 95 11/25/17 10:02 Temperature 97.6 F 11/25/17 10:02 Pulse Rate 58 L 11/25/17 10:02 Respiratory Rate 18 11/25/17 10:02 Blood Pressure 140/63 H 11/25/17 10:02 Pulse Oximetry 95 11/25/17 10:02 Medical Clearance - Medical Records Attestation: I reviewed the patient's medical records. - Lab Data Attestation: I reviewed the patient's lab results. Result diagrams: 11/25/17 10:30 11/25/17 10:30 - Radiology Data Attestation: I reviewed the patient's radiology results. Chest x-ray: No acute cardiopulmonary findings - EKG Data EKG #1 EKG attestation: Yes: I reviewed and interpreted this EKG. Rate: normal Rhythm: NSR [place]/QRS: left axis deviation Heart block present: 1st Degree Interpretation: no acute changes Disposition Clinical Impression: Dementia with behavioral disturbance Disposition: 65 To Psych Hosp/Unit Condition: Stable - Seen By: physician
--- NOTE | 2017-11-25 10:28 | XRay Report ---
Indication: generations clearance PROCEDURE: XR chest 1V: Encounter: Initial Comparison: November 11, 2017 Findings: The lungs are stable in appearance without new focal airspace consolidation. There is no pleural effusion or pneumothorax. The heart size, pulmonary vascularity and mediastinal contours are unchanged. IMPRESSION: Stable appearance of the chest without acute cardiopulmonary disease. .
--- OUTSIDE RECORDS SUMMARY | 2017-11-25 11:20 | External Medical Summary ---
:1935 Author Name GENERATED, SYSTEM Care Team Providers Name Role Phone MD JACKSON TIMOTHY Primary Care Provider [phone] Reason For Visit Chief Complaint ANXIETY; STRANGE OR INEXPLICABLE,BEHAVIOR Social History Functional Status Vital Signs Results Problems Encounter Diagnosis No relevant problems exist. Additional Problems Altered Mental Status Status:Active.Disturbance in Speech Status: Active.Dysarthria Comment:Problem resolved by [facility] Workflow upon Discharge, Status:Resolved.Fall Risk Comment:Problem resolved by [facility] Workflow upon Discharge, Status:Resolved.Mobility Impairment Comment:Problem resolved by [facility] Workflow upon Discharge, Status:Resolved. Encounters Encounter Diagnosis No relevant problems exist. Plan of Care Procedures Completed Procedure Code: [id number] Procedure Name: not valued, on 05/24/2017 12: 00 AMCompleted , on 12/14/2010 12:00 AMCompleted , on 12/14/2010 12:00 AMCompleted , on 12/10/2010 12:00 AMCompleted , on 12/10/2010 12:00 AMCompleted , on 08/03/2008 12:00 AM Immunizations INFLUEN VACC 2017-18(GLAXO) (FLUARIX 2017-18 (GLAXO)); Not Administered 2017 1:47 PM; Other Hospital Course Hospital Discharge Instructions Allergies, Adverse Reactions, Alerts This section is international account representative of the current allergy information, at [...]
--- OUTSIDE RECORDS SUMMARY | 2017-11-25 11:20 | External Medical Summary ---
:1935 Author Name GENERATED, SYSTEM Care Team Providers Name Role Phone MD JACKSON TIMOTHY Primary Care Provider [phone] Reason For Visit Chief Complaint KNEE PAIN Social History Functional Status Vital Signs Results Chemistry from 10/22/2017 12:50 [id number] MMOL/L (136-145 MMOL/L) POTASSIUM3.9 MMOL/L (3.5-5.1 MMOL/L) OYTNAPFN308 MMOL/L (98-107 MMOL/L) LYW777.1 MMOL/L (21.0-32.0 MMOL/L) *ANION GAP3.9 MMOL/L L (8.0-16.0 MMOL/L) BUN24 MG/DL H (7-18 MG/DL) CREATININE0.99 MG/DL (0.55-1.02 MG/DL) *BUN/CREATININE RATIO24.2 H (9.1-17.0 ) [id number] MG/DL H (65-99 MG/DL) *GFR EST NON AFR KONMEKMX04 ML/MIN (Reference Range: not available) *GFR EST AFR AMER62 ML/MIN (Reference Range: not available) CALCIUM8.7 MG/DL (8.5-10.1 MG/DL) BILIRUBIN TOTAL0.70 MG/DL (0.20-1.00 MG/DL) TOTAL PROTEIN6.0 GM/DL L (6.4-8.2 GM/DL) ALBUMIN3.0 GM/DL L (3.4-5.0 GM/DL) *GLOBULIN3.0 GM/DL (2.3-3.5 GM/DL) *A/G RATIO1.0 L (1.5-2.2 ) ALK PHOS50 U/L (46-116 U/L) ALT (SGPT)16 U/L (16-63 U/L) AST (SGOT)16 U/L (15-37 U/L) TROPONIN-I<0.017 NG/ML (0.000-0.056 NG/ML) PHENYTOIN (DILANTIN)25.2 MCG/ML H (10.0-20.0 MCG/ML)Hematology from 10/22/2017 12 :50 PMWBC5.5 X10e3/UL (3.6-11.2 X10e3/UL) RBC3.51 X10e6/UL L (3.63-4.92 X10e6/UL) ERAICSLVXZ66.5 G/DL (11.0-14.3 G/DL) KWAZLLBZIQ26.7 % (31.2-41.9 %) *LJO501.8 FL H (79.0-98.0 FL) *MCH35.5 PG H (27.0-33.0 PG) *MCHC34.9 G/DL (32.0-36.0 G/DL) *RDW13.7 % (12.3-17.0 %) *RDWSD49.4 H (37.1-47.8 ) ERRLZEJL328 X10e3/UL L (159-386 X10e3/UL) *MPV7.4 FL (7.4-10.4 FL) AUTOMATED DIFFPERFORMED (Reference Range: not available) SEGS72.0 % (Reference Range: not available) *DOFXXSUFJZN22.8 % (Reference Range: not available) *MONOCYTES6.6 % (Reference Range: not available) *EOSINOPHILS1.0 % (Reference Range: not available) *BASOPHILS0.6 % (Reference Range: not available) *ABSOLUTE NEUTROPHILS4.00 X10e3/UL (1.80-7.80 X10e3/UL) *ABSOLUTE LYMPHOCYTES1.10 X10e3/UL (1.00-3.00 X10e3/UL) *ABSOLUTE MONOCYTES0.40 X10e3/UL (0.30-1.00 X10e3/UL) *ABSOLUTE EOSINOPHILS0.10 X10e3/UL (0.00-0.50 X10e3/UL) *ABSOLUTE BASOPHILS0.00 X10e3/UL (0.00-0.20 X10e3/UL)Urinalysis from 10/22/2017 12:30 PM*URINE COLORYELLOW (COLORLESS - [place] ) *URINE APPEARANCECLEAR (CLEAR ) URINE PH7.0 (5.0-8.0 ) URINE SPECIFIC GRAVITY1.015 (1.001-1.035 ) *URINE RWJFZTP43 MG/DL A (NEGATIVE MG/DL) *URINE BILIRUBINNEGATIVE (NEGATIVE ) *URINE KETONESNEGATIVE MG/DL (NEGATIVE MG/DL) *URINE BLOODNEGATIVE (NEGATIVE ) *URINE PROTEINNEGATIVE MG/DL (NEGATIVE MG/DL) *URINE UROBILINOGENNORMAL EU/DL (NORMAL (0.2-1.0) EU/DL) *URINE NITRITESNEGATIVE (NEGATIVE ) *URINE LEUKOCYTESNEGATIVE (NEGATIVE )DX Radiology from 10/22/2017 1:10 PMCHEST 1 VIEWHistory: hx chest pain, confusion Priors: 09/30/2017 Findings: No acute infiltrate, pneumothorax or pleural effusions are identified. The heart size is normal. Impression: No evidence of acute cardiopulmonary process Electronically signed by: Chuck Reed Dictated: 10/22/2017 14:00 (Reference Range: not available) KNEE BILATERAL 3 VIEWSHistory: fall, bilateral knee pain Technique: Priors: None. Findings: There is marked chondrocalcinosis of the menisci and both knees. There mild bilateral knee joint effusions. All 3 joint spaces appear fairly well maintained. No significant degenerative changes are identified. No fractures are identified. Impression: Mild knee joint effusions. No evidence of acute fracture. Electronically signed by: Chuck Reed Dictated: 10/22/2017 13:53 (Reference Range: not available) CT Scan from 10/22/2017 1:02 PMCT CEREBRAL W/O CONTRASTHistory: hx chest pain, confusion. Prior strokes. Fall last night. Technique: All CT scans at are performed using dose optimization techniques as appropriate to a performed exam including the following: Automated exposure control Adjustment of the mA and/or kV according to patient size Use of iterative reconstruction technique Priors: None. Findings: Ventricles and Extra axial spaces: Normal in size and morphology for the patient's age. Hemorrhage: None. Cerebral parenchyma: There is moderate sized chronic infarct in the left occipital cortex and posterior parietal cortex with associated encephalomalacia. No acute infarcts are identified Mass effect/midline shift: None. Brainstem/Cerebellum: Normal. Calvarium: Normal. Visualized Paranasal sinuses/Mastoids: Clear. Impression: No evidence of acute intracranial process. Electronically signed by: Chuck Reed Dictated: 10/22/2017 13:12 (Reference Range: not available) Problems Encounter Diagnosis No relevant problems exist. Additional Problems Altered Mental Status Status:Active.Disturbance in Speech Status: Active.Dysarthria Comment:Problem resolved by [facility] Workflow upon Discharge, Status:Resolved.Fall Risk Comment:Problem resolved by [facility] Workflow upon Discharge, Status:Resolved.Mobility Impairment Comment:Problem resolved by [facility] Workflow upon Discharge, Status:Resolved. Encounters Encounter Diagnosis No relevant problems exist. Plan of Care Procedures Completed Procedure Code: [id number] Procedure Name: not valued, on 05/24/2017 12: 00 AMCompleted , on 12/14/2010 12:00 AMCompleted , on 12/14/2010 12:00 AMCompleted , on 12/10/2010 12:00 AMCompleted , on 12/10/2010 12:00 AMCompleted , on 08/03/2008 12:00 AM Immunizations INFLUEN VACC 2017-18(GLAXO) (FLUARIX 2017-18 (GLAXO)); Not Administered 2017 1:47 PM; Other Hospital Course Hospital Discharge Instructions Allergies, Adverse Reactions, Alerts This section is exhibit display representative of the current allergy information, at [...]
--- OUTSIDE RECORDS SUMMARY | 2017-11-25 11:20 | External Medical Summary ---
:1935 Author Name GENERATED, SYSTEM Care Team Providers Name Role Phone MD JACKSON TIMOTHY Primary Care Provider [phone] Reason For Visit Chief Complaint ACUTE ABDOMEN Social History Functional Status Vital Signs Results [...] Plan of Care Procedures Completed Procedure Code: [id number] Procedure Name: not valued, on 05/24/2017 12: 00 AMCompleted , on 12/14/2010 12:00 AMCompleted , on 12/14/2010 12:00 AMCompleted , on 12/10/2010 12:00 AMCompleted , on 12/10/2010 12:00 AMCompleted , on 08/03/2008 12:00 AM Immunizations No immunization data could be retrieved. Hospital Course Hospital Discharge Instructions Allergies, Adverse Reactions, Alerts This section is veterans contact representative of the current allergy information, at [...]
[2017-11-25] MEDS ORDERED: GLUCOSE ORAL GEL 40% 37.5gm PO PRN (12:20)
[2017-11-25] MEDS ORDERED: DICLOFENAC 1% TOP GEL 100gm TP PRN (12:20)
[2017-11-25] MEDS ORDERED: BISACODYL 10 MG SUPPOSITORY RECTALLY PRN (12:20)
[2017-11-25] MEDS ORDERED: CALCIUM CARBONATE Chewable 500mg TABLET PO PRN (12:20)
[2017-11-25] MEDS ORDERED: CALMOSEPTINE OINTMENT 113gm TUBE TP PRN (12:20)
[2017-11-25] MEDS ORDERED: LORazepam 0.5 MG TABLET PO PRN (12:20)
[2017-11-25] MEDS ORDERED: BISMUTH SUBSALICYLATE 262 MG CHEWABLE TABLET PO PRN (12:20)
[2017-11-25] MEDS ORDERED: HALOPERIDOL 5 MG/ML INJECTION IM PRN (12:20)
[2017-11-25] MEDS ORDERED: HALOPERIDOL 0.5 MG TABLET PO PRN (12:20)
[2017-11-25 12:32] VITALS: BMI 26.8
[2017-11-25] MEDS ORDERED: AQUAPHOR TOPICAL OINTMENT 52.5 G TUBE TP PRN (13:01)
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
[2017-11-25] MEDS: GLUCERNA PO SCH ×2 (17:08→20:27)
[2017-11-25] MEDS: INSULIN REGULAR, HUMAN 100 UNIT/ML INJECTION SQ SCH ×2 (17:08→18:34)
--- NOTE | 2017-11-25 18:07 | History & Physical Report ---
History of Present Illness Date: 11/25/17 Chief complaint: dementia with behaviors HPI: Mrs King is a 82-year-old female who resides at [facility] in [place]. She is known to the hospitalist services from previous admission in June 2017, which time she was on [facility]. She was discharged back to this facility. However, has been having increased anger and aggression towards her seen facility staff. She is noted to be pancytopenic with a white count of 3.1, hemoglobin 10.9, hematocrit 31.4, platelet count 118. Electrolytes are normal. BUN 21, creatinine 0.8, glucose 262. Albumin is low at 3.2, TSH is normal at 3.66. Urinalysis is unremarkable. Phenytoin level is low at 6.9. Chest x-ray shows no acute disease. She was accepted for the [facility] under care of Dr. Scales for ongoing psychiatric evaluation and treatment Review of Systems All systems PM: 10-point ROS was reviewed, no additional remarkable complaints except (patient denies review of systems during examination) Past Medical History Medical History Updates: Coronary artery disease, stent placement x 3. 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 History of DVT. Diabetes mellitus-on chronic insulin therapy. S/P 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 05/29. Macular degeneration. Chronic venous stasis. GERD. Gout. Hypertension Surgical History: Tonsillectomy, kidney stone retrieval. Cholecystectomy, total left hip replacement, cardiac stents 3 Family History: Positive for macular degeneration Family History: As Above - Social History Smoking status: Never smoker Substance use type: does not use Housing: prison Current occupational status: retired Current residence: Prison Social history: Moved to prison facility, [facility] in [place] in May 2017 PCP-Dr. Wiseman Neurosurgeon-Dr. Donovan Lofter-Dr. Krishnan Daughter committed suicide beginning of 2017 Medications Home Medications Medication Instructions Recorded Confirmed Type Aspirin 81 mg PO DAILY 07/06/17 11/25/17 History Bisacodyl Supp [Dulcolax] 10 mg RECTALLY DAILY PRN 07/06/17 11/25/17 History Bismuth Subsalicylate [Kaopectate] 30 ml PO PRN PRN 07/06/17 11/25/17 History Calcium Carbonate/Vitamin D3 2 tab PO DAILY 07/06/17 11/25/17 History [Calcium 600-Vit D3 200 Tablet] [place]-3/Dha/Epa/Fish Oil [Fish Oil 1,000 mg PO QAM 07/06/17 11/25/17 History 1,000 mg Softgel] Acetaminophen [Tylenol] 325 - 650 mg PO Q5H PRN tab 07/18/17 11/25/17 Rx Fenofibrate [Lofibra] 160 mg PO HS #30 tab 07/18/17 11/25/17 Rx Glucose Oral Gel 40% [Glutose 15] 37.5 gm PO PRN PRN #15 tube 07/18/17 11/25/17 Rx Magnesium Oxide [Magox] 400 mg PO DAILY #30 tab 07/18/17 11/25/17 Rx Simvastatin [Zocor] 40 mg PO HS #30 tab 07/18/17 11/25/17 Rx Atenolol [Tenormin] 25 mg PO DAILY 11/11/17 11/25/17 History CALCIUM CARBONATE Chewable [Tums] 500 mg PO Q6H PRN 11/11/17 11/25/17 History Calmoseptine [Risamine Oint] 1 applicatio TP BID 11/11/17 11/25/17 History Diclofenac Sodium 1 applicatio TP Q6H PRN 11/11/17 11/25/17 History Insulin Glargine,Hum.rec.anlog 45 unit SQ 1700 11/11/17 11/25/17 History [Lantus] Insulin Regular, Human [NovoLIN R] 0 - 10 unit SQ AC 11/11/17 11/25/17 History Losartan [Cozaar] 50 mg PO DAILY 11/11/17 11/25/17 History Magnesium Hydroxide [Milk of 30 ml PO DAILY PRN 11/11/17 11/25/17 History Magnesia] Nystatin Powder [Mycostatin] 1 applicatio TP BID PRN 11/11/17 11/25/17 History Pantoprazole Sodium 20 mg PO DAILY 11/11/17 11/25/17 History Allopurinol [Zyloprim] 300 mg PO QAM 11/25/17 11/25/17 History Calmoseptine [Risamine Oint] 1 applicatio TP PRN PRN 11/25/17 11/25/17 History HydroCHLOROthiazide [HydroDIURIL] 50 mg PO QAM 11/25/17 11/25/17 History Nut.tx.gluc.intoler,Lac-Fr,Soy 237 ml PO TID 11/25/17 11/25/17 History [Glucerna] Phenytoin Cap [Dilantin 100 mg Cap] 300 mg PO HS 11/25/17 11/25/17 History Potassium Chloride [Klor-Con M20] 20 meq PO QAM 11/25/17 11/25/17 History Sertraline [Zoloft] 150 mg PO QAM 11/25/17 11/25/17 History Vits A and D/White Pet/Lanolin [A 1 applicatio TP BID 11/25/17 11/25/17 History and D Ointment] Allergies Allergy/AdvReac Type Severity Reaction Status Date / Time abciximab [From Reopro] Allergy Unknown Verified 11/11/17 09:14 hydrocodone Allergy Unknown Verified 11/11/17 09:14 ibuprofen Allergy Unknown Verified 11/11/17 09:14 morphine Allergy Unknown Verified 11/11/17 09:14 Sulfa (Sulfonamide Allergy Unknown Verified 11/11/17 09:14 Antibiotics) hydromorphone [From Dilaudid] Allergy Verified 11/11/17 09:14 Exam Vital Signs: Temperature 97.0 F 11/25/17 16:25 Pulse Rate 64 11/25/17 16:25 Respiratory Rate 16 11/25/17 16:25 Blood Pressure 149/53 H 11/25/17 16:25 Pulse Oximetry 94 11/25/17 16:25 Height/Weight/BMI: Height 1.83 m Weight 89.7 kg Body Mass Index 26.8 - Constitutional Present: no acute distress, well nourished, well developed - Routine HEENT Exam ENT: Present: mucous membranes moist, dentition normal Comments: Patient is known to be blind - Routine Respiratory Exam Present: CTA bilaterally. Absent: wheezes - Routine Cardiovascular Exam Present: RRR, S1, S2. Absent: murmur - Routine Abdominal Exam Present: soft, normoactive bowel sounds, non distended. 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 Scales. Old charts reviewed, patient is chronically pancytopenic. Continue to periodically evaluate labs. Alternative Accu-Cheks, continue on home Lantus 45 units at 1700. Did review sliding scale insulin MAR from [place] facility as follows- <140= 0 units, 141-160= 2 units, 161- 200= 3 units, 201-250= 4 units, 251-300= 6 units, 301- 350= 8 units, 351- 400= 10 units, >400 Call hospitalist oncall Monitor blood pressure, continue on losartan, atenolol, hydrochlorothiazide [place] patient to participate in unit activities and provide a safe environment. The hospitalist services. Will follow patient medically manage existing comorbidities. At time of discharge, her medical care will return to her primary care provider in [place], Dr. Bal Wiseman 11/25/2017-8:05 PM-I examined the patient independently. I reviewed this chart, the patient history, and the STRETCHER DRIER OPERATOR's/PA's documented findings as above. We discussed and formulated the assessment and plan as above with the additions below.-Dr. Waldron The patient was seen this evening in her room. She was lying in bed. She states she is feeling well. She denies any pain. She denies shortness of breath. She states she is eating well. She denies any nausea or vomiting. She states she has occasional constipation and diarrhea. On exam she is alert and in no acute distress. Chest is clear to auscultation. Cardiovascular reveals a regular rate and rhythm. Abdomen is soft and nontender. Extremities are free of edema. Impression and plan Pancytopenia-chronic Type 2 diabetes mellitus-monitor on usual insulin, with A1c of 5.9, consider decreasing insulin to prevent hypoglycemia Coronary artery disease with history of stent 3-currently asymptomatic continue aspirin, fenofibrate, simvastatin Hypertension-continue atenolol , losartan, hydrochlorothiazide History of seizure Hypothyroidism?-TSH is normal-thyroid medication not on home meds list, will check to see if history of hypothyroidism is accurate - Physician Narrative Narrative: Date: 11/25/17 Time: 180 Hospital Course Summary Disclaimer: The visit summary below is not to be considered part of the above Progress Note. 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 Scales. Old charts reviewed, patient is chronically pancytopenic. Continue to periodically evaluate labs. Alternative Accu-Cheks, continue on home Lantus 45 units at 1700. Did review sliding scale insulin MAR from [place] facility as follows- <140= 0 units, 141-160= 2 units, 161- 200= 3 units, 201-250= 4 units, 251-300= 6 units, 301- 350= 8 units, 351- 400= 10 units, >400 Call hospitalist oncall Monitor blood pressure, continue on losartan, atenolol, hydrochlorothiazide [place] patient to participate in unit activities and provide a safe environment. The hospitalist services. Will follow patient medically manage existing comorbidities. At time of discharge, her medical care will return to her primary care provider in [place], Dr. Bal Wiseman
[2017-11-25] MEDS: INSULIN GLARGINE 100unit/ml INJECTION SQ SCH (18:34)
[2017-11-25] MEDS: PHENYTOIN 100 MG CAPSULE PO SCH (20:25)
[2017-11-25] MEDS: FENOFIBRATE 160 MG TABLET PO SCH (20:25)
[2017-11-25] MEDS: SIMVASTATIN 40 MG TABLET PO SCH (20:25)
[2017-11-25] MEDS: CALMOSEPTINE OINTMENT 113gm TUBE TP SCH (20:26)
[2017-11-25] MEDS: AQUAPHOR TOPICAL OINTMENT 52.5 G TUBE TP SCH (20:27)
[2017-11-26] MEDS: INSULIN REGULAR, HUMAN 100 UNIT/ML INJECTION SQ SCH ×3 (06:19→17:41)
[2017-11-26] MEDS: ATENOLOL 25 MG TABLET PO SCH (09:19)
[2017-11-26] MEDS: ASPIRIN 81 MG CHEWABLE TABLET PO SCH (09:19)
[2017-11-26] MEDS: LOSARTAN 50 MG TABLET PO SCH (09:19)
[2017-11-26] MEDS: AQUAPHOR TOPICAL OINTMENT 52.5 G TUBE TP SCH ×2 (09:20→21:01)
[2017-11-26] MEDS: ALLOPURINOL 300 MG TABLET PO SCH (09:20)
[2017-11-26] MEDS: PANTOPRAZOLE 20 MG TABLET PO SCH (09:20)
[2017-11-26] MEDS: SERTRALINE 50 MG TABLET PO SCH (09:20)
[2017-11-26] MEDS: OMEGA-3 ACID ESTERS 1 GM CAPSULE PO SCH (09:21)
[2017-11-26] MEDS: GLUCERNA PO SCH ×3 (09:21→22:19)
[2017-11-26] MEDS: CALCIUM 600 + VIT D 400 TABLET PO SCH (09:21)
[2017-11-26] MEDS: MAGNESIUM OXIDE 400 MG TABLET PO SCH (09:21)
--- NOTE | 2017-11-26 10:27 | Neuropsych Progress Note ---
[facility] Subjective Date: 11/26/17 - Sujective/Severity of Illness Medications: Acetaminophen (Tylenol) 650 mg PO Q5H PRN PRN Reason: Discomfort Allopurinol (Zyloprim) 300 mg PO QAM [facility] Last Admin: 11/26/17 09:20 Dose: 300 mg Aspirin (Asa) 81 mg PO DAILY [facility] Last Admin: 11/26/17 09:19 Dose: 81 mg Atenolol (Tenormin) 25 mg PO DAILY [facility] Last Admin: 11/26/17 09:19 Dose: 25 mg Bisacodyl (Dulcolax) 10 mg RECTALLY DAILY PRN PRN Reason: Constipation Bismuth Subsalicylate (Pepto-Bismol) 524 mg PO PRN PRN PRN Reason: Diarrhea: MAX 8 TABS/24HRS Calamine/Phenol (Risamine Oint) 1 applic TP BID [facility] Last Admin: 11/25/17 20:26 Dose: 1 applic Calamine/Phenol (Risamine Oint) 1 applic TP PRN PRN PRN Reason: PRN orders Calcium Carbonate (Tums) 500 mg PO Q6H PRN PRN Reason: PRN orders Calcium/Vitamin D (Caltrate + D) 2 tab PO DAILY [facility] Last Admin: 11/26/17 09:21 Dose: 2 tab Diclofenac Sodium (Voltaren) 1 applic TP Q6H PRN PRN Reason: Pain Emollient Ointment (Aquaphor) 1 applic TP BID [facility] Last Admin: 11/26/17 09:20 Dose: 1 applic Fenofibrate (Lofibra) 160 mg PO HS [facility] Last Admin: 11/25/17 20:25 Dose: 160 mg Glucose (Glutose 15) 37.5 gm PO PRN PRN PRN Reason: Hypoglycemia Haloperidol (Haldol) 0.5 mg PO Q6H PRN PRN Reason: Extreme agitation Haloperidol Lactate (Haldol) 0.5 mg IM Q6H PRN PRN Reason: Extreme agitation Hydrochlorothiazide (Hydrodiuril) 50 mg PO QAM [facility] Last Admin: 11/26/17 09:19 Dose: 50 mg Insulin Glargine (Lantus) 45 unit SQ 1700 [facility] Last Admin: 11/25/17 18:34 Dose: 45 unit Insulin Human Regular (Novolin R) 0 unit SQ AC [facility] Last Admin: 11/26/17 06:19 Dose: 3 unit Lorazepam (Ativan) 0.5 mg PO Q6H PRN PRN Reason: Extreme agitation Lorazepam (Ativan Inj) 0.5 mg IM Q6H PRN PRN Reason: Extreme agitation Losartan Potassium (Cozaar) 50 mg PO DAILY [facility] Last Admin: 11/26/17 09:19 Dose: 50 mg Magnesium Hydroxide (Mom) 30 ml PO DAILY PRN PRN Reason: Constipation Magnesium Oxide (Magox) 400 mg PO DAILY [facility] Last Admin: 11/26/17 09:21 Dose: 400 mg Non-Formulary Medication (Nut.Tx.Gluc.Intoler,Lac-Fr,Soy [Glucerna]) 237 ml PO TID [facility] Last Admin: 11/26/17 09:21 Dose: Not Given [place]-8-Aiao Ethyl Esters (Lovaza) 1 gm PO QAM [facility] Last Admin: 11/26/17 09:21 Dose: 1 gm Pantoprazole Sodium (Protonix) 20 mg PO DAILY [facility] Last Admin: 11/26/17 09:20 Dose: 20 mg Phenytoin Sodium (Dilantin 100 Mg Cap) 300 mg PO [facility] Last Admin: 11/25/17 20:25 Dose: 300 mg Potassium Chloride (K-Dur 20 Meq Tablet) [facility] Last Admin: 11/26/17 09:21 Dose: 20 meq Sertraline HCl (Zoloft) 150 mg PO QAM [facility] Last Admin: 11/26/17 09:20 Dose: 150 mg Simvastatin (Zocor) 40 mg PO [facility] Last Admin: 11/25/17 20:25 Dose: 40 mg Subjective: Patient seen and chart reviewed. Case discussed with treatment team. On interview, patient reports that she feels "yucky" with an upset stomach, which she complains of often. She was observed crying in her room and apparently lost a long-time friend yesterday. Patient denies any HI. She endorses morbid thoughts without plan and AH of "people moving around." Patient denies any adverse side effects related to psychotropic medications. Nursing staff report patient's affect brightened after her left yesterday and she was laughing/joking at times. Patient has been adherent with medications. Patient slept 7 hours overnight. VSS. Patient is eating well. Psychotropic PRNs required in the past 24 hours: none. Start Time: 08:00 Stop Time: 08:20 Mental Status Exam Vitals: Last Vital Signs Temp 97.0 F 11/26/17 08:00 Pulse 61 11/26/17 08:00 Resp 18 11/26/17 08:00 BP 125/55 11/26/17 08:00 Pulse Ox 97 11/26/17 08:00 Height: 1.83 m Weight: 89.7 kg - Mental Status Exam Muscle Strength/Tone: Normal Dressing: Casual Grooming: Fair Attitude: Cooperative Motor Activity: Retardation Eye Contact: Other (impaired vision) Speech: Normal Volume: Soft Rhythm: Appropriate Rhythm Orientation: Disoriented to time, Disoriented to place, Oriented to person Mood: Depressed Affect: Tearful Rate of Thoughts: Delayed Thought Organization: Organized Associations: Illogical (at times) Abstract Reasoning: Poor abstract reasoning Thought Content: Ruminations, Hopelessness, Helplessness, Worthlessness, Somatic Concerns Perception/Psychotic: Psychotic Current Hallucinations: Auditory Language: Naming Intact Fund of Knowledge: Other (decreased, SLUMS 9 but unable to complete visual tasks ) Memory: Poor-recent Suicidal Ideation: Other (Endorses morbid thoughts without plan) Homicidal Ideation: Denies (but has been aggressive with , NH staff) Insight: Limited Judgement: Limited Impulse Control: Poor - Laboratory Result Diagrams: 11/25/17 10:30 11/25/17 10:30 Laboratory Results - last 24 hr 11/25/17 11/25/17 11/25/17 10:30 10:30 10:30 WBC 3.1 L RBC 3.01 L Hgb 10.9 L Hct 31.4 L MCV 104.3 H MCH 36.2 H MCHC 34.7 RDW Std Deviation 51.0 H Plt Count 118 L MPV 9.0 L Immature Gran % (Auto) 0.3 Neut % (Auto) 60.4 Lymph % (Auto) 29.0 Long % (Auto) 8.1 Eos % (Auto) 1.9 Baso % (Auto) 0.3 Neut # (Auto) 1.9 Lymph # (Auto) 0.9 L Long # (Auto) 0.3 Eos # (Auto) 0.1 Baso # (Auto) 0.0 Abs Immat Gran (auto) 0.01 Turbidity < 20 Sodium 143 Potassium 4.1 Chloride 108 H Carbon Dioxide 27 Anion Gap 8 BUN 21.0 H Creatinine 0.8 GFR Calculation 69 BUN/Creatinine Ratio 26 Glucose 262 H Glucometer Calculated Osmolality 287 H Calcium 8.7 Total Bilirubin 0.50 Icterus Index < 2 AST 24 ALT 14 Alkaline Phosphatase 56 Total Protein 5.4 L Albumin 3.2 L Globulin 2.2 L Albumin/Globulin Ratio 1.5 Vitamin B12 269 Folate 7.9 TSH 3.66 Specimen Hemolysis < 15 Ur Collection Type Urine Color Urine Clarity Urine pH Ur Specific Burna Urine Protein Urine Glucose (UA) Urine Ketones Urine Occult Blood Urine Nitrate Urine Bilirubin Urine Urobilinogen Ur Leukocyte Esterase Urinalysis Comment Phenytoin 6.9 L 11/25/17 11/25/17 11/25/17 10:42 17:35 20:19 WBC RBC Hgb Hct MCV MCH MCHC RDW Std Deviation Plt Count MPV Immature Gran % (Auto) Neut % (Auto) Lymph % (Auto) Long % (Auto) Eos % (Auto) Baso % (Auto) Neut # (Auto) Lymph # (Auto) Long # (Auto) Eos # (Auto) Baso # (Auto) Abs Immat Gran (auto) Turbidity Sodium Potassium Chloride Carbon Dioxide Anion Gap BUN Creatinine GFR Calculation BUN/Creatinine Ratio Glucose Glucometer 218 274 Calculated Osmolality Calcium Total Bilirubin Icterus Index AST ALT Alkaline Phosphatase Total Protein Albumin Globulin Albumin/Globulin Ratio Vitamin B12 Folate TSH Specimen Hemolysis Ur Collection Type Urine, void-cc/notcc Urine Color Yellow Urine Clarity Clear Urine pH 6.0 Ur Specific Burna 1.020 Urine Protein Negative Urine Glucose (UA) 1+ A Urine Ketones Negative Urine Occult Blood Trace-intact Urine Nitrate Negative Urine Bilirubin Negative Urine Urobilinogen 0.2 Ur Leukocyte Esterase Negative Urinalysis Comment Microscopic not ind. Phenytoin 11/26/17 11/26/17 06:07 10:07 WBC RBC Hgb Hct MCV MCH MCHC RDW Std Deviation Plt Count MPV Immature Gran % (Auto) Neut % (Auto) Lymph % (Auto) Long % (Auto) Eos % (Auto) Baso % (Auto) Neut # (Auto) Lymph # (Auto) Long # (Auto) Eos # (Auto) Baso # (Auto) Abs Immat Gran (auto) Turbidity Sodium Potassium Chloride Carbon Dioxide Anion Gap BUN Creatinine GFR Calculation BUN/Creatinine Ratio Glucose Glucometer 185 157 Calculated Osmolality Calcium Total Bilirubin Icterus Index AST ALT Alkaline Phosphatase Total Protein Albumin Globulin Albumin/Globulin Ratio Vitamin B12 Folate TSH Specimen Hemolysis Ur Collection Type Urine Color Urine Clarity Urine pH Ur Specific Burna Urine Protein Urine Glucose (UA) Urine Ketones Urine Occult Blood Urine Nitrate Urine Bilirubin Urine Urobilinogen Ur Leukocyte Esterase Urinalysis Comment Phenytoin Assessment and Plan (1) Major depressive disorder, recurrent episode, severe Qualifiers: Psychotic features: with psychotic features Qualified Code(s): F33.3 - Major depressive disorder, recurrent, severe with psychotic symptoms Problem details: Additional medical problems: Diabetes mellitus-on chronic insulin therapy (A1c 5.9 on admission) Pancytopenia- Chronic Coronary artery disease, stent placement x 3 Hypertriglyceridemia Hypertension 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 Will likely cross-titrate Zoloft and mirtazapine as patient prefers to simplify medication regimen as much as possible. May also need low-dose antipsychotic due to AH. Hospital Course Summary Disclaimer: The visit summary below is not to be considered part of the above Progress Note. 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 Scales. Old charts reviewed, patient is chronically pancytopenic. Continue to periodically evaluate labs. Alternative Accu-Cheks, continue on home Lantus 45 units at 1700. Did review sliding scale insulin MAR from [place] facility as follows- <140= 0 units, 141-160= 2 units, 161- 200= 3 units, 201-250= 4 units, 251-300= 6 units, 301- 350= 8 units, 351- 400= 10 units, >400 Call hospitalist oncall Monitor blood pressure, continue on losartan, atenolol, hydrochlorothiazide Preeti patient to participate in unit activities and provide a safe environment. The hospitalist services. Will follow patient medically manage existing comorbidities. At time of discharge, her medical care [place]17 Psych: Will start mirtazapine 7.5mg PO q HS. Will likely cross-titrate Zoloft and mirtazapine as patient prefers to simplify medication regimen as much as possible. May also need low-dose antipsychotic due to AH.
[2017-11-26] MEDS: CALMOSEPTINE OINTMENT 113gm TUBE TP SCH ×2 (11:47→20:58)
[2017-11-26] MEDS: INSULIN GLARGINE 100unit/ml INJECTION SQ SCH (17:42)
[2017-11-26] MEDS: MIRTAZAPINE 15 MG TABLET PO SCH (20:53)
[2017-11-26] MEDS: FENOFIBRATE 160 MG TABLET PO SCH (20:54)
[2017-11-26] MEDS: PHENYTOIN 100 MG CAPSULE PO SCH (20:55)
[2017-11-26] MEDS: SIMVASTATIN 40 MG TABLET PO SCH (22:20)
[2017-11-27] MEDS: ALLOPURINOL 300 MG TABLET PO SCH (10:20)
[2017-11-27] MEDS: ASPIRIN 81 MG CHEWABLE TABLET PO SCH (10:21)
[2017-11-27] MEDS: CALCIUM 600 + VIT D 400 TABLET PO SCH (10:21)
[2017-11-27] MEDS: ATENOLOL 25 MG TABLET PO SCH (10:21)
[2017-11-27] MEDS: LOSARTAN 50 MG TABLET PO SCH (10:22)
[2017-11-27] MEDS: MAGNESIUM OXIDE 400 MG TABLET PO SCH (10:22)
[2017-11-27] MEDS: PANTOPRAZOLE 20 MG TABLET PO SCH (10:23)
[2017-11-27] MEDS: SERTRALINE 50 MG TABLET PO SCH (10:23)
--- NOTE | 2017-11-27 10:24 | Neuropsych Progress Note ---
[facility] Subjective Date: 11/28/17 - Sujective/Severity of Illness Medications: Acetaminophen (Tylenol) 650 mg PO Q5H PRN PRN Reason: Discomfort Allopurinol (Zyloprim) 300 mg PO QAM [facility] Last Admin: 11/26/17 09:20 Dose: 300 mg Aspirin (Asa) 81 mg PO DAILY [facility] Last Admin: 11/26/17 09:19 Dose: 81 mg Atenolol (Tenormin) 25 mg PO DAILY [facility] Last Admin: 11/26/17 09:19 Dose: 25 mg Bisacodyl (Dulcolax) 10 mg RECTALLY DAILY PRN PRN Reason: Constipation Bismuth Subsalicylate (Pepto-Bismol) 524 mg PO PRN PRN PRN Reason: Diarrhea: MAX 8 TABS/24HRS Calamine/Phenol (Risamine Oint) 1 applic TP BID [facility] Last Admin: 11/26/17 20:58 Dose: 1 applic Calamine/Phenol (Risamine Oint) 1 applic TP PRN PRN PRN Reason: PRN orders Calcium Carbonate (Tums) 500 mg PO Q6H PRN Calcium/Vitamin D (Caltrate + D) 2 tab PO DAILY [facility] Last Admin: 11/26/17 09:21 Dose: 2 tab Diclofenac Sodium (Voltaren) 1 applic TP Q6H PRN PRN Reason: Pain Emollient Ointment (Aquaphor) 1 applic TP BID [facility] Last Admin: 11/26/17 21:01 Dose: 1 applic Fenofibrate (Lofibra) 160 mg PO HS [facility] Last Admin: 11/26/17 20:54 Dose: 160 mg Glucose (Glutose 15) 37.5 gm PO PRN PRN PRN Reason: Hypoglycemia Haloperidol (Haldol) 0.5 mg PO Q6H PRN PRN Reason: Extreme agitation Haloperidol Lactate (Haldol) 0.5 mg IM Q6H PRN PRN Reason: Extreme agitation Hydrochlorothiazide (Hydrodiuril) 50 mg PO QAM [facility] Last Admin: 11/26/17 09:19 Dose: 50 mg Insulin Glargine (Lantus) 45 unit SQ 1700 [facility] Last Admin: 11/26/17 17:42 Dose: 45 unit Insulin Human Regular (Novolin R) 0 unit SQ AC [facility] Last Admin: 11/26/17 17:41 Dose: 4 unit Lorazepam (Ativan) 0.5 mg PO Q6H PRN PRN Reason: Extreme agitation Lorazepam (Ativan Inj) 0.5 mg IM Q6H PRN PRN Reason: Extreme agitation Losartan Potassium (Cozaar) 50 mg PO DAILY [facility] Last Admin: 11/26/17 09:19 Dose: 50 mg Magnesium Hydroxide (Mom) 30 ml PO DAILY PRN PRN Reason: Constipation Magnesium Oxide (Magox) 400 mg PO DAILY [facility] Last Admin: 11/26/17 09:21 Dose: 400 mg Mirtazapine (Remeron) 7.5 mg PO [facility] Last Admin: 11/26/17 20:53 Dose: 7.5 mg Glucerna 237 Ml 237 ml PO TID [facility] Last Admin: 11/26/17 22:19 Dose: Not Given Fputd-8-Zzpg Ethyl Esters (Lovaza) [facility] [place] [facility] Admin: 11/26/17 09:21 Dose: 1 gm Pantoprazole Sodium (Protonix) 20 mg PO DAILY [facility] Last Admin: 11/26/17 09:20 Dose: 20 mg Phenytoin Sodium (Dilantin 100 Mg Cap) 300 mg PO [facility] Last Admin: 11/26/17 20:55 Dose: 300 mg Potassium Chloride (K-Dur 20 Meq Tablet) 20 meq PO [facility] Last Admin: 11/26/17 09:21 Dose: 20 meq Sertraline HCl (Zoloft) 150 mg PO [facility] Last Admin: 11/26/17 09:20 Dose: 150 mg Simvastatin (Zocor) 40 mg PO [facility] Last Admin: 11/26/17 22:20 Dose: 40 mg Subjective: Patient seen and chart reviewed. Case discussed with treatment team. On interview, patient is lying in bed and reports her mood is better than admission and "ok." She denies any thoughts of self-harm, any AH, or any episodes of tearfulness. Patient denies any HI. Patient denies any adverse side effects related to psychotropic medications. She does complain of feeling tired and says "she's not getting any sleep" though nursing staff reported that she slept 8 hours overnight. Nursing staff report patient has not had any significant behavioral difficulties on the unit. She has been participating well in group. Patient has been adherent with medications. VSS. Patient is eating well. Psychotropic PRNs required in the past 24 hours: none. Start Time: 17:00 Stop Time: 17:20 Mental Status Exam Vitals: Last Vital Signs Temp 97.3 F 11/26/17 19:58 Pulse 69 11/26/17 19:58 Resp 18 11/26/17 19:58 BP 125/61 11/26/17 19:58 Pulse Ox 98 11/26/17 19:58 Height: 1.83 m Weight: 89.7 kg - Mental Status Exam Muscle Strength/Tone: Normal Dressing: Casual Grooming: Fair Attitude: Cooperative Motor Activity: Retardation Eye Contact: Other (impaired vision) Speech: Normal Volume: Soft Rhythm: Appropriate Rhythm Orientation: Disoriented to time, Disoriented to place, Oriented to person Mood: Neutral Affect: Sad Rate of Thoughts: Delayed Thought Organization: Organized Associations: Illogical (at times) Abstract Reasoning: Poor abstract reasoning Thought Content: Ruminations, Helplessness, Worthlessness, Somatic Concerns Perception/Psychotic: Hx psychosis, not current Language: Naming Intact Fund of Knowledge: Other (decreased, SLUMS 9 but unable to complete visual tasks ) Memory: Poor-recent Suicidal Ideation: Denies Homicidal Ideation: Denies (but has been aggressive with , NH staff) Insight: Limited Judgement: Limited Impulse Control: Fair - Laboratory Result Diagrams: 11/25/17 10:30 11/25/17 10:30 Laboratory Results - last 24 hr 11/26/17 11/26/17 11/27/17 13:53 20:24 06:03 Glucometer 248 207 135 Assessment and Plan (1) Major depressive disorder, recurrent episode, severe Qualifiers: Psychotic features: with psychotic features Qualified Code(s): F33.3 - Major depressive disorder, recurrent, severe with psychotic symptoms Problem details: Additional medical problems: Diabetes mellitus-on chronic insulin therapy (A1c 5.9 on admission) Pancytopenia- Chronic Coronary artery disease, stent placement x 3 Hypertriglyceridemia Hypertension 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 Patient typically responds well to environmental modifications. Hospital Course Summary Disclaimer: The visit summary below is not to be considered part of the above Progress Note. 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 Scales. Old charts reviewed, patient is chronically pancytopenic. Continue to periodically evaluate labs. Alternative Accu-Cheks, continue on home Lantus 45 units at 1700. Did review sliding scale insulin MAR from [place] facility as follows- <140= 0 units, 141-160= 2 units, 161- 200= 3 units, 201-250= 4 units, 251-300= 6 units, 301- 350= 8 units, 351- 400= 10 units, >400 Call hospitalist oncall Monitor blood pressure, continue on losartan, atenolol, hydrochlorothiazide Preeti patient to participate in unit activities and provide a safe environment. The hospitalist services. Will follow patient medically manage existing comorbidities. At time of discharge, her medical care will return to her primary care provider in [place], Dr. Bal Wiseman 11/26/17 Psych: Will start mirtazapine 7.5mg PO q HS. Will likely cross-titrate Zoloft and mirtazapine as patient prefers to simplify medication regimen as much as possible. May also need low-dose antipsychotic due to AH. 11/27/17 Psych: Continue current care after recent med changes. Patient typically responds well to environmental modifications.
[2017-11-27] MEDS: AQUAPHOR TOPICAL OINTMENT 52.5 G TUBE TP SCH ×2 (10:26→20:49)
[2017-11-27] MEDS: CALMOSEPTINE OINTMENT 113gm TUBE TP SCH ×2 (10:27→20:49)
[2017-11-27] MEDS: OMEGA-3 ACID ESTERS 1 GM CAPSULE PO SCH (10:29)
[2017-11-27] MEDS: INSULIN REGULAR, HUMAN 100 UNIT/ML INJECTION SQ SCH ×3 (12:05→17:19)
[2017-11-27] MEDS: GLUCERNA PO SCH ×3 (12:15→20:49)
[2017-11-27] MEDS: ACETAMINOPHEN 325 MG TABLET PO PRN ×2 (15:12→20:43)
[2017-11-27] MEDS: INSULIN GLARGINE 100unit/ml INJECTION SQ SCH (17:20)
[2017-11-27] MEDS: PHENYTOIN 100 MG CAPSULE PO SCH (20:42)
[2017-11-27] MEDS: FENOFIBRATE 160 MG TABLET PO SCH (20:47)
[2017-11-27] MEDS: MIRTAZAPINE 15 MG TABLET PO SCH (20:48)
[2017-11-27] MEDS: SIMVASTATIN 40 MG TABLET PO SCH (20:50)
[2017-11-28] MEDS: INSULIN REGULAR, HUMAN 100 UNIT/ML INJECTION SQ SCH ×3 (09:23→17:02)
[2017-11-28] MEDS: SERTRALINE 50 MG TABLET PO SCH (09:24)
[2017-11-28] MEDS: OMEGA-3 ACID ESTERS 1 GM CAPSULE PO SCH (09:24)
[2017-11-28] MEDS: ASPIRIN 81 MG CHEWABLE TABLET PO SCH (09:24)
[2017-11-28] MEDS: CALMOSEPTINE OINTMENT 113gm TUBE TP SCH ×2 (09:26→21:10)
[2017-11-28] MEDS: CALCIUM 600 + VIT D 400 TABLET PO SCH (09:26)
[2017-11-28] MEDS: MAGNESIUM OXIDE 400 MG TABLET PO SCH (09:26)
[2017-11-28] MEDS: AQUAPHOR TOPICAL OINTMENT 52.5 G TUBE TP SCH ×2 (09:26→21:10)
[2017-11-28] MEDS: GLUCERNA PO SCH ×3 (09:27→21:11)
[2017-11-28] MEDS: PANTOPRAZOLE 20 MG TABLET PO SCH (09:27)
[2017-11-28] MEDS: ALLOPURINOL 300 MG TABLET PO SCH (09:33)
[2017-11-28] MEDS: LOSARTAN 50 MG TABLET PO SCH (09:33)
[2017-11-28] MEDS: ATENOLOL 25 MG TABLET PO SCH (09:34)
--- NOTE | 2017-11-28 10:54 | Neuropsych Progress Note ---
[facility] Subjective Date: 11/28/17 - Sujective/Severity of Illness Medications: Acetaminophen (Tylenol) 650 mg PO Q5H PRN PRN Reason: Discomfort Last Admin: 11/27/17 20:43 Dose: 650 mg Allopurinol (Zyloprim) 300 mg PO QAM [facility] Last Admin: 11/28/17 09:33 Dose: 300 mg Aspirin (Asa) 81 mg PO DAILY [facility] Last Admin: 11/28/17 09:24 Dose: 81 mg Atenolol (Tenormin) 25 mg PO DAILY [facility] Last Admin: 11/28/17 09:34 Dose: 25 mg Bisacodyl (Dulcolax) 10 mg RECTALLY DAILY PRN PRN Reason: Constipation Bismuth Subsalicylate (Pepto-Bismol) 524 mg PO PRN PRN PRN Reason: Diarrhea: MAX 8 TABS/24HRS Calamine/Phenol (Risamine Oint) 1 applic TP BID [facility] Last Admin: 11/28/17 09:26 Dose: 1 applic Calamine/Phenol (Risamine Oint) 1 applic TP PRN PRN PRN Reason: PRN orders Calcium Carbonate (Tums) 500 mg PO Q6H PRN Calcium/Vitamin D (Caltrate + D) 2 tab PO DAILY [facility] Last Admin: 11/28/17 09:26 Dose: 2 tab Diclofenac Sodium (Voltaren) 1 applic TP Q6H PRN PRN Reason: Pain Emollient Ointment (Aquaphor) 1 applic TP BID [facility] Last Admin: 11/28/17 09:26 Dose: 1 applic Fenofibrate (Lofibra) 160 mg PO HS [facility] Last Admin: 11/27/17 20:47 Dose: 160 mg Glucose (Glutose 15) 37.5 gm PO PRN PRN PRN Reason: Hypoglycemia Haloperidol (Haldol) 0.5 mg PO Q6H PRN PRN Reason: Extreme agitation Haloperidol Lactate (Haldol) 0.5 mg IM Q6H PRN PRN Reason: Extreme agitation Hydrochlorothiazide (Hydrodiuril) 50 mg PO QAM [facility] Last Admin: 11/28/17 09:33 Dose: 50 mg Insulin Glargine (Lantus) 45 unit SQ 1700 [facility] Last Admin: 11/27/17 17:20 Dose: 45 unit Insulin Human Regular (Novolin R) 0 unit SQ AC [facility] Last Admin: 11/28/17 09:23 Dose: 2 unit Lorazepam (Ativan) 0.5 mg PO Q6H PRN PRN Reason: Extreme agitation Lorazepam (Ativan Inj) 0.5 mg IM Q6H PRN PRN Reason: Extreme agitation Losartan Potassium (Cozaar) 50 mg PO DAILY [facility] Last Admin: 11/28/17 09:33 Dose: 50 mg Magnesium Hydroxide (Mom) 30 ml PO DAILY PRN PRN Reason: Constipation Magnesium Oxide (Magox) 400 mg PO DAILY [facility] Last Admin: 11/28/17 09:26 Dose: 400 mg Mirtazapine (Remeron) 7.5 mg PO [facility] Last Admin: 11/27/17 20:48 Dose: 7.5 mg Glucerna 237 Ml 237 ml PO TID [facility] Last Admin: 11/28/17 09:27 Dose: 237 ml [id number]-[id number] Ethyl Esters (Lovaza) 1 gm PO QAM [facility] Last Admin: 11/28/17 09:24 Dose: 1 gm Pantoprazole Sodium (Protonix) 20 mg PO DAILY [facility] Last Admin: 11/28/17 09:27 Dose: 20 mg Phenytoin Sodium (Dilantin 100 Mg Cap) 300 mg PO [facility] Last Admin: 11/27/17 20:42 Dose: 300 mg Potassium Chloride (K-Dur 20 Meq [facility]) [facility] Admin: 11/28/17 09:25 Dose: 20 meq Sert[facility]ine [facility] ([facility]ft) [facility] Admin: 11/28/17 09:24 Dose: 150 mg Simvastatin (Zocor) 40 mg PO [facility] Last Admin: 11/27/17 20:50 Dose: 40 mg Subjective: Patient seen and chart reviewed. Case discussed with treatment team. Patient is sleeping at time of rounds. Nursing staff report patient has not had any significant behavioral difficulties on the unit. She has been participating well in group. Patient has been adherent with medications. Patient slept 9 hours overnight. VSS. Patient is eating well. Psychotropic PRNs required in the past 24 hours: none. Patient has discussed moving to separate living quarters from (in same facility) and agrees that this may be beneficial for her mood. Start Time: 07:40 Stop Time: 08:00 Mental Status Exam Vitals: Last Vital Signs Temp 96.9 F 11/28/17 08:00 Pulse 67 11/28/17 08:00 Resp 18 11/28/17 08:00 BP 125/59 11/28/17 08:00 Pulse Ox 98 11/28/17 08:00 Height: 1.83 m Weight: 89.7 kg - Mental Status Exam Muscle Strength/Tone: Normal Dressing: Casual Grooming: Fair Attitude: Cooperative Motor Activity: Retardation Eye Contact: Other (impaired vision) Speech: Normal Volume: Soft Rhythm: Appropriate Rhythm Orientation: Disoriented to time, Disoriented to place, Oriented to person Mood: Neutral Rate of Thoughts: Delayed Thought Organization: Organized Associations: Illogical (at times) Abstract Reasoning: Poor abstract reasoning Thought Content: Ruminations, Helplessness, Worthlessness, Somatic Concerns Perception/Psychotic: Hx psychosis, not current Current Hallucinations: Auditory Language: Naming Intact Fund of Knowledge: Other (decreased, SLUMS 9 but unable to complete visual tasks ) Memory: Poor-recent Suicidal Ideation: Denies Homicidal Ideation: Denies (but has been aggressive with , NH staff) Insight: Limited Judgement: Limited Impulse Control: Fair - Laboratory Result Diagrams: 11/25/17 10:30 11/25/17 10:30 Laboratory Results - last 24 hr 11/27/17 11/27/17 11/27/17 11:27 14:06 21:43 Glucometer 316 316 162 11/28/17 06:59 Glucometer 159 Assessment and Plan (1) Major depressive disorder, recurrent episode, severe Qualifiers: Psychotic features: with psychotic features Qualified Code(s): F33.3 - Major depressive disorder, recurrent, severe with psychotic symptoms Problem details: Additional medical problems: Diabetes mellitus-on chronic insulin therapy (A1c 5.9 on admission) Pancytopenia- Chronic Coronary artery disease, stent placement x 3 Hypertriglyceridemia Hypertension 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 Patient would like to minimize # of medications; may consider complete switch from Zoloft to mirtazapine if mood symptoms continue. Hospital Course Summary Disclaimer: The visit summary below is not to be considered part of the above Progress Note. 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 Scales. Old charts reviewed, patient is chronically pancytopenic. Continue to periodically evaluate labs. Alternative Accu-Cheks, continue on home Lantus 45 units at 1700. Did review sliding scale insulin MAR from [place] facility as follows- <140= 0 units, 141-160= 2 units, 161- 200= 3 units, 201-250= 4 units, 251-300= 6 units, 301- 350= 8 units, 351- 400= 10 units, >400 Call hospitalist oncall Monitor blood pressure, continue on losartan, atenolol, hydrochlorothiazide [place] patient to participate in unit activities and provide a safe environment. The hospitalist services. Will follow patient medically manage existing comorbidities. At time of discharge, her medical care will return to her primary care provider in [place], Dr. Bal Wiseman 11/26/17 Psych: Will start mirtazapine 7.5mg PO q HS. Will likely cross-titrate Zoloft and mirtazapine as patient prefers to simplify medication regimen as much as possible. May also need low-dose antipsychotic due to AH. 11/27/17 Psych: Continue current care after recent med changes. Patient typically responds well to environmental modifications. 11/28/17 Psych: Increase mirtazapine to 15mg PO q HS. Patient would like to minimize # of medications; may consider complete switch from Zoloft to mirtazapine if mood symptoms continue.
[2017-11-28] MEDS: INSULIN GLARGINE 100unit/ml INJECTION SQ SCH (17:01)
[2017-11-28] MEDS: MIRTAZAPINE 15 MG TABLET PO SCH (20:52)
[2017-11-28] MEDS: PHENYTOIN 100 MG CAPSULE PO SCH (20:53)
[2017-11-28] MEDS: FENOFIBRATE 160 MG TABLET PO SCH (20:53)
[2017-11-28] MEDS: SIMVASTATIN 40 MG TABLET PO SCH (20:54)
[2017-11-29] MEDS: INSULIN REGULAR, HUMAN 100 UNIT/ML INJECTION SQ SCH ×3 (06:17→17:21)
[2017-11-29] MEDS: MAGNESIUM OXIDE 400 MG TABLET PO SCH (10:24)
[2017-11-29] MEDS: CALCIUM 600 + VIT D 400 TABLET PO SCH (10:24)
[2017-11-29] MEDS: ASPIRIN 81 MG CHEWABLE TABLET PO SCH (10:24)
[2017-11-29] MEDS: ALLOPURINOL 300 MG TABLET PO SCH (10:25)
[2017-11-29] MEDS: PANTOPRAZOLE 20 MG TABLET PO SCH (10:25)
[2017-11-29] MEDS: OMEGA-3 ACID ESTERS 1 GM CAPSULE PO SCH (10:25)
[2017-11-29] MEDS: ATENOLOL 25 MG TABLET PO SCH (10:25)
[2017-11-29] MEDS: SERTRALINE 50 MG TABLET PO SCH (10:26)
[2017-11-29] MEDS: LOSARTAN 50 MG TABLET PO SCH (10:26)
[2017-11-29] MEDS: AQUAPHOR TOPICAL OINTMENT 52.5 G TUBE TP SCH ×2 (10:28→20:35)
[2017-11-29] MEDS: CALMOSEPTINE OINTMENT 113gm TUBE TP SCH ×2 (10:28→20:34)
[2017-11-29] MEDS: GLUCERNA PO SCH ×3 (10:37→20:36)
--- NOTE | 2017-11-29 11:24 | Neuropsych Progress Note ---
[facility] Subjective Date: 11/29/17 - Sujective/Severity of Illness Medications: Acetaminophen (Tylenol) 650 mg PO Q5H PRN PRN Reason: Discomfort Last Admin: 11/27/17 20:43 Dose: 650 mg Allopurinol (Zyloprim) 300 mg PO QAM [facility] Last Admin: 11/29/17 10:25 Dose: 300 mg Aspirin (Asa) 81 mg PO DAILY [facility] Last Admin: 11/29/17 10:24 Dose: 81 mg Atenolol (Tenormin) 25 mg PO DAILY [facility] Last Admin: 11/29/17 10:25 Dose: 25 mg Bisacodyl (Dulcolax) 10 mg RECTALLY DAILY PRN PRN Reason: Constipation Bismuth Subsalicylate (Pepto-Bismol) 524 mg PO PRN PRN PRN Reason: Diarrhea: MAX 8 TABS/24HRS Calamine/Phenol (Risamine Oint) 1 applic TP BID [facility] Last Admin: 11/29/17 10:28 Dose: 1 applic Calamine/Phenol (Risamine Oint) 1 applic TP PRN PRN PRN Reason: PRN orders Calcium Carbonate (Tums) 500 mg PO Q6H PRN Calcium/Vitamin D (Caltrate + D) 2 tab PO DAILY [facility] Last Admin: 11/29/17 10:24 Dose: 2 tab Diclofenac Sodium (Voltaren) 1 applic TP Q6H PRN PRN Reason: Pain Emollient Ointment (Aquaphor) 1 applic TP BID [facility] Last Admin: 11/29/17 10:28 Dose: 1 applic Fenofibrate (Lofibra) 160 mg PO HS [facility] Last Admin: 11/28/17 20:53 Dose: 160 mg Glucose (Glutose 15) 37.5 gm PO PRN PRN PRN Reason: Hypoglycemia Haloperidol (Haldol) 0.5 mg PO Q6H PRN PRN Reason: Extreme agitation Haloperidol Lactate (Haldol) 0.5 mg IM Q6H PRN PRN Reason: Extreme agitation Hydrochlorothiazide (Hydrodiuril) 50 mg PO QAM [facility] Last Admin: 11/29/17 10:25 Dose: 50 mg Insulin Glargine (Lantus) 45 unit SQ 1700 [facility] Last Admin: 11/28/17 17:01 Dose: 45 unit Insulin Human Regular (Novolin R) 0 unit SQ AC [facility] Last Admin: 11/29/17 06:17 Dose: 3 unit Lorazepam (Ativan) 0.5 mg PO Q6H PRN PRN Reason: Extreme agitation Lorazepam (Ativan Inj) 0.5 mg IM Q6H PRN PRN Reason: Extreme agitation Losartan Potassium (Cozaar) 50 mg PO DAILY [facility] Last Admin: 11/29/17 10:26 Dose: 50 mg Magnesium Hydroxide (Mom) 30 ml PO DAILY PRN PRN Reason: Constipation Magnesium Oxide (Magox) 400 mg PO DAILY [facility] Last Admin: 11/29/17 10:24 Dose: 400 mg Mirtazapine (Remeron) 15 mg PO HS [facility] Last Admin: 11/28/17 20:52 Dose: 15 mg Glucerna 237 Ml 237 ml PO TID [facility] Last Admin: 11/29/17 10:37 Dose: Not Given [id number] Ethyl Esters (Lovaza) 1 gm PO QAM [facility] Last Admin: 11/29/17 10:25 Dose: 1 gm Pantoprazole Sodium (Protonix) 20 mg PO DAILY [facility] Last Admin: 11/29/17 10:25 Dose: 20 mg Phenytoin Sodium (Dilantin 100 Mg Cap) 300 mg PO [facility] Last Admin: 11/28/17 20:53 Dose: 300 mg Potassium Chloride (K-Dur 20 Meq Tablet) [facility] [place] Last Admin: 11/29/17 10:25 Dose: 20 meq Sertraline HCl (Zoloft) [facility] [place] Last Admin: 11/29/17 10:26 Dose: 150 mg Simvastatin (Zocor) 40 mg PO [facility] Last Admin: 11/28/17 20:54 Dose: 40 mg Subjective: Patient seen and chart reviewed. Nursing reports pt is doing well. Sleeping well and has a good appetite. no behaviors noted. On face to face the pt is pleasant but confused. She states she is not sure why she is here. She reports her mood is stable. She denies any S/I. Tolerating meds Start Time: 10:30 Stop Time: 10:45 Mental Status Exam Vitals: Last Vital Signs Temp 97.1 F 11/28/17 19:32 Pulse 68 11/28/17 19:32 Resp 18 11/28/17 19:32 BP 140/67 H 11/28/17 19:32 Pulse Ox 93 11/28/17 19:32 Height: 1.83 m Weight: 89.7 kg - Mental Status Exam Muscle Strength/Tone: Normal Dressing: Casual Grooming: Fair Attitude: Cooperative Motor Activity: Retardation Eye Contact: Other (impaired vision) Speech: Normal Volume: Soft Rhythm: Appropriate Rhythm Orientation: Disoriented to time, Disoriented to place, Oriented to person Mood: Neutral Rate of Thoughts: Delayed Thought Organization: Organized Associations: Illogical (at times) Abstract Reasoning: Poor abstract reasoning Thought Content: Ruminations, Helplessness, Worthlessness, Somatic Concerns Perception/Psychotic: Hx psychosis, not current Current Hallucinations: Auditory Language: Naming Intact Fund of Knowledge: Other (decreased, SLUMS 9 but unable to complete visual tasks ) Memory: Poor-recent Suicidal Ideation: Denies Homicidal Ideation: Denies (but has been aggressive with , NH staff) Insight: Limited Judgement: Limited Impulse Control: Fair - Laboratory Result Diagrams: 11/25/17 10:30 11/25/17 10:30 Laboratory Results - last 24 hr 11/28/17 11/28/17 11/28/17 12:02 14:30 19:44 Glucometer 289 343 194 11/29/17 05:57 Glucometer 170 Assessment and Plan (1) Major depressive disorder, recurrent episode, severe Qualifiers: Psychotic features: with psychotic features Qualified Code(s): F33.3 - Major depressive disorder, recurrent, severe with psychotic symptoms Problem details: Additional medical problems: Diabetes mellitus-on chronic insulin therapy (A1c 5.9 on admission) Pancytopenia- Chronic Coronary artery disease, stent placement x 3 Hypertriglyceridemia Hypertension 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 Scales. Old charts reviewed, patient is chronically pancytopenic. Continue to periodically evaluate labs. Alternative Accu-Cheks, continue on home Lantus 45 units at 1700. Did review sliding scale insulin MAR from [place] as follows- <140= 0 units, 141-160= 2 units, 161- 200= 3 units, 201-250= 4 units, 251-300= 6 units, 301- 350= 8 units, 351- 400= 10 units, >400 Call hospitalist oncall Monitor blood pressure, continue on losartan, atenolol, hydrochlorothiazide [place] patient to participate in unit activities and provide a safe environment. The hospitalist services. Will follow patient medically manage existing comorbidities. At time of discharge, her medical care will return to her primary care provider in [place], Dr. Bal Wiseman 11/26/17 Psych: Will start mirtazapine 7.5mg PO q HS. Will likely cross-titrate Zoloft and mirtazapine as patient prefers to simplify medication regimen as much as possible. May also need low-dose antipsychotic due to AH. 11/27/17 Psych: Continue current care after recent med changes. Patient typically responds well to environmental modifications. 11/28/17 Psych: Increase mirtazapine to 15mg PO q HS. Patient would like to minimize # of medications; may consider complete switch from Zoloft to mirtazapine if mood symptoms continue. 11/29/17 psych note- Pt pleasant but confused. Continue current care
[2017-11-29] MEDS: INSULIN GLARGINE 100unit/ml INJECTION SQ SCH (17:21)
[2017-11-29] MEDS: FENOFIBRATE 160 MG TABLET PO SCH (20:35)
[2017-11-29] MEDS: MIRTAZAPINE 15 MG TABLET PO SCH (20:36)
[2017-11-29] MEDS: PHENYTOIN 100 MG CAPSULE PO SCH (20:36)
[2017-11-29] MEDS: SIMVASTATIN 40 MG TABLET PO SCH (20:37)
[2017-11-30] MEDS: INSULIN REGULAR, HUMAN 100 UNIT/ML INJECTION SQ SCH ×3 (06:30→16:29)
[2017-11-30] MEDS: ALLOPURINOL 300 MG TABLET PO SCH (09:51)
[2017-11-30] MEDS: ATENOLOL 25 MG TABLET PO SCH (09:52)
[2017-11-30] MEDS: AQUAPHOR TOPICAL OINTMENT 52.5 G TUBE TP SCH ×2 (09:52→20:25)
[2017-11-30] MEDS: ASPIRIN 81 MG CHEWABLE TABLET PO SCH (09:52)
[2017-11-30] MEDS: CALCIUM 600 + VIT D 400 TABLET PO SCH (09:52)
[2017-11-30] MEDS: MAGNESIUM OXIDE 400 MG TABLET PO SCH (09:53)
[2017-11-30] MEDS: CALMOSEPTINE OINTMENT 113gm TUBE TP SCH ×2 (09:53→20:24)
[2017-11-30] MEDS: LOSARTAN 50 MG TABLET PO SCH (09:53)
[2017-11-30] MEDS: GLUCERNA PO SCH ×3 (09:55→12:17)
[2017-11-30] MEDS: PANTOPRAZOLE 20 MG TABLET PO SCH (09:55)
[2017-11-30] MEDS: OMEGA-3 ACID ESTERS 1 GM CAPSULE PO SCH (09:55)
[2017-11-30] MEDS: SERTRALINE 50 MG TABLET PO SCH (09:56)
--- NOTE | 2017-11-30 10:49 | Neuropsych Progress Note ---
[facility] Subjective Date: 11/30/17 - Sujective/Severity of Illness Medications: Acetaminophen (Tylenol) 650 mg PO Q5H PRN PRN Reason: Discomfort Last Admin: 11/27/17 20:43 Dose: 650 mg Allopurinol (Zyloprim) 300 mg PO QAM [facility] Last Admin: 11/30/17 09:51 Dose: 300 mg Aspirin (Asa) 81 mg PO DAILY [facility] Last Admin: 11/30/17 09:52 Dose: 81 mg Atenolol (Tenormin) 25 mg PO DAILY [facility] Last Admin: 11/30/17 09:52 Dose: 25 mg Bisacodyl (Dulcolax) 10 mg RECTALLY DAILY PRN PRN Reason: Constipation Bismuth Subsalicylate (Pepto-Bismol) 524 mg PO PRN PRN PRN Reason: Diarrhea: MAX 8 TABS/24HRS Calamine/Phenol (Risamine Oint) 1 applic TP BID [facility] Last Admin: 11/30/17 09:53 Dose: 1 applic Calamine/Phenol (Risamine Oint) 1 applic TP PRN PRN PRN Reason: PRN orders Calcium Carbonate (Tums) 500 mg PO Q6H PRN Calcium/Vitamin D (Caltrate + D) 2 tab PO DAILY [facility] Last Admin: 11/30/17 09:52 Dose: 2 tab Diclofenac Sodium (Voltaren) 1 applic TP Q6H PRN PRN Reason: Pain Emollient Ointment (Aquaphor) 1 applic TP BID [facility] Last Admin: 11/30/17 09:52 Dose: Not Given Fenofibrate (Lofibra) 160 mg PO HS [facility] Last Admin: 11/29/17 20:35 Dose: 160 mg Glucose (Glutose 15) 37.5 gm PO PRN PRN PRN Reason: Hypoglycemia Haloperidol (Haldol) 0.5 mg PO Q6H PRN PRN Reason: Extreme agitation Haloperidol Lactate (Haldol) 0.5 mg IM Q6H PRN PRN Reason: Extreme agitation Hydrochlorothiazide (Hydrodiuril) 50 mg PO QAM [facility] Stop: 11/30/17 12:00 Last Admin: 11/30/17 09:53 Dose: 50 mg Hydrochlorothiazide (Hydrodiuril) 50 mg PO WB [facility] Insulin Glargine (Lantus) 45 unit SQ 1700 [facility] Last Admin: 11/29/17 17:21 Dose: 45 unit Insulin Human Regular (Novolin R) 0 unit SQ AC [facility] Last Admin: 11/30/17 06:30 Dose: 3 unit Lorazepam (Ativan) 0.5 mg PO Q6H PRN PRN Reason: Extreme agitation Lorazepam (Ativan Inj) 0.5 mg IM Q6H PRN PRN Reason: Extreme agitation Losartan Potassium (Cozaar) 50 mg PO DAILY [facility] Last Admin: 11/30/17 09:53 Dose: 50 mg Magnesium Hydroxide (Mom) 30 ml PO DAILY PRN PRN Reason: Constipation Magnesium Oxide (Magox) 400 mg PO DAILY [facility] Last Admin: 11/30/17 09:53 Dose: 400 mg Mirtazapine (Remeron) 15 mg PO [facility] Last Admin: 11/29/17 20:36 Dose: 15 mg Glucerna 237 Ml 237 ml PO TID [facility] Last Admin: 11/30/17 09:55 Dose: 237 ml [id number] Ethyl Esters (Lovaza) 1 gm PO QAM [facility] Last Admin: 11/30/17 09:55 Dose: 1 gm Pantoprazole Sodium (Protonix) 20 mg PO DAILY [facility] Last Admin: 11/30/17 09:55 Dose: 20 mg Phenytoin Sodium (Dilantin 100 Mg Cap) 300 mg PO [facility] Last Admin: 11/29/17 20:36 Dose: 300 mg Potassium Chloride (K-Dur 20 Meq Tablet) 20 meq PO QAM [facility] Stop: 11/30/17 12:00 Last Admin: 11/30/17 09:56 Dose: 20 meq Potassium Chloride (K-Dur 20 Meq Tablet) 20 meq PO WB [facility] Sertraline HCl (Zoloft) 150 mg PO QAM [facility] Last Admin: 11/30/17 09:56 Dose: 150 mg Simvastatin (Zocor) 40 mg PO [facility] Last Admin: 11/29/17 20:37 Dose: 40 mg Subjective: Patient seen and chart reviewed. Nursing reports pt is doing well. Sleeping well and has a good appetite. No behaviors noted. On face to face the pt states she is doing well. She is pleasant but confused. She reprots her mood is improved. She report s tolerating her meds. Denies S/I. Start Time: 10:15 Stop Time: 10:30 Mental Status Exam Vitals: Last Vital Signs Temp 97.6 F 11/30/17 10:01 Pulse 69 11/30/17 10:01 Resp 18 11/30/17 10:01 BP 111/55 11/30/17 10:01 Pulse Ox 100 11/30/17 10:01 Height: 1.83 m Weight: 89.7 kg - Mental Status Exam Muscle Strength/Tone: Normal Dressing: Casual Grooming: Fair Attitude: Cooperative Motor Activity: Retardation Eye Contact: Other (impaired vision) Speech: Normal Volume: Soft Rhythm: Appropriate Rhythm Orientation: Disoriented to time, Disoriented to place, Oriented to person Mood: Neutral Rate of Thoughts: Delayed Thought Organization: Organized Associations: Illogical (at times) Abstract Reasoning: Poor abstract reasoning Thought Content: Ruminations, Helplessness, Worthlessness, Somatic Concerns Perception/Psychotic: Hx psychosis, not current Current Hallucinations: Auditory Language: Naming Intact Fund of Knowledge: Other (decreased, SLUMS 9 but unable to complete visual tasks ) Memory: Poor-recent Suicidal Ideation: Denies Homicidal Ideation: Denies (but has been aggressive with , NH staff) Insight: Limited Judgement: Limited Impulse Control: Fair - Laboratory Result Diagrams: 11/25/17 10:30 11/25/17 10:30 Laboratory Results - last 24 hr 11/29/17 11/29/17 11/29/17 12:01 14:11 20:24 Glucometer 301 318 253 11/30/17 06:14 Glucometer 192 Assessment and Plan (1) Major depressive disorder, recurrent episode, severe Qualifiers: Psychotic features: with psychotic features Qualified Code(s): F33.3 - Major depressive disorder, recurrent, severe with psychotic symptoms Problem details: Additional medical problems: Diabetes mellitus-on chronic insulin therapy (A1c 5.9 on admission) Pancytopenia- Chronic Coronary artery disease, stent placement x 3 Hypertriglyceridemia Hypertension 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 Scales. Old charts reviewed, patient is chronically pancytopenic. Continue to periodically evaluate labs. Alternative Accu-Cheks, continue on home Lantus 45 units at 1700. Did review sliding scale insulin MAR from [place] as follows- <140= 0 units, 141-160= 2 units, 161- 200= 3 units, 201-250= 4 units, 251-300= 6 units, 301- 350= 8 units, 351- 400= 10 units, >400 Call hospitalist oncall Monitor blood pressure, continue on losartan, atenolol, hydrochlorothiazide [place] patient to participate in unit activities and provide a safe environment. The hospitalist services. Will follow patient medically manage existing comorbidities. At time of discharge, her medical care will return to her primary care provider in [place], Dr. Bal Wiseman 11/26/17 Psych: Will start mirtazapine 7.5mg PO q HS. Will likely cross-titrate Zoloft and mirtazapine as patient prefers to simplify medication regimen as much as possible. May also need low-dose antipsychotic due to AH. 11/27/17 Psych: Continue current care after recent med changes. Patient typically responds well to environmental modifications. 11/28/17 Psych: Increase mirtazapine to 15mg PO q HS. Patient would like to minimize # of medications; may consider complete switch from Zoloft to mirtazapine if mood symptoms continue. 11/29/17 psych note- Pt pleasant but confused. Continue current care 11/30/17 Psych note- Continue current care
--- NOTE | 2017-11-30 14:31 | Progress Note ---
- Date 11/30/17 Subjective: Micehlle was resting in the day room. She was watching television and dozing off. She was alert to self. She was pleasant and denied any concerns such as trouble breathing, chest pain, appetite changes, or abdominal symptoms. She has been eating well. Last BM was documented on 11/27. Objective Vital signs: Temperature 97.6 F 11/30/17 10:01 Pulse Rate 69 11/30/17 10:01 Respiratory Rate 18 11/30/17 10:01 Blood Pressure 111/55 11/30/17 10:01 Pulse Oximetry 100 11/30/17 10:01 Height/Weight/BMI: Height 1.83 m Weight 89.7 kg Body Mass Index 26.8 - Constitutional Present: no acute distress, well nourished, well developed - Routine HEENT Exam Head: Present: normocephalic Eye: Present: PERRL. Absent: conjunctival icterus, scleral injection - Routine Respiratory Exam Present: CTA bilaterally - Routine Cardiovascular Exam Present: RRR, S1, S2, murmur (soft NEFTALY - though with background noise difficult to grade) - Routine Abdominal Exam Present: soft, normoactive bowel sounds, non distended, non tender - Routine Extremities Exam Present: no edema - Routine Skin Exam Present: intact, dry, pallor, warm - Routine Neurological Exam Present: alert, normal speech. 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 Continue SSI per NH scale. Recheck labs for surveillance in am. Psych notes reviewed. Resuscitation Status: Do Not Resuscitate - Physician Narrative Physician: Violet Brooks Narrative: Date: 11/30/17 Time: 1427 I have independently interviewed and examined patient. Patient chart reviewed. Case discussed with my MOVIE CRITIC. Care plan developed with my supervision, agree with above. Patient resting in bedside chair at the time of interview. No reported chest pain, no palpitations, no shortness of breath. Patient appears. However capillary refill less than 3 seconds. Reports having good appetite. No flank pain, no chest pain, no dysuria, no subjective fever, no chills Physical exam: AAO x 3, NAD. Positive pallor PERRLA, EOMI Abdomen soft, nontender, positive bowel sounds No edema bilateral lower extremities. A/P We'll continue current management, labs reordered. Psychiatric Notes reviewed Hospital Course Summary Disclaimer: The visit summary below is not to be considered part of the above Progress Note. 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 Scales. Old charts reviewed, patient is chronically pancytopenic. Continue to periodically evaluate labs. Alternative Accu-Cheks, continue on home Lantus 45 units at 1700. Did review sliding scale insulin MAR from [place] facility as follows- <140= 0 units, 141-160= 2 units, 161- 200= 3 units, 201-250= 4 units, 251-300= 6 units, 301- 350= 8 units, 351- 400= 10 units, >400 Call hospitalist oncall Monitor blood pressure, continue on losartan, atenolol, hydrochlorothiazide Preeti patient to participate in unit activities and provide a safe environment. The hospitalist services. Will follow patient medically manage existing comorbidities. At time of discharge, her medical care will return to her primary care provider in [place], Dr. Bal Wiseman 11/26/17 Psych: Will start mirtazapine 7.5mg PO q HS. Will likely cross-titrate Zoloft and mirtazapine as patient prefers to simplify medication regimen as much as possible. May also need low-dose antipsychotic due to AH. 11/27/17 Psych: Continue current care after recent med changes. Patient typically responds well to environmental modifications. 11/28/17 Psych: Increase mirtazapine to 15mg PO q HS. Patient would like to minimize # of medications; may consider complete switch from Zoloft to mirtazapine if mood symptoms continue. 11/29/17 psych note- Pt pleasant but confused. Continue current care 11/30/17 Psych note- Continue current care
[2017-11-30] MEDS: INSULIN GLARGINE 100unit/ml INJECTION SQ SCH (17:51)
[2017-11-30] MEDS: NUT TX GLUC INTOLER LAC FR SOY PO SCH (17:52)
[2017-11-30] MEDS: PHENYTOIN 100 MG CAPSULE PO SCH (20:26)
[2017-11-30] MEDS: SIMVASTATIN 40 MG TABLET PO SCH (20:26)
[2017-11-30] MEDS: FENOFIBRATE 160 MG TABLET PO SCH (20:26)
[2017-11-30] MEDS: MIRTAZAPINE 15 MG TABLET PO SCH (20:26)
[2017-12-01] MEDS: INSULIN REGULAR, HUMAN 100 UNIT/ML INJECTION SQ SCH ×3 (09:19→17:23)
[2017-12-01] MEDS: SERTRALINE 50 MG TABLET PO SCH (09:20)
[2017-12-01] MEDS: LOSARTAN 50 MG TABLET PO SCH (09:20)
[2017-12-01] MEDS: AQUAPHOR TOPICAL OINTMENT 52.5 G TUBE TP SCH ×3 (09:21→21:10)
[2017-12-01] MEDS: ALLOPURINOL 300 MG TABLET PO SCH (09:21)
[2017-12-01] MEDS: CALMOSEPTINE OINTMENT 113gm TUBE TP SCH ×3 (09:21→21:10)
[2017-12-01] MEDS: CALCIUM 600 + VIT D 400 TABLET PO SCH (09:22)
[2017-12-01] MEDS: PANTOPRAZOLE 20 MG TABLET PO SCH (09:23)
[2017-12-01] MEDS: ATENOLOL 25 MG TABLET PO SCH (09:23)
[2017-12-01] MEDS: MAGNESIUM OXIDE 400 MG TABLET PO SCH (09:23)
[2017-12-01] MEDS: OMEGA-3 ACID ESTERS 1 GM CAPSULE PO SCH (09:23)
[2017-12-01] MEDS: ASPIRIN 81 MG CHEWABLE TABLET PO SCH (09:23)
[2017-12-01] MEDS: ACETAMINOPHEN 325 MG TABLET PO PRN (09:23)
[2017-12-01] MEDS: NUT TX GLUC INTOLER LAC FR SOY PO SCH ×2 (09:35→17:25)
--- NOTE | 2017-12-01 12:42 | Neuropsych Progress Note ---
[facility] Subjective Date: 12/01/17 - Sujective/Severity of Illness Medications: Acetaminophen (Tylenol) 650 mg PO Q5H PRN PRN Reason: Discomfort Last Admin: 12/01/17 09:23 Dose: 650 mg Allopurinol (Zyloprim) 300 mg PO QAM [facility] Last Admin: 12/01/17 09:21 Dose: 300 mg Aspirin (Asa) 81 mg PO DAILY [facility] Last Admin: 12/01/17 09:23 Dose: 81 mg Atenolol (Tenormin) 25 mg PO DAILY [facility] Last Admin: 12/01/17 09:23 Dose: 25 mg Bisacodyl (Dulcolax) 10 mg RECTALLY DAILY PRN PRN Reason: Constipation Bismuth Subsalicylate (Pepto-Bismol) 524 mg PO PRN PRN PRN Reason: Diarrhea: MAX 8 TABS/24HRS Calamine/Phenol (Risamine Oint) 1 applic TP BID [facility] Last Admin: 12/01/17 09:21 Dose: 1 applic Calamine/Phenol (Risamine Oint) 1 applic TP PRN PRN PRN Reason: PRN orders Calcium Carbonate (Tums) 500 mg PO Q6H PRN Calcium/Vitamin D (Caltrate + D) 2 tab PO DAILY [facility] Last Admin: 12/01/17 09:22 Dose: 2 tab Diclofenac Sodium (Voltaren) 1 applic TP Q6H PRN PRN Reason: Pain Emollient Ointment (Aquaphor) 1 applic TP BID [facility] Last Admin: 12/01/17 09:21 Dose: 1 applic Fenofibrate (Lofibra) 160 mg PO HS [facility] Last Admin: 11/30/17 20:26 Dose: 160 mg Glucose (Glutose 15) 37.5 gm PO PRN PRN PRN Reason: Hypoglycemia Haloperidol (Haldol) 0.5 mg PO Q6H PRN PRN Reason: Extreme agitation Haloperidol Lactate (Haldol) 0.5 mg IM Q6H PRN PRN Reason: Extreme agitation Hydrochlorothiazide (Hydrodiuril) 50 mg PO WB [facility] Last Admin: 12/01/17 09:22 Dose: 50 mg Insulin Glargine (Lantus) 45 unit SQ 1700 [facility] Last Admin: 11/30/17 17:51 Dose: 45 unit Insulin Human Regular (Novolin R) 0 unit SQ AC [facility] Last Admin: 12/01/17 12:26 Dose: 8 unit Lorazepam (Ativan) 0.5 mg PO Q6H PRN PRN Reason: Extreme agitation Lorazepam (Ativan Inj) 0.5 mg IM Q6H PRN PRN Reason: Extreme agitation Losartan Potassium (Cozaar) 50 mg PO DAILY [facility] Last Admin: 12/01/17 09:20 Dose: 50 mg Magnesium Hydroxide (Mom) 30 ml PO DAILY PRN PRN Reason: Constipation Magnesium Oxide (Magox) 400 mg PO DAILY [facility] Last Admin: 12/01/17 09:23 Dose: 400 mg Mirtazapine (Remeron) 15 mg PO HS [facility] Last Admin: 11/30/17 20:26 Dose: 15 mg (Nut.Tx.Gluc.Intoler ,Lac-Fr,Soy [ Glucerna] 237 Ml) 237 ml PO TIDWM [facility] Last Admin: 12/01/17 09:35 Dose: 237 ml [id number] Ethyl Esters (Lovaza) 1 gm PO QAM [facility] Last Admin: 12/01/17 09:23 Dose: 1 gm Pantoprazole Sodium (Protonix) 20 mg PO DAILY [facility] Last Admin: 12/01/17 09:23 Dose: 20 mg Phenytoin Sodium (Dilantin 100 Mg Cap) 300 mg PO HS [facility] Last Admin: 11/30/17 20:26 Dose: 300 mg Potassium Chloride (K-Dur 20 Meq Tablet) 20 meq PO WB [facility] Last Admin: 12/01/17 09:22 Dose: 20 meq Sertraline HCl (Zoloft) 150 mg PO QAM [facility] Last Admin: 12/01/17 09:20 Dose: 150 mg Simvastatin (Zocor) 40 mg PO [facility] Last Admin: 11/30/17 20:26 Dose: 40 mg Trolamine Salicylate (Aspercreme) 1 applic TOP PRN PRN Subjective: Patient seen and chart reviewed. Nursing reports pt is doing well. Sleeping well and has a good appetite. No behaviors noted. On face to face the pt states she is doing well. She is pleasant and cooperative. She reports her mood is stable. Denies any S/I. Tolerating meds Start Time: 11:30 Stop Time: 11:45 Mental Status Exam Vitals: Last Vital Signs Temp 97.4 F 12/01/17 08:00 Pulse 76 12/01/17 08:00 Resp 16 12/01/17 08:00 BP 105/63 12/01/17 08:00 Pulse Ox 97 12/01/17 08:00 Height: 1.83 m Weight: 89.7 kg - Mental Status Exam Muscle Strength/Tone: Normal Dressing: Casual Grooming: Fair Attitude: Cooperative Motor Activity: Retardation Eye Contact: Other (impaired vision) Speech: Normal Volume: Soft Rhythm: Appropriate Rhythm Orientation: Disoriented to time, Disoriented to place, Oriented to person Mood: Neutral Rate of Thoughts: Delayed Thought Organization: Organized Associations: Illogical (at times) Abstract Reasoning: Poor abstract reasoning Thought Content: Ruminations, Helplessness, Worthlessness, Somatic Concerns Perception/Psychotic: Hx psychosis, not current Current Hallucinations: Auditory Language: Naming Intact Fund of Knowledge: Other (decreased, SLUMS 9 but unable to complete visual tasks ) Memory: Poor-recent Suicidal Ideation: Denies Homicidal Ideation: Denies (but has been aggressive with , NH staff) Insight: Limited Judgement: Limited Impulse Control: Fair - Laboratory Result Diagrams: 12/01/17 07:02 12/01/17 07:02 Laboratory Results - last 24 hr 11/30/17 11/30/17 11/30/17 11:21 14:14 20:04 WBC RBC Hgb Hct MCV MCH MCHC RDW Std Deviation Plt Count MPV Immature Gran % (Auto) Neut % (Auto) Lymph % (Auto) [place] % (Auto) Eos % (Auto) Baso % (Auto) Neut # (Auto) Lymph # (Auto) [place] # (Auto) Eos # (Auto) Baso # (Auto) Abs Immat Gran (auto) Turbidity Sodium Potassium Chloride Carbon Dioxide Anion Gap BUN Creatinine GFR Calculation BUN/Creatinine Ratio Glucose Glucometer 291 263 248 Calculated Osmolality Calcium Icterus Index Specimen Hemolysis 12/01/17 12/01/17 12/01/17 06:07 07:02 07:02 WBC 3.4 L RBC 3.02 L Hgb 10.7 L Hct 31.6 L MCV 104.6 H MCH 35.4 H MCHC 33.9 RDW Std Deviation 52.0 H Plt Count 130 MPV 9.7 Immature Gran % (Auto) 0.3 Neut % (Auto) 56.4 Lymph % (Auto) 33.4 [place] % (Auto) 7.0 Eos % (Auto) 2.6 Baso % (Auto) 0.3 Neut # (Auto) 1.9 Lymph # (Auto) 1.1 [place] # (Auto) 0.2 Eos # (Auto) 0.1 Baso # (Auto) 0.0 Abs Immat Gran (auto) 0.01 Turbidity < 20 Sodium 142 Potassium 4.0 Chloride 107 Carbon Dioxide 29 Anion Gap 6 BUN 25.0 H Creatinine 0.7 GFR Calculation 80 BUN/Creatinine Ratio 36 H Glucose 134 H Glucometer 159 Calculated Osmolality 279 Calcium 9.1 Icterus Index < 2 Specimen Hemolysis < 15 12/01/17 10:48 WBC RBC Hgb Hct MCV MCH MCHC RDW Std Deviation Plt Count MPV Immature Gran % (Auto) Neut % (Auto) Lymph % (Auto) [place] % (Auto) Eos % (Auto) Baso % (Auto) Neut # (Auto) Lymph # (Auto) [place] # (Auto) Eos # (Auto) Baso # (Auto) Abs Immat Gran (auto) Turbidity Sodium Potassium Chloride Carbon Dioxide Anion Gap BUN Creatinine GFR Calculation BUN/Creatinine Ratio Glucose Glucometer 323 Calculated Osmolality Calcium Icterus Index Specimen Hemolysis Assessment and Plan (1) Major depressive disorder, recurrent episode, severe Qualifiers: Psychotic features: with psychotic features Qualified Code(s): F33.3 - Major depressive disorder, recurrent, severe with psychotic symptoms Problem details: Additional medical problems: Diabetes mellitus-on chronic insulin therapy (A1c 5.9 on admission) Pancytopenia- Chronic Coronary artery disease, stent placement x 3 Hypertriglyceridemia Hypertension 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 Scales. Old charts reviewed, patient is chronically pancytopenic. Continue to periodically evaluate labs. Alternative Accu-Cheks, continue on home Lantus 45 units at 1700. Did review sliding scale insulin MAR from [place] facility as follows- <140= 0 units, 141-160= 2 units, 161- 200= 3 units, 201-250= 4 units, 251-300= 6 units, 301- 350= 8 units, 351- 400= 10 units, >400 Call hospitalist oncall Monitor blood pressure, continue on losartan, atenolol, hydrochlorothiazide Preeti patient to participate in unit activities and provide a safe environment. The hospitalist services. Will follow patient medically manage existing comorbidities. At time of discharge, her medical care will return to her primary care provider in [place], Dr. Bal Wiseman 11/26/17 Psych: Will start mirtazapine 7.5mg PO q HS. Will likely cross-titrate Zoloft and mirtazapine as patient prefers to simplify medication regimen as much as possible. May also need low-dose antipsychotic due to AH. 11/27/17 Psych: Continue current care after recent med changes. Patient typically responds well to environmental modifications. 11/28/17 Psych: Increase mirtazapine to 15mg PO q HS. Patient would like to minimize # of medications; may consider complete switch from Zoloft to mirtazapine if mood symptoms continue. 11/29/17 psych note- Pt pleasant but confused. Continue current care 11/30/17 Psych note- Continue current care 12/01/17 Psych note- Continue current care. SW working on higher level of care independent of
[2017-12-01] MEDS: INSULIN GLARGINE 100unit/ml INJECTION SQ SCH (17:23)
[2017-12-01] MEDS: PHENYTOIN 100 MG CAPSULE PO SCH ×2 (20:11→21:11)
[2017-12-01] MEDS: MIRTAZAPINE 15 MG TABLET PO SCH ×2 (20:11→21:11)
[2017-12-01] MEDS: FENOFIBRATE 160 MG TABLET PO SCH ×2 (20:11→21:11)
[2017-12-01] MEDS: SIMVASTATIN 40 MG TABLET PO SCH ×2 (20:11→21:11)
[2017-12-02] MEDS: NUT TX GLUC INTOLER LAC FR SOY PO SCH ×4 (08:59→17:47)
[2017-12-02] MEDS: SERTRALINE 50 MG TABLET PO SCH (09:00)
[2017-12-02] MEDS: ACETAMINOPHEN 325 MG TABLET PO PRN (09:00)
[2017-12-02] MEDS: CALCIUM 600 + VIT D 400 TABLET PO SCH (09:01)
[2017-12-02] MEDS: CALMOSEPTINE OINTMENT 113gm TUBE TP SCH (09:02)
[2017-12-02] MEDS: LOSARTAN 50 MG TABLET PO SCH (09:02)
[2017-12-02] MEDS: ATENOLOL 25 MG TABLET PO SCH (09:02)
[2017-12-02] MEDS: ALLOPURINOL 300 MG TABLET PO SCH (09:02)
[2017-12-02] MEDS: MAGNESIUM OXIDE 400 MG TABLET PO SCH (09:02)
[2017-12-02] MEDS: ASPIRIN 81 MG CHEWABLE TABLET PO SCH (09:03)
[2017-12-02] MEDS: OMEGA-3 ACID ESTERS 1 GM CAPSULE PO SCH (09:03)
[2017-12-02] MEDS: AQUAPHOR TOPICAL OINTMENT 52.5 G TUBE TP SCH (09:03)
[2017-12-02] MEDS: PANTOPRAZOLE 20 MG TABLET PO SCH (09:03)
[2017-12-02] MEDS: INSULIN REGULAR, HUMAN 100 UNIT/ML INJECTION SQ SCH ×3 (09:18→17:44)
--- NOTE | 2017-12-02 14:59 | Progress Note ---
- Date 12/02/17 Subjective: Michelle is seen today in follow up. She is awake, withdrawn. Agrees to exam. I asked to listen to her heart, and she replies "It's still beating". I told her "that is a good thing"- she stares ahead and does not comment. Denies pain, no concerns with bowel changes. Withdrawn- seems to have significant difficulty in vision. Objective Vital signs: Temperature 97.2 F 12/02/17 08:00 Pulse Rate 75 12/02/17 08:00 Respiratory Rate 20 12/02/17 08:00 Blood Pressure 128/73 12/02/17 08:00 Pulse Oximetry 98 12/02/17 08:00 Height/Weight/BMI: Height 1.83 m Weight 89.9 kg Body Mass Index 26.8 Comments: Gen: AAO. Flat affect, depressed, withdrawn. ENT: Oral mucosa moist. NEck: Supple CV: S1S2. RRR. No edema. Lungs: CTAB. No crackles or wheezes. Abd: Soft, NT, nD. Active x 4 quad. Ext: no E/C/C Psych: See above. Remains depressed. Results - Labs CBC & Chem 7: 12/01/17 07:02 12/01/17 07:02 Assessment and Plan (1) Dementia with behavioral disturbance Current visit: Yes Status: Acute Assessment and Plan: Impression Acute Behaviors Diabetes mellitus-on chronic insulin therapy (A1c 5.9 on admission) Pancytopenia- Chronic Coronary artery disease, stent placement x 3 Hypertriglyceridemia Hypertension 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 Hypothyroidism-possible hx History of DVT Macular degeneration Chronic venous stasis GERD Gout Plan 12/02/2017 Chart reviewed. Post prandial BG remains fairly elevated. Add 10 units of Lantus with AM meal, continue PM lantus with same dosing. BP is stable. Continue safe, supportive environment. CBC is stable with chronic microcytic anemia. B12/Folate are ok. DVT Prophylaxis: other (Ambulatory) Resuscitation Status: Do Not Resuscitate - Physician Narrative Narrative: Date: 12/02/17 Time: 1455 Hospital Course Summary Disclaimer: The visit summary below is not to be considered part of the above Progress Note. 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 Scales. Old charts reviewed, patient is chronically pancytopenic. Continue to periodically evaluate labs. Alternative Accu-Cheks, continue on home Lantus 45 units at 1700. Did review sliding scale insulin MAR from [facility] facility as follows- <140= 0 units, 141-160= 2 units, 161- 200= 3 units, 201-250= 4 units, 251-300= 6 units, 301- 350= 8 units, 351- 400= 10 units, >400 Call hospitalist oncall Monitor blood pressure, continue on losartan, atenolol, hydrochlorothiazide Preeti patient to participate in unit activities and provide a safe environment. The hospitalist services. Will follow patient medically manage existing comorbidities. At time of discharge, her medical care will return to her primary care provider in [place], Dr. Bal Wiseman 11/26/17 Psych: Will start mirtazapine 7.5mg PO q HS. Will likely cross-titrate Zoloft and mirtazapine as patient prefers to simplify medication regimen as much as possible. May also need low-dose antipsychotic due to AH. 11/27/17 Psych: Continue current care after recent med changes. Patient typically responds well to environmental modifications. 11/28/17 Psych: Increase mirtazapine to 15mg PO q HS. Patient would like to minimize # of medications; may consider complete switch from Zoloft to mirtazapine if mood symptoms continue. 11/29/17 psych note- Pt pleasant but confused. Continue current care 11/30/17 Psych note- Continue current care 12/01/17 Psych note- Continue current care. SW working on higher level of care independent of 12/02/2017 Chart reviewed. Post prandial BG remains fairly elevated. Add 10 units of Lantus with AM meal, continue PM lantus with same dosing. BP is stable. Continue safe, supportive environment. CBC is stable with chronic microcytic anemia. B12/Folate are ok.
--- NOTE | 2017-12-02 17:15 | Neuropsych Progress Note ---
[facility] Subjective Date: 12/02/17 - Sujective/Severity of Illness Medications: Acetaminophen (Tylenol) 650 mg PO Q5H PRN PRN Reason: Discomfort Last Admin: 12/02/17 09:00 Dose: 650 mg Allopurinol (Zyloprim) 300 mg PO QAM [facility] Last Admin: 12/02/17 09:02 Dose: 300 mg Aspirin (Asa) 81 mg PO DAILY [facility] Last Admin: 12/02/17 09:03 Dose: 81 mg Atenolol (Tenormin) 25 mg PO DAILY [facility] Last Admin: 12/02/17 09:02 Dose: 25 mg Bisacodyl (Dulcolax) 10 mg RECTALLY DAILY PRN PRN Reason: Constipation Bismuth Subsalicylate (Pepto-Bismol) 524 mg PO PRN PRN PRN Reason: Diarrhea: MAX 8 TABS/24HRS Calamine/Phenol (Risamine Oint) 1 applic TP BID [facility] Last Admin: 12/02/17 09:02 Dose: 1 applic Calamine/Phenol (Risamine Oint) 1 applic TP PRN PRN PRN Reason: PRN orders Calcium Carbonate (Tums) 500 mg PO Q6H PRN Calcium/Vitamin D (Caltrate + D) 2 tab PO DAILY [facility] Last Admin: 12/02/17 09:01 Dose: 2 tab Diclofenac Sodium (Voltaren) 1 applic TP Q6H PRN PRN Reason: Pain Emollient Ointment (Aquaphor) 1 applic TP BID [facility] Last Admin: 12/02/17 09:03 Dose: 1 applic Fenofibrate (Lofibra) 160 mg PO HS [facility] Last Admin: 12/01/17 21:11 Dose: Not Given Glucose (Glutose 15) 37.5 gm PO PRN PRN PRN Reason: Hypoglycemia Haloperidol (Haldol) 0.5 mg PO Q6H PRN PRN Reason: Extreme agitation Haloperidol Lactate (Haldol) 0.5 mg IM Q6H PRN PRN Reason: Extreme agitation Hydrochlorothiazide (Hydrodiuril) 50 mg PO [facility] Last Admin: 12/02/17 09:02 Dose: 50 mg Insulin Glargine (Lantus) 45 unit SQ 1700 [facility] Last Admin: 12/01/17 17:23 Dose: 45 unit Insulin Glargine (Lantus) 10 unit SQ DAILY [facility] Insulin Human Regular (Novolin R) 0 unit SQ AC [facility] Last Admin: 12/02/17 13:05 Dose: 8 unit Lorazepam (Ativan) 0.5 mg PO Q6H PRN PRN Reason: Extreme agitation Lorazepam (Ativan Inj) 0.5 mg IM Q6H PRN PRN Reason: Extreme agitation Losartan Potassium (Cozaar) 50 mg PO DAILY [facility] Last Admin: 12/02/17 09:02 Dose: 50 mg Magnesium Hydroxide (Mom) 30 ml PO DAILY PRN PRN Reason: Constipation Magnesium Oxide (Magox) 400 mg PO DAILY [facility] Last Admin: 12/02/17 09:02 Dose: 400 mg Mirtazapine (Remeron) 15 mg PO HS [facility] Last Admin: 12/01/17 21:11 Dose: Not Given (Nut.Tx.Gluc.Intoler ,Lac-Fr,Soy [ Glucerna] 237 Ml) 237 ml PO TIDWM [facility] Last Admin: 12/02/17 13:06 Dose: Not Given Digrn-8-Gucw Ethyl Esters (Lovaza) 1 gm PO QAM [facility] Last Admin: 12/02/17 09:03 Dose: 1 gm Pantoprazole Sodium (Protonix) 20 mg PO DAILY [facility] Last Admin: 12/02/17 09:03 Dose: 20 mg Phenytoin Sodium (Dilantin 100 Mg Cap) 300 mg PO [facility] Last Admin: 12/01/17 21:11 Dose: Not Given Potassium Chloride (K-Dur 20 Meq Tablet) 20 meq PO WB [facility] Last Admin: 12/02/17 09:03 Dose: 20 meq Sertraline HCl (Zoloft) 150 mg PO QAM [facility] Last Admin: 12/02/17 09:00 Dose: 150 mg Simvastatin (Zocor) 40 mg PO [facility] Last Admin: 12/01/17 21:11 Dose: Not Given Trolamine Salicylate (Aspercreme) 1 applic TOP PRN PRN Last Admin: 12/02/17 09:01 Dose: 1 applic Subjective: Patient seen and chart reviewed. Nursing reports pt is doing well. Sleeping well and has a good appetite. On face to face the pt states she is doing well. She reports her mood is stable. She denies any S/I or psychosis. Feels safe for D/C Start Time: 16:30 Stop Time: 16:45 Mental Status Exam Vitals: Last Vital Signs Temp 97.4 F 12/02/17 16:00 Pulse 57 L 12/02/17 16:00 Resp 20 12/02/17 16:00 BP 123/62 12/02/17 16:00 Pulse Ox 95 12/02/17 16:00 Height: 1.83 m Weight: 89.9 kg - Mental Status Exam Muscle Strength/Tone: Normal Dressing: Casual Grooming: Fair Attitude: Cooperative Motor Activity: Retardation Eye Contact: Other (impaired vision) Speech: Normal Volume: Soft Rhythm: Appropriate Rhythm Orientation: Disoriented to time, Disoriented to place, Oriented to person Mood: Neutral Rate of Thoughts: Delayed Thought Organization: Organized Associations: Illogical (at times) Abstract Reasoning: Poor abstract reasoning Thought Content: Ruminations, Helplessness, Worthlessness, Somatic Concerns Perception/Psychotic: Hx psychosis, not current Current Hallucinations: Auditory Language: Naming Intact Fund of Knowledge: Other (decreased, SLUMS 9 but unable to complete visual tasks ) Memory: Poor-recent Suicidal Ideation: Denies Homicidal Ideation: Denies (but has been aggressive with , [facility] staff) Insight: Limited Judgement: Limited Impulse Control: Fair - Laboratory Result Diagrams: 12/01/17 07:02 12/01/17 07:02 Laboratory Results - last 24 hr 12/02/17 12/02/17 09:06 11:15 Glucometer 143 318 Assessment and Plan (1) Major depressive disorder, recurrent episode, severe Qualifiers: Psychotic features: with psychotic features Qualified Code(s): F33.3 - Major depressive disorder, recurrent, severe with psychotic symptoms Problem details: Additional medical problems: Diabetes mellitus-on chronic insulin therapy (A1c 5.9 on admission) Pancytopenia- Chronic Coronary artery disease, stent placement x 3 Hypertriglyceridemia Hypertension 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 Scales. Old charts reviewed, patient is chronically pancytopenic. Continue to periodically evaluate labs. Alternative Accu-Cheks, continue on home Lantus 45 units at 1700. Did review sliding scale insulin MAR from [place] facility as follows- <140= 0 units, 141-160= 2 units, 161- 200= 3 units, 201-250= 4 units, 251-300= 6 units, 301- 350= 8 units, 351- 400= 10 units, >400 Call hospitalist oncall Monitor blood pressure, continue on losartan, atenolol, hydrochlorothiazide [place] patient to participate in unit activities and provide a safe environment. The hospitalist services. Will follow patient medically manage existing comorbidities. At time of discharge, her medical care will return to her primary care provider in [place], Dr. Bal Wiseman 11/26/17 Psych: Will start mirtazapine 7.5mg PO q HS. Will likely cross-titrate Zoloft and mirtazapine as patient prefers to simplify medication regimen as much as possible. May also need low-dose antipsychotic due to AH. 11/27/17 Psych: Continue current care after recent med changes. Patient typically responds well to environmental modifications. 11/28/17 Psych: Increase mirtazapine to 15mg PO q HS. Patient would like to minimize # of medications; may consider complete switch from Zoloft to mirtazapine if mood symptoms continue. 11/29/17 psych note- Pt pleasant but confused. Continue current care 11/30/17 Psych note- Continue current care 12/01/17 Psych note- Continue current care. SW working on higher level of care independent of 12/02/2017 Chart reviewed. Post prandial BG remains fairly elevated. Add 10 units of Lantus with AM meal, continue PM lantus with same dosing. BP is stable. Continue safe, supportive environment. CBC is stable with chronic microcytic anemia. B12/Folate are ok. 12/03/17 Psych note- D/C tomorrow
[2017-12-02] MEDS: INSULIN GLARGINE 100unit/ml INJECTION SQ SCH (17:44)
[2017-12-02] MEDS: SIMVASTATIN 40 MG TABLET PO SCH (20:20)
[2017-12-02] MEDS: FENOFIBRATE 160 MG TABLET PO SCH (20:20)
[2017-12-02] MEDS: MIRTAZAPINE 15 MG TABLET PO SCH (20:20)
[2017-12-02] MEDS: PHENYTOIN 100 MG CAPSULE PO SCH (20:20)
[2017-12-03] MEDS: AQUAPHOR TOPICAL OINTMENT 52.5 G TUBE TP SCH ×2 (01:06→09:32)
[2017-12-03] MEDS: CALMOSEPTINE OINTMENT 113gm TUBE TP SCH ×2 (01:06→09:32)
[2017-12-03] MEDS: ACETAMINOPHEN 325 MG TABLET PO PRN (07:53)
[2017-12-03] MEDS ORDERED: INSULIN GLARGINE 100unit/ml INJECTION SQ SCH (09:00)
[2017-12-03] MEDS: LOSARTAN 50 MG TABLET PO SCH (09:28)
[2017-12-03] MEDS: ALLOPURINOL 300 MG TABLET PO SCH (09:28)
[2017-12-03] MEDS: PANTOPRAZOLE 20 MG TABLET PO SCH (09:28)
[2017-12-03] MEDS: ATENOLOL 25 MG TABLET PO SCH (09:29)
[2017-12-03] MEDS: OMEGA-3 ACID ESTERS 1 GM CAPSULE PO SCH (09:29)
[2017-12-03] MEDS: CALCIUM 600 + VIT D 400 TABLET PO SCH (09:29)
[2017-12-03] MEDS: MAGNESIUM OXIDE 400 MG TABLET PO SCH (09:31)
[2017-12-03] MEDS: ASPIRIN 81 MG CHEWABLE TABLET PO SCH (09:31)
[2017-12-03] MEDS: INSULIN REGULAR, HUMAN 100 UNIT/ML INJECTION SQ SCH (09:49)
[2017-12-03] MEDS: NUT TX GLUC INTOLER LAC FR SOY PO SCH (09:51)
[2017-12-03 10:17] VITALS: BP 110/58; PULSE 74; RESP 18; TEMP 97.6; O2SAT 100
[2017-12-03] MEDS: SERTRALINE 50 MG TABLET PO SCH (12:05)
--- NOTE | 2017-12-21 10:08 | Neuropsychiatric Disch Summary ---
Discharge Information Date of admission: 11/25/17 11:29 Attending Physician: Charline Scales MD Primary care physician: Tito Wiseman MD Consults: 11/25/17 12:20 Case Management Consult [CONS] Routine Reason For Exam: Medical comorbidities Physician Consult [CONS] Routine Consulting Provider: Eleuterio Morrison Reason For Exam: Medical comorbidities Ordering Provider has Notified Government Affairs Director: No Comment: Nursing please notify - Discharge Diagnosis (1) Major depressive disorder, recurrent episode, severe Status: Acute (2) Major neurocognitive disorder Status: Acute - Laboratory Labs: 12/01/17 07:02 12/01/17 07:02 Date of Admission: 11/25/17 11:29 History of Present Illness: Patient is an 82-year-old , female who was admitted to [facility] on 11/24/17 for increasing depression, irritability/agitation and physical aggression towards [facility] staff since moving to [place] in July 2017. On interview, patient is cooperative and reports that she primarily feels tired. She feels it was a dirty trick that she was admitted here without her knowledge. Patient was previously hospitalized on our unit and feels comfortable here but is upset it was done without her knowledge. Patient is now living with who reportedly has dementia and cancer. Family reports concerns that they argue frequently and she also endorses this. She is not sure if it is best that they live together or simply are able to visit each other. She also endorses sadness over the recent loss of a friend. Patient states her family thinks she needs help and counseling. She reports sleeping well but has decreased appetite with 10-11 lb. weight loss. She reports poor energy level but part of this is because she has poor vision and feels that there are not many activities she is able to do anymore. Patient denies any recent falls or hitting her head but says that has happened in the past. Patient endorses morbid thoughts at times but denies any current intent/plan. She says she hasn't attempted "because she can't think of a plan." She denies any HI. Patient begins giggling when I ask about AVH and endorses "hearing people moving around" that aren't really there. She makes an odd statement at one point that "nobody talks to Michelle." When previously hospitalized, patient improved with minimal med changes and primarily environmental modifications. Per son/DPOA Terrell: Patient is currently living at [facility] with her . Pt has been living there since July 17, 2017. Terrell expresses his concern about pt returning to [place] as well as pt's 's return to [place] as Terrell reports that he believes pt also has dementia. Terrell reports that pt has had increased mood lability and is showing more memory loss. Terrell reports that pt will often ask where her mother is - pt's mother has been gone for a long time. Terrell reports that pt has been verbally and physically aggressive and becomes irritable easily. Terrell does report that pt fell about 2-3 weeks ago and pt was taken to the emergency room. Terrell reports that x-rays were done and a CT of pt's neck was taken and all imaging was clear of injury. Terrell reports that pt was hateful to staff upon discharge from emergency room and reports that pt was calling staff names and cursing at them. Terrell reports that pt does "bicker" with frequently. Terrell voices that pt's is "very controlling" and appears to be contributing to some of patient's irritability. Terrell wonders if not having pt and share a room would benefit patient. Terrell reports that pt was seeing Dr. Wiseman but that Dr. Wiseman was unwilling to be pt's PCP anymore because they would "not follow doctor's instruction." Terrell reports that pt is now seeing Dr. Mohr at [facility] in [place]. This switch happened about 3 weeks ago per report of Terrell. Terrell reports that pt is not suicidal but will occasionally make statements about wanting to . Terrell reports no attempts or voicing of a plan from patient. Past psych hx: Terrell reports that pt is not receiving any services from a mental health provider but does see a social science teacher with [facility] that sees her regularly. Pt was recently hospitalized at [facility] on 07/06/2017 - for depression. Hospital Course This is a general summary of the patient's hospital course. For more details refer to the complete medical record. 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 Scales. Old charts reviewed, patient is chronically pancytopenic. Continue to periodically evaluate labs. Alternative Accu-Cheks, continue on home Lantus 45 units at 1700. Did review sliding scale insulin MAR from [place] facility as follows- <140= 0 units, 141-160= 2 units, 161- 200= 3 units, 201-250= 4 units, 251-300= 6 units, 301- 350= 8 units, 351- 400= 10 units, >400 Call hospitalist oncall Monitor blood pressure, continue on losartan, atenolol, hydrochlorothiazide [place] patient to participate in unit activities and provide a safe environment. The hospitalist services. Will follow patient medically manage existing comorbidities. At time of discharge, her medical care will return to her primary care provider in [place], Dr. Bal Wiseman 11/26/17 Psych: Will start mirtazapine 7.5mg PO q HS. Will likely cross-titrate Zoloft and mirtazapine as patient prefers to simplify medication regimen as much as possible. May also need low-dose antipsychotic due to AH. 11/27/17 Psych: Continue current care after recent med changes. Patient typically responds well to environmental modifications. 11/28/17 Psych: Increase mirtazapine to 15mg PO q HS. Patient would like to minimize # of medications; may consider complete switch from Zoloft to mirtazapine if mood symptoms continue. 11/29/17 psych note- Pt pleasant but confused. Continue current care 11/30/17 Psych note- Continue current care 12/01/17 Psych note- Continue current care. SW working on higher level of care independent of 12/02/2017 Chart reviewed. Post prandial BG remains fairly elevated. Add 10 units of Lantus with AM meal, continue PM lantus with same dosing. BP is stable. Continue safe, supportive environment. CBC is stable with chronic microcytic anemia. B12/Folate are ok. 12/03/17 Psych note- D/C tomorrow Discharge Plan - Med Rec/Dispo [facility] [Other] ([facility] does not schedule Intake appointment's. They do them as walk-in appt.s. Patient will need to be taken to [facility]'s on one of the following days: Walk-In Appt schedule is as follows: Fri.-Fri. 8-3:30 pm, . 11-3:30 pm, or Fri. 8-2:30 pm. Bring your Insurance Cards and ID to the intake appt., after the intake paperwork is completed, they will schedule you with a Psychiatrist for Med Management. ) RICHARD MOHR APRN [Nurse Practitioner] - (Richard Mohr APRN will see patient on rounds at the facility for Hosp. follow-up. .) Additional Instructions: Discharge Diagnosis: Major depressive disorder, recurrent episode, severe Major neurocognitive disorder Reasons for Admission: Refusing meds, Physical aggression, and Verbal aggression with . IN CASE OF PSYCHIATRIC EMERGENCY, CONTACT GENER[facility] STAFF AT [phone] ( available 24 hrs daily) Prescriptions: New Sertraline [Zoloft] 150 mg PO QAM 30 Days #45 tab Aquaphor 1 applicatio TP BID tube Insulin Glargine,Hum.rec.anlog [Lantus] 10 unit SQ DAILY vial Continue [place]-3/Dha/Epa/Fish Oil [Fish Oil 1,000 mg Softgel] 1,000 mg PO QAM Calcium Carbonate/Vitamin D3 [Calcium 600-Vit D3 200 Tablet] 2 tab PO DAILY Aspirin 81 mg PO DAILY Bismuth Subsalicylate [Kaopectate] 30 ml PO PRN PRN PRN Reason: Diarrhea Glucose Oral Gel 40% [Glutose 15] 37.5 gm PO PRN PRN #15 tube PRN Reason: Hypoglycemia Fenofibrate [Lofibra] 160 mg PO HS #30 tab Magnesium Oxide [Magox] 400 mg PO DAILY #30 tab Simvastatin [Zocor] 40 mg PO HS #30 tab CALCIUM CARBONATE Chewable [Tums] 500 mg PO Q6H PRN PRN Reason: Prn Orders Pantoprazole Sodium 20 mg PO DAILY Nystatin Powder [Mycostatin] 1 applicatio TP BID PRN PRN Reason: Prn Orders Magnesium Hydroxide [Milk of Magnesia] 30 ml PO DAILY PRN PRN Reason: Constipation Losartan [Cozaar] 50 mg PO DAILY Insulin Regular, Human [NovoLIN R] 0 - 10 unit SQ AC Insulin Glargine,Hum.rec.anlog [Lantus] 45 unit SQ 1700 Diclofenac Sodium 1 applicatio TP Q6H PRN PRN Reason: Pain Calmoseptine [Risamine Oint] 1 applicatio TP BID Nut.tx.gluc.intoler,Lac-Fr,Soy [Glucerna] 237 ml PO TID Vits A and D/White Pet/Lanolin [A and D Ointment] 1 applicatio TP BID HydroCHLOROthiazide [HydroDIURIL] 50 mg PO QAM Phenytoin Cap [Dilantin 100 mg Cap] 300 mg PO HS Allopurinol [Zyloprim] 300 mg PO QAM Calmoseptine [Risamine Oint] 1 applicatio TP PRN PRN PRN Reason: Prn Orders Bisacodyl Supp [Dulcolax] 10 mg RECTALLY DAILY PRN PRN Reason: Constipation Acetaminophen [Tylenol] 325 - 650 mg PO Q5H PRN tab PRN Reason: Discomfort Atenolol [Tenormin] 25 mg PO DAILY Potassium Chloride [Klor-Con M20] 20 meq PO QAM Discontinued Sertraline [Zoloft] 150 mg PO QAM - Disposition 04 To [facility] Home/Facility - Dismissal Complete Discharge Instructions are:: Complete
== END 2017-12-03 13:05 | DRG 885 ==
LOC: ED 10:01 → EDHOLD 11:29 → GEN 12:03
PROVIDERS: ADMIT Psychiatry & Neurology Psychiatry; ATTEND Psychiatry & Neurology Psychiatry